=== PATIENT | female | born 1945 | race Caucasian/White ===

== ENCOUNTER 2017-03-22 06:19 | Inpatient (IN) | payer MEDICARE, BC ==
[2017-03-22] MEDS ORDERED: Ondansetron 4 MG/2 ML SDV IVPUSH ONE (06:50)
--- NOTE | 2017-03-22 06:57 | EDM.PDOC ---
<Yuriy Barone - Last Filed: 03/22/17 12:23> ED HPI GENERAL MEDICAL PROBLEM - General Chief Complaint: Gastrointestinal Problem Stated Complaint: STOMACH ISSUES DEHYDRATED Time Seen by Provider: 03/22/17 06:42 - Related Data Allergies Allergy/AdvReac Type Severity Reaction Status Date / Time No Known Allergies Allergy Verified 03/22/17 14:26 Home Meds: Home Meds Zolpidem [Ambien] 5 mg PO BEDTIME PRN 09/03/13 [History] predniSONE [Prednisone] 7.5 mg PO BEDTIME 03/18/14 [History] Gabapentin [Neurontin] 1,200 mg PO 22 09/14/15 [History] Gabapentin [Neurontin] 900 mg PO 1619 09/14/15 [History] Folic Acid 1 mg PO DAILY 03/22/17 [History] Methotrexate 12.5 mg PO WE 03/22/17 [History] Omeprazole 20 mg PO DAILY PRN 03/22/17 [History] oxyCODONE HCl/Acetaminophen [Endocet 10-325 mg Tablet] 1 tab PO Q6H PRN [History] Course - Vital Signs Last Recorded V/S: Last Vital Signs Temp 98.8 F 03/22/17 13:30 Pulse 89 03/22/17 17:54 Resp 18 03/22/17 13:30 BP 111/43 L 03/22/17 13:30 Pulse Ox 94 L 03/22/17 17:54 - Orders/Labs/Meds Orders: Active Orders 24 hr Category Date Time Status Patient Status [ADT] Routine ADT 03/22/17 13:45 Active Insert Stein Catheter [Insert Urinary Catheter] [OM.PC] Care 03/22/17 10:25 Ordered Stat Abdomen Pelvis wo Cont [CT] Stat Exams 03/22/17 08:09 Taken CULTURE BLOOD [BC] Stat Lab 03/22/17 11:50 Received CULTURE BLOOD [BC] Stat Lab 03/22/17 12:15 Received CULTURE STOOL + SHIGATOX [RM] Stat Lab 03/22/17 10:50 Received CULTURE URINE [RM] Stat Lab 03/22/17 10:30 Received HEPATITIS PANEL, ACUTE [REF] Stat Lab 03/22/17 06:58 Received NS + KCl 20mEq/L [Normal Saline with 20 mEq KCl] 1,000 Med 03/22/17 08:15 Active ml IV ASDIRECTED Blood Culture x2 Reflex Set [OM.PC] Stat Oth 03/22/17 11:23 Ordered Medication Orders Acetaminophen (Tylenol) 650 mg PO Q4H PRN PRN Reason: Pain Last Admin: 03/22/17 17:46 Dose: 650 mg Enoxaparin Sodium (Lovenox) 30 mg SUBCUT DAILY [facility] Folic Acid (Folic Acid) 1 mg PO DAILY [facility] Gabapentin (Neurontin) 1,200 mg PO BEDTIME@2200 [facility] Gabapentin (Neurontin) 900 mg PO BID@1600,1900 [facility] Hydromorphone HCl (Dilaudid) 0.5 mg IVPUSH Q4H PRN PRN Reason: Pain Potassium Chloride/Sodium Chloride (Normal Saline With 20 Meq Kcl) 1,000 mls @ 150 mls/hr IV ASDIRECTED [facility] Last Admin: 03/22/17 17:44 Dose: 150 mls/hr Infusion: 03/22/17 16:09 Dose: 150 mls/hr Admin: 03/22/17 09:28 Dose: 150 mls/hr Levofloxacin/Dextrose 750 mg/ (Premix) 150 mls @ 100 mls/hr IV Q48H [facility] Metronidazole 500 mg/ Premix 100 mls @ 100 mls/hr IV Q8H [facility] Methotrexate (Methotrexate) 12.5 mg PO Th@0900 [facility] Methylprednisolone Sodium Succinate (Solu-Medrol) 80 mg IVPUSH Q8H [facility] Last Admin: 03/22/17 15:57 Dose: 80 mg Ondansetron HCl (Zofran) 4 mg IVPUSH Q8H PRN PRN Reason: Nausea/Vomiting Oseltamivir Phosphate (Tamiflu) 30 mg PO BID [facility] Stop: 03/27/17 21:01 Pantoprazole Sodium (Protonix Iv) 40 mg IVPUSH Q12H [facility] Zolpidem Tartrate (Ambien) 5 mg PO BEDTIME PRN PRN Reason: Insomnia Labs: Laboratory Tests 03/22/17 03/22/17 03/22/17 Range/Units 06:58 06:58 10:30 WBC 15.66 H (3.98-10.04) K/mm3 RBC 4.84 (3.98-5.22) M/mm3 Hgb 14.5 (11.2-15.7) gm/L Hct 45.3 H (34.1-44.9) % MCV 93.6 (79.4-94.8) fl MCH 30.0 (25.6-32.2) pg MCHC 32.0 L (32.2-35.5) g/dl RDW Std Deviation 50.5 H (36.4-46.3) fL Plt Count 193 (182-369) K/mm3 MPV 10.8 (9.4-12.3) fl Neut % (Auto) 70.4 (34.0-71.1) % Lymph % (Auto) 19.0 L (19.3-51.7) % [place] % (Auto) 9.7 (4.7-12.5) % Eos % (Auto) 0.3 L (0.7-5.8) Baso % (Auto) 0.2 (0.1-1.2) % Neut # (Auto) 11.01 H (1.56-6.13) K/mm3 Lymph # (Auto) 2.98 (1.18-3.74) K/mm3 [place] # (Auto) 1.52 H (0.24-0.36) K/mm3 Eos # (Auto) 0.05 (0.04-0.36) K/mm3 Baso # (Auto) 0.03 (0.01-0.08) K/mm3 Manual Slide Review Normal smear Sodium 141 (136-145) mEq/L Potassium 3.0 L (3.5-5.1) mEq/L Chloride 104 (98-107) mEq/L Carbon Dioxide 23 (21-32) mEq/L Anion Gap 17.0 H (5-15) BUN 24 H (7-18) mg/dL Creatinine 1.6 H (0.55-1.02) mg/dL Est Cr Clr Drug Dosing 27.85 mL/min Estimated GFR (MDRD) 32 (>60) mL/min BUN/Creatinine Ratio 15.0 (14-18) Glucose 146 H (83-115) mg/dL Lactic Acid (0.4-2.0) mmol/L Calcium 8.4 L (8.5-10.1) mg/dL Magnesium 1.9 (1.8-2.4) mg/dl Total Bilirubin 0.8 (0.2-1.0) mg/dL AST 74 H (15-37) U/L ALT 31 (14-59) U/L Alkaline Phosphatase 74 (46-116) U/L Total Protein 6.9 (6.4-8.2) g/dl Albumin 3.1 L (3.4-5.0) g/dl Globulin 3.8 gm/dL Albumin/Globulin Ratio 0.8 L (1-2) Lipase 48 L (73-393) U/L Urine Color Yellow (Yellow) Urine Appearance Slt cloudy H (Clear) Urine pH 6.0 (5.0-8.0) Ur Specific [place] 1.020 (1.005-1.030) Urine Protein 2+ H (Negative) Urine Glucose (UA) Negative (Negative) Urine Ketones 1+ H (Negative) Urine Occult Blood 3+ H (Negative) Urine Nitrite Negative (Negative) Urine Bilirubin 1+ H (Negative) Urine Urobilinogen 0.2 (0.2-1.0) Ur Leukocyte Esterase 1+ H (Negative) Urine RBC 10-20 H (0-5) /hpf Urine WBC 5-10 H (0-5) /hpf Ur Epithelial Cells 0-5 (0-5) /hpf Urine Bacteria Moderate H (FEW) /hpf Urine Mucus Few (FEW) /hpf C.difficile 027-NAP1-B1 C. difficile Tox (PCR) 03/22/17 03/22/17 Range/Units 10:50 11:50 WBC (3.98-10.04) K/mm3 RBC (3.98-5.22) M/mm3 Hgb (11.2-15.7) gm/L Hct (34.1-44.9) % MCV (79.4-94.8) fl MCH (25.6-32.2) pg MCHC (32.2-35.5) g/dl RDW Std Deviation (36.4-46.3) fL Plt Count (182-369) K/mm3 MPV (9.4-12.3) fl Neut % (Auto) (34.0-71.1) % Lymph % (Auto) (19.3-51.7) % [place] % (Auto) (4.7-12.5) % Eos % (Auto) (0.7-5.8) Baso % (Auto) (0.1-1.2) % Neut # (Auto) (1.56-6.13) K/mm3 Lymph # (Auto) (1.18-3.74) K/mm3 [place] # (Auto) (0.24-0.36) K/mm3 Eos # (Auto) (0.04-0.36) K/mm3 Baso # (Auto) (0.01-0.08) K/mm3 Manual Slide Review Sodium (136-145) mEq/L Potassium (3.5-5.1) mEq/L Chloride (98-107) mEq/L Carbon Dioxide (21-32) mEq/L Anion Gap (5-15) BUN (7-18) mg/dL Creatinine (0.55-1.02) mg/dL Est Cr Clr Drug Dosing mL/min Estimated GFR (MDRD) (>60) mL/min BUN/Creatinine Ratio (14-18) Glucose (83-115) mg/dL Lactic Acid 1.1 (0.4-2.0) mmol/L Calcium (8.5-10.1) mg/dL Magnesium (1.8-2.4) mg/dl Total Bilirubin (0.2-1.0) mg/dL AST (15-37) U/L ALT (14-59) U/L Alkaline Phosphatase (46-116) U/L Total Protein (6.4-8.2) g/dl Albumin (3.4-5.0) g/dl Globulin gm/dL Albumin/Globulin Ratio (1-2) Lipase (73-393) U/L Urine Color (Yellow) Urine Appearance (Clear) Urine pH (5.0-8.0) Ur Specific [place] (1.005-1.030) Urine Protein (Negative) Urine Glucose (UA) (Negative) Urine Ketones (Negative) Urine Occult Blood (Negative) Urine Nitrite (Negative) Urine Bilirubin (Negative) Urine Urobilinogen (0.2-1.0) Ur Leukocyte Esterase (Negative) Urine RBC (0-5) /hpf Urine WBC (0-5) /hpf Ur Epithelial Cells (0-5) /hpf Urine Bacteria (FEW) /hpf Urine Mucus (FEW) /hpf C.difficile [id number]-NAP1-B1 Presumptive negative C. difficile Tox (PCR) Negative Meds: Medications Generic Name Dose Route Start Last Admin Trade Name Freq PRN Reason Stop Dose Admin Acetaminophen 650 mg 03/22/17 17:05 03/22/17 17:46 Tylenol PO 650 mg Q4H PRN Administration Pain Enoxaparin Sodium 30 mg 03/23/17 09:00 Lovenox SUBCUT DAILY [facility] Folic Acid 1 mg 03/23/17 09:00 Folic Acid PO DAILY [facility] Gabapentin 1,200 mg 03/22/17 22:00 Neurontin PO BEDTIME@2200 [facility] Gabapentin 900 mg 03/22/17 19:00 Neurontin PO BID@1600,1900 [facility] Hydromorphone HCl 0.5 mg 03/22/17 16:30 Dilaudid IVPUSH Q4H PRN Pain Potassium Chloride/Sodium Chloride 1,000 mls @ 150 mls/hr 03/22/17 08:15 06/07 17:44 Normal Saline With 20 Meq Kcl IV 150 mls/hr ASDIRECTED [facility] Administration Levofloxacin/Dextrose 750 mg/ 150 mls @ 100 mls/hr 03/24/17 13:00 Premix IV Q48H [facility] Metronidazole 500 mg/ Premix 100 mls @ 100 mls/hr 03/22/17 19:30 IV Q8H [facility] Methotrexate 12.5 mg 03/27/17 09:00 Methotrexate PO Th@0900 [facility] Methylprednisolone Sodium Succinate 80 mg 03/22/17 15:30 03/22/17 15:57 Solu-Medrol IVPUSH 80 mg Q8H [facility] Administration Ondansetron HCl 4 mg 03/22/17 16:31 Zofran IVPUSH Q8H PRN Nausea/Vomiting Oseltamivir Phosphate 30 mg 03/23/17 09:00 Tamiflu PO 03/27/17 21:01 BID [facility] Pantoprazole Sodium 40 mg 03/22/17 21:00 Protonix Iv IVPUSH Q12H [facility] Zolpidem Tartrate 5 mg 03/22/17 14:58 Ambien PO BEDTIME PRN Insomnia Discontinued Medications Generic Name Dose Route Start Last Admin Trade Name Asafq PRN Reason Stop Dose Admin Acetaminophen 975 mg 03/22/17 08:22 03/22/17 08:26 Tylenol PO 03/22/17 08:23 975 mg NOW ONE Administration Diatrizoate Meglum/Diatrizoate Sod 90 ml 03/22/17 09:50 03/22/17 10:00 Gastrografin 37% PO 03/22/17 09:51 90 ml ONETIME ONE Administration Hydromorphone HCl 1 mg 03/22/17 07:35 03/22/17 07:42 Dilaudid IVPUSH 03/22/17 07:36 1 mg ONETIME ONE Administration Sodium Chloride 1,000 mls @ 500 mls/hr 03/22/17 07:00 03/22/17 07:09 Normal Saline IV 500 mls/hr ASDIRECTED [facility] Administration Levofloxacin/Dextrose 750 mg/ 150 mls @ 100 mls/hr 03/22/17 11:24 03/22/17 13 :20 Premix IV 03/22/17 12:53 100 mls/hr ONETIME ONE Administration Metronidazole 500 mg/ Premix 100 mls @ 100 mls/hr 03/22/17 11:24 03/22/17 12: 00 IV 03/22/17 12:23 100 mls/hr ONETIME ONE Administration Sodium Chloride 1,000 mls @ 1,000 mls/hr 03/22/17 12:04 03/22/17 12:25 Normal Saline IV 03/22/17 13:03 1,000 mls/hr ONETIME ONE Administration Methotrexate 12.5 mg 03/26/17 14:58 Methotrexate PO We@0900 [facility] Ondansetron HCl 4 mg 03/22/17 06:50 03/22/17 07:09 Zofran IVPUSH 03/22/17 06:51 4 mg ONETIME ONE Administration Oseltamivir Phosphate 75 mg 03/22/17 11:24 03/22/17 11:38 Tamiflu PO 03/22/17 11:25 75 mg ONETIME ONE Administration - Re-Assessments/Exams Free Text/Narrative Re-Assessment/Exam: 03/22/17 11:[address] Dukes. The patient had abdominal pain and joint pain. I ordered dilaudid 1mg IV. Her WBC came back elevated at 15.66. She had that abdominal pain so I ordered a CT of her abdomen and pelvis. Her creatinine was elevated at 1.6 so I did not use IV contrast. Her K was low at 3.0. I switched her fluid to NS with 20meq of KCl. Her anion gap was elevated at 17. Her glucose was elevated at 146. Her UA shows a UTI. I will get urine cultures. I also ordered an influenza because her temp went up. She came back positive for both influenza A and B. I will send off a sample to the [facility]. Her CT shows changes of colitis of the sigmoid level. Diverticulitis is not strongly suspected but not entirely excludable on the basis of this appearance. She has a history of diverticulitis. I feel this is a possibility. 03/22/17 12:05 I feel she is septic. I ordered lactic acid and another 1L bolus that should bring her up to the 30mLs/kg recommended for sepsis. Her c-dif is negative. I feel she needs to be admitted to the hospital. I called Dr Cota and she agreed to the admission. She has inluenza A and B, sepsis, UTI, dehydration, renal insufficiency, and hypokalemia. I have ordered levaquin 750mg IV, flagyl 500mg IV, and tamiflu. Her BP did go down. I did order another fluid bolus and my nurse started another IV. Departure - Departure Time of Disposition: 12:30 Disposition: Admitted As Inpatient 66 Condition: Serious Clinical Impression: UTI, Urinary tract infectious disease, Diverticulitis, Hypokalemia, Rheumatoid arthritis, Diarrhea, Dehydration, Renal insufficiency Vomiting Qualifiers: Vomiting type: unspecified Vomiting Intractability: non-intractable Nausea presence: with nausea Qualified Code(s): R11.2 - Nausea with vomiting, unspecified Sepsis Qualifiers: Sepsis type: sepsis due to unspecified organism Qualified Code(s): A41.9 - Sepsis, unspecified organism - Discharge Information - My Orders Last 24 Hours: My Active Orders 03/22/17 06:58 HEPATITIS PANEL, ACUTE [REF] Stat - Assessment/Plan Last 24 Hours: My Active Orders 03/22/17 06:58 HEPATITIS PANEL, ACUTE [REF] Stat <Yuriy Dukes - Last Filed: 03/22/17 19:00> ED HPI GENERAL MEDICAL PROBLEM - General Source of Information: Reports: Patient, Family History Limitations: Reports: No Limitations - History of Present Illness INITIAL COMMENTS - FREE TEXT/NARRATIVE: This is a 71-year-old female. She just returned from a 2 week vacation in [facility] in [facility] on Friday. She had onset Friday morning with nausea vomiting and diarrhea. She does have some mild abdominal cramps with the nausea and vomiting and diarrhea. She states she can't keep much down and she's not been drinking much fluids. Don't know when she last urinated but she did have a last bowel movement prior to coming to the ER. She denies any blood in the stool. They did note that she has what appears to be a hemorrhoid with his last diarrhea stool that the noticed when he helped her clean herself. She's had no fever no chills no cough no congestion. She does have a history of severe rheumatoid arthritis and with these symptoms her pain in her joints has gotten much worse. She is alert and talkative and there is no active vomiting in the ER. The tells me that he did not have any raw food when they're in [place] such as sushi that they did have seafood that was cooked. Past Medical History HEENT History: Reports: Cataract, Impaired Vision Respiratory History: Reports: Other (See Below) Other Respiratory History: Pneumonia Gastrointestinal History: Reports: Cholelithiasis Genitourinary History: Reports: Acute Renal Failure, Renal Calculus [employer] History: Reports: , Spontaneous Musculoskeletal History: Reports: RA Other Musculoskeletal History: Dislocated thumb Neurological History: Reports: Neuropathy, Peripheral - Past Surgical History HEENT Surgical History: Reports: Cataract Surgery GI Surgical History: Reports: Cholecystectomy, Polypectomy Female Surgical History: Reports: Ureteral Stent Social & Family History - Family History Family Medical History: Noncontributory - Tobacco Use Smoking Status *Q: Never Smoker Second Hand Smoke Exposure: No - Alcohol Use Days Per Week of Alcohol Use: 0 - Recreational Drug Use Recreational Drug Use: No - Living Situation & Occupation Living situation: Reports: , Other Occupation: Employed ED ROS GENERAL - Review of Systems Review Of Systems: See Below Constitutional: Denies: Fever, Chills HEENT: Reports: No Symptoms Respiratory: Denies: Shortness of Breath, Wheezing, Cough Cardiovascular: Denies: Chest Pain Endocrine: Reports: No Symptoms GI/Abdominal: Reports: Abdominal Pain, Diarrhea, Decreased Appetite, Nausea, Vomiting. Denies: Black Stool, Bloody Stool : Reports: Other (Unknown when she had her last urination) Musculoskeletal: Reports: Other (Patient has chronic joint pain especially at the wrist due to rheumatoid arthritis now with a flareup from her illness) Skin: Reports: No Symptoms Neurological: Reports: Weakness Psychiatric: Reports: No Symptoms Hematologic/Lymphatic: Reports: No Symptoms ED EXAM, GI/ABD - Physical Exam Exam: See Below Exam Limited By: No Limitations General Appearance: Alert, WD/WN, No Apparent Distress Eyes: Bilateral: Normal Appearance Ears: Normal External Exam, Normal Canal, Normal TMs Nose: Normal Inspection Throat/Mouth: Normal Inspection, Normal Lips, Normal Oropharynx, Normal Voice, No Airway Compromise, Other (Mucous membranes appear to be dry) Head: Normocephalic Neck: Other (Limited range of motion of her neck secondary to her arthritis) Respiratory/Chest: No Respiratory Distress, Lungs Clear, Normal Breath Sounds Cardiovascular: Regular Rate, Rhythm, No Edema, No Murmur GI/Abdominal Exam: Soft, Other (She has generalized soreness of the entire abdomen but she has no masses there is no rebound or guarding noted, her soreness does not localize to any quadrant of her abdomen) Rectal (Female) Exam: Other (Examination of the rectum with the nurse does show a hemorrhoid that appears to be thrombosed but there is no obvious bleeding and no rectal exam was done) Back Exam: Other (Limited range of motion of her back secondary to her arthritis ) Extremities: Other (She tends to be very careful with her upper extremity movement due to the rheumatoid arthritis in her wrist and her hands, the skin turgor is very poor, her lower extremities also have very poor skin turgor noted ) Neurological: Alert, Oriented, Other (She is at times slow to respond though she is alert) Psychiatric: Flat Affect Skin Exam: Warm, Dry Course - Orders/Labs/Meds Labs: Laboratory Tests 03/22/17 03/22/17 03/22/17 Range/Units 06:58 06:58 10:30 WBC 15.66 H (3.98-10.04) K/mm3 RBC 4.84 (3.98-5.22) M/mm3 Hgb 14.5 (11.2-15.7) gm/L Hct 45.3 H (34.1-44.9) % MCV 93.6 (79.4-94.8) fl MCH 30.0 (25.6-32.2) pg MCHC 32.0 L (32.2-35.5) g/dl RDW Std Deviation 50.5 H (36.4-46.3) fL Plt Count 193 (182-369) K/mm3 MPV 10.8 (9.4-12.3) fl Neut % (Auto) 70.4 (34.0-71.1) % Lymph % (Auto) 19.0 L (19.3-51.7) % [place] % (Auto) 9.7 (4.7-12.5) % Eos % (Auto) 0.3 L (0.7-5.8) Baso % (Auto) 0.2 (0.1-1.2) % Neut # (Auto) 11.01 H (1.56-6.13) K/mm3 Lymph # (Auto) 2.98 (1.18-3.74) K/mm3 [place] # (Auto) 1.52 H (0.24-0.36) K/mm3 Eos # (Auto) 0.05 (0.04-0.36) K/mm3 Baso # (Auto) 0.03 (0.01-0.08) K/mm3 Manual Slide Review Normal smear Sodium 141 (136-145) mEq/L Potassium 3.0 L (3.5-5.1) mEq/L Chloride 104 (98-107) mEq/L Carbon Dioxide 23 (21-32) mEq/L Anion Gap 17.0 H (5-15) BUN 24 H (7-18) mg/dL Creatinine 1.6 H (0.55-1.02) mg/dL Est Cr Clr Drug Dosing 27.85 mL/min Estimated GFR (MDRD) 32 (>60) mL/min BUN/Creatinine Ratio 15.0 (14-18) Glucose 146 H (83-115) mg/dL Lactic Acid (0.4-2.0) mmol/L Calcium 8.4 L (8.5-10.1) mg/dL Magnesium 1.9 (1.8-2.4) mg/dl Total Bilirubin 0.8 (0.2-1.0) mg/dL AST 74 H (15-37) U/L ALT 31 (14-59) U/L Alkaline Phosphatase 74 (46-116) U/L Total Protein 6.9 (6.4-8.2) g/dl Albumin 3.1 L (3.4-5.0) g/dl Globulin 3.8 gm/dL Albumin/Globulin Ratio 0.8 L (1-2) Lipase 48 L (73-393) U/L Urine Color Yellow (Yellow) Urine Appearance Slt cloudy H (Clear) Urine pH 6.0 (5.0-8.0) Ur Specific [place] 1.020 (1.005-1.030) Urine Protein 2+ H (Negative) Urine Glucose (UA) Negative (Negative) Urine Ketones 1+ H (Negative) Urine Occult Blood 3+ H (Negative) Urine Nitrite Negative (Negative) Urine Bilirubin 1+ H (Negative) Urine Urobilinogen 0.2 (0.2-1.0) Ur Leukocyte Esterase 1+ H (Negative) Urine RBC 10-20 H (0-5) /hpf Urine WBC 5-10 H (0-5) /hpf Ur Epithelial Cells 0-5 (0-5) /hpf Urine Bacteria Moderate H (FEW) /hpf Urine Mucus Few (FEW) /hpf C.difficile 027-NAP1-B1 C. difficile Tox (PCR) 03/22/17 03/22/17 Range/Units 10:50 11:50 WBC (3.98-10.04) K/mm3 RBC (3.98-5.22) M/mm3 Hgb (11.2-15.7) gm/L Hct (34.1-44.9) % MCV (79.4-94.8) fl MCH (25.6-32.2) pg MCHC (32.2-35.5) g/dl RDW Std Deviation (36.4-46.3) fL Plt Count (182-369) K/mm3 MPV (9.4-12.3) fl Neut % (Auto) (34.0-71.1) % Lymph % (Auto) (19.3-51.7) % [place] % (Auto) (4.7-12.5) % Eos % (Auto) (0.7-5.8) Baso % (Auto) (0.1-1.2) % Neut # (Auto) (1.56-6.13) K/mm3 Lymph # (Auto) (1.18-3.74) K/mm3 [place] # (Auto) (0.24-0.36) K/mm3 Eos # (Auto) (0.04-0.36) K/mm3 Baso # (Auto) (0.01-0.08) K/mm3 Manual Slide Review Sodium (136-145) mEq/L Potassium (3.5-5.1) mEq/L Chloride (98-107) mEq/L Carbon Dioxide (21-32) mEq/L Anion Gap (5-15) BUN (7-18) mg/dL Creatinine (0.55-1.02) mg/dL Est Cr Clr Drug Dosing mL/min Estimated GFR (MDRD) (>60) mL/min BUN/Creatinine Ratio (14-18) Glucose (83-115) mg/dL Lactic Acid 1.1 (0.4-2.0) mmol/L Calcium (8.5-10.1) mg/dL Magnesium (1.8-2.4) mg/dl Total Bilirubin (0.2-1.0) mg/dL AST (15-37) U/L ALT (14-59) U/L Alkaline Phosphatase (46-116) U/L Total Protein (6.4-8.2) g/dl Albumin (3.4-5.0) g/dl Globulin gm/dL Albumin/Globulin Ratio (1-2) Lipase (73-393) U/L Urine Color (Yellow) Urine Appearance (Clear) Urine pH (5.0-8.0) Ur Specific [place] (1.005-1.030) Urine Protein (Negative) Urine Glucose (UA) (Negative) Urine Ketones (Negative) Urine Occult Blood (Negative) Urine Nitrite (Negative) Urine Bilirubin (Negative) Urine Urobilinogen (0.2-1.0) Ur Leukocyte Esterase (Negative) Urine RBC (0-5) /hpf Urine WBC (0-5) /hpf Ur Epithelial Cells (0-5) /hpf Urine Bacteria (FEW) /hpf Urine Mucus (FEW) /hpf C.difficile 027-NAP1-B1 Presumptive negative C. difficile Tox (PCR) Negative - Re-Assessments/Exams Free Text/Narrative Re-Assessment/Exam: 03/22/17 07:00 I have turned the patient care over to Dr. Barone.
[2017-03-22] MEDS ORDERED: Sodium Chloride 0.9% 1,000 ML IV SCH (07:00)
[2017-03-22] MEDS ORDERED: HYDROmorphone 1 MG/ML Syringe IVPUSH ONE (07:35)
[2017-03-22] MEDS ORDERED: Acetaminophen 325 MG Tab PO ONE (08:22)
[2017-03-22] MEDS: NS + KCl 20mEq/L 1,000 ML IV SCH ×2 (09:28→17:44)
[2017-03-22] MEDS ORDERED: Diatrizoate Meglumine/Diatrizoate Sodium 37% 120 ML Bottle PO ONE (09:50)
[2017-03-22] MEDS ORDERED: metroNIDAZOLE/Normal Saline 500 MG in Premix Bag 1 BAG IV ONE (11:24)
[2017-03-22] MEDS ORDERED: Levofloxacin/Dextrose 5%-Water 750 MG in Premix Bag 1 BAG IV ONE (11:24)
[2017-03-22] MEDS ORDERED: Oseltamivir 75 MG Cap PO ONE (11:24)
[2017-03-22] MEDS ORDERED: Sodium Chloride 0.9% 1,000 ML IV ONE (12:04)
--- NOTE | 2017-03-22 14:58 | PCM.HP ---
H&P History of Present Illness - General Date of Service: 03/22/17 Admit Problem/Dx: Admission Diagnosis/Problem Admission Diagnosis/Problem Diarrhea Source of Information: Patient, Family, Provider History Limitations: Reports: No Limitations - History of Present Illness Initial Comments - Free Text/Narative: 71 year old female with recent travel to [facility], there she ate cooked seafood. She has felt unwell for 1-2 weeks. The patient has experienced N/V without association of food ingestion. She has had abdominal pain, and has had less frequent stools. A CT of abdomen/pelvis is somewhat suggestive of colitis, additionally her UA is consistent with a UTI. An infectious work up documented influenza A/B positive on a Flu screen taken in the ED. Onset of Symptoms: Reports: Unknown/Unsure Duration of Symptoms: Reports: Week(s): Location: Reports: Abdomen, Generalized Severity: Moderate Improves with: Reports: Medication Worsens with: Reports: Eating Associated Symptoms: Reports: Loss of Appetite, Malaise, Nausea/Vomiting, Weakness - Related Data Allergies/Adverse Reactions: Allergies Allergy/AdvReac Type Severity Reaction Status Date / Time No Known Allergies Allergy Verified 03/22/17 14:26 Home Medications: Home Meds Zolpidem [Ambien] 5 mg PO BEDTIME PRN 09/03/13 [History] predniSONE [Prednisone] 7.5 mg PO BEDTIME 03/18/14 [History] Gabapentin [Neurontin] 1,200 mg PO 22 09/14/15 [History] Gabapentin [Neurontin] 900 mg PO 1619 09/14/15 [History] Folic Acid 1 mg PO DAILY 03/22/17 [History] Methotrexate 12.5 mg PO WE 03/22/17 [History] Omeprazole 20 mg PO DAILY PRN 03/22/17 [History] oxyCODONE HCl/Acetaminophen [Endocet 10-325 mg Tablet] 1 tab PO Q6H PRN [History] Past Medical History HEENT History: Reports: Impaired Vision, Other (See Below) Other HEENT History: wears glasses Respiratory History: Reports: Other (See Below) Other Respiratory History: pneumonia Gastrointestinal History: Reports: Cholelithiasis, Diverticulosis, GERD Genitourinary History: Reports: Renal Calculus 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: , 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 Musculoskeletal History: Reports: RA Other Musculoskeletal History: Dislocated thumb Neurological History: Reports: Neuropathy, Peripheral Hematologic History: Reports: B12 Deficiency - Infectious Disease History Infectious Disease History: Reports: Influenza - Past Surgical History HEENT Surgical History: Reports: Cataract Surgery Respiratory Surgical History: Reports: None GI Surgical History: Reports: Cholecystectomy, Colonoscopy, EGD, Polypectomy Female Surgical History: Reports: Ureteral Stent Neurological Surgical History: Reports: None Musculoskeletal Surgical History: Reports: None Dermatological Surgical History: Reports: None Social & Family History - Family History Family Medical History: Noncontributory - Tobacco Use Smoking Status *Q: Never Smoker Second Hand Smoke Exposure: No - Caffeine Use Caffeine Use: Reports: Soda, Tea - Alcohol Use Days Per Week of Alcohol Use: 0 - Recreational Drug Use Recreational Drug Use: No - Living Situation & Occupation Living situation: Reports: , Other Occupation: Employed H&P Review of Systems - Review of Systems: Review Of Systems: See Below General: Reports: Malaise, Weakness, Fatigue HEENT: Reports: No Symptoms Pulmonary: Reports: No Symptoms Cardiovascular: Reports: No Symptoms Gastrointestinal: Reports: Abdominal Pain, Nausea Genitourinary: Reports: No Symptoms Skin: Reports: No Symptoms Psychiatric: Reports: No Symptoms Neurological: Reports: No Symptoms Hematologic/Lymphatic: Reports: No Symptoms Immunologic: Reports: No Symptoms Exam - Exam Exam: See Below - Vital Signs Vital Signs: Last Vital Signs Temp 36.9 C 03/22/17 13:15 Pulse 94 03/22/17 13:15 Resp 20 03/22/17 13:15 BP 111/43 L 03/22/17 13:15 Pulse Ox 99 03/22/17 13:15 Weight: 60.963 kg - Exam Quality Assessment: DVT Prophylaxis General: Alert, Oriented, Mild Distress HEENT: Conjunctiva Clear, Nares Patent, Normal Nasal Septum, Pupils Equal, Pupils Reactive, PERRLA Neck: Trachea Midline Lungs: Normal Respiratory Effort Cardiovascular: Regular Rate, Tachycardia GI/Abdominal Exam: Normal Bowel Sounds, Soft, No Organomegaly, Distended, Guarding (no), Rigid (no), Tender (Female) Exam: Deferred Rectal (Female) Exam: Deferred Back Exam: Normal Inspection Extremities: Normal Inspection Skin: Warm Neurological: Cranial Nerves Intact, Normal Speech Neuro Extensive - Mental Status: Alert, Oriented x3 Neuro Extensive - Motor, Sensory, Reflexes: CN II-XII Intact Psychiatric: Alert, Depressed - Patient Data Result Diagrams: 03/22/17 06:58 03/22/17 06:58 *Q Meaningful Use (ADM) - VTE *Q VTE Criteria *Q: - Stroke *Q Stroke Criteria *Q: - AMI *Q AMI Criteria *Q: - Problem List (1) Dehydration SNOMED Code(s): 27594967 ICD Code: E86.0 - DEHYDRATION Status: Acute Current Visit: Yes (2) Diarrhea SNOMED Code(s): 79753990 ICD Code: R19.7 - DIARRHEA, UNSPECIFIED Status: Acute Current Visit: Yes (3) Diverticulitis SNOMED Code(s): 721356427 ICD Code: K57.92 - DVTRCLI OF INTEST, PART UNSP, W/O PERF OR ABSCESS W/O BLEED Status: Acute Current Visit: Yes (4) Hypokalemia SNOMED Code(s): 24250339 ICD Code: E87.6 - HYPOKALEMIA Status: Acute Current Visit: Yes (5) Renal insufficiency SNOMED Code(s): 277536998 ICD Code: N28.9 - DISORDER OF KIDNEY AND URETER, UNSPECIFIED Status: Acute Current Visit: Yes (6) Rheumatoid arthritis SNOMED Code(s): 18383317 ICD Code: M06.9 - RHEUMATOID ARTHRITIS, UNSPECIFIED Status: Acute Current Visit: Yes Onset Date: 03/18/14 (7) UTI, Urinary tract infectious disease SNOMED Code(s): 62788538 ICD Code: N39.0 - URINARY TRACT INFECTION, SITE NOT SPECIFIED Status: Acute Current Visit: Yes Problem List Initiated/Reviewed/Updated: Yes Orders Last 24hrs: Medication Orders Sodium Chloride (Normal Saline) 1,000 mls @ 500 mls/hr IV ASDIRECTED [facility] Last Admin: 03/22/17 07:09 Dose: 500 mls/hr Potassium Chloride/Sodium Chloride (Normal Saline With 20 Meq Kcl) 1,000 mls @ 150 mls/hr IV ASDIRECTED [facility] Last Admin: 03/22/17 09:28 Dose: 150 mls/hr Assessment/Plan Comment:: Impression: Recent travel with exposure to seafood Query Diverticulitis Acute on chronic renal insufficiency AUTI Electrolyte abnormalities Rheumatoid arth on MTX/prednisone Influenza A/B Plan: MS tele Resp isolation IV steroids IVF with KCl Continue Levoquin/Flagyl/Tamiflu NPO except ice chips and meds Analgesics Broaden infectious work up Daily Labs Home meds SW/.PT/OT DVT/GI prophylaxis
[2017-03-22] MEDS: methylPREDNISolone Sodium Succinate 125 MG/2 ML SDV IVPUSH SCH ×2 (15:57→22:34)
[2017-03-22] MEDS ORDERED: HYDROmorphone 0.5 MG/0.5 ML Syringe IVPUSH PRN (16:30)
[2017-03-22] MEDS ORDERED: Ondansetron 4 MG/2 ML SDV IVPUSH PRN (16:31)
[2017-03-22] MEDS: Acetaminophen 325 MG Tab PO PRN ×2 (17:46→22:38)
[2017-03-22] MEDS: Gabapentin 300 MG Cap PO SCH (19:19)
[2017-03-22] MEDS: metroNIDAZOLE/Normal Saline 500 MG in Premix Bag 1 BAG IV SCH (19:20)
[2017-03-22] MEDS: Gabapentin 600 MG Tab PO SCH (22:20)
[2017-03-22] MEDS: Pantoprazole 40 MG Vial IVPUSH SCH (22:27)
[2017-03-23] MEDS: NS + KCl 20mEq/L 1,000 ML IV SCH ×3 (00:23→19:01)
[2017-03-23] MEDS: metroNIDAZOLE/Normal Saline 500 MG in Premix Bag 1 BAG IV SCH ×3 (03:52→18:59)
[2017-03-23] MEDS: methylPREDNISolone Sodium Succinate 125 MG/2 ML SDV IVPUSH SCH ×3 (06:43→22:48)
[2017-03-23] MEDS ORDERED: Enoxaparin 30 MG/0.3 ML Syringe SUBCUT SCH (09:00)
[2017-03-23] MEDS: Pantoprazole 40 MG Vial IVPUSH SCH ×2 (09:54→22:40)
[2017-03-23] MEDS: Oseltamivir 30 MG Cap PO SCH ×2 (09:57→22:44)
[2017-03-23] MEDS: Acetaminophen 325 MG Tab PO PRN (09:58)
[2017-03-23] MEDS: Folic Acid 1 MG Tab PO SCH (09:58)
--- NOTE | 2017-03-23 13:58 | PCM.PN ---
- General Info Date of Service: 03/23/17 Subjective Update: some ba dpain no n/v no f/c Functional Status: Reports: Pain Controlled - Review of Systems General: Reports: No Symptoms HEENT: Reports: No Symptoms Pulmonary: Reports: No Symptoms Cardiovascular: Reports: No Symptoms Gastrointestinal: Reports: No Symptoms Genitourinary: Reports: No Symptoms Musculoskeletal: Reports: No Symptoms Skin: Reports: No Symptoms Neurological: Reports: No Symptoms Psychiatric: Reports: No Symptoms - Patient Data Vitals - Most Recent: Last Vital Signs Temp 97.3 F 03/23/17 12:10 Pulse 74 03/23/17 12:10 Resp 18 03/23/17 12:10 BP 144/87 H 03/23/17 12:10 Pulse Ox 95 03/23/17 12:10 Weight - Most Recent: 135 lb 14.4 oz I&O - Last 24 Hours: Intake & Output 03/22/17 03/23/17 03/23/17 22:59 06:59 14:59 Intake Total 1616 Output Total 1100 Balance 516 Lab Results Last 24 Hours: Laboratory Results - last 24 hr 03/23/17 03/23/17 Range/Units 06:34 06:34 WBC 14.07 H (3.98-10.04) K/mm3 RBC 3.55 L (3.98-5.22) M/mm3 Hgb 10.8 L (11.2-15.7) gm/L Hct 33.9 L (34.1-44.9) % MCV 95.5 H (79.4-94.8) fl MCH 30.4 (25.6-32.2) pg MCHC 31.9 L (32.2-35.5) g/dl RDW Std Deviation 48.1 H (36.4-46.3) fL Plt Count 138 L (182-369) K/mm3 MPV 10.7 (9.4-12.3) fl Neut % (Auto) 94.7 H (34.0-71.1) % Lymph % (Auto) 3.8 L (19.3-51.7) % [place] % (Auto) 1.1 L (4.7-12.5) % Eos % (Auto) 0.1 L (0.7-5.8) Baso % (Auto) 0.0 L (0.1-1.2) % Neut # (Auto) 13.32 H (1.56-6.13) K/mm3 Lymph # (Auto) 0.54 L (1.18-3.74) K/mm3 [place] # (Auto) 0.16 L (0.24-0.36) K/mm3 Eos # (Auto) 0.01 L (0.04-0.36) K/mm3 Baso # (Auto) 0.00 L (0.01-0.08) K/mm3 Manual Slide Review Normal smear Sodium 145 (136-145) mEq/L Potassium 4.1 (3.5-5.1) mEq/L Chloride 114 H (98-107) mEq/L Carbon Dioxide 17 L (21-32) mEq/L Anion Gap 18.1 H (5-15) BUN 18 (7-18) mg/dL Creatinine 0.9 (0.55-1.02) mg/dL Est Cr Clr Drug Dosing 49.51 mL/min Estimated GFR (MDRD) > 60 (>60) mL/min BUN/Creatinine Ratio 20.0 H (14-18) Glucose 146 H (83-115) mg/dL Calcium 7.8 L (8.5-10.1) mg/dL Magnesium 1.7 L (1.8-2.4) mg/dl C-Reactive Protein 31.7 H* (<1.0) mg/dL Mycoplasma pneumon IgM Negative (NEGATIVE) Med Orders - Current: Current Medications Acetaminophen (Tylenol) 650 mg PO Q4H PRN PRN Reason: Pain Last Admin: 03/23/17 09:58 Dose: 650 mg Enoxaparin Sodium (Lovenox) 40 mg SUBCUT DAILY [facility] Folic Acid (Folic Acid) 1 mg PO DAILY [facility] Last Admin: 03/23/17 09:58 Dose: 1 mg Gabapentin (Neurontin) 1,200 mg PO BEDTIME@2200 [facility] Last Admin: 03/22/17 22:20 Dose: 1,200 mg Gabapentin (Neurontin) 900 mg PO BID@1600,1900 [facility] Last Admin: 03/22/17 19:19 Dose: 900 mg Hydromorphone HCl (Dilaudid) 0.5 mg IVPUSH Q4H PRN PRN Reason: Pain Levofloxacin/Dextrose 750 mg/ (Premix) 150 mls @ 100 mls/hr IV Q48H [facility] Metronidazole 500 mg/ Premix 100 mls @ 100 mls/hr IV Q8H [facility] Last Admin: 03/23/17 10:49 Dose: 100 mls/hr Potassium Chloride/Sodium Chloride (Normal Saline With 20 Meq Kcl) 1,000 mls @ 75 mls/hr IV ASDIRECTED [facility] Methotrexate (Methotrexate) 12.5 mg PO Th@0900 [facility] Methylprednisolone Sodium Succinate (Solu-Medrol) 80 mg IVPUSH Q8H [facility] Last Admin: 03/23/17 06:43 Dose: 80 mg Ondansetron HCl (Zofran) 4 mg IVPUSH Q8H PRN PRN Reason: Nausea/Vomiting Oseltamivir Phosphate (Tamiflu) 30 mg PO BID [facility] Stop: 03/27/17 21:01 Last Admin: 03/23/17 09:57 Dose: 30 mg Pantoprazole Sodium (Protonix Iv) 40 mg IVPUSH Q12H [facility] Last Admin: 03/23/17 09:54 Dose: 40 mg Zolpidem Tartrate (Ambien) 5 mg PO BEDTIME PRN PRN Reason: Insomnia Discontinued Medications Acetaminophen (Tylenol) 975 mg PO NOW ONE Stop: 03/22/17 08:23 Last Admin: 03/22/17 08:26 Dose: 975 mg Diatrizoate Meglum/Diatrizoate Sod (Gastrografin 37%) 90 ml PO ONETIME ONE Stop: 03/22/17 09:51 Last Admin: 03/22/17 10:00 Dose: 90 ml Enoxaparin Sodium (Lovenox) 30 mg SUBCUT DAILY [facility] Last Admin: 03/23/17 09:57 Dose: 30 mg Hydromorphone HCl (Dilaudid) 1 mg IVPUSH ONETIME ONE Stop: 03/22/17 07:36 Last Admin: 03/22/17 07:42 Dose: 1 mg Sodium Chloride (Normal Saline) 1,000 mls @ 500 mls/hr IV ASDIRECTED [facility] Last Admin: 03/22/17 07:09 Dose: 500 mls/hr Potassium Chloride/Sodium Chloride (Normal Saline With 20 Meq Kcl) 1,000 mls @ 150 mls/hr IV ASDIRECTED [facility] Last Admin: 03/23/17 08:37 Dose: 150 mls/hr Levofloxacin/Dextrose 750 mg/ (Premix) 150 mls @ 100 mls/hr IV ONETIME ONE Stop: 03/22/17 12:53 Last Admin: 03/22/17 13:20 Dose: 100 mls/hr Metronidazole 500 mg/ Premix 100 mls @ 100 mls/hr IV ONETIME ONE Stop: 03/22/17 12:23 Last Admin: 03/22/17 12:00 Dose: 100 mls/hr Sodium Chloride (Normal Saline) 1,000 mls @ 1,000 mls/hr IV ONETIME ONE Stop: 03/22/17 13:03 Last Admin: 03/22/17 12:25 Dose: 1,000 mls/hr Methotrexate (Methotrexate) 12.5 mg PO We@0900 [facility] Ondansetron HCl (Zofran) 4 mg IVPUSH ONETIME ONE Stop: 03/22/17 06:51 Last Admin: 03/22/17 07:09 Dose: 4 mg Oseltamivir Phosphate (Tamiflu) 75 mg PO ONETIME ONE Stop: 03/22/17 11:25 Last Admin: 03/22/17 11:38 Dose: 75 mg - Exam General: Alert, Oriented HEENT: Pupils Equal, Pupils Reactive, EOMI, Mucous Membr. Moist/[place] Neck: Supple Lungs: Clear to Auscultation, Normal Respiratory Effort Cardiovascular: Regular Rate, Regular Rhythm GI/Abdominal Exam: Normal Bowel Sounds, Soft, No Organomegaly, No Distention, No Abnormal Bruit, No Mass, Pelvis Stable, Tender (LLQ) Extremities: Normal Inspection, Normal Range of Motion, Non-Tender, No Pedal Edema, Normal Capillary Refill - Problem List Review Problem List Initiated/Reviewed/Updated: Yes - My Orders Last 24 Hours: My Active Orders 03/23/17 12:00 NS + KCl 20mEq/L [Normal Saline with 20 mEq KCl] 1,000 ml IV ASDIRECTED 03/23/17 Dinner Clear Liquid Diet [DIET] - Plan Plan:: Impression: INFLUNZA ACUTE Diverticulitis Acute on chronic renal insufficiency UTI Electrolyte abnormalities Rheumatoid arth on MTX/prednisone Influenza A/B Plan: CONT ABX CONT TAMIFLU URINE CULTURE PENDING ADVANCE DIET TOLERATED IVF, DECREASE
[2017-03-23] MEDS: Gabapentin 300 MG Cap PO SCH ×2 (16:26→18:58)
[2017-03-23] MEDS: Zolpidem 5 MG Tab PO PRN (22:43)
[2017-03-23] MEDS: Gabapentin 600 MG Tab PO SCH (22:43)
[2017-03-24] MEDS: metroNIDAZOLE/Normal Saline 500 MG in Premix Bag 1 BAG IV SCH ×3 (03:36→21:54)
[2017-03-24] MEDS: methylPREDNISolone Sodium Succinate 125 MG/2 ML SDV IVPUSH SCH (07:08)
--- NOTE | 2017-03-24 07:26 | CT ---
CT abdomen and pelvis Technique: Multiple axial sections were obtained from above the dome of the diaphragm inferiorly through the pubic symphysis. Oral contrast has been given. Intravenous contrast not utilized. Comparison: Previous abdomen and pelvis CT exam of 09/08/13. Findings: Slight atelectasis is seen within both lung bases as well as likely mild fibrosis. Liver shows mild fatty infiltration. No focal abnormality is appreciated within the liver. Spleen appears within normal limits. Pancreas is within normal limits. Gallbladder not visualized presumably from prior cholecystectomy as surgical clips are present. Adrenal glands show no nodule. Small to moderate sized hiatal hernia is seen with reflux of contrast into the distal esophagus. Aorta shows atherosclerotic change which continues into the iliac vessels. Nonobstructing calculus is seen within the inferior right kidney measuring approximately 1.7 cm in length. This right renal calculus is an interval change from prior exam. No hydronephrosis is seen of either kidney. No ureteral stone is seen within either ureter. No mesenteric abnormalities are seen. Bowel wall thickening is seen within the sigmoid colon with mild surrounding inflammatory change. These findings are suspicious for a mild colitis. Findings do not appear focal enough to indicate definite diverticulitis. Appendix not visualized with certainty. Small amount of free fluid is seen within the pelvis most likely reactive from the presumed colitis. Bone window settings were reviewed which appear within normal limits for the patient's age. Impression: 1. Bowel wall thickening and slight inflammatory change around the sigmoid colon suspicious for focal colitis. 2. Small amount of fluid within the pelvis likely reactive from the presumed colitis. 3. Other incidental findings as noted above. Diagnostic code #3 Agree with preliminary report issued by [facility] ([facility] preliminary report dictated on 03/22/17, 11:34 AM Central Time)
[2017-03-24] MEDS: Oseltamivir 30 MG Cap PO SCH ×2 (08:59→21:56)
[2017-03-24] MEDS: Acetaminophen 325 MG Tab PO PRN (08:59)
[2017-03-24] MEDS: Enoxaparin 40 MG/0.4 ML Syringe SUBCUT SCH (09:01)
[2017-03-24] MEDS: Folic Acid 1 MG Tab PO SCH (09:01)
[2017-03-24] MEDS: Pantoprazole 40 MG Vial IVPUSH SCH (09:02)
[2017-03-24] MEDS: NS + KCl 20mEq/L 1,000 ML IV SCH (09:03)
[2017-03-24] MEDS ORDERED: Levofloxacin/Dextrose 5%-Water 750 MG in Premix Bag 1 BAG IV SCH (13:00)
--- NOTE | 2017-03-24 13:49 | PCM.PN ---
- General Info Date of Service: 03/24/17 Subjective Update: she is feeling better no abd pain no n/v tolerating diet her energy is improving - Review of Systems General: Reports: No Symptoms HEENT: Reports: No Symptoms Pulmonary: Reports: No Symptoms Cardiovascular: Reports: No Symptoms Gastrointestinal: Reports: No Symptoms Genitourinary: Reports: No Symptoms Musculoskeletal: Reports: No Symptoms Skin: Reports: No Symptoms Neurological: Reports: No Symptoms Psychiatric: Reports: No Symptoms - Patient Data Vitals - Most Recent: Last Vital Signs Temp 98.4 F 03/24/17 11:59 Pulse 81 03/24/17 11:59 Resp 18 03/24/17 11:59 BP 132/92 H 03/24/17 12:00 Pulse Ox 94 L 03/24/17 11:59 Weight - Most Recent: 139 lb 11.2 oz I&O - Last 24 Hours: Intake & Output 03/23/17 03/24/17 03/24/17 22:59 06:59 14:59 Intake Total 2102 1002 240 Balance 2102 1002 240 Lab Results Last 24 Hours: Laboratory Results - last 24 hr 03/24/17 03/24/17 Range/Units 06:00 06:00 WBC 11.75 H (3.98-10.04) K/mm3 RBC 3.29 L (3.98-5.22) M/mm3 Hgb 9.8 L (11.2-15.7) gm/L Hct 31.0 L (34.1-44.9) % MCV 94.2 (79.4-94.8) fl MCH 29.8 (25.6-32.2) pg MCHC 31.6 L (32.2-35.5) g/dl RDW Std Deviation 48.2 H (36.4-46.3) fL Plt Count 160 L (182-369) K/mm3 MPV 11.3 (9.4-12.3) fl Neut % (Auto) 93.5 H (34.0-71.1) % Lymph % (Auto) 4.0 L (19.3-51.7) % [place] % (Auto) 2.2 L (4.7-12.5) % Eos % (Auto) 0 L (0.7-5.8) Baso % (Auto) 0.0 L (0.1-1.2) % Neut # (Auto) 10.98 H (1.56-6.13) K/mm3 Lymph # (Auto) 0.47 L (1.18-3.74) K/mm3 [place] # (Auto) 0.26 (0.24-0.36) K/mm3 Eos # (Auto) 0.00 L (0.04-0.36) K/mm3 Baso # (Auto) 0.00 L (0.01-0.08) K/mm3 Manual Slide Review Abnormal smear Sodium 146 H (136-145) mEq/L Potassium 4.0 (3.5-5.1) mEq/L Chloride 116 H (98-107) mEq/L Carbon Dioxide 17 L (21-32) mEq/L Anion Gap 17.0 H (5-15) BUN 16 (7-18) mg/dL Creatinine 0.8 (0.55-1.02) mg/dL Est Cr Clr Drug Dosing 55.70 mL/min Estimated GFR (MDRD) > 60 (>60) mL/min BUN/Creatinine Ratio 20.0 H (14-18) Glucose 179 H (83-115) mg/dL Calcium 7.9 L (8.5-10.1) mg/dL Magnesium 1.8 (1.8-2.4) mg/dl C-Reactive Protein 18.4 H* (<1.0) mg/dL Med Orders - Current: Current Medications Acetaminophen (Tylenol) 650 mg PO Q4H PRN PRN Reason: Pain Last Admin: 03/24/17 08:59 Dose: 650 mg Enoxaparin Sodium (Lovenox) 40 mg SUBCUT DAILY REPLACED BY [facility] Last Admin: 03/24/17 09:01 Dose: 40 mg Folic Acid (Folic Acid) 1 mg PO DAILY [facility]PL[facility]ED BY [facility] Last Admin: 03/24/17 09:01 Dose: 1 mg Gabapentin (Neurontin) 1,200 mg PO BEDTIME@2200 REPLACED BY [facility] Last Admin: 03/23/17 22:43 Dose: 1,200 mg Gabapentin (Neurontin) 900 mg PO BID@1600,1900 REPLACED BY [facility] Last Admin: 03/23/17 18:58 Dose: 900 mg Hydromorphone HCl (Dilaudid) 0.5 mg IVPUSH Q4H PRN PRN Reason: Pain Levofloxacin/Dextrose 750 mg/ (Premix) 150 mls @ 100 mls/hr IV Q48H REPLACED BY [facility] Metronidazole 500 mg/ Premix 100 mls @ 100 mls/hr IV Q8H REPLACED BY [facility] Last Admin: 03/24/17 03:36 Dose: 100 mls/hr Potassium Chloride/Sodium Chloride (Normal Saline With 20 Meq Kcl) 1,000 mls @ 75 mls/hr IV ASDIRECTED REPLACED BY [facility] Last Admin: 03/24/17 09:03 Dose: 75 mls/hr Methotrexate (Methotrexate) 12.5 mg PO Th@0900 REPLACED BY [facility] Ondansetron HCl (Zofran) 4 mg IVPUSH Q8H PRN PRN Reason: Nausea/Vomiting Oseltamivir Phosphate (Tamiflu) 30 mg PO BID REPLACED BY [facility] Stop: 03/27/17 21:01 Last Admin: 03/24/17 08:59 Dose: 30 mg Zolpidem Tartrate (Ambien) 5 mg PO BEDTIME PRN PRN Reason: Insomnia Last Admin: 03/23/17 22:43 Dose: 5 mg Discontinued Medications Acetaminophen (Tylenol) 975 mg PO NOW ONE Stop: 03/22/17 08:23 Last Admin: 03/22/17 08:26 Dose: 975 mg Diatrizoate Meglum/Diatrizoate Sod (Gastrografin 37%) 90 ml PO ONETIME ONE Stop: 03/22/17 09:51 Last Admin: 03/22/17 10:00 Dose: 90 ml Enoxaparin Sodium (Lovenox) 30 mg SUBCUT DAILY REPLACED BY [facility] Last Admin: 03/23/17 09:57 Dose: 30 mg Hydromorphone HCl (Dilaudid) 1 mg IVPUSH ONETIME ONE Stop: 03/22/17 07:36 Last Admin: 03/22/17 07:42 Dose: 1 mg Sodium Chloride (Normal Saline) 1,000 mls @ 500 mls/hr IV ASDIRECTED REPLACED BY [facility] Last Admin: 03/22/17 07:09 Dose: 500 mls/hr Potassium Chloride/Sodium Chloride (Normal Saline With 20 Meq Kcl) 1,000 mls @ 150 mls/hr IV ASDIRECTED REPLACED BY [facility] Last Admin: 03/23/17 08:37 Dose: 150 mls/hr Levofloxacin/Dextrose 750 mg/ (Premix) 150 mls @ 100 mls/hr IV ONETIME ONE Stop: 03/22/17 12:53 Last Admin: 03/22/17 13:20 Dose: 100 mls/hr Metronidazole 500 mg/ Premix 100 mls @ 100 mls/hr IV ONETIME ONE Stop: 03/22/17 12:23 Last Admin: 03/22/17 12:00 Dose: 100 mls/hr Sodium Chloride (Normal Saline) 1,000 mls @ 1,000 mls/hr IV ONETIME ONE Stop: 03/22/17 13:03 Last Admin: 03/22/17 12:25 Dose: 1,000 mls/hr Methotrexate (Methotrexate) 12.5 mg PO We@0900 [facility] Methylprednisolone Sodium Succinate (Solu-Medrol) 80 mg IVPUSH Q8H REPLACED BY [facility] Last Admin: 03/24/17 07:08 Dose: 80 mg Ondansetron HCl (Zofran) 4 mg IVPUSH ONETIME ONE Stop: 03/22/17 06:51 Last Admin: 03/22/17 07:09 Dose: 4 mg Oseltamivir Phosphate (Tamiflu) 75 mg PO ONETIME ONE Stop: 03/22/17 11:25 Last Admin: 03/22/17 11:38 Dose: 75 mg Pantoprazole Sodium (Protonix Iv) 40 mg IVPUSH Q12H REPLACED BY [facility] Last Admin: 03/24/17 09:02 Dose: 40 mg - Exam General: Alert, Oriented HEENT: Pupils Equal, Pupils Reactive, EOMI, Mucous Membr. Moist/[place] Neck: Supple Lungs: Clear to Auscultation, Normal Respiratory Effort Cardiovascular: Regular Rate, Regular Rhythm GI/Abdominal Exam: Normal Bowel Sounds, Soft, Non-Tender, No Organomegaly, No Distention, No Abnormal Bruit, No Mass, Pelvis Stable Extremities: Normal Inspection, Normal Range of Motion, Non-Tender, No Pedal Edema, Normal Capillary Refill Skin: Warm, Dry, Intact - Problem List Review Problem List Initiated/Reviewed/Updated: Yes - Plan Plan:: Impression: INFLUNZA A/B ACUTE Diverticulitis Acute on chronic renal insufficiency UTI Electrolyte abnormalities Rheumatoid arth on MTX/prednisone Plan: CONT ABX CONT TAMIFLU URINE CULTURE SHOWED K.P ADVANCE DIET TOLERATED IVF, DECREASE HOME ON AM
--- NOTE | 2017-03-24 14:42 | CR ---
Chest: Two views of the chest were obtained. Comparison: Prior chest x-ray of 04/06/12. Heart is enlarged. Pulmonary vessels are congested. Atelectasis is seen within the lingula. Bony structures are osteopenic. Minimal degenerative change is scattered within the spine. Impression: 1. Findings felt compatible with CHF. Mild atelectasis within the lingula is noted. Diagnostic code #3
[2017-03-24] MEDS: Gabapentin 300 MG Cap PO SCH ×2 (15:57→19:43)
[2017-03-24] MEDS ORDERED: predniSONE 5 MG Tab PO SCH (21:00)
[2017-03-24] MEDS: Gabapentin 600 MG Tab PO SCH (21:56)
[2017-03-24] MEDS: Zolpidem 5 MG Tab PO PRN (21:56)
[2017-03-25] MEDS: metroNIDAZOLE/Normal Saline 500 MG in Premix Bag 1 BAG IV SCH ×2 (02:30→10:56)
[2017-03-25] MEDS ORDERED: Ibuprofen 600 MG Tab PO ONE (06:58)
[2017-03-25] MEDS ORDERED: Furosemide 40 MG/4 ML VIAL IVPUSH ONE (07:46)
[2017-03-25] MEDS: Oseltamivir 30 MG Cap PO SCH (08:00)
[2017-03-25] MEDS: Folic Acid 1 MG Tab PO SCH (08:00)
[2017-03-25] MEDS: Enoxaparin 40 MG/0.4 ML Syringe SUBCUT SCH (08:00)
[2017-03-25] MEDS ORDERED: Magnesium Oxide 400 MG Tab PO ONE (10:35)
--- NOTE | 2017-03-25 11:04 | PCM.DCSUM1 ---
Discharge Summary - Hospital Course Free Text/Narrative:: 71 year old female presents to ED with nausea/vomiting. She has had recent travel to [place], there she ate cooked seafood. She has felt unwell for 1-2 weeks. The patient has experienced N/V without association of food ingestion. She has had abdominal pain, and has had less frequent stools. A CT of abdomen/ pelvis is somewhat suggestive of colitis, additionally her UA is consistent with a UTI. An infectious work up documented influenza A/B positive on a Flu screen taken in the ED. She has hx of RA, on MTX and steroid dependent. Hospitalist service is consulted for admission for UTI, likely diverticulitis, influenza A and B+. Patient is full CODE STATUS. Primary care provider is Dr. Andrews with [facility] here in [place]. Course of Hospital stay: Patient was treated with IV antibiotics Levaquin and Flagyl 3 days. She received Tamiflu twice a day 30 mg for the course of her hospital stay which was 3 days. Stool studies were obtained and negative, negative C. difficile. UTI was with urine culture growing Klebsiella pneumoniae and gram-negative rods that sensitivity was not back as of yet. Blood cultures were negative. Chest x -ray was obtained showing mild changes consistent with congestive heart failure. She was given 10 mg of IV Lasix with good diuresis. White blood cell count on admission was 15.6 down to 11.7 on day of discharge. Hemoglobin hovered around 10 which is chronic for her. CRP improved from 31.7-9.1 on day of discharge. She had mild electrolyte abnormalities of hypokalemia and hypomagnesemia both replaced. Creatinine on admission was 1.6 with hydration and treatment was up to 1.0 at time of discharge. On discharge she will be treated with Levaquin and Flagyl by mouth. 3 more days of Tamiflu twice a day for a full 5 days of treatment. She is to follow-up with her primary care provider Dr. Cervantes within 1 week. At that time she is to have blood work prescription is written for CBC basic metabolic panel and magnesium to be done in one week with results to be sent to Dr. Andrews. - Discharge Data Discharge Date: 03/25/17 (admit date 03/22/17) Discharge Disposition: Home, Self-Care 01 Condition: Good - Discharge Diagnosis/Problem(s) (1) UTI, Urinary tract infectious disease SNOMED Code(s): 24139864 ICD Code: N39.0 - URINARY TRACT INFECTION, SITE NOT SPECIFIED Status: Acute Priority: High Current Visit: Yes (2) Diverticulitis SNOMED Code(s): 624883762 ICD Code: K57.92 - DVTRCLI OF INTEST, PART UNSP, W/O PERF OR ABSCESS W/O BLEED Status: Acute Priority: High Current Visit: Yes (3) Rheumatoid arthritis SNOMED Code(s): 68118946 ICD Code: M06.9 - RHEUMATOID ARTHRITIS, UNSPECIFIED Status: Chronic Priority: High Current Visit: Yes Onset Date: 03/18/14 (4) Diarrhea SNOMED Code(s): 65408601 ICD Code: R19.7 - DIARRHEA, UNSPECIFIED Status: Resolved Priority: High Current Visit: Yes (5) Vomiting SNOMED Code(s): 288943040 ICD Code: R11.10 - VOMITING, UNSPECIFIED Status: Resolved Priority: High Current Visit: Yes Qualifiers: Vomiting type: unspecified Vomiting Intractability: non-intractable Nausea presence: with nausea Qualified Code(s): R11.2 - Nausea with vomiting, unspecified (6) Hypomagnesemia SNOMED Code(s): 002835170 ICD Code: E83.42 - HYPOMAGNESEMIA Status: Resolved Priority: High Current Visit: Yes (7) Hypokalemia SNOMED Code(s): 79762906 ICD Code: E87.6 - HYPOKALEMIA Status: Resolved Priority: High Current Visit: Yes (8) Sepsis SNOMED Code(s): 42994640 ICD Code: A41.9 - SEPSIS, UNSPECIFIED ORGANISM Status: Resolved Priority : High Current Visit: Yes Qualifiers: Sepsis type: sepsis due to unspecified organism Qualified Code(s): A41.9 - Sepsis, unspecified organism (9) Dehydration SNOMED Code(s): 82058299 ICD Code: E86.0 - DEHYDRATION Status: Resolved Priority: High Current Visit: Yes (10) Renal insufficiency SNOMED Code(s): 996349458 ICD Code: N28.9 - DISORDER OF KIDNEY AND URETER, UNSPECIFIED Status: Chronic Priority: Medium Current Visit: Yes - Patient Summary/Data Operative Procedure(s) Performed: None Complications: None Consults: Consultations 03/22/17 16:34 Consult to Allergy And Immunology Chief [CONS] Routine 03/22/17 16:35 Consult to Occupational Therapy [OT Evaluation and Treatment] [CONS] Routine Consult to Physical Therapy [PT Evaluation and Treatment] [CONS] Routine Labs Pending at D/C: None Recommended Follow-up Testing/Procedures: Patient DC instructions: Recommend probiotic daily Push fluids Recommend skip methotrexate this week then resume as usual Follow up with Dr. Andrews within one week of discharge. Labs at that time- CBC, BMP and magnesium level. Planned Operative Procedure(s) after DC: None Hospital Course: As above - Patient Instructions Diet: Usual Diet as Tolerated, Drink 8-10+ Glasses/Day Activity: As Tolerated Showering/Bathing: May Shower Notify Provider of: Fever, Increased Pain, Nausea and/or Vomiting - Discharge Plan Prescriptions/Med Rec: Levofloxacin [Levaquin] 500 mg PO Q24H #5 tablet metroNIDAZOLE [Flagyl] 500 mg PO Q8H #15 tablet Oseltamivir [Tamiflu] 30 mg PO BID #4 cap Home Medications: Home Meds Zolpidem [Ambien] 5 mg PO BEDTIME PRN 09/03/13 [History] predniSONE [Prednisone] 7.5 mg PO BEDTIME 03/18/14 [History] Gabapentin [Neurontin] 1,200 mg PO 22 09/14/15 [History] Gabapentin [Neurontin] 900 mg PO 1619 09/14/15 [History] Folic Acid 1 mg PO DAILY 03/22/17 [History] Methotrexate 12.5 mg PO WE 03/22/17 [History] Omeprazole 20 mg PO DAILY PRN 03/22/17 [History] oxyCODONE HCl/Acetaminophen [Endocet 10-325 mg Tablet] 1 tab PO Q6H PRN [History] Acetaminophen [Tylenol] 650 mg PO Q4H PRN tablet 03/25/17 [Rx] Levofloxacin [Levaquin] 500 mg PO Q24H #5 tablet 03/25/17 [Rx] Oseltamivir [Tamiflu] 30 mg PO BID #4 cap 03/25/17 [Rx] metroNIDAZOLE [Flagyl] 500 mg PO Q8H #15 tablet 03/25/17 [Rx] Patient Handouts: Influenza, Adult, [id number], Hypomagnesemia, Hypokalemia, Diverticulitis, Urinary Tract Infection, Adult, [id number] Forms: ED Department Discharge Referrals: Erik Andrews MD [Primary Care Provider] - - Discharge Summary/Plan Comment DC Time >30 min.: Yes (40 min) - General Info Date of Service: 03/25/17 Admission Dx/Problem (Free Text: Admission Diagnosis/Problem Admission Diagnosis/Problem Diarrhea UTI, ? mild colitis, Flu A&B positive Patient doing well today. Feels "a little wheezy" but otherwise much better overall. Afebrile, eating and drinking without problems. Functional Status: Reports: Pain Controlled, Tolerating Diet, Ambulating, Urinating. Denies: New Symptoms - Review of Systems General: Reports: No Symptoms. Denies: Fever HEENT: Reports: No Symptoms Pulmonary: Reports: Wheezing (subjective as lungs CTAB on exam this morning). Denies: Cough Cardiovascular: Reports: No Symptoms. Denies: Chest Pain, Palpitations, Dyspnea on Exertion Gastrointestinal: Reports: No Symptoms. Denies: Abdominal Pain, Diarrhea, Nausea, Vomiting Genitourinary: Reports: No Symptoms Musculoskeletal: Reports: No Symptoms Skin: Reports: No Symptoms Neurological: Reports: No Symptoms Psychiatric: Reports: No Symptoms - Patient Data Vitals - Most Recent: Last Vital Signs Temp 98.4 F 03/25/17 07:43 Pulse 27 L 03/25/17 07:48 Resp 20 03/25/17 07:43 BP 124/76 03/25/17 07:48 Pulse Ox 93 L 03/25/17 07:48 Weight - Most Recent: 143 lb 12.8 oz I&O - Last 24 hours: Intake & Output 03/24/17 03/25/17 03/25/17 22:59 06:59 14:59 Intake Total 2538 500 Balance 2538 500 Lab Results - Last 24 hrs: Laboratory Results - last 24 hr 03/25/17 03/25/17 Range/Units 06:45 06:45 WBC 11.72 H (3.98-10.04) K/mm3 RBC 3.45 L (3.98-5.22) M/mm3 Hgb 10.3 L (11.2-15.7) gm/L Hct 32.7 L (34.1-44.9) % MCV 94.8 (79.4-94.8) fl MCH 29.9 (25.6-32.2) pg MCHC 31.5 L (32.2-35.5) g/dl RDW Std Deviation 48.8 H (36.4-46.3) fL Plt Count 177 L (182-369) K/mm3 MPV 10.7 (9.4-12.3) fl Neut % (Auto) 90.1 H (34.0-71.1) % Lymph % (Auto) 4.1 L (19.3-51.7) % [place] % (Auto) 5.3 (4.7-12.5) % Eos % (Auto) 0 L (0.7-5.8) Baso % (Auto) 0.1 (0.1-1.2) % Neut # (Auto) 10.56 H (1.56-6.13) K/mm3 Lymph # (Auto) 0.48 L (1.18-3.74) K/mm3 [place] # (Auto) 0.62 H (0.24-0.36) K/mm3 Eos # (Auto) 0.00 L (0.04-0.36) K/mm3 Baso # (Auto) 0.01 (0.01-0.08) K/mm3 Manual Slide Review Abnormal smear Sodium 145 (136-145) mEq/L Potassium 3.7 (3.5-5.1) mEq/L Chloride 115 H (98-107) mEq/L Carbon Dioxide 17 L (21-32) mEq/L Anion Gap 16.7 H (5-15) BUN 18 (7-18) mg/dL Creatinine 1.0 (0.55-1.02) mg/dL Est Cr Clr Drug Dosing 44.56 mL/min Estimated GFR (MDRD) 55 (>60) mL/min BUN/Creatinine Ratio 18.0 (14-18) Glucose 163 H (83-115) mg/dL Calcium 7.9 L (8.5-10.1) mg/dL Magnesium 1.7 L (1.8-2.4) mg/dl C-Reactive Protein 9.1 H* (<1.0) mg/dL Med Orders - Current: Current Medications Acetaminophen (Tylenol) 650 mg PO Q4H PRN PRN Reason: Pain Last Admin: 03/24/17 08:59 Dose: 650 mg Enoxaparin Sodium (Lovenox) 40 mg SUBCUT DAILY [facility] Last Admin: 03/25/17 08:00 Dose: 40 mg Folic Acid (Folic Acid) 1 mg PO DAILY [facility] Last Admin: 03/25/17 08:00 Dose: 1 mg Gabapentin (Neurontin) 1,200 mg PO BEDTIME@2200 [facility] Last Admin: 03/24/17 21:56 Dose: 1,200 mg Gabapentin (Neurontin) 900 mg PO BID@1600,1900 [facility] Last Admin: 03/24/17 19:43 Dose: 900 mg Hydromorphone HCl (Dilaudid) 0.5 mg IVPUSH Q4H PRN PRN Reason: Pain Metronidazole 500 mg/ Premix 100 mls @ 100 mls/hr IV Q8H [facility] Last Admin: 03/25/17 10:56 Dose: 100 mls/hr Levofloxacin/Dextrose 750 mg/ (Premix) 150 mls @ 100 mls/hr IV Q24H [facility] Methotrexate (Methotrexate) 12.5 mg PO Th@0900 [facility] Ondansetron HCl (Zofran) 4 mg IVPUSH Q8H PRN PRN Reason: Nausea/Vomiting Oseltamivir Phosphate (Tamiflu) 30 mg PO BID [facility] Stop: 03/27/17 21:01 Last Admin: 03/25/17 08:00 Dose: 30 mg Prednisone (Prednisone) 7.5 mg PO BEDTIME [facility] Last Admin: 03/24/17 21:56 Dose: 7.5 mg Zolpidem Tartrate (Ambien) 5 mg PO BEDTIME PRN PRN Reason: Insomnia Last Admin: 03/24/17 21:56 Dose: 5 mg Discontinued Medications Acetaminophen (Tylenol) 975 mg PO NOW ONE Stop: 03/22/17 08:23 Last Admin: 03/22/17 08:26 Dose: 975 mg Diatrizoate Meglum/Diatrizoate Sod (Gastrografin 37%) 90 ml PO ONETIME ONE Stop: 03/22/17 09:51 Last Admin: 03/22/17 10:00 Dose: 90 ml Enoxaparin Sodium (Lovenox) 30 mg SUBCUT DAILY [facility] Last Admin: 03/23/17 09:57 Dose: 30 mg Furosemide (Lasix) 10 mg IVPUSH NOW ONE Stop: 03/25/17 07:47 Last Admin: 03/25/17 07:59 Dose: 10 mg Hydromorphone HCl (Dilaudid) 1 mg IVPUSH ONETIME ONE Stop: 03/22/17 07:36 Last Admin: 03/22/17 07:42 Dose: 1 mg Sodium Chloride (Normal Saline) 1,000 mls @ 500 mls/hr IV ASDIRECTED [facility] Last Admin: 03/22/17 07:09 Dose: 500 mls/hr Potassium Chloride/Sodium Chloride (Normal Saline With 20 Meq Kcl) 1,000 mls @ 150 mls/hr IV ASDIRECTED [facility] Last Admin: 03/23/17 08:37 Dose: 150 mls/hr Levofloxacin/Dextrose 750 mg/ (Premix) 150 mls @ 100 mls/hr IV ONETIME ONE Stop: 03/22/17 12:53 Last Admin: 03/22/17 13:20 Dose: 100 mls/hr Metronidazole 500 mg/ Premix 100 mls @ 100 mls/hr IV ONETIME ONE Stop: 03/22/17 12:23 Last Admin: 03/22/17 12:00 Dose: 100 mls/hr Sodium Chloride (Normal Saline) 1,000 mls @ 1,000 mls/hr IV ONETIME ONE Stop: 03/22/17 13:03 Last Admin: 03/22/17 12:25 Dose: 1,000 mls/hr Levofloxacin/Dextrose 750 mg/ (Premix) 150 mls @ 100 mls/hr IV Q48H [facility] Last Admin: 03/24/17 15:58 Dose: 100 mls/hr Potassium Chloride/Sodium Chloride (Normal Saline With 20 Meq Kcl) 1,000 mls @ 75 mls/hr IV ASDIRECTED [facility] Last Admin: 03/24/17 09:03 Dose: 75 mls/hr Ibuprofen (Motrin) 600 mg PO ONETIME ONE Stop: 03/25/17 06:59 Last Admin: 03/25/17 07:58 Dose: 600 mg Magnesium Oxide (Magnesium Oxide) 400 mg PO ONETIME ONE Stop: 03/25/17 10:36 Last Admin: 03/25/17 10:54 Dose: 400 mg Methotrexate (Methotrexate) 12.5 mg PO We@0900 [facility] Methylprednisolone Sodium Succinate (Solu-Medrol) 80 mg IVPUSH Q8H [facility] Last Admin: 03/24/17 07:08 Dose: 80 mg Ondansetron HCl (Zofran) 4 mg IVPUSH ONETIME ONE Stop: 03/22/17 06:51 Last Admin: 03/22/17 07:09 Dose: 4 mg Oseltamivir Phosphate (Tamiflu) 75 mg PO ONETIME ONE Stop: 03/22/17 11:25 Last Admin: 03/22/17 11:38 Dose: 75 mg Pantoprazole Sodium (Protonix Iv) 40 mg IVPUSH Q12H [facility] Last Admin: 03/24/17 09:02 Dose: 40 mg - Exam Quality Assessment: Reports: DVT Prophylaxis General: Reports: Alert, Oriented, Cooperative, No Acute Distress HEENT: Reports: Pupils Equal, EOMI, Mucous Membr. Moist/[place] Neck: Reports: Supple Lungs: Reports: Clear to Auscultation, Normal Respiratory Effort Cardiovascular: Reports: Regular Rate, Regular Rhythm GI/Abdominal Exam: Normal Bowel Sounds, Soft, Non-Tender (Female) Exam: Deferred Rectal (Female) Exam: Deferred Back Exam: Reports: Normal Inspection Extremities: No Pedal Edema, Normal Capillary Refill Neurological: Reports: No New Focal Deficit Psy/Mental Status: Reports: Alert, Normal Affect, Normal Mood *Q Meaningful Use (DIS) - VTE *Q VTE Criteria *Q: - Stroke *Q Stroke Criteria *Q: - AMI *Q AMI Criteria *Q:
[2017-03-25 11:48] VITALS: BP 126/67
[2017-03-25] MEDS ORDERED: Levofloxacin/Dextrose 5%-Water 750 MG in Premix Bag 1 BAG IV SCH (13:00)
[2017-03-25] MEDS ORDERED: Diphtheria,Pertussis(Acell),Tetanus Vaccine 0.5 ML SDV IM ONE (13:50)
[2017-03-26] MEDS ORDERED: Methotrexate 2.5 MG Tab PO SCH (14:58)
[2017-03-27] MEDS ORDERED: Methotrexate 2.5 MG Tab PO SCH (09:00)
== END 2017-03-25 14:50 | disposition home or self-care (01) | DRG 690 ==
LOC: JD.ED 06:19 → JD.MS 11:53 → UNDOADMIN 11:53 → JD.MS 13:47
PROVIDERS: ADMIT Internal Medicine Cardiovascular Disease; ATTEND Internal Medicine Cardiovascular Disease
DX: A41.9 Sepsis, unspecified organism (principal); N39.0 Urinary tract infection, site not specified; N17.9 Acute kidney failure, unspecified; K57.92 Diverticulitis of intestine, part unspecified, without perforation or abscess without bleeding; M06.9 Rheumatoid arthritis, unspecified; J11.1 Influenza due to unidentified influenza virus with other respiratory manifestations; N18.9 Chronic kidney disease, unspecified; E86.0 Dehydration; E87.6 Hypokalemia; H54.7 Unspecified visual loss; G62.9 Polyneuropathy, unspecified; E53.8 Deficiency of other specified B group vitamins; Z79.899 Other long term (current) drug therapy
CPT/HCPCS: 36415; 74176; 80053; 81001; 83605; 83690; 83735; 85025; 87040 ×2; 87046; 87086; 87088 ×2; 87186 ×2; 87427 ×2; 87493 ×2; 87804 ×2; 87899; 89055; 96361; 96365; 96374; 96375; 99285; A9270 ×2; J1170; J1956; J2405; J3480; J7040 ×2; P9612; Q9963; 71020; 71020-26; 80048; 80074; 86140; 86738; 90471; 90715; 97116-GP; 97162-GP; 97165-GO; 97530-GP; C9113; J1650; J1940; J2930

== ENCOUNTER 2018-07-11 19:03 | Emergency (ER) | payer MEDICARE, BC ==
[2018-07-11 19:12] VITALS: BP 119/68
[2018-07-11] MEDS ORDERED: HYDROmorphone 1 MG/ML Syringe IVPUSH ONE (19:36)
[2018-07-11] MEDS ORDERED: Ondansetron 4 MG/2 ML SDV IVPUSH ONE (19:36)
[2018-07-11] MEDS ORDERED: Sodium Chloride 0.9% 1,000 ML IV SCH (19:45)
--- NOTE | 2018-07-11 19:47 | EDM.PDOC ---
ED HPI GENERAL MEDICAL PROBLEM - General Chief Complaint: Fever Stated Complaint: POSS UTI Time Seen by Provider: 07/11/18 19:08 Source of Information: Reports: Patient, Family History Limitations: Reports: No Limitations - History of Present Illness INITIAL COMMENTS - FREE TEXT/NARRATIVE: This is a 72-year-old female. She states last night she started having a fever and some chills and says her fever went up to 101.4 today. When she arrives to the ER her fever is 99.2. She complains of a lot of aching and soreness in her joints due to her rheumatoid arthritis. She is on hydrocodone as well as naltrexone but her last naltrexone was yesterday and she's been trying to take hydrocodone today but it's not helping. I explained that the 2 should not be mixed together since naltrexone makes the hydrocodone not work. She says that her urine looks dark again though she is not really having urinary symptoms or abdominal pain. She's had no nausea and vomiting and no diarrhea. She denies a sore throat or nasal congestion. She was in the hospital about a month and a half ago for a urosepsis and influenza B. The patient thinks she might have influenza A now since she had both of them last year. She was also noted to have a low magnesium last time she was here. She does have a history of renal insufficiency. She has rheumatoid arthritis that is on methotrexate and prednisone. The last time she was here she had delirium due to the urosepsis but she is not having delirium now. Generalized Pain Score (Numeric/FACES): 9 - Related Data Allergies Allergy/AdvReac Type Severity Reaction Status Date / Time No Known Allergies Allergy Verified 07/11/18 19:19 Home Meds: Home Meds predniSONE [Prednisone] 5 mg PO DAILY 03/18/14 [History] Gabapentin [Neurontin] 1,200 mg PO BEDTIME 09/14/15 [History] Gabapentin [Neurontin] 900 mg PO ASDIRECTED 09/14/15 [History] Methotrexate 15 mg PO WE 03/22/17 [History] Folic Acid 1 mg PO DAILY 05/19/18 [History] Naltrexone 6 mg PO DAILY 05/19/18 [History] Rosuvastatin [Crestor] 10 mg PO DAILY 05/19/18 [History] Hydrocodone/Acetaminophen [Hydrocodon-Acetaminophen 5-325] 1 tab PO Q6HR PRN [History] Zolpidem Tartrate [Ambien] 5 mg PO BEDTIME PRN 05/20/18 [History] Potassium Chloride 20 meq PO QAM #30 tablet.er 07/11/18 [Rx] Prevalite Powder. 07/11/18 [History] Saccharomyces Boulardii [Florastor] 250 mg PO QAM #10 capsule 07/11/18 [Rx] levoFLOXacin [Levaquin] 500 mg PO DAILY #10 tab 07/11/18 [Rx] Past Medical History HEENT History: Reports: Cataract, Impaired Vision Other HEENT History: wears glasses Respiratory History: Reports: Other (See Below) Other Respiratory History: Pneumonia Gastrointestinal History: Reports: Cholelithiasis Genitourinary History: Reports: Acute Renal Failure, Renal Calculus [employer] History: Reports: , Spontaneous Musculoskeletal History: Reports: RA Other Musculoskeletal History: Dislocated thumb Neurological History: Reports: Neuropathy, Peripheral Hematologic History: Reports: B12 Deficiency - Infectious Disease History Infectious Disease History: Reports: Influenza - Past Surgical History HEENT Surgical History: Reports: Cataract Surgery GI Surgical History: Reports: Cholecystectomy, Polypectomy Female Surgical History: Reports: Ureteral Stent Dermatological Surgical History: Reports: None Social & Family History - Family History Family Medical History: Noncontributory - Tobacco Use Smoking Status *Q: Never Smoker - Caffeine Use Caffeine Use: Reports: Soda, Tea - Recreational Drug Use Recreational Drug Use: Yes Drug Use in Last 12 Months: Yes Recreational Drug Type: Reports: Other (see below) Other Recreational Drug Type: CBD pills - Living Situation & Occupation Living situation: Reports: , Other Occupation: Employed ED ROS GENERAL - Review of Systems Review Of Systems: See Below Constitutional: Reports: Fever, Chills, Malaise HEENT: Denies: Rhinitis, Sinus Problem, Throat Pain Respiratory: Denies: Shortness of Breath, Cough Cardiovascular: Denies: Chest Pain Endocrine: Reports: No Symptoms GI/Abdominal: Denies: Abdominal Pain, Constipation, Diarrhea, Nausea, Vomiting : Reports: Other (Dark urine). Denies: Dysuria, Flank Pain Musculoskeletal: Reports: Joint Pain, Other (Rheumatoid arthritis) Skin: Reports: No Symptoms Neurological: Reports: No Symptoms Psychiatric: Reports: No Symptoms ED EXAM, RENAL/ - Physical Exam Exam: See Below Exam Limited By: No Limitations General Appearance: Alert, WD/WN, Mild Distress, Other (Plenty of generalized joint pain with the hands being worse in the left hip being the worst) Eye Exam: Bilateral Eye: Normal Inspection Ears: Normal External Exam, Normal Canal, Normal TMs Nose: Normal Inspection. No: Nasal Drainage Throat/Mouth: Normal Inspection, Normal Lips, Normal Oropharynx, Normal Voice, No Airway Compromise Head: Normocephalic Neck: Supple Respiratory/Chest: No Respiratory Distress, Lungs Clear, Normal Breath Sounds Cardiovascular: Regular Rate, Rhythm, No Murmur GI/Abdominal: Soft, Non-Tender, Other (Bowel sounds are positive. She has no upper abdominal tenderness on palpation she has no lower abdominal tenderness on palpation and palpation over the bladder does not appear to cause any discomfort) Back Exam: Decreased Range of Motion Extremities: Normal Inspection, No Pedal Edema Neurological: Alert, Oriented Psychiatric: Normal Affect, Normal Mood Skin Exam: Warm, Dry, Other (She does have thin skin related to her prednisone usage long-term) Course - Vital Signs Last Recorded V/S: Last Vital Signs Temp 99.2 F 07/11/18 19:12 Pulse 103 H 07/11/18 19:12 Resp BP 119/68 07/11/18 19:12 Pulse Ox 96 07/11/18 19:12 - Orders/Labs/Meds Orders: Active Orders 24 hr Category Date Time Status CULTURE URINE [RM] Stat Lab 07/11/18 21:10 Received Sodium Chloride 0.9% [Normal Saline] 1,000 ml Med 07/11/18 19:45 Active IV ASDIRECTED cefTRIAXone [Rocephin] 2 gm Med 07/11/18 22:15 Active Sodium Chloride 0.9% [Normal Saline] 100 ml IV Q24H Medication Orders Sodium Chloride (Normal Saline) 1,000 mls @ 1,000 mls/hr IV ASDIRECTED YOUSIF Last Admin: 07/11/18 19:45 Dose: 1,000 mls/hr Ceftriaxone Sodium 2 gm/ (Sodium Chloride) 100 mls @ 200 mls/hr IV Q24H YOUSIF Last Admin: 07/11/18 22:17 Dose: 200 mls/hr Labs: Laboratory Tests 07/11/18 07/11/18 07/11/18 Range/Units 19:40 19:40 19:40 WBC 10.85 H (3.98-10.04) K/mm3 RBC 3.83 L (3.98-5.22) M/mm3 Hgb 11.6 (11.2-15.7) gm/L Hct 36.3 (34.1-44.9) % MCV 94.8 (79.4-94.8) fl MCH 30.3 (25.6-32.2) pg MCHC 32.0 L (32.2-35.5) g/dl RDW Std Deviation 55.4 H (36.4-46.3) fL Plt Count 176 L (182-369) K/mm3 MPV 10.0 (9.4-12.3) fl Neut % (Auto) 60.4 (34.0-71.1) % Lymph % (Auto) 19.2 L (19.3-51.7) % [place] % (Auto) 18.5 H (4.7-12.5) % Eos % (Auto) 1.0 (0.7-5.8) Baso % (Auto) 0.3 (0.1-1.2) % Neut # (Auto) 6.56 H (1.56-6.13) K/mm3 Lymph # (Auto) 2.08 (1.18-3.74) K/mm3 [place] # (Auto) 2.01 H (0.24-0.36) K/mm3 Eos # (Auto) 0.11 (0.04-0.36) K/mm3 Baso # (Auto) 0.03 (0.01-0.08) K/mm3 Manual Slide Review Abnormal smear Sodium 140 (136-145) mEq/L Potassium 2.6 L (3.5-5.1) mEq/L Chloride 105 (98-107) mEq/L Carbon Dioxide 26 (21-32) mEq/L Anion Gap 11.6 (5-15) BUN 15 (7-18) mg/dL Creatinine 1.0 (0.55-1.02) mg/dL Est Cr Clr Drug Dosing 43.91 mL/min Estimated GFR (MDRD) 55 (>60) mL/min BUN/Creatinine Ratio 15.0 (14-18) Glucose 108 (83-115) mg/dL Lactic Acid 0.9 (0.4-2.0) mmol/L Calcium 8.3 L (8.5-10.1) mg/dL Magnesium 1.8 (1.8-2.4) mg/dl Total Bilirubin 0.7 (0.2-1.0) mg/dL AST 12 L (15-37) U/L ALT 18 (14-59) U/L Alkaline Phosphatase 53 (46-116) U/L Total Protein 6.3 L (6.4-8.2) g/dl Albumin 3.0 L (3.4-5.0) g/dl Globulin 3.3 gm/dL Albumin/Globulin Ratio 0.9 L (1-2) Urine Color (Yellow) Urine Appearance (Clear) Urine pH (5.0-8.0) Ur Specific Sanders (1.005-1.030) Urine Protein (Negative) Urine Glucose (UA) (Negative) Urine Ketones (Negative) Urine Occult Blood (Negative) Urine Nitrite (Negative) Urine Bilirubin (Negative) Urine Urobilinogen (0.2-1.0) Ur Leukocyte Esterase (Negative) Urine RBC (0-5) /hpf Urine WBC (0-5) /hpf Ur Epithelial Cells (0-5) /hpf Urine Bacteria (FEW) /hpf Urine Mucus (FEW) /hpf 07/11/18 Range/Units 21:10 WBC (3.98-10.04) K/mm3 RBC (3.98-5.22) M/mm3 Hgb (11.2-15.7) gm/L Hct (34.1-44.9) % MCV (79.4-94.8) fl MCH (25.6-32.2) pg MCHC (32.2-35.5) g/dl RDW Std Deviation (36.4-46.3) fL Plt Count (182-369) K/mm3 MPV (9.4-12.3) fl Neut % (Auto) (34.0-71.1) % Lymph % (Auto) (19.3-51.7) % [place] % (Auto) (4.7-12.5) % Eos % (Auto) (0.7-5.8) Baso % (Auto) (0.1-1.2) % Neut # (Auto) (1.56-6.13) K/mm3 Lymph # (Auto) (1.18-3.74) K/mm3 [place] # (Auto) (0.24-0.36) K/mm3 Eos # (Auto) (0.04-0.36) K/mm3 Baso # (Auto) (0.01-0.08) K/mm3 Manual Slide Review Sodium (136-145) mEq/L Potassium (3.5-5.1) mEq/L Chloride (98-107) mEq/L Carbon Dioxide (21-32) mEq/L Anion Gap (5-15) BUN (7-18) mg/dL Creatinine (0.55-1.02) mg/dL Est Cr Clr Drug Dosing mL/min Estimated GFR (MDRD) (>60) mL/min BUN/Creatinine Ratio (14-18) Glucose (83-115) mg/dL Lactic Acid (0.4-2.0) mmol/L Calcium (8.5-10.1) mg/dL Magnesium (1.8-2.4) mg/dl Total Bilirubin (0.2-1.0) mg/dL AST (15-37) U/L ALT (14-59) U/L Alkaline Phosphatase (46-116) U/L Total Protein (6.4-8.2) g/dl Albumin (3.4-5.0) g/dl Globulin gm/dL Albumin/Globulin Ratio (1-2) Urine Color Yellow (Yellow) Urine Appearance Slt cloudy H (Clear) Urine pH 7.0 (5.0-8.0) Ur Specific [place] 1.010 (1.005-1.030) Urine Protein Trace H (Negative) Urine Glucose (UA) Negative (Negative) Urine Ketones Negative (Negative) Urine Occult Blood 1+ H (Negative) Urine Nitrite Positive H (Negative) Urine Bilirubin Negative (Negative) Urine Urobilinogen 0.2 (0.2-1.0) Ur Leukocyte Esterase 3+ H (Negative) Urine RBC 0-5 (0-5) /hpf Urine WBC >100 H (0-5) /hpf Ur Epithelial Cells 10-20 H (0-5) /hpf Urine Bacteria Moderate H (FEW) /hpf Urine Mucus Not seen (FEW) /hpf Meds: Medications Generic Name Dose Route Start Last Admin Trade Name Freq PRN Reason Stop Dose Admin Sodium Chloride 1,000 mls @ 1,000 mls/hr 07/11/18 19:45 07/11/18 19:45 Normal Saline IV 1,000 mls/hr ASDIRECTED YOUSIF Administration Ceftriaxone Sodium 2 gm/ 100 mls @ 200 mls/hr 07/11/18 22:15 07/11/18 22:17 Sodium Chloride IV 200 mls/hr Q24H YOUSIF Administration Discontinued Medications Generic Name Dose Route Start Last Admin Trade Name [place] PRN Reason Stop Dose Admin Hydromorphone HCl 0.5 mg 07/11/18 19:36 07/11/18 19:57 Dilaudid IVPUSH 07/11/18 19:37 0.5 mg ONETIME ONE Administration Ceftriaxone Sodium 2 gm/ 100 mls @ 200 mls/hr 07/11/18 22:07 07/11/18 22:17 Sodium Chloride IV 07/11/18 22:36 Not Given ONETIME ONE Ondansetron HCl 4 mg 07/11/18 19:36 07/11/18 19:56 Zofran IVPUSH 07/11/18 19:37 4 mg ONETIME ONE Administration Potassium Bicarbonate 40 meq 07/11/18 21:15 07/11/18 21:53 Effer-K PO 07/11/18 21:16 40 meq ONETIME ONE Administration - Re-Assessments/Exams Free Text/Narrative Re-Assessment/Exam: 07/11/18 22:09 Spoke to the patient regarding her lab results. She does have a urinary tract infection again. I explained to her that when she has influenza B her body makes antibodies and oftentimes the test will be positive for at least 3 months after she has influenza B so I do not believe she has influenza again even though it can occur on occasions. I believe she has a urinary tract infection is causing low-grade fever and it appears to look like the same urinary values that she had when she was admitted one and a half months ago. I am concerned that she might be growing out Klebsiella pneumoniae again so I'm going to culture the urine again to make sure we are covering the organism that is causing the bladder infection. The patient is comfortable going home. We'll give her some Rocephin IV in the ER place her back on the Levaquin and the probiotics. Departure - Departure Time of Disposition: 22:10 Disposition: Home, Self-Care 01 Condition: Fair Clinical Impression: Hypokalemia Urinary tract infection Qualifiers: Urinary tract infection type: acute cystitis Hematuria presence: without hematuria Qualified Code(s): N30.00 - Acute cystitis without hematuria - Discharge Information *PRESCRIPTION DRUG MONITORING PROGRAM REVIEWED*: Not Applicable *COPY OF PRESCRIPTION DRUG MONITORING REPORT IN PATIENT OZZIE: Not Applicable Prescriptions: levoFLOXacin [Levaquin] 500 mg PO DAILY #10 tab Potassium Chloride 20 meq PO QAM #30 tablet.er Saccharomyces Boulardii [Florastor] 250 mg PO QAM #10 capsule Instructions: Urinary Tract Infection, Adult, [id number] Referrals: Erik Andrews MD [Primary Care Provider] - Forms: ED Department Discharge Additional Instructions: Start the antibiotics beginning Friday morning and take the probiotics about 1 hour after you take the antibiotics, take the potassium every morning, you need to follow up with your family doctor this week for recheck of your potassium as well as your urinary tract infection, I cultured the urine which her doctor can make certain we are covering the bacteria that is growing in your urine so make sure you check with him about the urine culture, use Tylenol as needed for your fever, if your symptoms worsen return to the ER - My Orders Last 24 Hours: My Active Orders 07/11/18 19:45 Sodium Chloride 0.9% [Normal Saline] 1,000 ml IV ASDIRECTED 07/11/18 21:10 CULTURE URINE [RM] Stat 07/11/18 22:15 cefTRIAXone [Rocephin] 2 gm Sodium Chloride 0.9% [Normal Saline] 100 ml IV Q24H - Assessment/Plan Last 24 Hours: My Active Orders 07/11/18 19:45 Sodium Chloride 0.9% [Normal Saline] 1,000 ml IV ASDIRECTED 07/11/18 21:10 CULTURE URINE [RM] Stat 07/11/18 22:15 cefTRIAXone [Rocephin] 2 gm Sodium Chloride 0.9% [Normal Saline] 100 ml IV Q24H
[2018-07-11] MEDS ORDERED: Potassium Bicarbonate/Cit Ac 20 MEQ Effervescent Tab PO ONE (21:15)
[2018-07-11] MEDS ORDERED: cefTRIAXone 2 GM in Sodium Chloride 0.9% 100 ML IV ONE (22:07)
[2018-07-11] MEDS ORDERED: cefTRIAXone 2 GM in Sodium Chloride 0.9% 100 ML IV SCH (22:15)
== END 2018-07-11 23:05 | disposition home or self-care (01) ==
LOC: JD.ED 19:03
DX: N30.00 Acute cystitis without hematuria (principal); E87.6 Hypokalemia; R11.2 Nausea with vomiting, unspecified; R19.7 Diarrhea, unspecified; Z79.899 Other long term (current) drug therapy
CPT/HCPCS: 36415; 80053; 81001; 83605; 83735; 85025; 87086; 87088; 87186; 87804; 96361; 96365; 96375; 99283; A9270; J0696; J1170; J2405; J7030; J7040; 99284

== ENCOUNTER 2018-07-12 07:02 | Emergency (ER) | payer MEDICARE, BC ==
[2018-07-12 07:21] VITALS: BP 116/70
[2018-07-12] MEDS ORDERED: Sodium Chloride 0.9% 1,000 ML IV STA (07:25)
[2018-07-12] MEDS ORDERED: Ondansetron 4 MG/2 ML SDV IVPUSH ONE (07:25)
[2018-07-12] MEDS ORDERED: Sodium Chloride 0.9% 10 ML Syringe FLUSH PRN (07:25)
[2018-07-12] MEDS ORDERED: HYDROmorphone 1 MG/ML Syringe IVPUSH ONE (09:38)
[2018-07-12] MEDS ORDERED: Aspirin 81 MG Tab.Chew PO ONE (09:38)
[2018-07-12] MEDS ORDERED: Levofloxacin/Dextrose 5%-Water 500 MG in Premix Bag 1 BAG IV ONE (09:40)
[2018-07-12] MEDS ORDERED: Sodium Chloride 0.9% 750 ML IV ONE (10:09)
--- NOTE | 2018-07-12 10:19 | EDM.PDOC ---
ED HPI GENERAL MEDICAL PROBLEM - General Chief Complaint: Gastrointestinal Problem Stated Complaint: ABDOMINAL PAIN Time Seen by Provider: 07/12/18 07:15 Source of Information: Reports: Patient, Family History Limitations: Reports: No Limitations - History of Present Illness INITIAL COMMENTS - FREE TEXT/NARRATIVE: The patient returns to the ER this morning for generalized body aches, fever, nausea, vomiting and diarrhea. She was isaiah here last night for just the body aches and fever. She had a temp of 101 at home. She had labs and her WBC was elevated at 10. Her K was low at 2.6 and her UA showed a UTI. She was also influenza B positive but she was also positive for influenza B back in April. It was felt that she may have antibodys that are giving a false positive. She was given 2 grams of rocephin and potassium and sent home with levaquin. She went home and had nausea, vomiting and diarrhea. She came back with generalized body aches again, nausea, vomiting, diarrhea and fever. She also said she was short of breath but no chest pain. She has no cough or congestion. She has no problems with her heart. Onset: Gradual Duration: Day(s): Location: Reports: Generalized Quality: Reports: Ache Severity: Moderate Improves with: Reports: None Worsens with: Reports: None Associated Symptoms: Reports: Fever/Chills, Nausea/Vomiting, Shortness of Breath. Denies: Chest Pain, Cough, Headaches - Related Data Allergies Allergy/AdvReac Type Severity Reaction Status Date / Time No Known Allergies Allergy Verified 07/11/18 19:19 Home Meds: Home Meds predniSONE [Prednisone] 5 mg PO DAILY 03/18/14 [History] Gabapentin [Neurontin] 1,200 mg PO BEDTIME 09/14/15 [History] Gabapentin [Neurontin] 900 mg PO ASDIRECTED 09/14/15 [History] Methotrexate 15 mg PO WE 03/22/17 [History] Folic Acid 1 mg PO DAILY 05/19/18 [History] Naltrexone 6 mg PO DAILY 05/19/18 [History] Rosuvastatin [Crestor] 10 mg PO DAILY 05/19/18 [History] Hydrocodone/Acetaminophen [Hydrocodon-Acetaminophen 5-325] 1 tab PO Q6HR PRN [History] Zolpidem Tartrate [Ambien] 5 mg PO BEDTIME PRN 05/20/18 [History] Potassium Chloride 20 meq PO QAM #30 tablet.er 07/11/18 [Rx] Prevalite Powder. 07/11/18 [History] Saccharomyces Boulardii [Florastor] 250 mg PO QAM #10 capsule 07/11/18 [Rx] levoFLOXacin [Levaquin] 500 mg PO DAILY #10 tab 07/11/18 [Rx] Past Medical History HEENT History: Reports: Cataract, Impaired Vision Other HEENT History: wears glasses Respiratory History: Reports: Other (See Below) Other Respiratory History: Pneumonia Gastrointestinal History: Reports: Cholelithiasis Genitourinary History: Reports: Acute Renal Failure, Renal Calculus [employer] History: Reports: , Spontaneous Musculoskeletal History: Reports: RA Other Musculoskeletal History: Dislocated thumb Neurological History: Reports: Neuropathy, Peripheral Hematologic History: Reports: B12 Deficiency - Infectious Disease History Infectious Disease History: Reports: Influenza - Past Surgical History HEENT Surgical History: Reports: Cataract Surgery GI Surgical History: Reports: Cholecystectomy, Polypectomy Female Surgical History: Reports: Ureteral Stent Dermatological Surgical History: Reports: None Social & Family History - Family History Family Medical History: Noncontributory - Tobacco Use Smoking Status *Q: Never Smoker - Caffeine Use Caffeine Use: Reports: Soda, Tea - Recreational Drug Use Recreational Drug Use: Yes Recreational Drug Type: Reports: Other (see below) Other Recreational Drug Type: CBD - Living Situation & Occupation Living situation: Reports: , Other Occupation: Employed ED ROS GENERAL - Review of Systems Review Of Systems: See Below Constitutional: Reports: Fever, Chills, Weakness, Fatigue HEENT: Reports: No Symptoms Respiratory: Reports: Shortness of Breath. Denies: Cough Cardiovascular: Reports: No Symptoms Endocrine: Reports: No Symptoms GI/Abdominal: Reports: Nausea, Vomiting. Denies: Abdominal Pain : Reports: No Symptoms Musculoskeletal: Reports: Muscle Pain Skin: Reports: No Symptoms ED EXAM, GI/ABD - Physical Exam Exam: See Below Exam Limited By: No Limitations General Appearance: Alert, No Apparent Distress Ears: Normal External Exam Nose: Normal Inspection Head: Atraumatic, Normocephalic Neck: Normal Inspection, Supple, Non-Tender Respiratory/Chest: No Respiratory Distress, Lungs Clear, Normal Breath Sounds Cardiovascular: Regular Rate, Rhythm, No Edema, No Murmur GI/Abdominal Exam: Soft, Non-Tender, No Organomegaly, No Mass Back Exam: Normal Inspection Extremities: Normal Inspection EKG INTERPRETATION EKG Date: 07/12/18 Time: 09:03 Rhythm: NSR Rate (Beats/Min): 94 [place]: Normal P-Wave: Present QRS: Normal ST-T: Normal QT: Normal Course - Vital Signs Last Recorded V/S: Last Vital Signs Temp 98.1 F 07/12/18 07:17 Pulse 98 07/12/18 07:17 Resp 18 07/12/18 07:17 BP 116/70 07/12/18 07:17 Pulse Ox 98 07/12/18 07:17 - Orders/Labs/Meds Orders: Active Orders 24 hr Category Date Time Status EKG Documentation Completion [RC] STAT Care 07/12/18 07:25 Active Peripheral IV Care [RC] . DIRECTED Care 07/12/18 07:25 Active Levofloxacin/Dextrose 5%-Water [Levaquin in D5W 500 MG/ Med 07/12/18 09:40 Active 100 ML] 500 mg Premix Bag 1 bag IV ONETIME Sodium Chloride 0.9% [Normal Saline] 750 ml Med 07/12/18 10:09 Active IV ONETIME Sodium Chloride 0.9% [Saline Flush] Med 07/12/18 07:25 Active 10 ml FLUSH ASDIRECTED PRN ED Antiemetic Medication Reflex [OM.PC] Stat Oth 07/12/18 07:25 Ordered Peripheral IV Insertion Adult [OM.PC] Stat Oth 07/12/18 07:25 Ordered Medication Orders Levofloxacin/Dextrose 500 mg/ (Premix) 100 mls @ 100 mls/hr IV ONETIME ONE Stop: 07/12/18 10:39 Last Admin: 07/12/18 09:48 Dose: 100 mls/hr Sodium Chloride (Normal Saline) 750 mls @ 1,000 mls/hr IV ONETIME ONE Stop: 07/12/18 10:53 Sodium Chloride (Saline Flush) 10 ml FLUSH ASDIRECTED PRN PRN Reason: Keep Vein Open Last Admin: 07/12/18 08:10 Dose: 10 ml Labs: Laboratory Tests 07/12/18 07/12/18 07/12/18 Range/Units 08:50 08:50 08:50 WBC 7.70 (3.98-10.04) K/mm3 RBC 4.06 (3.98-5.22) M/mm3 Hgb 12.3 (11.2-15.7) gm/L Hct 38.1 (34.1-44.9) % MCV 93.8 (79.4-94.8) fl MCH 30.3 (25.6-32.2) pg MCHC 32.3 (32.2-35.5) g/dl RDW Std Deviation 54.5 H (36.4-46.3) fL Plt Count 155 L (182-369) K/mm3 MPV 10.4 (9.4-12.3) fl Neut % (Auto) 71.9 H (34.0-71.1) % Lymph % (Auto) 12.9 L (19.3-51.7) % [place] % (Auto) 13.1 H (4.7-12.5) % Eos % (Auto) 1.3 (0.7-5.8) Baso % (Auto) 0.3 (0.1-1.2) % Neut # (Auto) 5.54 (1.56-6.13) K/mm3 Lymph # (Auto) 0.99 L (1.18-3.74) K/mm3 [place] # (Auto) 1.01 H (0.24-0.36) K/mm3 Eos # (Auto) 0.10 (0.04-0.36) K/mm3 Baso # (Auto) 0.02 (0.01-0.08) K/mm3 Sodium 142 (136-145) mEq/L Potassium 3.4 L (3.5-5.1) mEq/L Chloride 106 (98-107) mEq/L Carbon Dioxide 22 (21-32) mEq/L Anion Gap 17.4 H (5-15) BUN 14 (7-18) mg/dL Creatinine 1.1 H (0.55-1.02) mg/dL Est Cr Clr Drug Dosing 39.92 mL/min Estimated GFR (MDRD) 49 (>60) mL/min BUN/Creatinine Ratio 12.7 L (14-18) Glucose 127 H (83-115) mg/dL Lactic Acid 2.9 H (0.4-2.0) mmol/L Calcium 8.5 (8.5-10.1) mg/dL Magnesium 1.8 (1.8-2.4) mg/dl Total Bilirubin 0.9 (0.2-1.0) mg/dL AST 15 (15-37) U/L ALT 17 (14-59) U/L Alkaline Phosphatase 51 (46-116) U/L Troponin I 1.312 H* (0.00-0.056) ng/mL Total Protein 6.4 (6.4-8.2) g/dl Albumin 3.0 L (3.4-5.0) g/dl Globulin 3.4 gm/dL Albumin/Globulin Ratio 0.9 L (1-2) Lipase 50 L (73-393) U/L Meds: Medications Generic Name Dose Route Start Last Admin Trade Name Chio PRN Reason Stop Dose Admin Levofloxacin/Dextrose 500 mg/ 100 mls @ 100 mls/hr 07/12/18 09:40 07/12/18 09 :48 Premix IV 07/12/18 10:39 100 mls/hr ONETIME ONE Administration Sodium Chloride 750 mls @ 1,000 mls/hr 07/12/18 10:09 Normal Saline IV 07/12/18 10:53 ONETIME ONE Sodium Chloride 10 ml 07/12/18 07:25 07/12/18 08:10 Saline Flush FLUSH 10 ml ASDIRECTED PRN Administration Keep Vein Open Discontinued Medications Generic Name Dose Route Start Last Admin Trade Name Chio PRN Reason Stop Dose Admin Aspirin 324 mg 07/12/18 09:38 07/12/18 09:48 Aspirin PO 07/12/18 09:39 324 mg ONETIME ONE Administration Hydromorphone HCl 0.5 mg 07/12/18 09:38 07/12/18 09:48 Dilaudid IVPUSH 07/12/18 09:39 0.5 mg ONETIME ONE Administration Sodium Chloride 1,000 mls @ 1,000 mls/hr 07/12/18 07:25 07/12/18 08:10 Normal Saline IV 07/12/18 08:24 500 mls/hr .BOLUS STA Administration Ondansetron HCl 4 mg 07/12/18 07:25 07/12/18 08:10 Zofran IVPUSH 07/12/18 07:26 4 mg ONETIME ONE Administration - Re-Assessments/Exams Free Text/Narrative Re-Assessment/Exam: 07/12/18 10:39 I ordered an IV NS 1L bolus, zofran, EKG, labs and a CXR. Her EKG shows a NSR with no acute changes. Her CXR shows no infiltrates. Her WBC is back to normal at 7.7. 07/12/18 10:40 Her K was at 3.4 and that has improved from 2.6. Her creatinine went up to 1.1 from 1. Her GFR is 49. Her glucose is elevated at 127. Her lactic acid is 2.9. Her torponin is elevated at 1.31. She still denies chest pain. I gave her some aspirin and dilaudid for the pain. I also ordered levaquin 500mg IV. She has a urine culture from last night but no blood cultures. She had 2 doses of antibiotics already so I do not feel they will be helpful. I ordered more fluid at 750ml bolus. I feel she needs to be admitted but with her elevated troponin our hospitalist thought she should go to [facility]. I talked to the hospitalist front window cashier Dr Liao and she accepted. I also talked to Dr Arteaga the panel assembler and he thought this was possibly a type II [place] and they will trend the troponins. She will be going by ambulance. Departure - Departure Time of Disposition: 10:45 Disposition: DC/Tfer to [facility] 02 Clinical Impression: Hyponatremia, Elevated troponin UTI (urinary tract infection) Qualifiers: Urinary tract infection type: acute cystitis Hematuria presence: without hematuria Qualified Code(s): N30.00 - Acute cystitis without hematuria Sepsis Qualifiers: Sepsis type: sepsis due to unspecified organism Qualified Code(s): A41.9 - Sepsis, unspecified organism Nausea and vomiting Qualifiers: Vomiting type: unspecified Vomiting Intractability: unspecified Qualified Code( s): R11.2 - Nausea with vomiting, unspecified Diarrhea Qualifiers: Diarrhea type: unspecified type Qualified Code(s): R19.7 - Diarrhea, unspecified - Discharge Information Referrals: Erik Andrews MD [Primary Care Provider] - Forms: ED Department Discharge - My Orders Last 24 Hours: My Active Orders 07/12/18 07:25 EKG Documentation Completion [RC] STAT Peripheral IV Care [RC] . DIRECTED Sodium Chloride 0.9% [Saline Flush] 10 ml FLUSH ASDIRECTED PRN ED Antiemetic Medication Reflex [OM.PC] Stat Peripheral IV Insertion Adult [OM.PC] Stat 07/12/18 09:40 Levofloxacin/Dextrose 5%-Water [Levaquin in D5W 500 MG/100 ML] 500 mg Premix Bag 1 bag IV ONETIME 07/12/18 10:09 Sodium Chloride 0.9% [Normal Saline] 750 ml IV ONETIME - Assessment/Plan Last 24 Hours: My Active Orders 07/12/18 07:25 EKG Documentation Completion [RC] STAT Peripheral IV Care [RC] . DIRECTED Sodium Chloride 0.9% [Saline Flush] 10 ml FLUSH ASDIRECTED PRN ED Antiemetic Medication Reflex [OM.PC] Stat Peripheral IV Insertion Adult [OM.PC] Stat 07/12/18 09:40 Levofloxacin/Dextrose 5%-Water [Levaquin in D5W 500 MG/100 ML] 500 mg Premix Bag 1 bag IV ONETIME 07/12/18 10:09 Sodium Chloride 0.9% [Normal Saline] 750 ml IV ONETIME
--- NOTE | 2018-07-12 10:29 | CR ---
Chest: Portable view of the chest was obtained. Comparison: Prior chest x-ray of 05/19/18. Heart size is normal. Tortuous thoracic aorta is seen. Lungs are clear. Bony structures are grossly intact. Impression: 1. Nothing acute is seen on portable chest x-ray. Diagnostic code #1
== END 2018-07-12 11:00 ==
LOC: JD.ED 07:02
DX: A41.9 Sepsis, unspecified organism (principal); N30.00 Acute cystitis without hematuria; E87.1 Hypo-osmolality and hyponatremia; R79.89 Other specified abnormal findings of blood chemistry; Z79.899 Other long term (current) drug therapy
CPT/HCPCS: 36415; 71045; 80053; 83605; 83690; 83735; 84484; 85025; 93005; 96361; 96365; 96375; 99285; A9270; J1170; J1956; J2405; J7040; 93010

== ENCOUNTER 2018-09-14 12:59 | Emergency (ER) | payer MEDICARE, BC ==
[2018-09-14] MEDS ORDERED: Sodium Chloride 0.9% 10 ML Syringe FLUSH PRN (13:12)
[2018-09-14 13:13] VITALS: BP 158/84
[2018-09-14] MEDS ORDERED: Lactated Ringers 1,000 ML IV SCH (13:15)
[2018-09-14] MEDS ORDERED: Sodium Chloride 0.9% 1,000 ML IV SCH (13:45)
--- NOTE | 2018-09-14 14:06 | EDM.PDOC ---
ED HPI GENERAL MEDICAL PROBLEM - General Chief Complaint: Fever Stated Complaint: POSS DEHYDRATION/FEVER Time Seen by Provider: 09/14/18 13:11 Source of Information: Reports: Patient History Limitations: Reports: No Limitations - History of Present Illness INITIAL COMMENTS - FREE TEXT/NARRATIVE: 72-year-old female presents to [facility] with chief complaints of generalized weakness, chills, fever and fatigue. She reports she started having chills yesterday. Today she started having fever 101.0, nausea and vomiting x 2. When she arrived to ER her temperature was 100.2. She has a history of RA and complains of generalized body aches. She did not take her pain medication today because she was nauseated. She denies dysuria, back pain, sore throat, nasal congestion. She reports she is SOB for the past week. She was recently hospitalized a month ago at [facility] for CHF, UTI and influenza B. 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 She is accompanied by her . Onset Date: 09/13/18 Onset Time: 16:00 Duration: Getting Worse, Intermittent Quality: Reports: Ache Severity: Mild Improves with: Reports: None Worsens with: Reports: None Associated Symptoms: Reports: Fever/Chills, Nausea/Vomiting, Shortness of Breath , Weakness. Denies: Cough, Headaches - Related Data Allergies Allergy/AdvReac Type Severity Reaction Status Date / Time No Known Allergies Allergy Verified 09/14/18 13:09 Home Meds: Home Meds predniSONE [Prednisone] 5 mg PO DAILY 03/18/14 [History] Gabapentin [Neurontin] 1,200 mg PO BEDTIME 09/14/15 [History] Gabapentin [Neurontin] 900 mg PO ASDIRECTED 09/14/15 [History] Methotrexate 15 mg PO WE 03/22/17 [History] Folic Acid 1 mg PO DAILY 05/19/18 [History] Naltrexone 6 mg PO DAILY 05/19/18 [History] Rosuvastatin [Crestor] 10 mg PO DAILY 05/19/18 [History] Hydrocodone/Acetaminophen [Hydrocodon-Acetaminophen 5-325] 1 tab PO Q6HR PRN [History] Zolpidem Tartrate [Ambien] 5 mg PO BEDTIME PRN 05/20/18 [History] Potassium Chloride 20 meq PO QAM #30 tablet.er 07/11/18 [Rx] Prevalite Powder. 07/11/18 [History] Saccharomyces Boulardii [Florastor] 250 mg PO QAM #10 capsule 07/11/18 [Rx] levoFLOXacin [Levaquin] 500 mg PO DAILY #10 tab 07/11/18 [Rx] Cefdinir 300 mg PO BID 14 Days #28 capsule 09/14/18 [Rx] Ondansetron [Zofran ODT] 4 mg PO Q6H PRN #20 tab.dis 09/14/18 [Rx] Past Medical History HEENT History: Reports: Cataract, Impaired Vision Other HEENT History: wears glasses Respiratory History: Reports: Other (See Below) Other Respiratory History: Pneumonia Gastrointestinal History: Reports: Cholelithiasis Genitourinary History: Reports: Acute Renal Failure, Renal Calculus PLASTERER SPOT History: Reports: , Spontaneous Musculoskeletal History: Reports: RA Other Musculoskeletal History: Dislocated thumb Neurological History: Reports: Neuropathy, Peripheral Hematologic History: Reports: B12 Deficiency - Infectious Disease History Infectious Disease History: Reports: Influenza - Past Surgical History HEENT Surgical History: Reports: Cataract Surgery GI Surgical History: Reports: Cholecystectomy, Polypectomy Female Surgical History: Reports: Ureteral Stent Dermatological Surgical History: Reports: None Social & Family History - Family History Family Medical History: Noncontributory - Caffeine Use Caffeine Use: Reports: Soda, Tea - Living Situation & Occupation Living situation: Reports: , Other Occupation: Employed ED ROS ENT - Review of Systems Review Of Systems: See Below Constitutional: Reports: Fever, Chills HEENT: Reports: Glasses Respiratory: Reports: Shortness of Breath Cardiovascular: Denies: Chest Pain Endocrine: Reports: Fatigue GI/Abdominal: Reports: Nausea, Vomiting. Denies: Abdominal Pain, Constipation, Diarrhea : Denies: Dysuria, Flank Pain Musculoskeletal: Reports: Other (history or RA). Denies: Back Pain Skin: Reports: No Symptoms Neurological: Reports: No Symptoms, Change in Speech Hematologic/Lymphatic: Reports: No Symptoms Immunologic: Reports: No Symptoms ED EXAM, ENT - Physical Exam Exam: See Below Exam Limited By: No Limitations General Appearance: Alert, WD/WN, No Apparent Distress Ears: Normal External Exam, Normal Canal, Hearing Grossly Normal, Normal TMs Nose: Normal Inspection, Normal Mucousa, No Blood Mouth/Throat: Normal Inspection, Normal Gums, Normal Lips, Normal Oropharynx, Normal Teeth Head: Atraumatic, Normocephalic Neck: Normal Inspection, Supple, Non-Tender, Full Range of Motion Respiratory/Chest: No Respiratory Distress, Lungs Clear, Normal Breath Sounds, No Accessory Muscle Use, Chest Non-Tender Cardiovascular: Normal Peripheral Pulses, Regular Rate, Rhythm, No Edema, No Gallop, No JVD, No Murmur, No Rub GI/Abdominal: Normal Bowel Sounds, Soft, Non-Tender, No Organomegaly, No Distention, No Abnormal Bruit, No Mass, Pelvis Stable. No: Guarding, Rebound, Tender Back: Normal Inspection, Full Range of Motion Extremities: Normal Inspection, Normal Range of Motion, Non-Tender, No Pedal Edema, Normal Capillary Refill Neurological: Alert, Oriented Psychiatric: Normal Affect, Normal Mood Skin: Warm, Dry, Intact, Normal Color, No Rash, Other (Patient's skin is thin due to her long-term use of prednisone) Lymphatic: No Adenopathy Course - Vital Signs Last Recorded V/S: Last Vital Signs Temp 99.8 F 09/14/18 13:09 Pulse 107 H 09/14/18 13:09 Resp 20 09/14/18 13:09 BP 158/84 H 09/14/18 13:09 Pulse Ox 97 09/14/18 13:09 - Orders/Labs/Meds Orders: Active Orders 24 hr Category Date Time Status Insert Stein Catheter [Insert Urinary Catheter] [OM.PC] Care 09/14/18 14:08 Ordered Stat Urinary Catheter Assessment [RC] ASDIRECTED Care 09/14/18 14:08 Active Chest 2V [CR] Stat Exams 09/14/18 13:29 Taken CULTURE BLOOD [BC] Stat Lab 09/14/18 14:35 Received CULTURE BLOOD [BC] Stat Lab 09/14/18 14:49 Received Sodium Chloride 0.9% [Normal Saline] 1,000 ml Med 09/14/18 13:45 Active IV ASDIRECTED Sodium Chloride 0.9% [Saline Flush] Med 09/14/18 13:12 Active 10 ml FLUSH ASDIRECTED PRN Blood Culture x2 Reflex Set [OM.PC] Stat Oth 09/14/18 13:34 Ordered Saline Lock Insert [OM.PC] Routine Oth 09/14/18 13:12 Ordered Medication Orders Sodium Chloride (Normal Saline) 1,000 mls @ 125 mls/hr IV ASDIRECTED YOUSIF Last Admin: 09/14/18 13:52 Dose: 125 mls/hr Sodium Chloride (Saline Flush) 10 ml FLUSH ASDIRECTED PRN PRN Reason: Keep Vein Open Last Admin: 09/14/18 13:52 Dose: 10 ml Labs: Laboratory Tests 09/14/18 09/14/18 09/14/18 Range/Units 13:35 13:35 13:35 WBC 12.30 H (3.98-10.04) K/mm3 RBC 4.18 (3.98-5.22) M/mm3 Hgb 12.7 (11.2-15.7) gm/L Hct 39.8 (34.1-44.9) % MCV 95.2 H (79.4-94.8) fl MCH 30.4 (25.6-32.2) pg MCHC 31.9 L (32.2-35.5) g/dl RDW Std Deviation 51.6 H (36.4-46.3) fL Plt Count 175 L (182-369) K/mm3 MPV 10.0 (9.4-12.3) fl Neut % (Auto) 63.6 (34.0-71.1) % Lymph % (Auto) 17.7 L (19.3-51.7) % [place] % (Auto) 16.8 H (4.7-12.5) % Eos % (Auto) 1.1 (0.7-5.8) Baso % (Auto) 0.2 (0.1-1.2) % Neut # (Auto) 7.82 H (1.56-6.13) K/mm3 Lymph # (Auto) 2.18 (1.18-3.74) K/mm3 [place] # (Auto) 2.07 H (0.24-0.36) K/mm3 Eos # (Auto) 0.13 (0.04-0.36) K/mm3 Baso # (Auto) 0.03 (0.01-0.08) K/mm3 Manual Slide Review Abnormal smear Sodium 140 (136-145) mEq/L Potassium 3.0 L (3.5-5.1) mEq/L Chloride 106 (98-107) mEq/L Carbon Dioxide 20 L (21-32) mEq/L Anion Gap 17.0 H (5-15) BUN 14 (7-18) mg/dL Creatinine 0.8 (0.55-1.02) mg/dL Est Cr Clr Drug Dosing 54.89 mL/min Estimated GFR (MDRD) > 60 (>60) mL/min BUN/Creatinine Ratio 17.5 (14-18) Glucose 107 (83-115) mg/dL Lactic Acid (0.4-2.0) mmol/L Calcium 7.3 L (8.5-10.1) mg/dL Magnesium 1.8 (1.8-2.4) mg/dl Total Bilirubin 0.7 (0.2-1.0) mg/dL AST 25 (15-37) U/L ALT 20 (14-59) U/L Alkaline Phosphatase 64 (46-116) U/L NT-Pro-B Natriuret Pep (0-125) pg/mL Total Protein 6.3 L (6.4-8.2) g/dl Albumin 3.1 L (3.4-5.0) g/dl Globulin 3.2 gm/dL Albumin/Globulin Ratio 1.0 (1-2) Urine Color (Yellow) Urine Appearance (Clear) Urine pH (5.0-8.0) Ur Specific [place] (1.005-1.030) Urine Protein (Negative) Urine Glucose (UA) (Negative) Urine Ketones (Negative) Urine Occult Blood (Negative) Urine Nitrite (Negative) Urine Bilirubin (Negative) Urine Urobilinogen (0.2-1.0) Ur Leukocyte Esterase (Negative) Urine RBC (0-5) /hpf Urine WBC (0-5) /hpf Urine WBC Clumps (NOT SEEN) /hpf Ur Squamous Epith Cells (0-5) /hpf Urine Bacteria (FEW) /hpf Urine Mucus (FEW) /hpf 09/14/18 09/14/18 09/14/18 Range/Units 13:35 14:00 14:35 WBC (3.98-10.04) K/mm3 RBC (3.98-5.22) M/mm3 Hgb (11.2-15.7) gm/L Hct (34.1-44.9) % MCV (79.4-94.8) fl MCH (25.6-32.2) pg MCHC (32.2-35.5) g/dl RDW Std Deviation (36.4-46.3) fL Plt Count (182-369) K/mm3 MPV (9.4-12.3) fl Neut % (Auto) (34.0-71.1) % Lymph % (Auto) (19.3-51.7) % [place] % (Auto) (4.7-12.5) % Eos % (Auto) (0.7-5.8) Baso % (Auto) (0.1-1.2) % Neut # (Auto) (1.56-6.13) K/mm3 Lymph # (Auto) (1.18-3.74) K/mm3 [place] # (Auto) (0.24-0.36) K/mm3 Eos # (Auto) (0.04-0.36) K/mm3 Baso # (Auto) (0.01-0.08) K/mm3 Manual Slide Review Sodium (136-145) mEq/L Potassium (3.5-5.1) mEq/L Chloride (98-107) mEq/L Carbon Dioxide (21-32) mEq/L Anion Gap (5-15) BUN (7-18) mg/dL Creatinine (0.55-1.02) mg/dL Est Cr Clr Drug Dosing mL/min Estimated GFR (MDRD) (>60) mL/min BUN/Creatinine Ratio (14-18) Glucose (83-115) mg/dL Lactic Acid 1.3 (0.4-2.0) mmol/L Calcium (8.5-10.1) mg/dL Magnesium (1.8-2.4) mg/dl Total Bilirubin (0.2-1.0) mg/dL AST (15-37) U/L ALT (14-59) U/L Alkaline Phosphatase (46-116) U/L NT-Pro-B Natriuret Pep 1661 H (0-125) pg/mL Total Protein (6.4-8.2) g/dl Albumin (3.4-5.0) g/dl Globulin gm/dL Albumin/Globulin Ratio (1-2) Urine Color [place] H (Yellow) Urine Appearance Slt cloudy H (Clear) Urine pH 7.0 (5.0-8.0) Ur Specific [place] 1.015 (1.005-1.030) Urine Protein 2+ H (Negative) Urine Glucose (UA) Trace H (Negative) Urine Ketones Trace H (Negative) Urine Occult Blood 2+ H (Negative) Urine Nitrite Positive H (Negative) Urine Bilirubin Negative (Negative) Urine Urobilinogen 1.0 (0.2-1.0) Ur Leukocyte Esterase 3+ H (Negative) Urine RBC 5-10 H (0-5) /hpf Urine WBC 30-40 H (0-5) /hpf Urine WBC Clumps Occasional (NOT SEEN) /hpf Ur Squamous Epith Cells 0-5 (0-5) /hpf Urine Bacteria Many H (FEW) /hpf Urine Mucus Not seen (FEW) /hpf Meds: Medications Generic Name Dose Route Start Last Admin Trade Name Freq PRN Reason Stop Dose Admin Sodium Chloride 1,000 mls @ 125 mls/hr 09/14/18 13:45 09/14/18 13:52 Normal Saline IV 125 mls/hr ASDIRECTED YOUSIF Administration Sodium Chloride 10 ml 09/14/18 13:12 09/14/18 13:52 Saline Flush FLUSH 10 ml ASDIRECTED PRN Administration Keep Vein Open Discontinued Medications Generic Name Dose Route Start Last Admin Trade Name Freq PRN Reason Stop Dose Admin Lactated Ringer's 1,000 mls @ 999 mls/hr 09/14/18 13:15 Ringers, Lactated IV ASDIRECTED YOUSIF Ceftriaxone Sodium 1 gm/ 100 mls @ 200 mls/hr 09/14/18 14:18 09/14/18 14:54 Sodium Chloride IV 09/14/18 14:47 200 mls/hr ONETIME ONE Administration Morphine Sulfate 4 mg 09/14/18 14:36 09/14/18 15:34 Morphine IV 09/14/18 14:37 4 mg NOW STA Administration Ondansetron HCl 4 mg 09/14/18 14:37 09/14/18 15:34 Zofran IVPUSH 09/14/18 14:38 4 mg ONETIME ONE Administration Potassium Chloride 40 meq 09/14/18 14:58 09/14/18 15:35 Klor-Con M20 PO 09/14/18 14:59 40 meq ONETIME ONE Administration - Re-Assessments/Exams Free Text/Narrative Re-Assessment/Exam: 09/14/18 14:07 chest x-ray revealed no acute findings. 09/14/18 14:23 Urinalysis + 2 protien Ketones H occult blood+2 Leukocyte eterase + 3 WBC 12.3 rBC 4.18 H & H 12.7/39.8. PLT count 175. I will do a abdomen/pelvis stone protocol CT because of blood in her urine. I will medicated with Rocephin IVPB. 09/14/18 14:38 discussed plan of care with patient, she is agreement to have Ct performed. 09/14/18 14:57 Urinalysis + 2 protien Ketones H occult blood+2 Leukocyte esterase + 3 WBC 12.3 rBC 4.18 H & H 12.7/39.8. PLT count 175. I will medicate with potassium 40 meq 09/14/18 15:40 lactic acid 1.3 09/14/18 16:30 Ct revealed large nonobstructing stone within the right kidney measuring 1.7 cm. Additional calcification within the right upper kidney measuring 7 mm. Second calcification could represent nonobstructing stone or vascular calcification. No ureter dilatation or ureter stone is seen. Slight inflammatory changes around the right kidney. Please rule out any signs of pyelonephritis. Patient has had recurring urinary tract infections positive for Klebsiella pneumonia. I will discharge home with cefdinir 300 mg twice daily for 14 days. Instructed patient to follow up with urologist for evaluation of her kidney stone. A referral was given for Dr. Gena Wild in [place]. In addition since she has had recurring infections I recommend she see a infectious disease specialist for further evaluation and treatment. I informed the patient she does not meet criteria for admission and she could be treated on a outpatient basis. Patient and verbalized understanding and are comfortable plan for discharge. Instructed patient to return to the emergency room for any recurrent symptoms. Departure - Departure Time of Disposition: 16:36 Disposition: Home, Self-Care 01 Condition: Good Clinical Impression: Polyneuritis, Kidney stone UTI (urinary tract infection) Qualifiers: Urinary tract infection type: acute cystitis Hematuria presence: without hematuria Qualified Code(s): N30.00 - Acute cystitis without hematuria - Discharge Information Prescriptions: Cefdinir 300 mg PO BID 14 Days #28 capsule Ondansetron [Zofran ODT] 4 mg PO Q6H PRN #20 tab.dis PRN Reason: Nausea Instructions: Kidney Stones, [id number], Urinary Tract Infection, Adult, Easy -to-Read Referrals: Erik Andrews MD [Primary Care Provider] - Mc Andrea MD [Ordering Only Provider] - Dieter Donovan MD [Ordering Only Provider] - Forms: ED Department Discharge Additional Instructions: You have been diagnosis with urinary tract infection and kidney stone. Your labs were unremarkable and did not indicate you were dehydrated. Your potassium is low. You need to continue to take your potassium supplements. I recommend you follow up with a urologist for evaluation of your kidney stone In addition I recommend you should see a infectious disease doctor to evaluate our re-occurring urinary tract infections. You have been given Cefdinir for outpatient antibiotic therapy. Take it as prescribed. Return to the ER for any new or acute worsening symptoms. - My Orders Last 24 Hours: My Active Orders 09/14/18 13:12 Sodium Chloride 0.9% [Saline Flush] 10 ml FLUSH ASDIRECTED PRN Saline Lock Insert [OM.PC] Routine 09/14/18 13:29 Chest 2V [CR] Stat 09/14/18 13:34 Blood Culture x2 Reflex Set [OM.PC] Stat 09/14/18 13:45 Sodium Chloride 0.9% [Normal Saline] 1,000 ml IV ASDIRECTED 09/14/18 14:08 Insert Stein Catheter [Insert Urinary Catheter] [OM.PC] Stat Urinary Catheter Assessment [RC] ASDIRECTED 09/14/18 14:35 CULTURE BLOOD [BC] Stat 09/14/18 14:49 CULTURE BLOOD [BC] Stat - Assessment/Plan Last 24 Hours: My Active Orders 09/14/18 13:12 Sodium Chloride 0.9% [Saline Flush] 10 ml FLUSH ASDIRECTED PRN Saline Lock Insert [OM.PC] Routine 09/14/18 13:29 Chest 2V [CR] Stat 09/14/18 13:34 Blood Culture x2 Reflex Set [OM.PC] Stat 09/14/18 13:45 Sodium Chloride 0.9% [Normal Saline] 1,000 ml IV ASDIRECTED 09/14/18 14:08 Insert Stein Catheter [Insert Urinary Catheter] [OM.PC] Stat Urinary Catheter Assessment [RC] ASDIRECTED 09/14/18 14:35 CULTURE BLOOD [BC] Stat 09/14/18 14:49 CULTURE BLOOD [BC] Stat
[2018-09-14] MEDS ORDERED: cefTRIAXone 1 GM in Sodium Chloride 0.9% 100 ML IV ONE (14:18)
[2018-09-14] MEDS ORDERED: Ondansetron 4 MG/2 ML SDV IVPUSH ONE (14:37)
[2018-09-14] MEDS ORDERED: Potassium Chloride 20 MEQ Tab.ER PO ONE (14:58)
--- NOTE | 2018-09-14 16:01 | CT ---
CT abdomen and pelvis Technique: Multiple axial sections were obtained from above the dome of the diaphragm inferiorly through the pubic symphysis. Intravenous and oral contrast not utilized. Study has been performed as a ureteral stone protocol. Comparison: Previous contrast enhanced CT study of 05/19/18. Findings: Large nonobstructing stone is noted within the right kidney measuring 1.7 cm. Additional calcification is noted within the more superior right kidney measuring 7 mm. Uncertain if this second calcification is due to additional nonobstructing stone or is vascular in etiology. Left kidney shows no abnormal calcifications. No ureteral dilatation or ureteral calculi are seen. No bladder calculi are seen. Inflammatory changes seen around the right kidney. Small portion of the visualized lung bases show nothing acute. Noncontrast appearance of the liver and spleen shows no discrete abnormality. Small hiatal hernia is noted. Adrenal glands show no nodule. Surgical clips are seen from prior cholecystectomy. Pancreas shows no abnormality. Aorta shows diffuse atherosclerotic calcification without aneurysm. Atherosclerotic calcification continues into the iliac vessels. No retroperitoneal adenopathy or mesenteric abnormalities are seen. Appendix not definitely visualized. No pelvic mass or adenopathy is seen. Bone window settings were reviewed which appear within normal limits for the patient's age. Impression: 1. Large nonobstructing stone within the right kidney measuring 1.7 cm. Additional calcification within the upper right kidney measuring 7 mm. Second calcification could represent nonobstructing stone or vascular calcification. 2. No ureteral dilatation or ureteral stone is seen. 3. Slight inflammatory change around the right kidney. Please rule out any signs of pyelonephritis. 4. Other incidental findings as noted above. Diagnostic code #3
[2018-09-14] MEDS ORDERED: Cefdinir 300 MG Cap PO ONE (17:11)
[2018-09-14] MEDS ORDERED: Ondansetron 4 MG Tab.DIS PO ONE (17:11)
--- NOTE | 2018-09-15 11:18 | CR ---
Chest: Two views of the chest were obtained. Comparison: Previous chest x-ray of 07/12/18. Heart size within normal limits for technique. Upper mediastinum is normal. Slight tortuosity of the thoracic aorta is seen. Minimal scarring is seen within the left midlung. Lungs otherwise are clear. Diaphragms are slightly flattened on the lateral view suggesting emphysematous change. Bony structures are osteopenic. Mild degenerative change is seen within the spine with minimal scoliosis. Impression: 1. Findings as noted above. Nothing acute is appreciated. Diagnostic code #2
== END 2018-09-14 17:25 | disposition home or self-care (01) ==
LOC: JD.ED 12:59
DX: G62.9 Polyneuropathy, unspecified (principal); N20.0 Calculus of kidney; N30.00 Acute cystitis without hematuria; Z79.899 Other long term (current) drug therapy
CPT/HCPCS: 36415; 51702; 71046; 74176; 80053; 81001; 83605; 83735; 83880; 85025; 87040; 96361; 96365; 96375; 99284; A9270; J0696; J2270; J2405; J7030; J7040

== ENCOUNTER 2019-01-01 12:13 | Inpatient (IN) | payer MEDICARE, BC ==
--- NOTE | 2019-01-01 12:38 | EDM.PDOC ---
ED HPI GENERAL MEDICAL PROBLEM - General Chief Complaint: Abdominal Pain Stated Complaint: SENT BY DR ANDREWS Time Seen by Provider: 01/01/19 12:38 - History of Present Illness INITIAL COMMENTS - FREE TEXT/NARRATIVE: 73-year-old female presents emergency room after being sent here by her regular physician with abdominal pain. Patient is been having left lower quadrant pain for the last several days. She' s had some nausea and vomiting and generally has felt quite poor she was noticed to have white count 22,000 in the clinic today, and her physician, Dr. Andrews would like her to have a CT. Patient complains of generally just feeling quite poorly vomiting she has not had a BM in several days she has noticed that she's has some external hemorrhoids. She's not aware of any fevers or chills. She recently had surgery for a very large kidney stones that had not passed. Abdomen Pain Score (Numeric/FACES): 3 - Related Data Allergies Allergy/AdvReac Type Severity Reaction Status Date / Time No Known Allergies Allergy Verified 01/01/19 12:41 Home Meds: Home Meds predniSONE [Prednisone] 5 mg PO DAILY 03/18/14 [History] Gabapentin [Neurontin] 1,200 mg PO BEDTIME 09/14/15 [History] Gabapentin [Neurontin] 900 mg PO ASDIRECTED 09/14/15 [History] Methotrexate 17.5 mg PO WE 03/22/17 [History] Folic Acid 1 mg PO DAILY 05/19/18 [History] Naltrexone 6 mg PO DAILY 05/19/18 [History] Rosuvastatin [Crestor] 10 mg PO DAILY 05/19/18 [History] Hydrocodone/Acetaminophen [Hydrocodon-Acetaminophen 5-325] 1 tab PO Q6HR PRN [History] Zolpidem Tartrate [Ambien] 5 mg PO BEDTIME PRN 05/20/18 [History] Saccharomyces Boulardii [Florastor] 250 mg PO QAM #10 capsule 07/11/18 [Rx] Ondansetron [Zofran ODT] 4 mg PO Q6H PRN #20 tab.dis 09/14/18 [Rx] Cyanocobalamin (Vitamin B-12) [Cyanocobalamin Injection] 1 dose IM ASDIRECTED [History] Omeprazole 20 mg PO DAILY PRN 01/01/19 [History] Past Medical History HEENT History: Reports: Cataract, Impaired Vision Other HEENT History: wears glasses Respiratory History: Reports: Other (See Below) Other Respiratory History: Pneumonia Gastrointestinal History: Reports: Cholelithiasis Genitourinary History: Reports: Acute Renal Failure, Renal Calculus DISC 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: , 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 Musculoskeletal History: Reports: RA Other Musculoskeletal History: Dislocated thumb Neurological History: Reports: Neuropathy, Peripheral Hematologic History: Reports: B12 Deficiency - Infectious Disease History Infectious Disease History: Reports: Influenza - Past Surgical History HEENT Surgical History: Reports: Cataract Surgery GI Surgical History: Reports: Cholecystectomy, Polypectomy Female Surgical History: Reports: Ureteral Stent Dermatological Surgical History: Reports: None Social & Family History - Family History Family Medical History: Noncontributory - Tobacco Use Smoking Status *Q: Never Smoker - Caffeine Use Caffeine Use: Reports: Soda - Living Situation & Occupation Living situation: Reports: , Other Occupation: Employed ED ROS GENERAL - Review of Systems Review Of Systems: See Below Constitutional: Reports: No Symptoms HEENT: Reports: No Symptoms Respiratory: Reports: No Symptoms Cardiovascular: Reports: No Symptoms Endocrine: Reports: No Symptoms GI/Abdominal: Reports: Abdominal Pain, Constipation (May be), Nausea, Vomiting. Denies: Diarrhea : Reports: No Symptoms Musculoskeletal: Reports: No Symptoms Skin: Reports: No Symptoms Neurological: Reports: No Symptoms Psychiatric: Reports: No Symptoms Hematologic/Lymphatic: Reports: No Symptoms Immunologic: Reports: No Symptoms ED EXAM, GI/ABD - Physical Exam Exam: See Below Exam Limited By: No Limitations General Appearance: Alert, No Apparent Distress Head: Atraumatic, Normocephalic Neck: Normal Inspection, Supple, Non-Tender, Full Range of Motion Respiratory/Chest: No Respiratory Distress, Lungs Clear, Normal Breath Sounds Cardiovascular: Regular Rate, Rhythm, No Edema, Systolic Murmur (Murmur changes intensity heard best left mid to lower sternal border.). No: No Murmur GI/Abdominal Exam: Normal Bowel Sounds, Soft, Other (Most of her tenderness is located around the left lower quadrant. She has some minimal nonspecific pain elsewhere No rigidity rebound or guarding noted.) Rectal (Female) Exam: Heme - Stool, Hemorrhoids (Small internal and external hemorrhoids) Course - Vital Signs Last Recorded V/S: Last Vital Signs Temp 37.2 C 09/13/19 12:39 Pulse 97 01/01/19 12:39 Resp 14 01/01/19 12:39 BP 154/75 H 01/01/19 12:39 Pulse Ox 98 01/01/19 12:39 - Orders/Labs/Meds Orders: Active Orders 24 hr Category Date Time Status Abdomen Pelvis w Cont [CT] Stat Exams 01/01/19 14:15 Taken Lactated Ringers [Ringers, Lactated] 1,000 ml Med 01/01/19 13:00 Active IV ASDIRECTED Levofloxacin/Dextrose 5%-Water [Levaquin in D5W 750 MG/ Med 01/01/19 17:44 Ordered 150 ML] 750 mg Premix Bag 1 bag IV ONETIME metroNIDAZOLE/Normal Saline [Flagyl 500 MG in NS 100 ML Med 01/01/19 17:44 Ordered ] 500 mg Premix Bag 1 bag IV ONETIME Medication Orders Lactated Ringer's (Ringers, Lactated) 1,000 mls @ 125 mls/hr IV ASDIRECTED YOUSIF Last Admin: 01/01/19 15:01 Dose: 125 mls/hr Levofloxacin/Dextrose 750 mg/ (Premix) 150 mls @ 100 mls/hr IV ONETIME ONE Stop: 01/01/19 19:13 Metronidazole 500 mg/ Premix 100 mls @ 100 mls/hr IV ONETIME ONE Stop: 01/01/19 18:43 Labs: Laboratory Tests 01/01/19 01/01/19 Range/Units 13:00 14:11 Lipase 27 L (73-393) U/L Urine Color Dark yellow (Yellow) Urine Appearance Clear (Clear) Urine pH 5.5 (5.0-8.0) Ur Specific [place] > or = 1.030 (1.005-1.030) Urine Protein 2+ H (Negative) Urine Glucose (UA) Negative (Negative) Urine Ketones 3+ H (Negative) Urine Occult Blood 2+ H (Negative) Urine Nitrite Negative (Negative) Urine Bilirubin 2+ H (Negative) Urine Urobilinogen 0.2 (0.2-1.0) Ur Leukocyte Esterase Negative (Negative) Urine RBC 10-20 H (0-5) /hpf Urine WBC 0-5 (0-5) /hpf Ur Squamous Epith Cells 5-10 H (0-5) /hpf Urine Bacteria Few (FEW) /hpf Urine Mucus Moderate H (FEW) /hpf Meds: Medications Generic Name Dose Route Start Last Admin Trade Name Freq PRN Reason Stop Dose Admin Lactated Ringer's 1,000 mls @ 125 mls/hr 01/01/19 13:00 01/01/19 15:01 Ringers, Lactated IV 125 mls/hr ASDIRECTED YOUSIF Administration Levofloxacin/Dextrose 750 mg/ 150 mls @ 100 mls/hr 01/01/19 17:44 Premix IV 01/01/19 19:13 ONETIME ONE Metronidazole 500 mg/ Premix 100 mls @ 100 mls/hr 01/01/19 17:44 IV 01/01/19 18:43 ONETIME ONE Discontinued Medications Generic Name Dose Route Start Last Admin Trade Name Freq PRN Reason Stop Dose Admin Diatrizoate Meglum/Diatrizoate Sod 90 ml 01/01/19 14:34 01/01/19 15:32 Gastrografin 37% PO 01/01/19 14:35 90 ml ONETIME ONE Administration Lactated Ringer's 500 mls @ 999 mls/hr 01/01/19 12:56 01/01/19 13:08 Ringers, Lactated IV 01/01/19 13:26 999 mls/hr .BOLUS ONE Administration Iopamidol 100 ml 01/01/19 14:35 01/01/19 15:33 Isovue-300 (61%) IVPUSH 01/01/19 14:36 100 ml ONETIME ONE Administration Ondansetron HCl 4 mg 01/01/19 13:19 01/01/19 13:25 Zofran IVPUSH 01/01/19 13:20 4 mg ONETIME ONE Administration Ondansetron HCl 4 mg 01/01/19 15:13 01/01/19 15:14 Zofran IVPUSH 01/01/19 15:14 4 mg ONETIME ONE Administration Ondansetron HCl Confirm 01/01/19 15:12 Zofran Administered 01/01/19 15:13 Dose 4 mg .ROUTE .STK-MED ONE Prochlorperazine Edisylate 10 mg 01/01/19 15:59 01/01/19 16:03 Compazine IVPUSH 01/01/19 16:00 10 mg ONETIME ONE Administration Sodium Chloride 10 ml 01/01/19 14:34 01/01/19 15:33 Saline Flush FLUSH 01/01/19 14:35 10 ml ONETIME ONE Administration - Re-Assessments/Exams Free Text/Narrative Re-Assessment/Exam: 01/01/19 14:27 Labs from [facility] show white count of 20,600 hemoglobin and hematocrit of 11.7 and 36.6% respectively RBC indices are for the most part within normal limits MCV is 91.3 MCH 29.2 MCHC 32 RDW-CV 16.5 RDW-SD 52.8 platelet count 130,000 Chemistry show glucose 125 BUNs 17 creatinine 0.79 sodium 137 potassium 3.7 chloride 103 CO2 19 anion gap 19 calcium 8.3 total protein 6.7 albumin 3.6 alkaline phosphatase 43 AST 13-year-old T7 total bilirubin 0.8 At this point the patient is getting rehydrated anticipating a CT in the near future. 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 I discussed the patient's case with Dr. Swanson who will admit the patient for rehydration control nausea vomiting and we will obtain a surgical consult. With her 20,000 white count is could be related to the prednisone the nausea and vomiting and/or infection she will be started on Flagyl 500 mg IV and Levaquin 750 mg IV and continued on the floor. Departure - Departure Time of Disposition: 17:48 Disposition: Admitted As Inpatient 66 Clinical Impression: Colitis Nausea & vomiting Qualifiers: Vomiting type: unspecified Vomiting Intractability: unspecified Qualified Code( s): R11.2 - Nausea with vomiting, unspecified - Discharge Information Referrals: Erik Andrews MD [Primary Care Provider] - Forms: ED Department Discharge - My Orders Last 24 Hours: My Active Orders 01/01/19 13:00 Lactated Ringers [Ringers, Lactated] 1,000 ml IV ASDIRECTED 01/01/19 14:15 Abdomen Pelvis w Cont [CT] Stat 01/01/19 17:44 Levofloxacin/Dextrose 5%-Water [Levaquin in D5W 750 MG/150 ML] 750 mg Premix Bag 1 bag IV ONETIME metroNIDAZOLE/Normal Saline [Flagyl 500 MG in NS 100 ML] 500 mg Premix Bag 1 bag IV ONETIME - Assessment/Plan Last 24 Hours: My Active Orders 01/01/19 13:00 Lactated Ringers [Ringers, Lactated] 1,000 ml IV ASDIRECTED 01/01/19 14:15 Abdomen Pelvis w Cont [CT] Stat 01/01/19 17:44 Levofloxacin/Dextrose 5%-Water [Levaquin in D5W 750 MG/150 ML] 750 mg Premix Bag 1 bag IV ONETIME metroNIDAZOLE/Normal Saline [Flagyl 500 MG in NS 100 ML] 500 mg Premix Bag 1 bag IV ONETIME
[2019-01-01] MEDS ORDERED: Lactated Ringers 500 ML IV ONE (12:56)
[2019-01-01] MEDS ORDERED: Lactated Ringers 1,000 ML IV SCH (13:00)
[2019-01-01] MEDS ORDERED: Ondansetron 4 MG/2 ML SDV IVPUSH ONE ×2 (13:19→15:13)
[2019-01-01] MEDS ORDERED: Iopamidol 612 MG/ML 100 ML Bottle IVPUSH ONE ×2 (14:34→14:35)
[2019-01-01] MEDS ORDERED: Diatrizoate Meglumine/Diatrizoate Sodium 37% 120 ML Bottle PO ONE (14:34)
[2019-01-01] MEDS ORDERED: Sodium Chloride 0.9% 10 ML Syringe FLUSH ONE (14:34)
[2019-01-01] MEDS ORDERED: Ondansetron 4 MG/2 ML SDV ONE (15:12)
[2019-01-01] MEDS ORDERED: Prochlorperazine 10 MG/2 ML SDV IVPUSH ONE (15:59)
[2019-01-01] MEDS ORDERED: Levofloxacin/Dextrose 5%-Water 750 MG in Premix Bag 1 BAG IV ONE (17:44)
[2019-01-01] MEDS ORDERED: metroNIDAZOLE/Normal Saline 500 MG in Premix Bag 1 BAG IV ONE (17:44)
[2019-01-01] MEDS ORDERED: Furosemide 20 MG Tab PO PRN (20:42)
[2019-01-01] MEDS ORDERED: Saccharomyces Boulardii (Probiotic) 250 MG Cap PO PRN (20:42)
[2019-01-01] MEDS ORDERED: HYDROmorphone 0.5 MG/0.5 ML Syringe IVPUSH PRN (20:47)
[2019-01-01] MEDS ORDERED: Ondansetron 4 MG/2 ML SDV IV PRN (20:47)
[2019-01-01] MEDS ORDERED: Acetaminophen 325 MG Tab PO PRN (20:47)
--- NOTE | 2019-01-01 21:03 | PCM.HP.2 ---
H&P History of Present Illness - General Date of Service: 01/01/19 Admit Problem/Dx: Admission Diagnosis/Problem Admission Diagnosis/Problem Colitis - History of Present Illness Initial Comments - Free Text/Narative: 73-year-old female with 2 days of vomiting and abdominal pain present to her primary care physician. Patient states that she had a decrease from last, was vomiting every hour and was unable to keep food down. Patient denies any hematochezia, melena, hematemesis, but does have constipation. Patient states she's had a history of diverticulitis in the past but this is different. This is generalized abdominal pain that radiates into her back. At the clinic her white count was 20.6, hemoglobin 11.7, platelets 130, sodium 137, potassium 3.5 , he went 17, creatinine 0.8. She did have a bowel movement on the medical floor and she states she is feeling better. 2 months ago patient did have a 19 mm kidney stone removed. Patient also has chronic back pain and she has appointment on Friday secondary to a cyst on her spine. 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 Patient was started on IV Levaquin and Flagyl and given IV fluids and antiemetics. Abdomen Pain Score (Numeric/FACES): 3 - Related Data Allergies/Adverse Reactions: Allergies Allergy/AdvReac Type Severity Reaction Status Date / Time No Known Allergies Allergy Verified 01/01/19 19:28 Home Medications: Home Meds predniSONE [Prednisone] 5 mg PO BEDTIME 03/18/14 [History] Gabapentin [Neurontin] 1,200 mg PO BEDTIME 09/14/15 [History] Gabapentin [Neurontin] 900 mg PO BIDAC 09/14/15 [History] Methotrexate 17.5 mg PO WEEKLY 03/22/17 [History] Folic Acid 1 mg PO DAILY 05/19/18 [History] Rosuvastatin [Crestor] 10 mg PO DAILY 05/19/18 [History] Zolpidem Tartrate [Ambien] 5 mg PO BEDTIME PRN 05/20/18 [History] Acetaminophen/HYDROcodone [Smock 325-5 MG] 1 tab PO Q6H PRN 01/01/19 [History] Cyanocobalamin (Vitamin B-12) [Cyanocobalamin Injection] 1 dose IM ASDIRECTED [History] Denosumab [Prolia] 60 mg SQ Q6M 01/01/19 [History] Furosemide [Lasix] 20 mg PO DAILY PRN 01/01/19 [History] Omeprazole 20 mg PO DAILY PRN 01/01/19 [History] Saccharomyces Boulardii [Florastor] 250 mg PO QAM PRN 01/01/19 [History] Past Medical History HEENT History: Reports: Cataract, Impaired Vision Other HEENT History: wears glasses Respiratory History: Reports: Other (See Below) Other Respiratory History: Pneumonia Gastrointestinal History: Reports: Cholelithiasis Genitourinary History: Reports: Acute Renal Failure, Renal Calculus 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: , 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 Musculoskeletal History: Reports: RA Other Musculoskeletal History: Dislocated thumb Neurological History: Reports: Neuropathy, Peripheral Hematologic History: Reports: B12 Deficiency - Infectious Disease History Infectious Disease History: Reports: Chicken Pox, Influenza, Measles, Mumps - Past Surgical History HEENT Surgical History: Reports: Cataract Surgery GI Surgical History: Reports: Cholecystectomy, Polypectomy Female Surgical History: Reports: Ureteral Stent Dermatological Surgical History: Reports: None Social & Family History - Family History Family Medical History: Noncontributory - Tobacco Use Smoking Status *Q: Never Smoker Second Hand Smoke Exposure: No - Caffeine Use Caffeine Use: Reports: Soda, Tea Other Caffeine Use: one cup of each a day - Recreational Drug Use Recreational Drug Use: No - Living Situation & Occupation Living situation: Reports: , Other Occupation: Employed H&P Review of Systems - Review of Systems: Review Of Systems: ROS reveals no pertinent complaints other than HPI. Exam - Exam Exam: See Below - Vital Signs Vital Signs: Last Vital Signs Temp 99.3 F 01/01/19 18:24 Pulse 99 01/01/19 18:24 Resp 16 01/01/19 18:24 BP 101/53 L 01/01/19 18:24 Pulse Ox 93 L 01/01/19 18:24 Weight: 123 lb 8 oz - Exam Quality Assessment: No: Supplemental Oxygen General: Alert, Oriented, 4 HEENT: Conjunctiva Clear, Mucosa Moist & [place] Neck: Supple, Trachea Midline, 2 Lungs: Clear to Auscultation, Normal Respiratory Effort Cardiovascular: Regular Rate, Regular Rhythm GI/Abdominal Exam: Normal Bowel Sounds, Soft, No Organomegaly, No Distention, Tender (Left lower quadrant). No: Guarding, Rigid, Rebound Extremities: Normal Inspection, Normal Range of Motion, Non-Tender, No Pedal Edema Skin: Warm, Dry, Intact Neurological: Cranial Nerves Intact, Reflexes Equal Bilateral Neuro Extensive - Mental Status: Alert, Oriented x3, Normal Mood/Affect, Normal Cognition, Memory Intact Neuro Extensive - Motor, Sensory, Reflexes: CN II-XII Intact Psychiatric: Alert, Normal Affect, Normal Mood - Patient Data Lab Results Last 24 hrs: Laboratory Results - last 24 hr 01/01/19 01/01/19 Range/Units 13:00 14:11 Lipase 27 L (73-393) U/L Urine Color Dark yellow (Yellow) Urine Appearance Clear (Clear) Urine pH 5.5 (5.0-8.0) Ur Specific [place] > or = 1.030 (1.005-1.030) Urine Protein 2+ H (Negative) Urine Glucose (UA) Negative (Negative) Urine Ketones 3+ H (Negative) Urine Occult Blood 2+ H (Negative) Urine Nitrite Negative (Negative) Urine Bilirubin 2+ H (Negative) Urine Urobilinogen 0.2 (0.2-1.0) Ur Leukocyte Esterase Negative (Negative) Urine RBC 10-20 H (0-5) /hpf Urine WBC 0-5 (0-5) /hpf Ur Squamous Epith Cells 5-10 H (0-5) /hpf Urine Bacteria Few (FEW) /hpf Urine Mucus Moderate H (FEW) /hpf Problem List Initiated/Reviewed/Updated: Yes Orders Last 24hrs: Active Orders 24 hr Category Date Time Status Patient Status [ADT] Routine ADT 01/01/19 17:57 Active Antiembolic Devices [RC] PER UNIT ROUTINE Care 01/01/19 20:49 Ordered Oxygen Therapy [RC] PRN Care 01/01/19 20:47 Ordered Up ad Lola [RC] ASDIRECTED Care 01/01/19 20:47 Ordered VTE/DVT Education [RC] PER UNIT ROUTINE Care 01/01/19 20:47 Ordered Vital Signs [RC] ASDIRECTED Care 01/01/19 20:47 Ordered Clear Liquid Diet [DIET] Diet 01/01/19 Dinner Ordered Abdomen Pelvis w Cont [CT] Stat Exams 01/01/19 14:15 Taken C-REACTIVE PROTEIN [CHEM] AM Lab 01/02/19 05:11 Ordered C-REACTIVE PROTEIN [CHEM] AM Lab 01/03/19 05:11 Ordered C-REACTIVE PROTEIN [CHEM] AM Lab 01/04/19 05:11 Ordered C-REACTIVE PROTEIN [CHEM] AM Lab 01/05/19 05:11 Ordered C-REACTIVE PROTEIN [CHEM] AM Lab 01/06/19 05:11 Ordered CBC WITH AUTO DIFF [HEME] AM Lab 01/02/19 05:11 Ordered CBC WITH AUTO DIFF [HEME] AM Lab 01/03/19 05:11 Ordered CBC WITH AUTO DIFF [HEME] AM Lab 01/04/19 05:11 Ordered CBC WITH AUTO DIFF [HEME] AM Lab 01/05/19 05:11 Ordered CBC WITH AUTO DIFF [HEME] AM Lab 01/06/19 05:11 Ordered COMPREHENSIVE METABOLIC PN,CMP [CHEM] AM Lab 01/02/19 05:11 Ordered COMPREHENSIVE METABOLIC PN,CMP [CHEM] AM Lab 01/03/19 05:11 Ordered COMPREHENSIVE METABOLIC PN,CMP [CHEM] AM Lab 01/04/19 05:11 Ordered COMPREHENSIVE METABOLIC PN,CMP [CHEM] AM Lab 01/05/19 05:11 Ordered COMPREHENSIVE METABOLIC PN,CMP [CHEM] AM Lab 01/06/19 05:11 Ordered MAGNESIUM [CHEM] AM Lab 01/02/19 05:11 Ordered MAGNESIUM [CHEM] AM Lab 01/03/19 05:11 Ordered MAGNESIUM [CHEM] AM Lab 01/04/19 05:11 Ordered MAGNESIUM [CHEM] AM Lab 01/05/19 05:11 Ordered MAGNESIUM [CHEM] AM Lab 01/06/19 05:11 Ordered Acetaminophen [Tylenol] Med 01/01/19 20:47 Ordered 650 mg PO Q4H PRN Folic Acid Med 01/02/19 09:00 Ordered 1 mg PO DAILY Furosemide [Lasix] Med 01/01/19 20:42 Ordered 20 mg PO DAILY PRN Gabapentin [Neurontin] Med 01/01/19 21:00 Ordered 1,200 mg PO BEDTIME Gabapentin [Neurontin] Med 01/02/19 06:00 Ordered 900 mg PO BIDAC HYDROmorphone [Dilaudid] Med 01/01/19 20:47 Ordered 0.5 mg IVPUSH Q2H PRN Lactated Ringers @ 75 MLS/HR(1000ml Bag) Med 01/01/19 20:45 Ordered Lactated Ringers [Ringers, Lactated] 1,000 ml IV ASDIRECTED Levofloxacin/Dextrose 5%-Water [Levaquin in D5W 750 MG/ Med 01/02/19 18:00 Ordered 150 ML] 750 mg Premix Bag 1 bag IV Q24H Ondansetron [Zofran] Med 01/01/19 20:47 Ordered 4 mg IV Q4H PRN Rosuvastatin [Crestor] Med 01/02/19 09:00 Ordered 10 mg PO DAILY Saccharomyces Boulardii [Florastor] Med 01/01/19 20:42 Ordered 250 mg PO QAM PRN Zolpidem [Ambien] Med 01/01/19 20:42 Ordered 5 mg PO BEDTIME PRN metroNIDAZOLE/Normal Saline [Flagyl 500 MG in NS 100 ML Med 01/02/19 02:00 Ordered ] 500 mg Premix Bag 1 bag IV Q8H oxyCODONE Med 01/01/19 20:47 Ordered 5 mg PO Q4H PRN predniSONE Med 01/01/19 21:00 Ordered 5 mg PO BEDTIME Sequential Compression Device [OM.PC] Per Unit Routine Oth 01/01/19 20:47 Ordered Resuscitation Status Routine Resus Stat 01/01/19 18:47 Ordered Medication Orders Folic Acid (Folic Acid) 1 mg PO DAILY YOUSIF Furosemide (Lasix) 20 mg PO DAILY PRN PRN Reason: Shortness of Breath Gabapentin (Neurontin) 1,200 mg PO BEDTIME YOUSIF Gabapentin (Neurontin) 900 mg PO BIDAC YOUSIF Lactated Ringer's (Ringers, Lactated) 1,000 mls @ 75 mls/hr IV ASDIRECTED YOUSIF Levofloxacin/Dextrose 750 mg/ (Premix) 150 mls @ 100 mls/hr IV Q24H YOUSIF Metronidazole 500 mg/ Premix 100 mls @ 100 mls/hr IV Q8H YOUSIF Prednisone (Prednisone) 5 mg PO BEDTIME YOUSIF Rosuvastatin Calcium (Crestor) 10 mg PO DAILY YOUSIF Saccharomyces Boulardii (Florastor) 250 mg PO QAM PRN PRN Reason: Diarrhea Zolpidem Tartrate (Ambien) 5 mg PO BEDTIME PRN PRN Reason: Sleep Assessment/Plan Comment:: Assessment * 73-year-old female with abdominal pain, nausea, and vomiting * CT of abdomen showing colitis versus mass * Chronic medical problems include: Diverticulosis, rheumatoid arthritis on methotrexate and prednisone, low back pain with apparent cyst on spine, nephrolithiasis, peripheral neuropathy Plan * Admit to MedSurg * Relative bowel rest with clear liquids * Antinausea and pain medication as needed * Levaquin 750 mg IV daily * Flagyl 500 mg every 8 hours * LR 75 mg every hour * Consider surgical consultation after pain and nausea improve * CODE STATUS full code * VTE prophylaxis initially with SCDs. Consider adding Lovenox. - Mortality Measure Prognosis:: Poor
[2019-01-01] MEDS: Gabapentin 300 MG Cap PO SCH (21:42)
[2019-01-01] MEDS: Zolpidem 5 MG Tab PO PRN (21:43)
[2019-01-01] MEDS: predniSONE 5 MG Tab PO SCH (21:43)
[2019-01-01] MEDS: oxyCODONE 5 MG Tab PO PRN (21:44)
[2019-01-02] MEDS: metroNIDAZOLE/Normal Saline 500 MG in Premix Bag 1 BAG IV SCH ×3 (03:33→17:41)
[2019-01-02] MEDS: Lactated Ringers 1,000 ML IV SCH ×2 (03:33→17:44)
[2019-01-02] MEDS ORDERED: Gabapentin 300 MG Cap PO SCH (06:00)
[2019-01-02] MEDS: Folic Acid 1 MG Tab PO SCH (08:16)
[2019-01-02] MEDS: Rosuvastatin 10 MG Tab PO SCH (08:16)
[2019-01-02] MEDS: Potassium Chloride 10 MEQ in Premix Bag 1 BAG IV SCH ×2 (08:34→10:28)
[2019-01-02] MEDS: Magnesium Sulfate/Water 2 GM in Premix Bag 1 BAG IV ONE ×2 (08:34→12:52)
[2019-01-02] MEDS: Gabapentin 300 MG Cap PO SCH ×2 (12:46→21:29)
--- NOTE | 2019-01-02 18:10 | PCM.PN ---
- General Info Date of Service: 01/02/19 Admission Dx/Problem (Free Text): Admission Diagnosis/Problem Admission Diagnosis/Problem Colitis Subjective Update: patient states that her abdomen is better today. She is having less pain and no nausea or vomiting. Functional Status: Reports: Pain Controlled - Review of Systems General: Reports: No Symptoms HEENT: Reports: No Symptoms Pulmonary: Reports: No Symptoms Cardiovascular: Reports: No Symptoms Gastrointestinal: Reports: No Symptoms - Patient Data Vitals - Most Recent: Last Vital Signs Temp 99.0 F 01/02/19 16:21 Pulse 82 01/02/19 16:21 Resp 16 01/02/19 16:21 BP 118/97 H 01/02/19 16:21 Pulse Ox 98 01/02/19 16:21 Weight - Most Recent: 122 lb 14.4 oz I&O - Last 24 Hours: Intake & Output 01/02/19 01/02/19 01/02/19 06:59 14:59 22:59 Intake Total 8803 306 4133 Output Total 600 1200 Balance 400 379 639 Lab Results Last 24 Hours: Laboratory Results - last 24 hr 01/02/19 01/02/19 Range/Units 05:12 05:12 WBC 14.28 H (3.98-10.04) K/mm3 RBC 3.21 L (3.98-5.22) M/mm3 Hgb 9.3 L D (11.2-15.7) gm/L Hct 29.5 L (34.1-44.9) % MCV 91.9 D (79.4-94.8) fl MCH 29.0 (25.6-32.2) pg MCHC 31.5 L (32.2-35.5) g/dl RDW Std Deviation 52.9 H (36.4-46.3) fL Plt Count 166 L (182-369) K/mm3 MPV 10.4 (9.4-12.3) fl Neut % (Auto) 86.2 H (34.0-71.1) % Lymph % (Auto) 4.5 L (19.3-51.7) % [place] % (Auto) 8.8 (4.7-12.5) % Eos % (Auto) 0.1 L (0.7-5.8) Baso % (Auto) 0.1 (0.1-1.2) % Neut # (Auto) 12.31 H (1.56-6.13) K/mm3 Lymph # (Auto) 0.64 L (1.18-3.74) K/mm3 [place] # (Auto) 1.25 H (0.24-0.36) K/mm3 Eos # (Auto) 0.02 L (0.04-0.36) K/mm3 Baso # (Auto) 0.02 (0.01-0.08) K/mm3 Manual Slide Review Abnormal smear Sodium 137 (136-145) mEq/L Potassium 3.4 L (3.5-5.1) mEq/L Chloride 102 (98-107) mEq/L Carbon Dioxide 21 (21-32) mEq/L Anion Gap 17.4 H (5-15) BUN 12 (7-18) mg/dL Creatinine 0.8 (0.55-1.02) mg/dL Est Cr Clr Drug Dosing 54.08 mL/min Estimated GFR (MDRD) > 60 (>60) mL/min BUN/Creatinine Ratio 15.0 (14-18) Glucose 111 (83-115) mg/dL Calcium 7.1 L (8.5-10.1) mg/dL Magnesium 1.7 L (1.8-2.4) mg/dl Total Bilirubin 0.5 (0.2-1.0) mg/dL AST 10 L (15-37) U/L ALT 8 L (14-59) U/L Alkaline Phosphatase 39 L (46-116) U/L C-Reactive Protein 19.0 H* (<1.0) mg/dL Total Protein 5.6 L (6.4-8.2) g/dl Albumin 2.3 L (3.4-5.0) g/dl Globulin 3.3 gm/dL Albumin/Globulin Ratio 0.7 L (1-2) Med Orders - Current: Current Medications Acetaminophen (Tylenol) 650 mg PO Q4H PRN PRN Reason: Pain (Mild 1-3)/fever Folic Acid (Folic Acid) 1 mg PO DAILY [facility] Last Admin: 01/02/19 08:16 Dose: 1 mg Furosemide (Lasix) 20 mg PO DAILY PRN PRN Reason: Shortness of Breath Gabapentin (Neurontin) 1,200 mg PO BEDTIME [facility] Last Admin: 01/01/19 21:42 Dose: 1,200 mg Gabapentin (Neurontin) 900 mg PO 06,12 [facility] Last Admin: 01/02/19 12:46 Dose: 900 mg Hydromorphone HCl (Dilaudid) 0.5 mg IVPUSH Q2H PRN PRN Reason: Pain (severe 7-10) Lactated Ringer's (Ringers, Lactated) 1,000 mls @ 75 mls/hr IV ASDIRECTED [facility] Last Admin: 01/02/19 17:44 Dose: 75 mls/hr Levofloxacin/Dextrose 750 mg/ (Premix) 150 mls @ 100 mls/hr IV Q48H [facility] Metronidazole 500 mg/ Premix 100 mls @ 100 mls/hr IV Q8H [facility] Last Admin: 01/02/19 17:41 Dose: 100 mls/hr Ondansetron HCl (Zofran) 4 mg IV Q4H PRN PRN Reason: Nausea/Vomiting Oxycodone HCl (Oxycodone) 5 mg PO Q4H PRN PRN Reason: Pain (moderate 4-6) Last Admin: 01/01/19 21:44 Dose: 5 mg Prednisone (Prednisone) 5 mg PO BEDTIME [facility] Last Admin: 01/01/19 21:43 Dose: 5 mg Rosuvastatin Calcium (Crestor) 10 mg PO DAILY [facility] Last Admin: 01/02/19 08:16 Dose: 10 mg Saccharomyces Boulardii (Florastor) 250 mg PO QAM PRN PRN Reason: Diarrhea Zolpidem Tartrate (Ambien) 5 mg PO BEDTIME PRN PRN Reason: Sleep Last Admin: 01/01/19 21:43 Dose: 5 mg Discontinued Medications Diatrizoate Meglum/Diatrizoate Sod (Gastrografin 37%) 90 ml PO ONETIME ONE Stop: 01/01/19 14:35 Last Admin: 01/01/19 15:32 Dose: 90 ml Gabapentin (Neurontin) 900 mg PO BIDAC [facility] Last Admin: 01/02/19 06:58 Dose: 900 mg Lactated Ringer's (Ringers, Lactated) 500 mls @ 999 mls/hr IV .BOLUS ONE Stop: 01/01/19 13:26 Last Admin: 01/01/19 13:08 Dose: 999 mls/hr Lactated Ringer's (Ringers, Lactated) 1,000 mls @ 125 mls/hr IV ASDIRECTED [facility] Last Admin: 01/01/19 15:01 Dose: 125 mls/hr Levofloxacin/Dextrose 750 mg/ (Premix) 150 mls @ 100 mls/hr IV ONETIME ONE Stop: 01/01/19 19:13 Last Admin: 01/01/19 17:54 Dose: 100 mls/hr Metronidazole 500 mg/ Premix 100 mls @ 100 mls/hr IV ONETIME ONE Stop: 01/01/19 18:43 Last Admin: 01/01/19 17:55 Dose: 100 mls/hr Magnesium Sulfate 2 gm/ Premix 50 mls @ 25 mls/hr IV ONETIME ONE Stop: 01/02/19 10:25 Last Admin: 01/02/19 12:52 Dose: 25 mls/hr Potassium Chloride 10 meq/ (Premix) 100 mls @ 100 mls/hr IV Q1H [facility] Stop: 01/02/19 10:29 Last Admin: 01/02/19 10:28 Dose: 100 mls/hr Iopamidol (Isovue-300 (61%)) 100 ml IVPUSH ONETIME ONE Stop: 01/01/19 14:36 Last Admin: 01/01/19 15:33 Dose: 100 ml Ondansetron HCl (Zofran) 4 mg IVPUSH ONETIME ONE Stop: 01/01/19 13:20 Last Admin: 01/01/19 13:25 Dose: 4 mg Ondansetron HCl (Zofran) 4 mg IVPUSH ONETIME ONE Stop: 01/01/19 15:14 Last Admin: 01/01/19 15:14 Dose: 4 mg Ondansetron HCl (Zofran) Confirm Administered Dose 4 mg .ROUTE .STK-MED ONE Stop: 01/01/19 15:13 Last Admin: 01/01/19 18:09 Dose: Not Given Prochlorperazine Edisylate (Compazine) 10 mg IVPUSH ONETIME ONE Stop: 01/01/19 16:00 Last Admin: 01/01/19 16:03 Dose: 10 mg Sodium Chloride (Saline Flush) 10 ml FLUSH ONETIME ONE Stop: 01/01/19 14:35 Last Admin: 01/01/19 15:33 Dose: 10 ml - Exam Quality Assessment: Supplemental Oxygen General: Alert, Oriented HEENT: Pupils Equal, Pupils Reactive, EOMI, Mucous Membr. Moist/[place] Neck: Supple Lungs: Clear to Auscultation, Normal Respiratory Effort Cardiovascular: Regular Rate, Regular Rhythm GI/Abdominal Exam: Normal Bowel Sounds, Soft, No Distention, Tender (mild left lower quadrant tenderness without guarding or rebound.) Extremities: Normal Inspection, Normal Range of Motion, Non-Tender, No Pedal Edema, Normal Capillary Refill Skin: Warm, Dry, Intact Neurological: No New Focal Deficit Psy/Mental Status: Alert, Normal Affect, Normal Mood - Problem List Review Problem List Initiated/Reviewed/Updated: Yes - My Orders Last 24 Hours: My Active Orders 01/01/19 18:47 Resuscitation Status Routine 01/01/19 20:42 Furosemide [Lasix] 20 mg PO DAILY PRN Saccharomyces Boulardii [Florastor] 250 mg PO QAM PRN Zolpidem [Ambien] 5 mg PO BEDTIME PRN 01/01/19 20:45 Lactated Ringers [Ringers, Lactated] 1,000 ml IV ASDIRECTED 01/01/19 20:47 Oxygen Therapy [RC] PRN Up ad [place]ola [RC] VTE/DVT Education [RC] PER UNIT ROUTINE Vital Signs [RC] 03,,, Acetaminophen [Tylenol] 650 mg PO Q4H PRN HYDROmorphone [Dilaudid] 0.5 mg IVPUSH Q2H PRN Ondansetron [Zofran] 4 mg IV Q4H PRN oxyCODONE 5 mg PO Q4H PRN Sequential Compression Device [OM.PC] Per Unit Routine 01/01/19 20:49 Antiembolic Devices [RC] 01/01/19 21:00 Gabapentin [Neurontin] 1,200 mg PO BEDTIME predniSONE 5 mg PO BEDTIME 01/02/19 02:00 metroNIDAZOLE/Normal Saline [Flagyl 500 MG in NS 100 ML] 500 mg Premix Bag 1 bag IV Q8H 01/02/19 09:00 Folic Acid 1 mg PO DAILY Rosuvastatin [Crestor] 10 mg PO DAILY 01/02/19 12:00 Gabapentin [Neurontin] 900 mg PO 06,01/03/19 05:11 C-REACTIVE PROTEIN [CHEM] AM CBC WITH AUTO DIFF [HEME] AM COMPREHENSIVE METABOLIC PN,CMP [CHEM] AM MAGNESIUM [CHEM] AM 01/03/19 18:00 Levofloxacin/Dextrose 5%-Water [Levaquin in D5W 750 MG/150 ML] 750 mg Premix Bag 1 bag IV Q48H 01/04/19 05:11 C-REACTIVE PROTEIN [CHEM] AM CBC WITH AUTO DIFF [HEME] AM COMPREHENSIVE METABOLIC PN,CMP [CHEM] AM MAGNESIUM [CHEM] AM 01/05/19 05:11 C-REACTIVE PROTEIN [CHEM] AM CBC WITH AUTO DIFF [HEME] AM COMPREHENSIVE METABOLIC PN,CMP [CHEM] AM MAGNESIUM [CHEM] AM 01/06/19 05:11 C-REACTIVE PROTEIN [CHEM] AM CBC WITH AUTO DIFF [HEME] AM COMPREHENSIVE METABOLIC PN,CMP [CHEM] AM MAGNESIUM [CHEM] AM - Plan Plan:: Assessment * 73-year-old female with abdominal pain, nausea, and vomiting * CT of abdomen showing colitis versus mass * Chronic medical problems include: Diverticulosis, rheumatoid arthritis on methotrexate and prednisone, low back pain with apparent cyst on spine, nephrolithiasis, peripheral neuropathy Plan * [facility] * Relative bowel rest with clear liquids * Antinausea and pain medication as needed * Levaquin 750 mg IV daily * Flagyl 500 mg every 8 hours * D5LR 75 mg every hour * Consider surgical consultation after pain and nausea improve * CODE STATUS full code * VTE prophylaxis initially with SCDs and Lovenox.
[2019-01-02] MEDS: predniSONE 5 MG Tab PO SCH (21:30)
[2019-01-02] MEDS: Zolpidem 5 MG Tab PO PRN (21:30)
[2019-01-03] MEDS: metroNIDAZOLE/Normal Saline 500 MG in Premix Bag 1 BAG IV SCH ×3 (02:29→17:04)
[2019-01-03] MEDS: Dextrose 5%-Lactated Ringers 1,000 ML IV SCH ×2 (02:30→17:01)
[2019-01-03] MEDS: Gabapentin 300 MG Cap PO SCH ×3 (05:20→20:48)
--- NOTE | 2019-01-03 09:33 | PCM.PN ---
- General Info Date of Service: 01/03/19 Admission Dx/Problem (Free Text): Admission Diagnosis/Problem Admission Diagnosis/Problem Colitis Subjective Update: Patient states that she is doing better. She has not had a bowel movement, but abdominal pain has improved. No fever or chills. Functional Status: Reports: Pain Controlled - Review of Systems General: Reports: No Symptoms HEENT: Reports: No Symptoms Pulmonary: Reports: No Symptoms Cardiovascular: Reports: No Symptoms Gastrointestinal: Reports: Abdominal Pain - Patient Data Vitals - Most Recent: Last Vital Signs Temp 98.2 F 01/03/19 03:26 Pulse 87 01/03/19 03:26 Resp 14 01/03/19 03:26 BP 98/55 L 01/03/19 03:26 Pulse Ox 98 01/03/19 03:26 Weight - Most Recent: 124 lb 3.2 oz I&O - Last 24 Hours: Intake & Output 01/02/19 01/03/19 01/03/19 22:59 06:59 14:59 Intake Total 1839 1328 Output Total 1200 1200 Balance 639 128 Lab Results Last 24 Hours: Laboratory Results - last 24 hr 01/03/19 01/03/19 Range/Units 05:28 05:28 WBC 10.06 H (3.98-10.04) K/mm3 RBC 3.48 L (3.98-5.22) M/mm3 Hgb 9.9 L (11.2-15.7) gm/L Hct 31.7 L (34.1-44.9) % MCV 91.1 (79.4-94.8) fl MCH 28.4 (25.6-32.2) pg MCHC 31.2 L (32.2-35.5) g/dl RDW Std Deviation 51.5 H (36.4-46.3) fL Plt Count 191 (182-369) K/mm3 MPV 10.1 (9.4-12.3) fl Neut % (Auto) 83.3 H (34.0-71.1) % Lymph % (Auto) 7.3 L (19.3-51.7) % [place] % (Auto) 8.7 (4.7-12.5) % Eos % (Auto) 0.3 L (0.7-5.8) Baso % (Auto) 0.2 (0.1-1.2) % Neut # (Auto) 8.38 H (1.56-6.13) K/mm3 Lymph # (Auto) 0.73 L (1.18-3.74) K/mm3 [place] # (Auto) 0.88 H (0.24-0.36) K/mm3 Eos # (Auto) 0.03 L (0.04-0.36) K/mm3 Baso # (Auto) 0.02 (0.01-0.08) K/mm3 Manual Slide Review Abnormal smear Sodium 136 (136-145) mEq/L Potassium 3.8 (3.5-5.1) mEq/L Chloride 105 (98-107) mEq/L Carbon Dioxide 17 L (21-32) mEq/L Anion Gap 17.8 H (5-15) BUN 7 (7-18) mg/dL Creatinine 0.7 (0.55-1.02) mg/dL Est Cr Clr Drug Dosing 61.81 mL/min Estimated GFR (MDRD) > 60 (>60) mL/min BUN/Creatinine Ratio 10.0 L (14-18) Glucose 109 (83-115) mg/dL Calcium 7.4 L (8.5-10.1) mg/dL Magnesium 2.0 (1.8-2.4) mg/dl Total Bilirubin 0.4 (0.2-1.0) mg/dL AST 10 L (15-37) U/L ALT 10 L (14-59) U/L Alkaline Phosphatase 36 L (46-116) U/L C-Reactive Protein 17.8 H* (<1.0) mg/dL Total Protein 5.8 L (6.4-8.2) g/dl Albumin 2.5 L (3.4-5.0) g/dl Globulin 3.3 gm/dL Albumin/Globulin Ratio 0.8 L (1-2) Med Orders - Current: Current Medications Acetaminophen (Tylenol) 650 mg PO Q4H PRN PRN Reason: Pain (Mild 1-3)/fever Enoxaparin Sodium (Lovenox) 40 mg SUBCUT DAILY [facility] Folic Acid (Folic Acid) 1 mg PO DAILY [facility] Last Admin: 01/02/19 08:16 Dose: 1 mg Furosemide (Lasix) 20 mg PO DAILY PRN PRN Reason: Shortness of Breath Gabapentin (Neurontin) 1,200 mg PO BEDTIME [facility] Last Admin: 01/02/19 21:29 Dose: 1,200 mg Gabapentin (Neurontin) 900 mg PO 06,12 [facility] Last Admin: 01/03/19 05:20 Dose: 900 mg Hydromorphone HCl (Dilaudid) 0.5 mg IVPUSH Q2H PRN PRN Reason: Pain (severe 7-10) Levofloxacin/Dextrose 750 mg/ (Premix) 150 mls @ 100 mls/hr IV Q48H [facility] Metronidazole 500 mg/ Premix 100 mls @ 100 mls/hr IV Q8H [facility] Last Admin: 01/03/19 02:29 Dose: 100 mls/hr Dextrose/Lactated Ringer's (Dextrose 5%-Lactated Ringers) 1,000 mls @ 75 mls/ hr IV ASDIRECTED [facility] Last Admin: 01/03/19 02:30 Dose: 75 mls/hr Ondansetron HCl (Zofran) 4 mg IV Q4H PRN PRN Reason: Nausea/Vomiting Oxycodone HCl (Oxycodone) 5 mg PO Q4H PRN PRN Reason: Pain (moderate 4-6) Last Admin: 01/01/19 21:44 Dose: 5 mg Prednisone (Prednisone) 5 mg PO BEDTIME [facility] Last Admin: 01/02/19 21:30 Dose: 5 mg Rosuvastatin Calcium (Crestor) 10 mg PO DAILY [facility] Last Admin: 01/02/19 08:16 Dose: 10 mg Saccharomyces Boulardii (Florastor) 250 mg PO QAM PRN PRN Reason: Diarrhea Zolpidem Tartrate (Ambien) 5 mg PO BEDTIME PRN PRN Reason: Sleep Last Admin: 01/02/19 21:30 Dose: 5 mg Discontinued Medications Diatrizoate Meglum/Diatrizoate Sod (Gastrografin 37%) 90 ml PO ONETIME ONE Stop: 01/01/19 14:35 Last Admin: 01/01/19 15:32 Dose: 90 ml Gabapentin (Neurontin) 900 mg PO BIDAC [facility] Last Admin: 01/02/19 06:58 Dose: 900 mg Lactated Ringer's (Ringers, Lactated) 500 mls @ 999 mls/hr IV .BOLUS ONE Stop: 01/01/19 13:26 Last Admin: 01/01/19 13:08 Dose: 999 mls/hr Lactated Ringer's (Ringers, Lactated) 1,000 mls @ 125 mls/hr IV ASDIRECTED [facility] Last Admin: 01/01/19 15:01 Dose: 125 mls/hr Levofloxacin/Dextrose 750 mg/ (Premix) 150 mls @ 100 mls/hr IV ONETIME ONE Stop: 01/01/19 19:13 Last Admin: 01/01/19 17:54 Dose: 100 mls/hr Metronidazole 500 mg/ Premix 100 mls @ 100 mls/hr IV ONETIME ONE Stop: 01/01/19 18:43 Last Admin: 01/01/19 17:55 Dose: 100 mls/hr Lactated Ringer's (Ringers, Lactated) 1,000 mls @ 75 mls/hr IV ASDIRECTED [facility] Last Admin: 01/02/19 17:44 Dose: 75 mls/hr Magnesium Sulfate 2 gm/ Premix 50 mls @ 25 mls/hr IV ONETIME ONE Stop: 01/02/19 10:25 Last Admin: 01/02/19 12:52 Dose: 25 mls/hr Potassium Chloride 10 meq/ (Premix) 100 mls @ 100 mls/hr IV Q1H [facility] Stop: 01/02/19 10:29 Last Admin: 01/02/19 10:28 Dose: 100 mls/hr Iopamidol (Isovue-300 (61%)) 100 ml IVPUSH ONETIME ONE Stop: 01/01/19 14:36 Last Admin: 01/01/19 15:33 Dose: 100 ml Ondansetron HCl (Zofran) 4 mg IVPUSH ONETIME ONE Stop: 01/01/19 13:20 Last Admin: 01/01/19 13:25 Dose: 4 mg Ondansetron HCl (Zofran) 4 mg IVPUSH ONETIME ONE Stop: 01/01/19 15:14 Last Admin: 01/01/19 15:14 Dose: 4 mg Ondansetron HCl (Zofran) Confirm Administered Dose 4 mg .ROUTE .STK-MED ONE Stop: 01/01/19 15:13 Last Admin: 01/01/19 18:09 Dose: Not Given Prochlorperazine Edisylate (Compazine) 10 mg IVPUSH ONETIME ONE Stop: 01/01/19 16:00 Last Admin: 01/01/19 16:03 Dose: 10 mg Sodium Chloride (Saline Flush) 10 ml FLUSH ONETIME ONE Stop: 01/01/19 14:35 Last Admin: 01/01/19 15:33 Dose: 10 ml - Exam Quality Assessment: No: Supplemental Oxygen General: Alert, Oriented HEENT: Pupils Equal, Mucous Membr. Moist/[place] Neck: Supple Lungs: Clear to Auscultation, Normal Respiratory Effort Cardiovascular: Regular Rate, Regular Rhythm GI/Abdominal Exam: Soft, No Distention, Tender (Mild left lower quadrant tenderness. Much improved.). No: Normal Bowel Sounds (Decreased), Guarding, Rigid, Rebound Extremities: Normal Inspection, Normal Range of Motion, Non-Tender, No Pedal Edema Skin: Warm, Dry, Intact Neurological: No New Focal Deficit Psy/Mental Status: Alert, Normal Affect, Normal Mood - Problem List Review Problem List Initiated/Reviewed/Updated: Yes - My Orders Last 24 Hours: My Active Orders 01/02/19 09:00 Folic Acid 1 mg PO DAILY Rosuvastatin [Crestor] 10 mg PO DAILY 01/02/19 12:00 Gabapentin [Neurontin] 900 mg PO 06,12 01/02/19 18:15 Dextrose 5%-Lactated Ringers 1,000 ml IV ASDIRECTED 01/03/19 09:00 Enoxaparin [Lovenox] 40 mg SUBCUT DAILY 01/03/19 18:00 Levofloxacin/Dextrose 5%-Water [Levaquin in D5W 750 MG/150 ML] 750 mg Premix Bag 1 bag IV Q48H 01/04/19 05:11 C-REACTIVE PROTEIN [CHEM] AM CBC WITH AUTO DIFF [HEME] AM COMPREHENSIVE METABOLIC PN,CMP [CHEM] AM MAGNESIUM [CHEM] AM 01/05/19 05:11 C-REACTIVE PROTEIN [CHEM] AM CBC WITH AUTO DIFF [HEME] AM COMPREHENSIVE METABOLIC PN,CMP [CHEM] AM MAGNESIUM [CHEM] AM 01/06/19 05:11 C-REACTIVE PROTEIN [CHEM] AM CBC WITH AUTO DIFF [HEME] AM COMPREHENSIVE METABOLIC PN,CMP [CHEM] AM MAGNESIUM [CHEM] AM - Plan Plan:: Assessment * 73-year-old female with abdominal pain, nausea, and vomiting * CT of abdomen showing colitis versus mass - she will need outpatient colonoscopy. * Chronic medical problems include: Diverticulosis, rheumatoid arthritis on methotrexate and prednisone, low back pain with apparent cyst on spine, nephrolithiasis, peripheral neuropathy Plan * Admit to MedSurg * Relative bowel rest with clear liquids - advance diet * Antinausea and pain medication as needed * Continue IV antibiotics and fluids for at least another 24 hours secondary to immunosuppression with methotrexate and prednisone and continued anion gap of 17.8. Lactic acid 1.5 * Levaquin 750 mg IV daily * Flagyl 500 mg every 8 hours * D5LR 75 ml/hour * Colonoscopy as an outpatient. * CODE STATUS full code * VTE prophylaxis initially with SCDs and Lovenox.
[2019-01-03] MEDS: Folic Acid 1 MG Tab PO SCH (09:38)
[2019-01-03] MEDS: Rosuvastatin 10 MG Tab PO SCH (09:38)
[2019-01-03] MEDS: Enoxaparin 40 MG/0.4 ML Syringe SUBCUT SCH (09:38)
[2019-01-03] MEDS: Polyethylene Glycol 3350 Powder 17 GM Packet PO SCH (11:34)
[2019-01-03] MEDS ORDERED: Levofloxacin/Dextrose 5%-Water 750 MG in Premix Bag 1 BAG IV SCH (18:00)
[2019-01-03] MEDS: predniSONE 5 MG Tab PO SCH (20:49)
[2019-01-03] MEDS: oxyCODONE 5 MG Tab PO PRN (20:52)
[2019-01-03] MEDS: Zolpidem 5 MG Tab PO PRN (20:52)
[2019-01-04] MEDS: metroNIDAZOLE/Normal Saline 500 MG in Premix Bag 1 BAG IV SCH ×3 (02:24→18:36)
[2019-01-04] MEDS: Gabapentin 300 MG Cap PO SCH ×3 (06:26→20:46)
[2019-01-04] MEDS: Dextrose 5%-Lactated Ringers 1,000 ML IV SCH ×2 (06:28→23:57)
--- NOTE | 2019-01-04 06:38 | CT ---
CT abdomen and pelvis Technique: Multiple axial sections were obtained from above the dome of the diaphragm inferiorly through the pubic symphysis. Intravenous contrast was utilized. No oral contrast was given. Delayed images were also obtained through the bladder. Comparison: Previous CT abdomen and pelvis study of 09/14/18 as well as contrast enhanced study of 05/19/18. Findings: Visualized lung bases show nothing acute. Small hiatal hernia is noted. Small cyst is noted within the right lobe and within the dome of the left lobe of the liver. Both these findings measure around 5 mm and are too small to characterize by Hounsfield unit measurements but most likely are due to small cysts. These findings are felt to be present on prior studies back to 2013. No additional abnormality is appreciated within the liver. Surgical clips are seen from previous cholecystectomy. Spleen appears within normal limits. Adrenal glands contain no nodule. Pancreas is within normal limits. Kidneys show symmetric contrast enhancement. Small low density finding is noted within the mid to lower left kidney measuring 4 mm in size. This is too small to characterize by Hounsfield unit measurements but most likely represents a small cyst. This is believed to be present on previous exam. Aorta shows atherosclerotic calcification and irregularity. No aneurysm is seen. No retroperitoneal adenopathy or mesenteric abnormalities are seen. Diffuse bowel wall thickening being seen within the rectosigmoid region and within the distal descending colon. This finding is an interval change from previous exam. Mild hazy inflammatory change surrounds the bowel wall. No additional pelvic abnormality is appreciated. No free fluid is seen. Appendix is not visualized with certainty. Bone window settings were reviewed which appear within normal limits for the patient's age. Impression: 1. Diffuse bowel wall thickening within the rectosigmoid region and distal descending colon. Given the long segment of involvement, findings are most likely due to focal colitis. Malignancy would seem less likely although lymphoma can cause this appearance. This finding is an interval change from previous exam. 2. Other findings as noted above which are felt to be nonacute and incidental. Diagnostic code #3 I agree with preliminary report from [facility], finalized on 01/01/19, 5:23 PM Central Time
[2019-01-04] MEDS: Folic Acid 1 MG Tab PO SCH (08:13)
[2019-01-04] MEDS: Rosuvastatin 10 MG Tab PO SCH (08:13)
[2019-01-04] MEDS: Enoxaparin 40 MG/0.4 ML Syringe SUBCUT SCH (08:13)
[2019-01-04] MEDS: Polyethylene Glycol 3350 Powder 17 GM Packet PO SCH (08:14)
--- NOTE | 2019-01-04 08:32 | PCM.PN ---
- General Info Date of Service: 01/04/19 Admission Dx/Problem (Free Text): Admission Diagnosis/Problem Admission Diagnosis/Problem Colitis Subjective Update: Patient states that she is doing better. She has not had a bowel movement, but abdominal pain has improved. No fever or chills. Functional Status: Reports: Pain Controlled, Tolerating Diet, Ambulating, Urinating - Patient Data Vitals - Most Recent: Last Vital Signs Temp 36.9 C 01/04/19 08:26 Pulse 71 01/04/19 08:26 Resp 16 01/04/19 08:26 BP 136/91 H 01/04/19 08:26 Pulse Ox 97 01/04/19 08:26 Weight - Most Recent: 55.837 kg I&O - Last 24 Hours: Intake & Output 01/03/19 01/04/19 01/04/19 22:59 06:59 14:59 Intake Total 1493 1278 Output Total 1000 1600 Balance 493 -322 Lab Results Last 24 Hours: Laboratory Results - last 24 hr 01/03/19 01/04/19 01/04/19 Range/Units 13:39 05:20 05:20 WBC 6.29 (3.98-10.04) K/mm3 RBC 3.47 L (3.98-5.22) M/mm3 Hgb 10.0 L (11.2-15.7) gm/L Hct 30.9 L (34.1-44.9) % MCV 89.0 (79.4-94.8) fl MCH 28.8 (25.6-32.2) pg MCHC 32.4 (32.2-35.5) g/dl RDW Std Deviation 50.1 H (36.4-46.3) fL Plt Count 199 (182-369) K/mm3 MPV 10.4 (9.4-12.3) fl Neut % (Auto) 84.2 H (34.0-71.1) % Lymph % (Auto) 6.5 L (19.3-51.7) % [place] % (Auto) 8.3 (4.7-12.5) % Eos % (Auto) 0.3 L (0.7-5.8) Baso % (Auto) 0.2 (0.1-1.2) % Neut # (Auto) 5.30 (1.56-6.13) K/mm3 Lymph # (Auto) 0.41 L (1.18-3.74) K/mm3 [place] # (Auto) 0.52 H (0.24-0.36) K/mm3 Eos # (Auto) 0.02 L (0.04-0.36) K/mm3 Baso # (Auto) 0.01 (0.01-0.08) K/mm3 Manual Slide Review Abnormal smear Sodium 139 (136-145) mEq/L Potassium 3.3 L (3.5-5.1) mEq/L Chloride 105 (98-107) mEq/L Carbon Dioxide 22 (21-32) mEq/L Anion Gap 15.3 H (5-15) BUN 3 L (7-18) mg/dL Creatinine 0.6 (0.55-1.02) mg/dL Est Cr Clr Drug Dosing 72.11 mL/min Estimated GFR (MDRD) > 60 (>60) mL/min BUN/Creatinine Ratio 5.0 L (14-18) Glucose 173 H (83-115) mg/dL Lactic Acid 1.5 (0.4-2.0) mmol/L Calcium 7.3 L (8.5-10.1) mg/dL Magnesium 1.6 L (1.8-2.4) mg/dl Total Bilirubin 0.2 (0.2-1.0) mg/dL AST 12 L (15-37) U/L ALT 9 L (14-59) U/L Alkaline Phosphatase 37 L (46-116) U/L C-Reactive Protein 11.0 H* (<1.0) mg/dL Total Protein 6.0 L (6.4-8.2) g/dl Albumin 2.5 L (3.4-5.0) g/dl Globulin 3.5 gm/dL Albumin/Globulin Ratio 0.7 L (1-2) Med Orders - Current: Current Medications Acetaminophen (Tylenol) 650 mg PO Q4H PRN PRN Reason: Pain (Mild 1-3)/fever Enoxaparin Sodium (Lovenox) 40 mg SUBCUT DAILY [facility] Last Admin: 01/04/19 08:13 Dose: 40 mg Folic Acid (Folic Acid) 1 mg PO DAILY [facility] Last Admin: 01/04/19 08:13 Dose: 1 mg Furosemide (Lasix) 20 mg PO DAILY PRN PRN Reason: Shortness of Breath Gabapentin (Neurontin) 1,200 mg PO BEDTIME [facility] Last Admin: 01/03/19 20:48 Dose: 1,200 mg Gabapentin (Neurontin) 900 mg PO 06,12 [facility] Last Admin: 01/04/19 06:26 Dose: 900 mg Hydromorphone HCl (Dilaudid) 0.5 mg IVPUSH Q2H PRN PRN Reason: Pain (severe 7-10) Levofloxacin/Dextrose 750 mg/ (Premix) 150 mls @ 100 mls/hr IV Q48H [facility] Last Admin: 01/03/19 18:06 Dose: 100 mls/hr Metronidazole 500 mg/ Premix 100 mls @ 100 mls/hr IV Q8H [facility] Last Admin: 01/04/19 02:24 Dose: 100 mls/hr Dextrose/Lactated Ringer's (Dextrose 5%-Lactated Ringers) 1,000 mls @ 75 mls/ hr IV ASDIRECTED [facility] Last Admin: 01/04/19 06:28 Dose: 75 mls/hr Ondansetron HCl (Zofran) 4 mg IV Q4H PRN PRN Reason: Nausea/Vomiting Oxycodone HCl (Oxycodone) 5 mg PO Q4H PRN PRN Reason: Pain (moderate 4-6) Last Admin: 01/03/19 20:52 Dose: 5 mg Polyethylene Glycol (Miralax) 17 gm PO DAILY [facility] Last Admin: 01/04/19 08:14 Dose: Not Given Prednisone (Prednisone) 5 mg PO BEDTIME [facility] Last Admin: 01/03/19 20:49 Dose: 5 mg Rosuvastatin Calcium (Crestor) 10 mg PO DAILY [facility] Last Admin: 01/04/19 08:13 Dose: 10 mg Saccharomyces Boulardii (Florastor) 250 mg PO QAM PRN PRN Reason: Diarrhea Zolpidem Tartrate (Ambien) 5 mg PO BEDTIME PRN PRN Reason: Sleep Last Admin: 01/03/19 20:52 Dose: 5 mg Discontinued Medications Diatrizoate Meglum/Diatrizoate Sod (Gastrografin 37%) 90 ml PO ONETIME ONE Stop: 01/01/19 14:35 Last Admin: 01/01/19 15:32 Dose: 90 ml Gabapentin (Neurontin) 900 mg PO BIDAC [facility] Last Admin: 01/02/19 06:58 Dose: 900 mg Lactated Ringer's (Ringers, Lactated) 500 mls @ 999 mls/hr IV .BOLUS ONE Stop: 01/01/19 13:26 Last Admin: 01/01/19 13:08 Dose: 999 mls/hr Lactated Ringer's (Ringers, Lactated) 1,000 mls @ 125 mls/hr IV ASDIRECTED [facility] Last Admin: 01/01/19 15:01 Dose: 125 mls/hr Levofloxacin/Dextrose 750 mg/ (Premix) 150 mls @ 100 mls/hr IV ONETIME ONE Stop: 01/01/19 19:13 Last Admin: 01/01/19 17:54 Dose: 100 mls/hr Metronidazole 500 mg/ Premix 100 mls @ 100 mls/hr IV ONETIME ONE Stop: 01/01/19 18:43 Last Admin: 01/01/19 17:55 Dose: 100 mls/hr Lactated Ringer's (Ringers, Lactated) 1,000 mls @ 75 mls/hr IV ASDIRECTED [facility] Last Admin: 01/02/19 17:44 Dose: 75 mls/hr Magnesium Sulfate 2 gm/ Premix 50 mls @ 25 mls/hr IV ONETIME ONE Stop: 01/02/19 10:25 Last Admin: 01/02/19 12:52 Dose: 25 mls/hr Potassium Chloride 10 meq/ (Premix) 100 mls @ 100 mls/hr IV Q1H [facility] Stop: 01/02/19 10:29 Last Admin: 01/02/19 10:28 Dose: 100 mls/hr Iopamidol (Isovue-300 (61%)) 100 ml IVPUSH ONETIME ONE Stop: 01/01/19 14:36 Last Admin: 01/01/19 15:33 Dose: 100 ml Ondansetron HCl (Zofran) 4 mg IVPUSH ONETIME ONE Stop: 01/01/19 13:20 Last Admin: 01/01/19 13:25 Dose: 4 mg Ondansetron HCl (Zofran) 4 mg IVPUSH ONETIME ONE Stop: 01/01/19 15:14 Last Admin: 01/01/19 15:14 Dose: 4 mg Ondansetron HCl (Zofran) Confirm Administered Dose 4 mg .ROUTE .STK-MED ONE Stop: 01/01/19 15:13 Last Admin: 01/01/19 18:09 Dose: Not Given Prochlorperazine Edisylate (Compazine) 10 mg IVPUSH ONETIME ONE Stop: 01/01/19 16:00 Last Admin: 01/01/19 16:03 Dose: 10 mg Sodium Chloride (Saline Flush) 10 ml FLUSH ONETIME ONE Stop: 01/01/19 14:35 Last Admin: 01/01/19 15:33 Dose: 10 ml - Plan Plan:: Assessment * 73-year-old female with abdominal pain, nausea, and vomiting * CT of abdomen showing colitis versus mass - she will need outpatient colonoscopy. * Chronic medical problems include: Diverticulosis, rheumatoid arthritis on methotrexate and prednisone, low back pain with apparent cyst on spine, nephrolithiasis, peripheral neuropathy Plan * Admit to MedSurg * Relative bowel rest with clear liquids - advance diet * Antinausea and pain medication as needed * Continue IV antibiotics and fluids for at least another 24 hours secondary to immunosuppression with methotrexate and prednisone and continued anion gap of 17.8. Lactic acid 1.5 * Levaquin 750 mg IV daily * Flagyl 500 mg every 8 hours * D5LR 75 ml/hour * Colonoscopy as an outpatient. * CODE STATUS full code * VTE prophylaxis initially with SCDs and Lovenox.
[2019-01-04] MEDS ORDERED: Magnesium Sulfate/Water 2 GM in Premix Bag 1 BAG IV ONE (10:15)
[2019-01-04] MEDS ORDERED: Potassium Chloride 20 MEQ Tab.ER PO ONE ×2 (10:15→21:43)
[2019-01-04] MEDS ORDERED: Potassium Chloride 10% 20 MEQ/15 ML Soln 15 ML UD Cup PO ONE (11:30)
--- NOTE | 2019-01-04 11:52 | PCM.PN ---
<Allen Santos - Last Filed: 01/04/19 11:43> - General Info Date of Service: 01/04/19 Admission Dx/Problem (Free Text): Admission Diagnosis/Problem Admission Diagnosis/Problem Colitis Subjective Update: Patient is doing better today. She has had three loose bowel movements this morning and has had improvement of her abdominal pain. She denies any nausea or vomiting, and is eagerly anticipating advancing her diet, as she has increased appetite. She also reports both belching and fatus. She is requesting IV potassium today as opposed to oral, as she previously received IV potassium supplementation and has difficulty taking oral potassium. Functional Status: Reports: Tolerating Diet - Review of Systems General: Reports: No Symptoms HEENT: Reports: No Symptoms Pulmonary: Reports: No Symptoms Cardiovascular: Reports: No Symptoms Gastrointestinal: Reports: Diarrhea, Flatus, Other (Belching). Denies: Constipation, Decreased Appetite, Nausea Genitourinary: Reports: No Symptoms Musculoskeletal: Reports: No Symptoms Skin: Reports: No Symptoms Neurological: Reports: No Symptoms Psychiatric: Reports: No Symptoms - Patient Data Vitals - Most Recent: Last Vital Signs Temp 98.4 F 01/04/19 08:26 Pulse 71 01/04/19 08:26 Resp 16 01/04/19 08:26 BP 136/91 H 01/04/19 08:26 Pulse Ox 97 01/04/19 08:26 Weight - Most Recent: 55.837 kg I&O - Last 24 Hours: Intake & Output 01/03/19 01/04/19 01/04/19 22:59 06:59 14:59 Intake Total 1493 1278 Output Total 1000 1600 Balance 493 -322 Lab Results Last 24 Hours: Laboratory Results - last 24 hr 01/03/19 01/04/19 01/04/19 Range/Units 13:39 05:20 05:20 WBC 6.29 (3.98-10.04) K/mm3 RBC 3.47 L (3.98-5.22) M/mm3 Hgb 10.0 L (11.2-15.7) gm/L Hct 30.9 L (34.1-44.9) % MCV 89.0 (79.4-94.8) fl MCH 28.8 (25.6-32.2) pg MCHC 32.4 (32.2-35.5) g/dl RDW Std Deviation 50.1 H (36.4-46.3) fL Plt Count 199 (182-369) K/mm3 MPV 10.4 (9.4-12.3) fl Neut % (Auto) 84.2 H (34.0-71.1) % Lymph % (Auto) 6.5 L (19.3-51.7) % [place] % (Auto) 8.3 (4.7-12.5) % Eos % (Auto) 0.3 L (0.7-5.8) Baso % (Auto) 0.2 (0.1-1.2) % Neut # (Auto) 5.30 (1.56-6.13) K/mm3 Lymph # (Auto) 0.41 L (1.18-3.74) K/mm3 [place] # (Auto) 0.52 H (0.24-0.36) K/mm3 Eos # (Auto) 0.02 L (0.04-0.36) K/mm3 Baso # (Auto) 0.01 (0.01-0.08) K/mm3 Manual Slide Review Abnormal smear Sodium 139 (136-145) mEq/L Potassium 3.3 L (3.5-5.1) mEq/L Chloride 105 (98-107) mEq/L Carbon Dioxide 22 (21-32) mEq/L Anion Gap 15.3 H (5-15) BUN 3 L (7-18) mg/dL Creatinine 0.6 (0.55-1.02) mg/dL Est Cr Clr Drug Dosing 72.11 mL/min Estimated GFR (MDRD) > 60 (>60) mL/min BUN/Creatinine Ratio 5.0 L (14-18) Glucose 173 H (83-115) mg/dL Lactic Acid 1.5 (0.4-2.0) mmol/L Calcium 7.3 L (8.5-10.1) mg/dL Magnesium 1.6 L (1.8-2.4) mg/dl Total Bilirubin 0.2 (0.2-1.0) mg/dL AST 12 L (15-37) U/L ALT 9 L (14-59) U/L Alkaline Phosphatase 37 L (46-116) U/L C-Reactive Protein 11.0 H* (<1.0) mg/dL Total Protein 6.0 L (6.4-8.2) g/dl Albumin 2.5 L (3.4-5.0) g/dl Globulin 3.5 gm/dL Albumin/Globulin Ratio 0.7 L (1-2) Med Orders - Current: Current Medications Acetaminophen (Tylenol) 650 mg PO Q4H PRN PRN Reason: Pain (Mild 1-3)/fever Enoxaparin Sodium (Lovenox) 40 mg SUBCUT DAILY [facility] Last Admin: 01/04/19 08:13 Dose: 40 mg Folic Acid (Folic Acid) 1 mg PO DAILY [facility] Last Admin: 01/04/19 08:13 Dose: 1 mg Furosemide (Lasix) 20 mg PO DAILY PRN PRN Reason: Shortness of Breath Gabapentin (Neurontin) 1,200 mg PO BEDTIME [facility] Last Admin: 01/03/19 20:48 Dose: 1,200 mg Gabapentin (Neurontin) 900 mg PO 06,12 [facility] Last Admin: 01/04/19 06:26 Dose: 900 mg Hydromorphone HCl (Dilaudid) 0.5 mg IVPUSH Q2H PRN PRN Reason: Pain (severe 7-10) Metronidazole 500 mg/ Premix 100 mls @ 100 mls/hr IV Q8H [facility] Last Admin: 01/04/19 10:14 Dose: 100 mls/hr Dextrose/Lactated Ringer's (Dextrose 5%-Lactated Ringers) 1,000 mls @ 75 mls/ hr IV ASDIRECTED [facility] Last Admin: 01/04/19 06:28 Dose: 75 mls/hr Levofloxacin/Dextrose 750 mg/ (Premix) 150 mls @ 100 mls/hr IV Q24H [facility] Magnesium Sulfate 2 gm/ Premix 50 mls @ 25 mls/hr IV ONETIME ONE Stop: 01/04/19 12:14 Last Admin: 01/04/19 11:28 Dose: 25 mls/hr Potassium Chloride 10 meq/ (Premix) 100 mls @ 100 mls/hr IV Q1H [facility] Stop: 01/04/19 19:59 Ondansetron HCl (Zofran) 4 mg IV Q4H PRN PRN Reason: Nausea/Vomiting Oxycodone HCl (Oxycodone) 5 mg PO Q4H PRN PRN Reason: Pain (moderate 4-6) Last Admin: 01/03/19 20:52 Dose: 5 mg Polyethylene Glycol (Miralax) 17 gm PO DAILY [facility] Last Admin: 01/04/19 08:14 Dose: Not Given Prednisone (Prednisone) 5 mg PO BEDTIME [facility] Last Admin: 01/03/19 20:49 Dose: 5 mg Rosuvastatin Calcium (Crestor) 10 mg PO DAILY [facility] Last Admin: 01/04/19 08:13 Dose: 10 mg Saccharomyces Boulardii (Florastor) 250 mg PO QAM PRN PRN Reason: Diarrhea Zolpidem Tartrate (Ambien) 5 mg PO BEDTIME PRN PRN Reason: Sleep Last Admin: 01/03/19 20:52 Dose: 5 mg Discontinued Medications Diatrizoate Meglum/Diatrizoate Sod (Gastrografin 37%) 90 ml PO ONETIME ONE Stop: 01/01/19 14:35 Last Admin: 01/01/19 15:32 Dose: 90 ml Gabapentin (Neurontin) 900 mg PO BIDAC [facility] Last Admin: 01/02/19 06:58 Dose: 900 mg Lactated Ringer's (Ringers, Lactated) 500 mls @ 999 mls/hr IV .BOLUS ONE Stop: 01/01/19 13:26 Last Admin: 01/01/19 13:08 Dose: 999 mls/hr Lactated Ringer's (Ringers, Lactated) 1,000 mls @ 125 mls/hr IV ASDIRECTED [facility] Last Admin: 01/01/19 15:01 Dose: 125 mls/hr Levofloxacin/Dextrose 750 mg/ (Premix) 150 mls @ 100 mls/hr IV ONETIME ONE Stop: 01/01/19 19:13 Last Admin: 01/01/19 17:54 Dose: 100 mls/hr Metronidazole 500 mg/ Premix 100 mls @ 100 mls/hr IV ONETIME ONE Stop: 01/01/19 18:43 Last Admin: 01/01/19 17:55 Dose: 100 mls/hr Lactated Ringer's (Ringers, Lactated) 1,000 mls @ 75 mls/hr IV ASDIRECTED [facility] Last Admin: 01/02/19 17:44 Dose: 75 mls/hr Levofloxacin/Dextrose 750 mg/ (Premix) 150 mls @ 100 mls/hr IV Q48H [facility] Last Admin: 01/03/19 18:06 Dose: 100 mls/hr Magnesium Sulfate 2 gm/ Premix 50 mls @ 25 mls/hr IV ONETIME ONE Stop: 01/02/19 10:25 Last Admin: 01/02/19 12:52 Dose: 25 mls/hr Potassium Chloride 10 meq/ (Premix) 100 mls @ 100 mls/hr IV Q1H [facility] Stop: 01/02/19 10:29 Last Admin: 01/02/19 10:28 Dose: 100 mls/hr Iopamidol (Isovue-300 (61%)) 100 ml IVPUSH ONETIME ONE Stop: 01/01/19 14:36 Last Admin: 01/01/19 15:33 Dose: 100 ml Ondansetron HCl (Zofran) 4 mg IVPUSH ONETIME ONE Stop: 01/01/19 13:20 Last Admin: 01/01/19 13:25 Dose: 4 mg Ondansetron HCl (Zofran) 4 mg IVPUSH ONETIME ONE Stop: 01/01/19 15:14 Last Admin: 01/01/19 15:14 Dose: 4 mg Ondansetron HCl (Zofran) Confirm Administered Dose 4 mg .ROUTE .STK-MED ONE Stop: 01/01/19 15:13 Last Admin: 01/01/19 18:09 Dose: Not Given Potassium Chloride (Potassium Chloride Solution) 60 meq PO ONETIME ONE Stop: 01/04/19 11:31 Last Admin: 01/04/19 11:40 Dose: Not Given Prochlorperazine Edisylate (Compazine) 10 mg IVPUSH ONETIME ONE Stop: 01/01/19 16:00 Last Admin: 01/01/19 16:03 Dose: 10 mg Sodium Chloride (Saline Flush) 10 ml FLUSH ONETIME ONE Stop: 01/01/19 14:35 Last Admin: 01/01/19 15:33 Dose: 10 ml - Exam General: Alert, Oriented HEENT: Pupils Equal, EOMI Lungs: Clear to Auscultation, Normal Respiratory Effort Cardiovascular: Regular Rate, Regular Rhythm GI/Abdominal Exam: Normal Bowel Sounds, Soft, Non-Tender, No Organomegaly, No Distention, No Mass Extremities: Normal Inspection, Non-Tender, No Pedal Edema, Normal Capillary Refill Peripheral Pulses: 3+: Posterior Tibial (L), Posterior Tibial (R) Skin: Warm, Dry, Intact Neurological: No New Focal Deficit Psy/Mental Status: Alert, Normal Affect, Normal Mood - Problem List & Annotations (1) Colitis SNOMED Code(s): 51771554 Code(s): K52.9 - NONINFECTIVE GASTROENTERITIS AND COLITIS, UNSPECIFIED Status: Acute - Problem List Review Problem List Initiated/Reviewed/Updated: Yes - Assessment Assessment:: Assessment: * 73 year old female with abdominal pain, nausea and vomiting * CT of abdomen showing colitis versus mass - she will need outpatient colonoscopy * Chronic medical problems include: diverticulosis, rheumatoid arthritis on methotrexate and prednisone, low back pain with apparent cyst on spine, nephrolithiasis, peripheral neuropathy - Plan Plan:: Plan * Admit to MedSur * Relative bowel rest with advancement of diet from clear liquids to liquids. Avoid milk products. * Antinausea and pain medication as needed * Continue IV antibiotics and fluids secondary to immunosuppression with methotrexate and prednisone and continued anion gap of 15.3. * Levaquin 750 mg IV daily * Flagyl 500 mg every 8 hours * D5LR 75 ml/hour * Colonoscopy as an outpatient. * CODE STATUS full code * VTE prophylaxis initially with SCDs and Lovenox. <Puma Gar T - Last Filed: 01/05/19 19:55> - Patient Data Vitals - Most Recent: Last Vital Signs Temp 36.9 C 01/05/19 08:51 Pulse 73 01/05/19 08:51 Resp 16 01/05/19 08:51 BP 123/81 01/05/19 08:51 Pulse Ox 97 01/05/19 08:51 I&O - Last 24 Hours: Intake & Output 01/05/19 01/05/19 01/05/19 06:59 14:59 22:59 Intake Total 951 120 120 Output Total 1100 Balance -149 120 120 Lab Results Last 24 Hours: Laboratory Results - last 24 hr 01/05/19 01/05/19 Range/Units 04:40 04:40 WBC 6.54 (3.98-10.04) K/mm3 RBC 3.42 L (3.98-5.22) M/mm3 Hgb 9.6 L (11.2-15.7) gm/dl Hct 30.5 L (34.1-44.9) % MCV 89.2 (79.4-94.8) fl MCH 28.1 (25.6-32.2) pg MCHC 31.5 L (32.2-35.5) g/dl RDW Std Deviation 50.9 H (36.4-46.3) fL Plt Count 218 (182-369) K/mm3 MPV 9.7 (9.4-12.3) fl Neut % (Auto) 77.5 H (34.0-71.1) % Lymph % (Auto) 8.9 L (19.3-51.7) % [place] % (Auto) 11.6 (4.7-12.5) % Eos % (Auto) 1.1 (0.7-5.8) Baso % (Auto) 0.3 (0.1-1.2) % Neut # (Auto) 5.07 (1.56-6.13) K/mm3 Lymph # (Auto) 0.58 L (1.18-3.74) K/mm3 [place] # (Auto) 0.76 H (0.24-0.36) K/mm3 Eos # (Auto) 0.07 (0.04-0.36) K/mm3 Baso # (Auto) 0.02 (0.01-0.08) K/mm3 Manual Slide Review Abnormal smear Sodium 140 (136-145) mEq/L Potassium 3.8 (3.5-5.1) mEq/L Chloride 108 H (98-107) mEq/L Carbon Dioxide 21 (21-32) mEq/L Anion Gap 14.8 (5-15) BUN 3 L (7-18) mg/dL Creatinine 0.7 (0.55-1.02) mg/dL Est Cr Clr Drug Dosing 61.81 mL/min Estimated GFR (MDRD) > 60 (>60) mL/min BUN/Creatinine Ratio 4.3 L (14-18) Glucose 152 H (83-115) mg/dL Calcium 7.2 L (8.5-10.1) mg/dL Magnesium 1.9 (1.8-2.4) mg/dl Total Bilirubin 0.2 (0.2-1.0) mg/dL AST 14 L (15-37) U/L ALT 7 L (14-59) U/L Alkaline Phosphatase 39 L (46-116) U/L C-Reactive Protein 5.3 H* (<1.0) mg/dL Total Protein 5.6 L (6.4-8.2) g/dl Albumin 2.4 L (3.4-5.0) g/dl Globulin 3.2 gm/dL Albumin/Globulin Ratio 0.8 L (1-2) Med Orders - Current: Current Medications Discontinued Medications Acetaminophen (Tylenol) 650 mg PO Q4H PRN PRN Reason: Pain (Mild 1-3)/fever Diatrizoate Meglum/Diatrizoate Sod (Gastrografin 37%) 90 ml PO ONETIME ONE Stop: 01/01/19 14:35 Last Admin: 01/01/19 15:32 Dose: 90 ml Enoxaparin Sodium (Lovenox) 40 mg SUBCUT DAILY [facility] Last Admin: 01/05/19 09:23 Dose: 40 mg Folic Acid (Folic Acid) 1 mg PO DAILY [facility] Last Admin: 01/05/19 09:24 Dose: 1 mg Furosemide (Lasix) 20 mg PO DAILY PRN PRN Reason: Shortness of Breath Gabapentin (Neurontin) 1,200 mg PO BEDTIME [facility] Last Admin: 01/04/19 20:46 Dose: 1,200 mg Gabapentin (Neurontin) 900 mg PO BIDAC [facility] Last Admin: 01/02/19 06:58 Dose: 900 mg Gabapentin (Neurontin) 900 mg PO 06,12 [facility] Last Admin: 01/05/19 13:14 Dose: 900 mg Hydromorphone HCl (Dilaudid) 0.5 mg IVPUSH Q2H PRN PRN Reason: Pain (severe 7-10) Lactated Ringer's (Ringers, Lactated) 500 mls @ 999 mls/hr IV .BOLUS ONE Stop: 01/01/19 13:26 Last Admin: 01/01/19 13:08 Dose: 999 mls/hr Lactated Ringer's (Ringers, Lactated) 1,000 mls @ 125 mls/hr IV ASDIRECTED [facility] Last Admin: 01/01/19 15:01 Dose: 125 mls/hr Levofloxacin/Dextrose 750 mg/ (Premix) 150 mls @ 100 mls/hr IV ONETIME ONE Stop: 01/01/19 19:13 Last Admin: 01/01/19 17:54 Dose: 100 mls/hr Metronidazole 500 mg/ Premix 100 mls @ 100 mls/hr IV ONETIME ONE Stop: 01/01/19 18:43 Last Admin: 01/01/19 17:55 Dose: 100 mls/hr Lactated Ringer's (Ringers, Lactated) 1,000 mls @ 75 mls/hr IV ASDIRECTED [facility] Last Admin: 01/02/19 17:44 Dose: 75 mls/hr Levofloxacin/Dextrose 750 mg/ (Premix) 150 mls @ 100 mls/hr IV Q48H [facility] Last Admin: 01/03/19 18:06 Dose: 100 mls/hr Metronidazole 500 mg/ Premix 100 mls @ 100 mls/hr IV Q8H [facility] Last Admin: 01/05/19 09:50 Dose: 100 mls/hr Magnesium Sulfate 2 gm/ Premix 50 mls @ 25 mls/hr IV ONETIME ONE Stop: 01/02/19 10:25 Last Admin: 01/02/19 12:52 Dose: 25 mls/hr Potassium Chloride 10 meq/ (Premix) 100 mls @ 100 mls/hr IV Q1H [facility] Stop: 01/02/19 10:29 Last Admin: 01/02/19 10:28 Dose: 100 mls/hr Dextrose/Lactated Ringer's (Dextrose 5%-Lactated Ringers) 1,000 mls @ 75 mls/ hr IV ASDIRECTED [facility] Last Admin: 01/04/19 23:57 Dose: 75 mls/hr Levofloxacin/Dextrose 750 mg/ (Premix) 150 mls @ 100 mls/hr IV Q24H [facility] Last Admin: 01/04/19 19:36 Dose: 100 mls/hr Magnesium Sulfate 2 gm/ Premix 50 mls @ 25 mls/hr IV ONETIME ONE Stop: 01/04/19 12:14 Last Admin: 01/04/19 11:28 Dose: 25 mls/hr Potassium Chloride 10 meq/ (Premix) 100 mls @ 100 mls/hr IV Q1H [facility] Stop: 01/04/19 19:59 Last Admin: 01/04/19 21:45 Dose: Not Given Iopamidol (Isovue-300 (61%)) 100 ml IVPUSH ONETIME ONE Stop: 01/01/19 14:36 Last Admin: 01/01/19 15:33 Dose: 100 ml Levofloxacin (Levaquin) 750 mg PO Q24H [facility] Metronidazole (Flagyl) 500 mg PO Q8H [facility], [facility] Last Admin: 01/05/19 14:41 Dose: 500 mg Ondansetron HCl (Zofran) 4 mg IVPUSH ONETIME ONE Stop: 01/01/19 13:20 Last Admin: 01/01/19 13:25 Dose: 4 mg Ondansetron HCl (Zofran) 4 mg IVPUSH ONETIME ONE Stop: 01/01/19 15:14 Last Admin: 01/01/19 15:14 Dose: 4 mg Ondansetron HCl (Zofran) Confirm Administered Dose 4 mg .ROUTE .STK-MED ONE Stop: 01/01/19 15:13 Last Admin: 01/01/19 18:09 Dose: Not Given Ondansetron HCl (Zofran) 4 mg IV Q4H PRN PRN Reason: Nausea/Vomiting Oxycodone HCl (Oxycodone) 5 mg PO Q4H PRN PRN Reason: Pain (moderate 4-6) Last Admin: 01/04/19 20:51 Dose: 5 mg Polyethylene Glycol (Miralax) 17 gm PO DAILY [facility], [facility] Last Admin: 01/05/19 09:24 Dose: Not Given Potassium Chloride (Potassium Chloride Solution) 60 meq PO ONETIME ONE Stop: 01/04/19 11:31 Last Admin: 01/04/19 11:40 Dose: Not Given Potassium Chloride (Klor-Con M20) 40 meq PO ONETIME ONE Stop: 01/04/19 21:44 Last Admin: 01/04/19 22:43 Dose: 40 meq Prednisone (Prednisone) 5 mg PO BEDTIME [facility], [facility] Last Admin: 01/04/19 20:46 Dose: 5 mg Prochlorperazine Edisylate (Compazine) 10 mg IVPUSH ONETIME ONE Stop: 01/01/19 16:00 Last Admin: 01/01/19 16:03 Dose: 10 mg Rosuvastatin Calcium (Crestor) 10 mg PO DAILY [facility], [facility] Last Admin: 01/05/19 09:24 Dose: 10 mg Saccharomyces Boulardii (Florastor) 250 mg PO QAM PRN PRN Reason: Diarrhea Sodium Chloride (Saline Flush) 10 ml FLUSH ONETIME ONE Stop: 01/01/19 14:35 Last Admin: 01/01/19 15:33 Dose: 10 ml Zolpidem Tartrate (Ambien) 5 mg PO BEDTIME PRN PRN Reason: Sleep Last Admin: 01/04/19 20:51 Dose: 5 mg - My Orders Last 24 Hours: My Active Orders 01/05/19 14:22 Ready for Discharge [RC] PER UNIT ROUTINE - Plan Plan:: Patient seen and examined at [facility] in concert with the medical student. The assessment and plans were discussed and agreed upon with me. Patient had no overnight or acute issues. Continue with current treatment and anticipate discharge in AM if she continues to do well.
[2019-01-04] MEDS: Potassium Chloride 10 MEQ in Premix Bag 1 BAG IV SCH ×5 (14:17→21:45)
[2019-01-04] MEDS ORDERED: Levofloxacin/Dextrose 5%-Water 750 MG in Premix Bag 1 BAG IV SCH (18:00)
[2019-01-04] MEDS: predniSONE 5 MG Tab PO SCH (20:46)
[2019-01-04] MEDS: oxyCODONE 5 MG Tab PO PRN (20:51)
[2019-01-04] MEDS: Zolpidem 5 MG Tab PO PRN (20:51)
[2019-01-05] MEDS: metroNIDAZOLE/Normal Saline 500 MG in Premix Bag 1 BAG IV SCH ×2 (01:17→09:50)
[2019-01-05] MEDS: Gabapentin 300 MG Cap PO SCH ×2 (06:09→13:14)
[2019-01-05 08:56] VITALS: BP 123/81; PULSE 73
[2019-01-05] MEDS: Enoxaparin 40 MG/0.4 ML Syringe SUBCUT SCH (09:23)
[2019-01-05] MEDS: Folic Acid 1 MG Tab PO SCH (09:24)
[2019-01-05] MEDS: Polyethylene Glycol 3350 Powder 17 GM Packet PO SCH (09:24)
[2019-01-05] MEDS: Rosuvastatin 10 MG Tab PO SCH (09:24)
--- NOTE | 2019-01-05 11:34 | PCM.DCSUM1 ---
<Allen Santos - Last Filed: 01/05/19 11:55> Discharge Summary - Hospital Course HPI Initial Comments: 73-year-old female who presented with 2 days of vomiting and abdominal pain to her primary care physician on 01/02/19. Patient denied any hematochezia, melena , hematemesis, but does have constipation and generalized abdominal pain that radiates into her back. At the clinic her white count was 20.6, hemoglobin 11.7 , platelets 130, sodium 137, potassium 3.5, and creatinine 0.8. 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 The patient was admitted with a diagnosis of colitis. The remainder of the course was unremarkable. Electrolyte imbalances were corrected during her stay.Patient was started on IV Levaquin and Flagyl and given IV fluids and antiemetics. During hospital course the patient's WBC count decreased to 6.54 on 01/05/19. CRP improved from 19.0 on to 5.3 on 01/05/19. She was discharged home on 01/05/19 with instructions to follow up with general surgery or gastroenterology for endoscopy in 4-6 weeks. She will complete her 10-14 day course of metronidazole and levofloxacin and avoid dairy products for 3 days. Diagnosis: Stroke: No - Discharge Data Discharge Date: 01/05/19 Discharge Disposition: Home, Self-Care 01 Condition: Good - Referral to Home Health Primary Care Physician: Erik Andrews MD - Discharge Diagnosis/Problem(s) (1) Colitis SNOMED Code(s): 85203169 ICD Code: K52.9 - NONINFECTIVE GASTROENTERITIS AND COLITIS, UNSPECIFIED Status: Acute - Patient Instructions Diet: Usual Diet as Tolerated Activity: As Tolerated Driving: May Drive Today Showering/Bathing: May Shower Notify Provider of: Fever, Increased Pain, Nausea and/or Vomiting - Discharge Plan *PRESCRIPTION DRUG MONITORING PROGRAM REVIEWED*: Not Applicable *COPY OF PRESCRIPTION DRUG MONITORING REPORT IN PATIENT OZZIE: Not Applicable Prescriptions/Med Rec: levoFLOXacin [Levaquin] 750 mg PO Q24H #5 tablet metroNIDAZOLE [Flagyl] 500 mg PO Q8H #16 tablet Home Medications: Home Meds predniSONE [Prednisone] 5 mg PO BEDTIME 03/18/14 [History] Gabapentin [Neurontin] 1,200 mg PO BEDTIME 09/14/15 [History] Gabapentin [Neurontin] 900 mg PO BIDAC 09/14/15 [History] Methotrexate 17.5 mg PO WEEKLY 03/22/17 [History] Folic Acid 1 mg PO DAILY 05/19/18 [History] Rosuvastatin [Crestor] 10 mg PO DAILY 05/19/18 [History] Zolpidem Tartrate [Ambien] 5 mg PO BEDTIME PRN 05/20/18 [History] Acetaminophen/HYDROcodone [Oklee 325-5 MG] 1 tab PO Q6H PRN 01/01/19 [History] Cyanocobalamin (Vitamin B-12) [Cyanocobalamin Injection] 1 dose IM ASDIRECTED [History] Denosumab [Prolia] 60 mg SQ Q6M 01/01/19 [History] Furosemide [Lasix] 20 mg PO DAILY PRN 01/01/19 [History] Omeprazole 20 mg PO DAILY PRN 01/01/19 [History] Saccharomyces Boulardii [Florastor] 250 mg PO QAM PRN 01/01/19 [History] levoFLOXacin [Levaquin] 750 mg PO Q24H #5 tablet 01/05/19 [Rx] metroNIDAZOLE [Flagyl] 500 mg PO Q8H #16 tablet 01/05/19 [Rx] Oxygen Therapy Mode: Room Air Patient Handouts: Colitis Referrals: Erik Andrews MD [Primary Care Provider] - 01/11/19 11:15 am - Discharge Summary/Plan Comment DC Time >30 min.: No Discharge Summary/Plan Comment: Assessment: * 73 year old female with abdominal pain, nausea and vomiting * CT of abdomen showing colitis versus mass - she will need outpatient colonoscopy * Chronic medical problems include: diverticulosis, rheumatoid arthritis on methotrexate and prednisone, low back pain with apparent cyst on spine, nephrolithiasis, peripheral neuropathy Plan: * Complete 10-14 day course of Metronidazole and Levofloxacin * Avoid Dairy for 3 days * Follow up with GI or general surgery in 4-6 weeks for endoscopy - General Info Date of Service: 01/05/19 Subjective Update: Patient has had improvement of her diarrhea today. Last bowel movement was yesterday afternoon and was more formed. Able to tolerate regular diet with good appetite. She has had improvement of her belching but continues to have flatus. She denies abdominal pain. Functional Status: Reports: Tolerating Diet, Ambulating, Urinating - Review of Systems General: Reports: No Symptoms HEENT: Reports: No Symptoms Pulmonary: Reports: No Symptoms Cardiovascular: Reports: No Symptoms Gastrointestinal: Reports: Flatus Genitourinary: Reports: No Symptoms Musculoskeletal: Reports: No Symptoms Skin: Reports: No Symptoms Neurological: Reports: No Symptoms Psychiatric: Reports: No Symptoms - Patient Data Vitals - Most Recent: Last Vital Signs Temp 98.4 F 01/05/19 08:51 Pulse 73 01/05/19 08:51 Resp 16 01/05/19 08:51 BP 123/81 01/05/19 08:51 Pulse Ox 97 01/05/19 08:51 Weight - Most Recent: 56.2 kg I&O - Last 24 hours: Intake & Output 01/04/19 01/05/19 01/05/19 22:59 06:59 14:59 Intake Total 2136 951 120 Output Total 1250 1100 Balance 886 -149 120 Lab Results - Last 24 hrs: Laboratory Results - last 24 hr 01/05/19 01/05/19 Range/Units 04:40 04:40 WBC 6.54 (3.98-10.04) K/mm3 RBC 3.42 L (3.98-5.22) M/mm3 Hgb 9.6 L (11.2-15.7) gm/dl Hct 30.5 L (34.1-44.9) % MCV 89.2 (79.4-94.8) fl MCH 28.1 (25.6-32.2) pg MCHC 31.5 L (32.2-35.5) g/dl RDW Std Deviation 50.9 H (36.4-46.3) fL Plt Count 218 (182-369) K/mm3 MPV 9.7 (9.4-12.3) fl Neut % (Auto) 77.5 H (34.0-71.1) % Lymph % (Auto) 8.9 L (19.3-51.7) % Churchill % (Auto) 11.6 (4.7-12.5) % Eos % (Auto) 1.1 (0.7-5.8) Baso % (Auto) 0.3 (0.1-1.2) % Neut # (Auto) 5.07 (1.56-6.13) K/mm3 Lymph # (Auto) 0.58 L (1.18-3.74) K/mm3 [place] # (Auto) 0.76 H (0.24-0.36) K/mm3 Eos # (Auto) 0.07 (0.04-0.36) K/mm3 Baso # (Auto) 0.02 (0.01-0.08) K/mm3 Manual Slide Review Abnormal smear Sodium 140 (136-145) mEq/L Potassium 3.8 (3.5-5.1) mEq/L Chloride 108 H (98-107) mEq/L Carbon Dioxide 21 (21-32) mEq/L Anion Gap 14.8 (5-15) BUN 3 L (7-18) mg/dL Creatinine 0.7 (0.55-1.02) mg/dL Est Cr Clr Drug Dosing 61.81 mL/min Estimated GFR (MDRD) > 60 (>60) mL/min BUN/Creatinine Ratio 4.3 L (14-18) Glucose 152 H (83-115) mg/dL Calcium 7.2 L (8.5-10.1) mg/dL Magnesium 1.9 (1.8-2.4) mg/dl Total Bilirubin 0.2 (0.2-1.0) mg/dL AST 14 L (15-37) U/L ALT 7 L (14-59) U/L Alkaline Phosphatase 39 L (46-116) U/L C-Reactive Protein 5.3 H* (<1.0) mg/dL Total Protein 5.6 L (6.4-8.2) g/dl Albumin 2.4 L (3.4-5.0) g/dl Globulin 3.2 gm/dL Albumin/Globulin Ratio 0.8 L (1-2) Med Orders - Current: Current Medications Acetaminophen (Tylenol) 650 mg PO Q4H PRN PRN Reason: Pain (Mild 1-3)/fever Enoxaparin Sodium (Lovenox) 40 mg SUBCUT DAILY [facility] Last Admin: 01/05/19 09:23 Dose: 40 mg Folic Acid (Folic Acid) 1 mg PO DAILY [facility] Last Admin: 01/05/19 09:24 Dose: 1 mg Furosemide (Lasix) 20 mg PO DAILY PRN PRN Reason: Shortness of Breath Gabapentin (Neurontin) 1,200 mg PO BEDTIME [facility] Last Admin: 01/04/19 20:46 Dose: 1,200 mg Gabapentin (Neurontin) 900 mg PO 06,12 [facility] Last Admin: 01/05/19 06:09 Dose: 900 mg Hydromorphone HCl (Dilaudid) 0.5 mg IVPUSH Q2H PRN PRN Reason: Pain (severe 7-10) Metronidazole 500 mg/ Premix 100 mls @ 100 mls/hr IV Q8H [facility] Last Admin: 01/05/19 09:50 Dose: 100 mls/hr Dextrose/Lactated Ringer's (Dextrose 5%-Lactated Ringers) 1,000 mls @ 75 mls/ hr IV ASDIRECTED [facility] Last Admin: 01/04/19 23:57 Dose: 75 mls/hr Levofloxacin/Dextrose 750 mg/ (Premix) 150 mls @ 100 mls/hr IV Q24H [facility] Last Admin: 01/04/19 19:36 Dose: 100 mls/hr Ondansetron HCl (Zofran) 4 mg IV Q4H PRN PRN Reason: Nausea/Vomiting Oxycodone HCl (Oxycodone) 5 mg PO Q4H PRN PRN Reason: Pain (moderate 4-6) Last Admin: 01/04/19 20:51 Dose: 5 mg Polyethylene Glycol (Miralax) 17 gm PO DAILY [facility] Last Admin: 01/05/19 09:24 Dose: Not Given Prednisone (Prednisone) 5 mg PO BEDTIME [facility] Last Admin: 01/04/19 20:46 Dose: 5 mg Rosuvastatin Calcium (Crestor) 10 mg PO DAILY [facility] Last Admin: 01/05/19 09:24 Dose: 10 mg Saccharomyces Boulardii (Florastor) 250 mg PO QAM PRN PRN Reason: Diarrhea Zolpidem Tartrate (Ambien) 5 mg PO BEDTIME PRN PRN Reason: Sleep Last Admin: 01/04/19 20:51 Dose: 5 mg Discontinued Medications Diatrizoate Meglum/Diatrizoate Sod (Gastrografin 37%) 90 ml PO ONETIME ONE Stop: 01/01/19 14:35 Last Admin: 01/01/19 15:32 Dose: 90 ml Gabapentin (Neurontin) 900 mg PO BIDAC [facility] Last Admin: 01/02/19 06:58 Dose: 900 mg Lactated Ringer's (Ringers, Lactated) 500 mls @ 999 mls/hr IV .BOLUS ONE Stop: 01/01/19 13:26 Last Admin: 01/01/19 13:08 Dose: 999 mls/hr Lactated Ringer's (Ringers, Lactated) 1,000 mls @ 125 mls/hr IV ASDIRECTED [facility] Last Admin: 01/01/19 15:01 Dose: 125 mls/hr Levofloxacin/Dextrose 750 mg/ (Premix) 150 mls @ 100 mls/hr IV ONETIME ONE Stop: 01/01/19 19:13 Last Admin: 01/01/19 17:54 Dose: 100 mls/hr Metronidazole 500 mg/ Premix 100 mls @ 100 mls/hr IV ONETIME ONE Stop: 01/01/19 18:43 Last Admin: 01/01/19 17:55 Dose: 100 mls/hr Lactated Ringer's (Ringers, Lactated) 1,000 mls @ 75 mls/hr IV ASDIRECTED [facility] Last Admin: 01/02/19 17:44 Dose: 75 mls/hr Levofloxacin/Dextrose 750 mg/ (Premix) 150 mls @ 100 mls/hr IV Q48H [facility] Last Admin: 01/03/19 18:06 Dose: 100 mls/hr Magnesium Sulfate 2 gm/ Premix 50 mls @ 25 mls/hr IV ONETIME ONE Stop: 01/02/19 10:25 Last Admin: 01/02/19 12:52 Dose: 25 mls/hr Potassium Chloride 10 meq/ (Premix) 100 mls @ 100 mls/hr IV Q1H [facility] Stop: 01/02/19 10:29 Last Admin: 01/02/19 10:28 Dose: 100 mls/hr Magnesium Sulfate 2 gm/ Premix 50 mls @ 25 mls/hr IV ONETIME ONE Stop: 01/04/19 12:14 Last Admin: 01/04/19 11:28 Dose: 25 mls/hr Potassium Chloride 10 meq/ (Premix) 100 mls @ 100 mls/hr IV Q1H [facility] Stop: 01/04/19 19:59 Last Admin: 01/04/19 21:45 Dose: Not Given Iopamidol (Isovue-300 (61%)) 100 ml IVPUSH ONETIME ONE Stop: 01/01/19 14:36 Last Admin: 01/01/19 15:33 Dose: 100 ml Ondansetron HCl (Zofran) 4 mg IVPUSH ONETIME ONE Stop: 01/01/19 13:20 Last Admin: 01/01/19 13:25 Dose: 4 mg Ondansetron HCl (Zofran) 4 mg IVPUSH ONETIME ONE Stop: 01/01/19 15:14 Last Admin: 01/01/19 15:14 Dose: 4 mg Ondansetron HCl (Zofran) Confirm Administered Dose 4 mg .ROUTE .STK-MED ONE Stop: 01/01/19 15:13 Last Admin: 01/01/19 18:09 Dose: Not Given Potassium Chloride (Potassium Chloride Solution) 60 meq PO ONETIME ONE Stop: 01/04/19 11:31 Last Admin: 01/04/19 11:40 Dose: Not Given Potassium Chloride (Klor-Con M20) 40 meq PO ONETIME ONE Stop: 01/04/19 21:44 Last Admin: 01/04/19 22:43 Dose: 40 meq Prochlorperazine Edisylate (Compazine) 10 mg IVPUSH ONETIME ONE Stop: 01/01/19 16:00 Last Admin: 01/01/19 16:03 Dose: 10 mg Sodium Chloride (Saline Flush) 10 ml FLUSH ONETIME ONE Stop: 01/01/19 14:35 Last Admin: 01/01/19 15:33 Dose: 10 ml - Exam General: Reports: Alert, Oriented HEENT: Reports: Pupils Equal, Pupils Reactive, EOMI, Mucous Membr. Moist/[place] Neck: Reports: Supple Lungs: Reports: Clear to Auscultation, Normal Respiratory Effort Cardiovascular: Reports: Regular Rate, Regular Rhythm GI/Abdominal Exam: Normal Bowel Sounds, Soft, Non-Tender, No Organomegaly, No Distention Back Exam: Reports: Normal Inspection Extremities: Normal Inspection, Non-Tender, No Pedal Edema, Normal Capillary Refill Skin: Reports: Warm, Dry, Intact Neurological: Reports: No New Focal Deficit Psy/Mental Status: Reports: Alert, Normal Affect, Normal Mood <RanPuma reid T - Last Filed: 01/05/19 19:58> Discharge Summary - Referral to Home Health Primary Care Physician: Erik Andrews MD - Patient Summary/Data Hospital Course: Patient was primarily admitted for colitis. She received intravenous antibiotics along with supportive care and she slowly respond to this treatment. Her hospital course was uncomplicated and the rest of her chronic medical illness remained stable during this admission. Patient was discharged with additional oral antibiotics to complete a total of 10 day course of treatment. She was advised to follow up with PCP in 1 week after discharge and get endoscopy in 4-6 weeks. - Patient Data Vitals - Most Recent: Last Vital Signs Temp 36.9 C 01/05/19 08:51 Pulse 73 01/05/19 08:51 Resp 16 01/05/19 08:51 BP 123/81 01/05/19 08:51 Pulse Ox 97 01/05/19 08:51 I&O - Last 24 hours: Intake & Output 01/05/19 01/05/19 01/05/19 06:59 14:59 22:59 Intake Total 951 120 120 Output Total 1100 Balance -149 120 120 Lab Results - Last 24 hrs: Laboratory Results - last 24 hr 01/05/19 01/05/19 Range/Units 04:40 04:40 WBC 6.54 (3.98-10.04) K/mm3 RBC 3.42 L (3.98-5.22) M/mm3 Hgb 9.6 L (11.2-15.7) gm/dl Hct 30.5 L (34.1-44.9) % MCV 89.2 (79.4-94.8) fl MCH 28.1 (25.6-32.2) pg MCHC 31.5 L (32.2-35.5) g/dl RDW Std Deviation 50.9 H (36.4-46.3) fL Plt Count 218 (182-369) K/mm3 MPV 9.7 (9.4-12.3) fl Neut % (Auto) 77.5 H (34.0-71.1) % Lymph % (Auto) 8.9 L (19.3-51.7) % Churchill % (Auto) 11.6 (4.7-12.5) % Eos % (Auto) 1.1 (0.7-5.8) Baso % (Auto) 0.3 (0.1-1.2) % Neut # (Auto) 5.07 (1.56-6.13) K/mm3 Lymph # (Auto) 0.58 L (1.18-3.74) K/mm3 Churchill # (Auto) 0.76 H (0.24-0.36) K/mm3 Eos # (Auto) 0.07 (0.04-0.36) K/mm3 Baso # (Auto) 0.02 (0.01-0.08) K/mm3 Manual Slide Review Abnormal smear Sodium 140 (136-145) mEq/L Potassium 3.8 (3.5-5.1) mEq/L Chloride 108 H (98-107) mEq/L Carbon Dioxide 21 (21-32) mEq/L Anion Gap 14.8 (5-15) BUN 3 L (7-18) mg/dL Creatinine 0.7 (0.55-1.02) mg/dL Est Cr Clr Drug Dosing 61.81 mL/min Estimated GFR (MDRD) > 60 (>60) mL/min BUN/Creatinine Ratio 4.3 L (14-18) Glucose 152 H (83-115) mg/dL Calcium 7.2 L (8.5-10.1) mg/dL Magnesium 1.9 (1.8-2.4) mg/dl Total Bilirubin 0.2 (0.2-1.0) mg/dL AST 14 L (15-37) U/L ALT 7 L (14-59) U/L Alkaline Phosphatase 39 L (46-116) U/L C-Reactive Protein 5.3 H* (<1.0) mg/dL Total Protein 5.6 L (6.4-8.2) g/dl Albumin 2.4 L (3.4-5.0) g/dl Globulin 3.2 gm/dL Albumin/Globulin Ratio 0.8 L (1-2) Med Orders - Current: Current Medications Discontinued Medications Acetaminophen (Tylenol) 650 mg PO Q4H PRN PRN Reason: Pain (Mild 1-3)/fever Diatrizoate Meglum/Diatrizoate Sod (Gastrografin 37%) 90 ml PO ONETIME ONE Stop: 01/01/19 14:35 Last Admin: 01/01/19 15:32 Dose: 90 ml Enoxaparin Sodium (Lovenox) 40 mg SUBCUT DAILY [facility] Last Admin: 01/05/19 09:23 Dose: 40 mg Folic Acid (Folic Acid) 1 mg PO DAILY [facility] Last Admin: 01/05/19 09:24 Dose: 1 mg Furosemide (Lasix) 20 mg PO DAILY PRN PRN Reason: Shortness of Breath Gabapentin (Neurontin) 1,200 mg PO BEDTIME [facility] Last Admin: 01/04/19 20:46 Dose: 1,200 mg Gabapentin (Neurontin) 900 mg PO BIDAC [facility] Last Admin: 01/02/19 06:58 Dose: 900 mg Gabapentin (Neurontin) 900 mg PO 12 [facility] Last Admin: 01/05/19 13:14 Dose: 900 mg Hydromorphone HCl (Dilaudid) 0.5 mg IVPUSH Q2H PRN PRN Reason: Pain (severe 7-10) Lactated Ringer's (Ringers, Lactated) 500 mls @ 999 mls/hr IV .BOLUS ONE Stop: 01/01/19 13:26 Last Admin: 01/01/19 13:08 Dose: 999 mls/hr Lactated Ringer's (Ringers, Lactated) 1,000 mls @ 125 mls/hr IV ASDIRECTED [facility] Last Admin: 01/01/19 15:01 Dose: 125 mls/hr Levofloxacin/Dextrose 750 mg/ (Premix) 150 mls @ 100 mls/hr IV ONETIME ONE Stop: 01/01/19 19:13 Last Admin: 01/01/19 17:54 Dose: 100 mls/hr Metronidazole 500 mg/ Premix 100 mls @ 100 mls/hr IV ONETIME ONE Stop: 01/01/19 18:43 Last Admin: 01/01/19 17:55 Dose: 100 mls/hr Lactated Ringer's (Ringers, Lactated) 1,000 mls @ 75 mls/hr IV ASDIRECTED [facility] Last Admin: 01/02/19 17:44 Dose: 75 mls/hr Levofloxacin/Dextrose 750 mg/ (Premix) 150 mls @ 100 mls/hr IV Q48H [facility] Last Admin: 01/03/19 18:06 Dose: 100 mls/hr Metronidazole 500 mg/ Premix 100 mls @ 100 mls/hr IV Q8H [facility] Last Admin: 01/05/19 09:50 Dose: 100 mls/hr Magnesium Sulfate 2 gm/ Premix 50 mls @ 25 mls/hr IV ONETIME ONE Stop: 01/02/19 10:25 Last Admin: 01/02/19 12:52 Dose: 25 mls/hr Potassium Chloride 10 meq/ (Premix) 100 mls @ 100 mls/hr IV Q1H [facility] Stop: 01/02/19 10:29 Last Admin: 01/02/19 10:28 Dose: 100 mls/hr Dextrose/Lactated Ringer's (Dextrose 5%-Lactated Ringers) 1,000 mls @ 75 mls/ hr IV ASDIRECTED [facility] Last Admin: 01/04/19 23:57 Dose: 75 mls/hr Levofloxacin/Dextrose 750 mg/ (Premix) 150 mls @ 100 mls/hr IV Q24H [facility] Last Admin: 01/04/19 19:36 Dose: 100 mls/hr Magnesium Sulfate 2 gm/ Premix 50 mls @ 25 mls/hr IV ONETIME ONE Stop: 01/04/19 12:14 Last Admin: 01/04/19 11:28 Dose: 25 mls/hr Potassium Chloride 10 meq/ (Premix) 100 mls @ 100 mls/hr IV Q1H [facility] Stop: 01/04/19 19:59 Last Admin: 01/04/19 21:45 Dose: Not Given Iopamidol (Isovue-300 (61%)) 100 ml IVPUSH ONETIME ONE Stop: 01/01/19 14:36 Last Admin: 01/01/19 15:33 Dose: 100 ml Levofloxacin (Levaquin) 750 mg PO Q24H [facility] Metronidazole (Flagyl) 500 mg PO Q8H [facility] Last Admin: 01/05/19 14:41 Dose: 500 mg Ondansetron HCl (Zofran) 4 mg IVPUSH ONETIME ONE Stop: 01/01/19 13:20 Last Admin: 01/01/19 13:25 Dose: 4 mg Ondansetron HCl (Zofran) 4 mg IVPUSH ONETIME ONE Stop: 01/01/19 15:14 Last Admin: 01/01/19 15:14 Dose: 4 mg Ondansetron HCl (Zofran) Confirm Administered Dose 4 mg .ROUTE .STK-MED ONE Stop: 01/01/19 15:13 Last Admin: 01/01/19 18:09 Dose: Not Given Ondansetron HCl (Zofran) 4 mg IV Q4H PRN PRN Reason: Nausea/Vomiting Oxycodone HCl (Oxycodone) 5 mg PO Q4H PRN PRN Reason: Pain (moderate 4-6) Last Admin: 01/04/19 20:51 Dose: 5 mg Polyethylene Glycol (Miralax) 17 gm PO DAILY [facility] Last Admin: 01/05/19 09:24 Dose: Not Given Potassium Chloride (Potassium Chloride Solution) 60 meq PO ONETIME ONE Stop: 01/04/19 11:31 Last Admin: 01/04/19 11:40 Dose: Not Given Potassium Chloride (Klor-Con M20) 40 meq PO ONETIME ONE Stop: 01/04/19 21:44 Last Admin: 01/04/19 22:43 Dose: 40 meq Prednisone (Prednisone) 5 mg PO BEDTIME [facility] Last Admin: 01/04/19 20:46 Dose: 5 mg Prochlorperazine Edisylate (Compazine) 10 mg IVPUSH ONETIME ONE Stop: 01/01/19 16:00 Last Admin: 01/01/19 16:03 Dose: 10 mg Rosuvastatin Calcium (Crestor) 10 mg PO DAILY [facility] Last Admin: 01/05/19 09:24 Dose: 10 mg Saccharomyces Boulardii (Florastor) 250 mg PO QAM PRN PRN Reason: Diarrhea Sodium Chloride (Saline Flush) 10 ml FLUSH ONETIME ONE Stop: 01/01/19 14:35 Last Admin: 01/01/19 15:33 Dose: 10 ml Zolpidem Tartrate (Ambien) 5 mg PO BEDTIME PRN PRN Reason: Sleep Last Admin: 01/04/19 20:51 Dose: 5 mg
[2019-01-05] MEDS ORDERED: metroNIDAZOLE 500 MG Tab PO SCH (14:30)
[2019-01-05] MEDS ORDERED: Levofloxacin 750 MG Tab PO SCH (18:00)
== END 2019-01-05 15:23 | disposition home or self-care (01) | DRG 392 ==
LOC: JD.ED 12:13 → JD.MS 17:57
PROVIDERS: ADMIT Family Medicine; ATTEND Family Medicine
DX: K52.9 Noninfective gastroenteritis and colitis, unspecified (principal); R10.32 Left lower quadrant pain; R11.2 Nausea with vomiting, unspecified; M06.9 Rheumatoid arthritis, unspecified; G89.29 Other chronic pain; H54.7 Unspecified visual loss; G62.9 Polyneuropathy, unspecified; E53.8 Deficiency of other specified B group vitamins; M54.5 Low back pain; Z79.52 Long term (current) use of systemic steroids; Z79.899 Other long term (current) drug therapy; Z87.442 Personal history of urinary calculi; Z96.0 Presence of urogenital implants; Z87.01 Personal history of pneumonia (recurrent); Z90.49 Acquired absence of other specified parts of digestive tract; Z98.49 Cataract extraction status, unspecified eye
CPT/HCPCS: 36415; 74177; 81001; 83690; 96361; 96365; 96368; 96375; 96376; 99284; J0780; J1956; J2405 ×2; J3490; J7120 ×2; Q9963; Q9967; 80053; 83605; 83735; 85025; 86140; 99285; A9270-GY; J1650; J3475; J3480; J7042

== ENCOUNTER 2019-01-29 20:32 | Inpatient (IN) | payer MEDICARE, BC ==
[2019-01-29] MEDS ORDERED: Ondansetron 4 MG/2 ML SDV IVPUSH ONE (21:05)
[2019-01-29] MEDS: Sodium Chloride 0.9% 1,000 ML IV SCH (21:11)
--- NOTE | 2019-01-29 21:11 | EDM.PDOC ---
ED HPI GENERAL MEDICAL PROBLEM - General Chief Complaint: Abdominal Pain Stated Complaint: [facility] Time Seen by Provider: 01/29/19 20:52 Source of Information: Reports: Family History Limitations: Reports: Altered Mental Status - History of Present Illness INITIAL COMMENTS - FREE TEXT/NARRATIVE: This is a 73-year-old female. Onset yesterday with nausea and vomiting. She has not been having any diarrhea. The apparently came home this evening and found that she was delirious and would not talk to him or say anything and if she did say something he did not make sense to him. Apparently she's been in the hospital in the past for sepsis with a very similar presentation of nausea and vomiting. The patient will not talk to me but she is awake and looking around. She is cooperative. Apparently the tells me she's been having some abdominal pain as well. Months ago she had 2 kidney stones removed one was 19 mm in size. The does not know whether she's been running a fever at home are not but in the ER for fever was 103. I cannot get any information from the patient herself. There's been no cough no congestion noted by the . She apparently was up most of last night with nausea and vomiting and she's been sleeping some today and in between her sleeping about she's been having nausea and vomiting. She has not been able to keep any fluids down or food over the last day and a half. At this time the patient is a full code according to the . The changed his mind and she is now a DNI. Abdomen Pain Score (Numeric/FACES): 8 - Related Data Allergies Allergy/AdvReac Type Severity Reaction Status Date / Time No Known Allergies Allergy Verified 01/29/19 20:41 Home Meds: Home Meds predniSONE [Prednisone] 5 mg PO BEDTIME 03/18/14 [History] Gabapentin [Neurontin] 1,200 mg PO BEDTIME 09/14/15 [History] Gabapentin [Neurontin] 900 mg PO BIDAC 09/14/15 [History] Methotrexate 17.5 mg PO WEEKLY 03/22/17 [History] Folic Acid 1 mg PO DAILY 05/19/18 [History] Rosuvastatin [Crestor] 10 mg PO DAILY 05/19/18 [History] Zolpidem Tartrate [Ambien] 5 mg PO BEDTIME PRN 05/20/18 [History] Acetaminophen/HYDROcodone [Chelan 325-5 MG] 1 tab PO Q6H PRN 01/01/19 [History] Cyanocobalamin (Vitamin B-12) [Cyanocobalamin Injection] 1 dose IM ASDIRECTED [History] Denosumab [Prolia] 60 mg SQ ASDIRECTED 01/01/19 [History] Furosemide [Lasix] 20 mg PO DAILY PRN 01/01/19 [History] Omeprazole 20 mg PO DAILY PRN 01/01/19 [History] Saccharomyces Boulardii [Florastor] 250 mg PO QAM PRN 01/01/19 [History] Past Medical History HEENT History: Reports: Cataract, Impaired Vision Other HEENT History: wears glasses Respiratory History: Reports: Other (See Below) Other Respiratory History: Pneumonia Gastrointestinal History: Reports: Cholelithiasis Genitourinary History: Reports: Acute Renal Failure, Renal Calculus [employer] History: Reports: , Spontaneous Musculoskeletal History: Reports: RA Other Musculoskeletal History: Dislocated thumb Neurological History: Reports: Neuropathy, Peripheral Hematologic History: Reports: B12 Deficiency - Infectious Disease History Infectious Disease History: Reports: Chicken Pox, Influenza, Measles, Mumps - Past Surgical History HEENT Surgical History: Reports: Cataract Surgery GI Surgical History: Reports: Cholecystectomy, Polypectomy Female Surgical History: Reports: Ureteral Stent Dermatological Surgical History: Reports: None Social & Family History - Family History Family Medical History: Noncontributory - Tobacco Use Smoking Status *Q: Never Smoker - Caffeine Use Caffeine Use: Reports: Coffee, Soda Other Caffeine Use: one cup of each a day - Recreational Drug Use Recreational Drug Use: No - Living Situation & Occupation Living situation: Reports: , Other Occupation: Employed [employer] - Review of Systems Review Of Systems: Unable To Obtain (What I do obtain is from the and not from the patient herself) Constitutional: Reports: Malaise, Weakness, Fatigue HEENT: Reports: No Symptoms Respiratory: Denies: Shortness of Breath, Cough Cardiovascular: Reports: No Symptoms Endocrine: Reports: Fatigue GI/Abdominal: Reports: Abdominal Pain, Decreased Appetite, Nausea, Vomiting. Denies: Diarrhea : Reports: Other (Unknown) Musculoskeletal: Reports: Other (She has a lot of arthralgias from her rheumatoid arthritis) Skin: Reports: No Symptoms Neurological: Reports: Confusion, Trouble Speaking, Difficulty Walking, Weakness (The weakness is generalized) Psychiatric: Reports: Other (Patient does not verbally talk at this time) ED EXAM, GI/ABD - Physical Exam Exam: See Below Exam Limited By: Altered Mental Status General Appearance: No Apparent Distress, Other (The patient is alert, however she does not talk or answer questions, she does look around and she is cooperative during the exam). No: Active Emesis Eyes: Bilateral: Normal Appearance Ears: Normal External Exam, Normal Canal, Normal TMs Nose: Normal Inspection Throat/Mouth: Normal Inspection, Normal Lips, Normal Voice, No Airway Compromise , Other (Tacky mucous membranes) Head: Normocephalic Neck: Supple, Other (She does not appear to have any nuchal rigidity) Respiratory/Chest: Other (She has some crackles in the left base of the lung but no wheezing is noted in the rest of the lung bush appear to be clear) Cardiovascular: Regular Rate, Rhythm, No Murmur, Tachycardia GI/Abdominal Exam: Soft, Other (He does not appear to have any guarding of her abdomen it appears to be soft with bowel sounds are decreased there is no distention noted) Back Exam: Other (She has decreased range of motion of her back secondary to her arthritis) Extremities: Other (RA changes noted) Neurological: Other (She is awake but not responsive to verbal stimuli) Psychiatric: Flat Affect Skin Exam: Warm, Dry EKG INTERPRETATION EKG Date: 01/29/19 Time: 23:10 EKG Interpretation Comments: EKG shows a sinus tachycardia rate of 114, she has a abnormal R-wave progression in the anterior leads but there is no acute ST or T-wave changes noted, there is a suggestion she might have had an old inferior infarct however there is no ischemia noted, there is a mildly prolonged QT interval. Course - Vital Signs Last Recorded V/S: Last Vital Signs Temp 99.0 F 01/30/19 03:10 Pulse 102 H 01/30/19 03:48 Resp 16 01/30/19 01:59 BP 67/33 L 01/30/19 03:48 Pulse Ox 98 01/30/19 03:48 - Orders/Labs/Meds Orders: Active Orders 24 hr Category Date Time Status Chest 2V [CR] Stat Exams 01/29/19 21:08 Taken CULTURE BLOOD [BC] Stat Lab 01/29/19 21:41 Received CULTURE BLOOD [BC] Stat Lab 01/29/19 22:00 Received CULTURE URINE [RM] Stat Lab 01/29/19 22:45 Received Sodium Chloride 0.9% [Normal Saline] 1,000 ml Med 01/29/19 21:15 Active IV ASDIRECTED cefTRIAXone [Rocephin] 2 gm Med 01/29/19 23:15 Active Sodium Chloride 0.9% [Normal Saline] 100 ml IV Q24H Blood Culture x2 Reflex Set [OM.PC] Stat Oth 01/29/19 21:03 Ordered Medication Orders Sodium Chloride (Normal Saline) 1,000 mls @ 1,000 mls/hr IV ASDIRECTED YOUSIF Last Admin: 01/30/19 03:15 Dose: 1,000 mls/hr Infusion: 01/29/19 22:11 Dose: 1,000 mls/hr Admin: 01/29/19 21:11 Dose: 1,000 mls/hr Ceftriaxone Sodium 2 gm/ (Sodium Chloride) 100 mls @ 200 mls/hr IV Q24H [facility] Last Admin: 01/29/19 23:22 Dose: 200 mls/hr Magnesium Sulfate 4 gm/ Premix 50 mls @ 12.5 mls/hr IV ONETIME ONE Stop: 01/30/19 06:57 Last Admin: 01/30/19 03:20 Dose: 12.5 mls/hr Potassium Chloride 10 meq/ (Premix) 100 mls @ 100 mls/hr IV Q1H YOUSIF Stop: 01/30/19 08:59 Last Admin: 01/30/19 04:16 Dose: 100 mls/hr Infusion: 01/30/19 04:15 Dose: 100 mls/hr Admin: 01/30/19 03:15 Dose: 100 mls/hr Sodium Chloride (Normal Saline) 1,000 mls @ 400 mls/hr IV ASDIRECTED [facility] Labs: Laboratory Tests 01/29/19 01/29/19 01/29/19 Range/Units 21:41 21:41 22:00 WBC 19.78 H (3.98-10.04) K/mm3 RBC 3.89 L (3.98-5.22) M/mm3 Hgb 11.1 L D (11.2-15.7) gm/dl Hct 34.5 (34.1-44.9) % MCV 88.7 (79.4-94.8) fl MCH 28.5 (25.6-32.2) pg MCHC 32.2 (32.2-35.5) g/dl RDW Std Deviation 52.0 H (36.4-46.3) fL Plt Count 161 L (182-369) K/mm3 MPV 10.3 (9.4-12.3) fl Neut % (Auto) 75.3 H (34.0-71.1) % Lymph % (Auto) 12.0 L (19.3-51.7) % Cuming % (Auto) 11.3 (4.7-12.5) % Eos % (Auto) 0.4 L (0.7-5.8) Baso % (Auto) 0.2 (0.1-1.2) % Neut # (Auto) 14.90 H (1.56-6.13) K/mm3 Lymph # (Auto) 2.38 (1.18-3.74) K/mm3 Cuming # (Auto) 2.24 H (0.24-0.36) K/mm3 Eos # (Auto) 0.07 (0.04-0.36) K/mm3 Baso # (Auto) 0.04 (0.01-0.08) K/mm3 Manual Slide Review Abnormal smear PT (9.7-12.0) SECONDS INR Sodium 137 (136-145) mEq/L Potassium 2.6 L (3.5-5.1) mEq/L Chloride 102 (98-107) mEq/L Carbon Dioxide 23 (21-32) mEq/L Anion Gap 14.6 (5-15) BUN 16 (7-18) mg/dL Creatinine 0.9 (0.55-1.02) mg/dL Est Cr Clr Drug Dosing 48.07 mL/min Estimated GFR (MDRD) > 60 (>60) mL/min BUN/Creatinine Ratio 17.8 (14-18) Glucose 129 H (83-115) mg/dL Lactic Acid (0.4-2.0) mmol/L Calcium 7.8 L (8.5-10.1) mg/dL Magnesium 1.2 L (1.8-2.4) mg/dl Total Bilirubin 1.1 H (0.2-1.0) mg/dL AST 15 (15-37) U/L ALT 11 L (14-59) U/L Alkaline Phosphatase 52 (46-116) U/L Total Protein 5.8 L (6.4-8.2) g/dl Albumin 2.6 L (3.4-5.0) g/dl Globulin 3.2 gm/dL Albumin/Globulin Ratio 0.8 L (1-2) Lipase 16 L (73-393) U/L Urine Color (Yellow) Urine Appearance (Clear) Urine pH (5.0-8.0) Ur Specific Beckley (1.005-1.030) Urine Protein (Negative) Urine Glucose (UA) (Negative) Urine Ketones (Negative) Urine Occult Blood (Negative) Urine Nitrite (Negative) Urine Bilirubin (Negative) Urine Urobilinogen (0.2-1.0) Ur Leukocyte Esterase (Negative) Urine RBC (0-5) /hpf Urine WBC (0-5) /hpf Ur Epithelial Cells (0-5) /hpf Urine Bacteria (FEW) /hpf Urine Mucus (FEW) /hpf 01/29/19 01/29/19 01/29/19 Range/Units 22:00 22:30 22:45 WBC (3.98-10.04) K/mm3 RBC (3.98-5.22) M/mm3 Hgb (11.2-15.7) gm/dl Hct (34.1-44.9) % MCV (79.4-94.8) fl MCH (25.6-32.2) pg MCHC (32.2-35.5) g/dl RDW Std Deviation (36.4-46.3) fL Plt Count (182-369) K/mm3 MPV (9.4-12.3) fl Neut % (Auto) (34.0-71.1) % Lymph % (Auto) (19.3-51.7) % Cuming % (Auto) (4.7-12.5) % Eos % (Auto) (0.7-5.8) Baso % (Auto) (0.1-1.2) % Neut # (Auto) (1.56-6.13) K/mm3 Lymph # (Auto) (1.18-3.74) K/mm3 Cuming # (Auto) (0.24-0.36) K/mm3 Eos # (Auto) (0.04-0.36) K/mm3 Baso # (Auto) (0.01-0.08) K/mm3 Manual Slide Review PT 13.8 H (9.7-12.0) SECONDS INR 1.28 Sodium (136-145) mEq/L Potassium (3.5-5.1) mEq/L Chloride (98-107) mEq/L Carbon Dioxide (21-32) mEq/L Anion Gap (5-15) BUN (7-18) mg/dL Creatinine (0.55-1.02) mg/dL Est Cr Clr Drug Dosing mL/min Estimated GFR (MDRD) (>60) mL/min BUN/Creatinine Ratio (14-18) Glucose (83-115) mg/dL Lactic Acid 3.0 H (0.4-2.0) mmol/L Calcium (8.5-10.1) mg/dL Magnesium (1.8-2.4) mg/dl Total Bilirubin (0.2-1.0) mg/dL AST (15-37) U/L ALT (14-59) U/L Alkaline Phosphatase (46-116) U/L Total Protein (6.4-8.2) g/dl Albumin (3.4-5.0) g/dl Globulin gm/dL Albumin/Globulin Ratio (1-2) Lipase (73-393) U/L Urine Color Yellow (Yellow) Urine Appearance Clear (Clear) Urine pH 7.0 (5.0-8.0) Ur Specific Beckley 1.020 (1.005-1.030) Urine Protein Trace H (Negative) Urine Glucose (UA) Negative (Negative) Urine Ketones 2+ H (Negative) Urine Occult Blood 2+ H (Negative) Urine Nitrite Negative (Negative) Urine Bilirubin Negative (Negative) Urine Urobilinogen 0.2 (0.2-1.0) Ur Leukocyte Esterase Negative (Negative) Urine RBC 5-10 H (0-5) /hpf Urine WBC 0-5 (0-5) /hpf Ur Epithelial Cells Not seen (0-5) /hpf Urine Bacteria Rare (FEW) /hpf Urine Mucus Rare (FEW) /hpf Meds: Medications Generic Name Dose Route Start Last Admin Trade Name Freq PRN Reason Stop Dose Admin Sodium Chloride 1,000 mls @ 1,000 mls/hr 01/29/19 21:15 01/30/19 03:15 Normal Saline IV 1,000 mls/hr ASDIRECTED YOUSIF Administration Ceftriaxone Sodium 2 gm/ 100 mls @ 200 mls/hr 01/29/19 23:15 01/29/19 23:22 Sodium Chloride IV 200 mls/hr Q24H YOUSIF Administration Magnesium Sulfate 4 gm/ Premix 50 mls @ 12.5 mls/hr 01/30/19 02:58 01/30/19 03:20 IV 01/30/19 06:57 12.5 mls/hr ONETIME ONE Administration Potassium Chloride 10 meq/ 100 mls @ 100 mls/hr 01/30/19 03:00 01/30/19 04:16 Premix IV 01/30/19 08:59 100 mls/hr Q1H YOUSIF Administration Sodium Chloride 1,000 mls @ 400 mls/hr 01/30/19 03:00 Normal Saline IV ASDIRECTED YOUSIF Discontinued Medications Generic Name Dose Route Start Last Admin Trade Name Chio PRN Reason Stop Dose Admin Acetaminophen 650 mg 01/29/19 22:24 01/29/19 22:50 Tylenol PO 01/29/19 22:25 650 mg NOW ONE Administration Hydrocodone Bitart/Acetaminophen 1 tab 01/30/19 00:12 01/30/19 00:45 Chelan 325-5 Mg PO 01/30/19 00:13 Not Given ONETIME ONE Azithromycin Confirm 01/29/19 23:28 01/29/19 23:40 Zithromax Administered 01/29/19 23:29 Not Given Dose 500 mg .ROUTE .STK-MED ONE Azithromycin Confirm 01/29/19 23:32 01/29/19 23:41 Zithromax Administered 01/29/19 23:33 Not Given Dose 500 mg .ROUTE .STK-MED ONE Gabapentin 1,200 mg 01/30/19 21:00 Neurontin PO BEDTIME YOUSIF Gabapentin 1,200 mg 01/30/19 00:28 01/30/19 00:45 Neurontin PO 01/30/19 00:29 Not Given BEDTIME STA Hydromorphone HCl 0.25 mg 01/30/19 00:44 01/30/19 00:54 Dilaudid IVPUSH 01/30/19 00:45 0.25 mg ONETIME ONE Administration Sodium Chloride 1,000 mls @ 500 mls/hr 01/29/19 22:30 01/29/19 22:50 Normal Saline IV 500 mls/hr ASDIRECTED YOUSIF Administration Azithromycin 500 mg/ Sodium 250 mls @ 250 mls/hr 01/29/19 23:03 01/29/19 23: 54 Chloride IV 01/30/19 00:02 250 mls/hr ONETIME ONE Administration Potassium Chloride 10 meq/ 100 mls @ 100 mls/hr 01/29/19 23:15 01/30/19 00:18 Premix IV 01/30/19 01:14 100 mls/hr Q1H YOUSIF Administration Magnesium Sulfate/Dextrose 1 100 mls @ 100 mls/hr 01/29/19 23:30 01/30/19 01: 34 gm/ Premix IV 01/30/19 01:29 100 mls/hr Q1H YOUSIF Administration Sodium Chloride Confirm 01/29/19 23:32 01/30/19 00:08 Normal Saline Administered 01/29/19 23:33 Not Given Dose 250 mls @ as directed .ROUTE .STK-MED ONE Sodium Chloride 1,000 mls @ 100 mls/hr 01/30/19 01:00 01/30/19 00:59 Normal Saline IV 100 mls/hr ASDIRECTED YOUSIF Administration Potassium Chloride 10 meq/ 100 mls @ 100 mls/hr 01/30/19 03:00 01/30/19 03:05 Premix IV 01/30/19 06:59 Not Given Q1H YOUSIF Ondansetron HCl 4 mg 01/29/19 21:05 01/29/19 21:14 Zofran IVPUSH 01/29/19 21:06 4 mg ONETIME ONE Administration - Radiology Interpretation Free Text/Narrative:: Chest trace suggest she might have a infiltrate in the left lower lobe that will probably presented self more fully when she is hydrated - Re-Assessments/Exams Free Text/Narrative Re-Assessment/Exam: 01/29/19 23:04 I looked at the urine visually and there does not appear to be milky or bad smelling so I am assuming at this time before he gets the urinalysis back that she has a pneumonia that is causing her decompensation and early sepsis symptoms. I'll provide some Rocephin and Zithromax IV. Blood cultures are been done and urine culture has been done. 01/29/19 23:38 I spoke to the again indicating that she probably needs to have an ICU bed however because of the weather conditions and the ice on the roads in the snow dr[place] on [place] free[place] between [facility] that Dr. Swanson is willing to put her in the hospital for continued management but he is concerned that she would be better serviced with an ICU bed. The understands the road conditions and realizes that we are putting her in the hospital for treatment and he has stayed at this time that he wants her to be a DNI with no intubation and no mechanical ventilation. We talked about this on 2 occasions to make certain that what he is wanting. 01/30/19 01:41 We watched the patient for quite some time because she was having sporadically low blood pressures. However when we take a manual blood pressure systolic was always above 100. I believe this because she is tense and she is uncomfortable and she is hurting and he can't communicate whether. We watched her for about 2 hours to make sure she remains stable. Her heart rate came down from the 1:15 down to below 100 with fluids. And blood pressures remained manual blood pressure systolic above 100 like 103-109. 01/30/19 01:44 Patient was transferred to the floor this time. The nurses noted take manual blood pressures on her if there seems to be a low blood pressure since the monitor is not taking accurate blood pressure. They are to draw a lactic acid and potassium at 2 AM and then once they have finished the 2 g of mag IV they are to draw another magnesium level. 01/30/19 03:47 PLEASE NOTE ADDITIONAL INFORMATION: On her previous hospitalization this was in December 2018 apparently she was on some Levaquin and Flagyl for a possible colitis by CT scan and there was a questionable colon mass though they never delineated what it was and she was supposed to see a GI specialist after she left the hospital but I do not believe that occurred. After she was put on the floor today she began to have her first episode of diarrhea that almost smells like C. difficile and a specimen was obtained for culture and evaluation for C. difficile. 01/30/19 03:49 Additional information she does have a swollen right knee but it is not appear to be erythematous though it is painful. She has severe rheumatoid arthritis and has lots of joint pains. He is now talking and she recognizes our hospitalist whereas in the ER she would not talk at all though she was awake and looking around. 01/30/19 04:34 The patient is being transferred to [facility] in [place]. Dr. Pappas is the accepting physician for further evaluation and treatment. Departure - Departure Time of Disposition: 04:35 Disposition: DC/Tfer to Acute Hospital 02 Condition: Poor Clinical Impression: Elevated lactic acid level, Hypokalemia, Hypocalcemia, Hypomagnesemia Nausea and vomiting Qualifiers: Vomiting type: unspecified Vomiting Intractability: unspecified Qualified Code( s): R11.2 - Nausea with vomiting, unspecified Sepsis Qualifiers: Sepsis type: sepsis due to unspecified organism Qualified Code(s): A41.9 - Sepsis, unspecified organism Diarrhea Qualifiers: Diarrhea type: unspecified type Qualified Code(s): R19.7 - Diarrhea, unspecified - Discharge Information ED Communication - ED Communication Date/Time Date: 01/30/19 Time Called: 03:51 - Discussed Case With (1) Discussed Case With (1): Admitting Provider Person/s Notified (1): Dr. Pappas (She agrees to accept the patient in transport to [facility]) - My Orders Last 24 Hours: My Active Orders 01/29/19 21:03 Blood Culture x2 Reflex Set [OM.PC] Stat 01/29/19 21:08 Chest 2V [CR] Stat 01/29/19 21:15 Sodium Chloride 0.9% [Normal Saline] 1,000 ml IV ASDIRECTED 01/29/19 21:41 CULTURE BLOOD [BC] Stat 01/29/19 22:00 CULTURE BLOOD [BC] Stat 01/29/19 22:45 CULTURE URINE [RM] Stat 01/29/19 23:15 cefTRIAXone [Rocephin] 2 gm Sodium Chloride 0.9% [Normal Saline] 100 ml IV Q24H - Assessment/Plan Last 24 Hours: My Active Orders 01/29/19 21:03 Blood Culture x2 Reflex Set [OM.PC] Stat 01/29/19 21:08 Chest 2V [CR] Stat 01/29/19 21:15 Sodium Chloride 0.9% [Normal Saline] 1,000 ml IV ASDIRECTED 01/29/19 21:41 CULTURE BLOOD [BC] Stat 01/29/19 22:00 CULTURE BLOOD [BC] Stat 01/29/19 22:45 CULTURE URINE [RM] Stat 01/29/19 23:15 cefTRIAXone [Rocephin] 2 gm Sodium Chloride 0.9% [Normal Saline] 100 ml IV Q24H
[2019-01-29] MEDS ORDERED: Acetaminophen 325 MG Tab PO ONE (22:24)
[2019-01-29] MEDS ORDERED: Sodium Chloride 0.9% 1,000 ML IV SCH (22:30)
[2019-01-29] MEDS ORDERED: Azithromycin 500 MG in Sodium Chloride 0.9% 250 ML IV ONE (23:03)
[2019-01-29] MEDS ORDERED: cefTRIAXone 2 GM in Sodium Chloride 0.9% 100 ML IV SCH (23:15)
[2019-01-29] MEDS: Potassium Chloride 10 MEQ in Premix Bag 1 BAG IV SCH (23:22)
[2019-01-29] MEDS ORDERED: Azithromycin 500 MG Vial ONE ×2 (23:28→23:32)
[2019-01-29] MEDS ORDERED: Sodium Chloride 0.9% 250 ML ONE (23:32)
[2019-01-30] MEDS ORDERED: Acetaminophen/HYDROcodone 325-5 MG Tab PO ONE (00:12)
[2019-01-30] MEDS: Potassium Chloride 10 MEQ in Premix Bag 1 BAG IV SCH ×3 (00:18→04:16)
[2019-01-30] MEDS: Gabapentin 600 MG Tab PO STA ×2 (00:35→00:45)
[2019-01-30] MEDS ORDERED: HYDROmorphone 0.5 MG/0.5 ML Syringe IVPUSH ONE (00:44)
[2019-01-30] MEDS: Sodium Chloride 0.9% 1,000 ML IV SCH ×2 (00:58→03:15)
[2019-01-30] MEDS ORDERED: Sodium Chloride 0.9% 1,000 ML IV SCH ×2 (01:00→03:00)
[2019-01-30] MEDS ORDERED: Magnesium Sulfate/Water 4 GM in Premix Bag 1 BAG IV ONE (02:58)
[2019-01-30] MEDS ORDERED: Potassium Chloride 10 MEQ in Premix Bag 1 BAG IV SCH (03:00)
--- NOTE | 2019-01-30 03:26 | PCM.HP.2 ---
H&P History of Present Illness - General Date of Service: 01/30/19 Admit Problem/Dx: Admission Diagnosis/Problem Admission Diagnosis/Problem Pneumonia - History of Present Illness Initial Comments - Free Text/Narative: 73-year-old female is known to the emergency room with nausea and vomiting. She was admitted on January 02, 2019 and discharged on January 05, 2019 for colitis and possible malignancy. CT scan done the emergency room at that time showed some significant wall thickening in the sigmoid and distal descending colon up to 2.2 cm malignancy versus colitis from her last CT done in April of this year. Patient was started on Levaquin and Flagyl and sent home to finish a 10-14 day course of antibiotics. Patient was supposed to follow-up with us for a neurology and have endoscopy in 4-6 weeks. Patient also had 2 kidney stones removed in November and was hospitalized sometime in summer at [facility] in [place] in the ICU. is not sure exactly why and we do not have those records. Now she returns to the emergency room with onset of nausea and vomiting without diarrhea. states that she was found delirious was unable to talk to him. In the emergency room she was found to have white count of 19.8, hemoglobin 11.1, platelets 161, potassium 2.6, lactic acid 3.0, calcium 7.8, UA showed urine ketones 2+, occult blood 2+, urine RBCs 5-10, WBC 0-5. Patient was given 2 L bolus of crystalloid, Rocephin, and Zithromax. I was contacted by emergency room and initially recommended that she be transferred to [place] for higher level of care since we do not have an ICU bed. Roads are also treacherous, so the feeling was to try to treat her on the floor with IV fluids , electrolyte replacement, and antibiotics. She was given 20 mEq of potassium IV in the emergency room and 2 g of magnesium IV. I was called by nursing at 3: 00 AM with worsening labs to include a potassium of 2.4, lactic acid of 3.4, calcium of 6.3. When I saw the patient on the floor she was vomiting, had a large, foul smelling liquid stool, was talking but unable to give me any significant history. does state that she has had some hard stools recently but not diarrhea. Patient was able to communicate to me that she did not have any abdominal pain, but did have some right knee pain which is chronic. Also we do not have a blood gas analyzer since it is down for repairs. It should be repaired sometime later today or tomorrow. Abdomen Pain Score (Numeric/FACES): 8 - Related Data Allergies/Adverse Reactions: Allergies Allergy/AdvReac Type Severity Reaction Status Date / Time No Known Allergies Allergy Verified 01/29/19 20:41 Home Medications: Home Meds predniSONE [Prednisone] 5 mg PO BEDTIME 03/18/14 [History] Gabapentin [Neurontin] 1,200 mg PO BEDTIME 09/14/15 [History] Gabapentin [Neurontin] 900 mg PO BIDAC 09/14/15 [History] Methotrexate 17.5 mg PO WEEKLY 03/22/17 [History] Folic Acid 1 mg PO DAILY 05/19/18 [History] Rosuvastatin [Crestor] 10 mg PO DAILY 05/19/18 [History] Zolpidem Tartrate [Ambien] 5 mg PO BEDTIME PRN 05/20/18 [History] Acetaminophen/HYDROcodone [[place] 325-5 MG] 1 tab PO Q6H PRN 01/01/19 [History] Cyanocobalamin (Vitamin B-12) [Cyanocobalamin Injection] 1 dose IM ASDIRECTED [History] Denosumab [Prolia] 60 mg SQ ASDIRECTED 01/01/19 [History] Furosemide [Lasix] 20 mg PO DAILY PRN 01/01/19 [History] Omeprazole 20 mg PO DAILY PRN 01/01/19 [History] Saccharomyces Boulardii [Florastor] 250 mg PO QAM PRN 01/01/19 [History] Past Medical History HEENT History: Reports: Cataract, Impaired Vision Other HEENT History: wears glasses Respiratory History: Reports: Other (See Below) Other Respiratory History: Pneumonia Gastrointestinal History: Reports: Cholelithiasis Genitourinary History: Reports: Acute Renal Failure, Renal Calculus [employer] D[employer]ER History: Reports: , Spontaneous Musculoskeletal History: Reports: RA Other Musculoskeletal History: Dislocated thumb Neurological History: Reports: Neuropathy, Peripheral Hematologic History: Reports: B12 Deficiency - Infectious Disease History Infectious Disease History: Reports: Chicken Pox, Influenza, Measles, Mumps - Past Surgical History HEENT Surgical History: Reports: Cataract Surgery GI Surgical History: Reports: Cholecystectomy, Polypectomy Female Surgical History: Reports: Ureteral Stent Dermatological Surgical History: Reports: None Social & Family History - Family History Family Medical History: Noncontributory - Tobacco Use Smoking Status *Q: Never Smoker - Caffeine Use Caffeine Use: Reports: Coffee, Soda Other Caffeine Use: one cup of each a day - Recreational Drug Use Recreational Drug Use: No - Living Situation & Occupation Living situation: Reports: , Other Occupation: Employed H&P Review of Systems - Review of Systems: Review Of Systems: Unable To Obtain Exam - Exam Exam: See Below - Vital Signs Vital Signs: Last Vital Signs Temp 98.6 F 01/29/19 20:34 Pulse 119 H 01/29/19 20:34 Resp 12 01/29/19 20:34 BP 152/80 H 01/29/19 20:34 Pulse Ox 95 01/29/19 20:34 Weight: 125 lb 6.4 oz - Exam Quality Assessment: No: Supplemental Oxygen General: Alert. No: Oriented HEENT: Conjunctiva Clear, Mucosa Moist & [place] Neck: Supple, Trachea Midline, 2 Lungs: Clear to Auscultation, Normal Respiratory Effort Cardiovascular: Regular Rate, Regular Rhythm GI/Abdominal Exam: Normal Bowel Sounds, Tender (Minimal diffuse abdominal tenderness), Other (Liquid brown stool). No: Guarding, Rigid, Rebound Extremities: Normal Inspection, Normal Range of Motion, Joint Swelling (Right lateral knee is mildly erythematous, warm, and swollen) Neuro Extensive - Mental Status: Disorientation to Place, Disorientation to Time - Patient Data Lab Results Last 24 hrs: Laboratory Results - last 24 hr 01/29/19 01/29/19 01/29/19 Range/Units 21:41 21:41 22:00 WBC 19.78 H (3.98-10.04) K/mm3 RBC 3.89 L (3.98-5.22) M/mm3 Hgb 11.1 L D (11.2-15.7) gm/dl Hct 34.5 (34.1-44.9) % MCV 88.7 (79.4-94.8) fl MCH 28.5 (25.6-32.2) pg MCHC 32.2 (32.2-35.5) g/dl RDW Std Deviation 52.0 H (36.4-46.3) fL Plt Count 161 L (182-369) K/mm3 MPV 10.3 (9.4-12.3) fl Neut % (Auto) 75.3 H (34.0-71.1) % Lymph % (Auto) 12.0 L (19.3-51.7) % [place] % (Auto) 11.3 (4.7-12.5) % Eos % (Auto) 0.4 L (0.7-5.8) Baso % (Auto) 0.2 (0.1-1.2) % Neut # (Auto) 14.90 H (1.56-6.13) K/mm3 Lymph # (Auto) 2.38 (1.18-3.74) K/mm3 [place] # (Auto) 2.24 H (0.24-0.36) K/mm3 Eos # (Auto) 0.07 (0.04-0.36) K/mm3 Baso # (Auto) 0.04 (0.01-0.08) K/mm3 Manual Slide Review Abnormal smear PT (9.7-12.0) SECONDS INR Sodium 137 (136-145) mEq/L Potassium 2.6 L (3.5-5.1) mEq/L Chloride 102 (98-107) mEq/L Carbon Dioxide 23 (21-32) mEq/L Anion Gap 14.6 (5-15) BUN 16 (7-18) mg/dL Creatinine 0.9 (0.55-1.02) mg/dL Est Cr Clr Drug Dosing 48.07 mL/min Estimated GFR (MDRD) > 60 (>60) mL/min BUN/Creatinine Ratio 17.8 (14-18) Glucose 129 H (83-115) mg/dL Lactic Acid (0.4-2.0) mmol/L Calcium 7.8 L (8.5-10.1) mg/dL Magnesium 1.2 L (1.8-2.4) mg/dl Total Bilirubin 1.1 H (0.2-1.0) mg/dL AST 15 (15-37) U/L ALT 11 L (14-59) U/L Alkaline Phosphatase 52 (46-116) U/L Total Protein 5.8 L (6.4-8.2) g/dl Albumin 2.6 L (3.4-5.0) g/dl Globulin 3.2 gm/dL Albumin/Globulin Ratio 0.8 L (1-2) Lipase 16 L (73-393) U/L Urine Color (Yellow) Urine Appearance (Clear) Urine pH (5.0-8.0) Ur Specific [place] (1.005-1.030) Urine Protein (Negative) Urine Glucose (UA) (Negative) Urine Ketones (Negative) Urine Occult Blood (Negative) Urine Nitrite (Negative) Urine Bilirubin (Negative) Urine Urobilinogen (0.2-1.0) Ur Leukocyte Esterase (Negative) Urine RBC (0-5) /hpf Urine WBC (0-5) /hpf Ur Epithelial Cells (0-5) /hpf Urine Bacteria (FEW) /hpf Urine Mucus (FEW) /hpf 01/29/19 01/29/19 01/29/19 Range/Units 22:00 22:30 22:45 WBC (3.98-10.04) K/mm3 RBC (3.98-5.22) M/mm3 Hgb (11.2-15.7) gm/dl Hct (34.1-44.9) % MCV (79.4-94.8) fl MCH (25.6-32.2) pg MCHC (32.2-35.5) g/dl RDW Std Deviation (36.4-46.3) fL Plt Count (182-369) K/mm3 MPV (9.4-12.3) fl Neut % (Auto) (34.0-71.1) % Lymph % (Auto) (19.3-51.7) % [place] % (Auto) (4.7-12.5) % Eos % (Auto) (0.7-5.8) Baso % (Auto) (0.1-1.2) % Neut # (Auto) (1.56-6.13) K/mm3 Lymph # (Auto) (1.18-3.74) K/mm3 [place] # (Auto) (0.24-0.36) K/mm3 Eos # (Auto) (0.04-0.36) K/mm3 Baso # (Auto) (0.01-0.08) K/mm3 Manual Slide Review PT 13.8 H (9.7-12.0) SECONDS INR 1.28 Sodium (136-145) mEq/L Potassium (3.5-5.1) mEq/L Chloride (98-107) mEq/L Carbon Dioxide (21-32) mEq/L Anion Gap (5-15) BUN (7-18) mg/dL Creatinine (0.55-1.02) mg/dL Est Cr Clr Drug Dosing mL/min Estimated GFR (MDRD) (>60) mL/min BUN/Creatinine Ratio (14-18) Glucose (83-115) mg/dL Lactic Acid 3.0 H (0.4-2.0) mmol/L Calcium (8.5-10.1) mg/dL Magnesium (1.8-2.4) mg/dl Total Bilirubin (0.2-1.0) mg/dL AST (15-37) U/L ALT (14-59) U/L Alkaline Phosphatase (46-116) U/L Total Protein (6.4-8.2) g/dl Albumin (3.4-5.0) g/dl Globulin gm/dL Albumin/Globulin Ratio (1-2) Lipase (73-393) U/L Urine Color Yellow (Yellow) Urine Appearance Clear (Clear) Urine pH 7.0 (5.0-8.0) Ur Specific [place] 1.020 (1.005-1.030) Urine Protein Trace H (Negative) Urine Glucose (UA) Negative (Negative) Urine Ketones 2+ H (Negative) Urine Occult Blood 2+ H (Negative) Urine Nitrite Negative (Negative) Urine Bilirubin Negative (Negative) Urine Urobilinogen 0.2 (0.2-1.0) Ur Leukocyte Esterase Negative (Negative) Urine RBC 5-10 H (0-5) /hpf Urine WBC 0-5 (0-5) /hpf Ur Epithelial Cells Not seen (0-5) /hpf Urine Bacteria Rare (FEW) /hpf Urine Mucus Rare (FEW) /hpf 01/30/19 01/30/19 Range/Units 02:10 02:10 WBC (3.98-10.04) K/mm3 RBC (3.98-5.22) M/mm3 Hgb (11.2-15.7) gm/dl Hct (34.1-44.9) % MCV (79.4-94.8) fl MCH (25.6-32.2) pg MCHC (32.2-35.5) g/dl RDW Std Deviation (36.4-46.3) fL Plt Count (182-369) K/mm3 MPV (9.4-12.3) fl Neut % (Auto) (34.0-71.1) % Lymph % (Auto) (19.3-51.7) % [place] % (Auto) (4.7-12.5) % Eos % (Auto) (0.7-5.8) Baso % (Auto) (0.1-1.2) % Neut # (Auto) (1.56-6.13) K/mm3 Lymph # (Auto) (1.18-3.74) K/mm3 [place] # (Auto) (0.24-0.36) K/mm3 Eos # (Auto) (0.04-0.36) K/mm3 Baso # (Auto) (0.01-0.08) K/mm3 Manual Slide Review PT (9.7-12.0) SECONDS INR Sodium 135 L (136-145) mEq/L Potassium 2.4 L* (3.5-5.1) mEq/L Chloride 103 (98-107) mEq/L Carbon Dioxide 17 L (21-32) mEq/L Anion Gap 17.4 H (5-15) BUN 10 (7-18) mg/dL Creatinine 1.0 (0.55-1.02) mg/dL Est Cr Clr Drug Dosing 43.27 mL/min Estimated GFR (MDRD) 54 (>60) mL/min BUN/Creatinine Ratio 10.0 L (14-18) Glucose 101 (83-115) mg/dL Lactic Acid 3.4 H (0.4-2.0) mmol/L Calcium 6.3 L D (8.5-10.1) mg/dL Magnesium (1.8-2.4) mg/dl Total Bilirubin (0.2-1.0) mg/dL AST (15-37) U/L ALT (14-59) U/L Alkaline Phosphatase (46-116) U/L Total Protein (6.4-8.2) g/dl Albumin (3.4-5.0) g/dl Globulin gm/dL Albumin/Globulin Ratio (1-2) Lipase (73-393) U/L Urine Color (Yellow) Urine Appearance (Clear) Urine pH (5.0-8.0) Ur Specific [place] (1.005-1.030) Urine Protein (Negative) Urine Glucose (UA) (Negative) Urine Ketones (Negative) Urine Occult Blood (Negative) Urine Nitrite (Negative) Urine Bilirubin (Negative) Urine Urobilinogen (0.2-1.0) Ur Leukocyte Esterase (Negative) Urine RBC (0-5) /hpf Urine WBC (0-5) /hpf Ur Epithelial Cells (0-5) /hpf Urine Bacteria (FEW) /hpf Urine Mucus (FEW) /hpf Result Diagrams: 01/29/19 22:00 01/30/19 02:10 Problem List Initiated/Reviewed/Updated: Yes Orders Last 24hrs: Active Orders 24 hr Category Date Time Status Patient Status [ADT] Routine ADT 01/30/19 01:33 Active Bedrest [RC] ASDIRECTED Care 01/30/19 03:01 Active EKG 12 Lead [EKG Documentation Completion] [RC] STAT Care 01/29/19 21:03 Active Vital Signs [RC] Q2H Care 01/30/19 03:00 Active NPO Now [Nothing per Oral Now Diet] [DIET] Diet 01/30/19 Breakfast Active Chest 2V [CR] Stat Exams 01/29/19 21:08 Taken BASIC METABOLIC PANEL,BMP [CHEM] Routine Lab 01/30/19 06:00 Ordered CBC WITH AUTO DIFF [HEME] Routine Lab 01/30/19 06:00 Ordered CULTURE BLOOD [BC] Stat Lab 01/29/19 21:41 Received CULTURE BLOOD [BC] Stat Lab 01/29/19 22:00 Received CULTURE URINE [RM] Stat Lab 01/29/19 22:45 Received LACTIC ACID [CHEM] Routine Lab 01/30/19 06:00 Ordered Magnesium Sulfate/Water [Magnesium Sulfate in Water Med 01/30/19 02:58 Active Premix] 4 gm Premix Bag 1 bag IV ONETIME Potassium Chloride [KCl 10 MEQ in Water 100 ML] 10 meq Med 01/30/19 03:00 Active Premix Bag 1 bag IV Q1H Sodium Chloride 0.9% [Normal Saline] 1,000 ml Med 01/29/19 21:15 Active IV ASDIRECTED Sodium Chloride 0.9% [Normal Saline] 1,000 ml Med 01/30/19 03:00 Active IV ASDIRECTED cefTRIAXone [Rocephin] 2 gm Med 01/29/19 23:15 Active Sodium Chloride 0.9% [Normal Saline] 100 ml IV Q24H Blood Culture x2 Reflex Set [OM.PC] Stat Oth 01/29/19 21:03 Ordered Medication Orders Sodium Chloride (Normal Saline) 1,000 mls @ 1,000 mls/hr IV ASDIRECTED YOUSIF Last Infusion: 01/29/19 22:11 Dose: 1,000 mls/hr Admin: 01/29/19 21:11 Dose: 1,000 mls/hr Ceftriaxone Sodium 2 gm/ (Sodium Chloride) 100 mls @ 200 mls/hr IV Q24H YOUSIF Last Admin: 01/29/19 23:22 Dose: 200 mls/hr Magnesium Sulfate 4 gm/ Premix 50 mls @ 12.5 mls/hr IV ONETIME ONE Stop: 01/30/19 06:57 Potassium Chloride 10 meq/ (Premix) 100 mls @ 100 mls/hr IV Q1H YOUSIF Stop: 01/30/19 08:59 Sodium Chloride (Normal Saline) 1,000 mls @ 400 mls/hr IV ASDIRECTED YOUSIF Assessment/Plan Comment:: Assessment * Lactic acidosis with possible sepsis - we're unable to obtain a blood gas secondary to our blood gas analyzer needing repairs * History of possible colon mass versus colitis * Hypokalemia * Hypomagnesemia * Recent broad-spectrum antibiotic use * Rheumatoid arthritis on methotrexate and prednisone Plan * Replenish potassium and magnesium * Potassium chloride 10 mEq 6 IV piggyback * Magnesium sulfate 4 g IV piggyback * Continue fluid resuscitation with sodium chloride * Stool for C. difficile * Transfer patient to [facility] higher level of care by ground ambulance. - Mortality Measure Prognosis:: Poor
[2019-01-30 03:53] VITALS: BP 67/33; PULSE 102
--- NOTE | 2019-01-30 04:15 | PCM.DCSUM1 ---
Discharge Summary - Hospital Course HPI Initial Comments: 73-year-old female is known to the emergency room with nausea and vomiting. She was admitted on January 02, 2019 and discharged on January 05, 2019 for colitis and possible malignancy. CT scan done the emergency room at that time showed some significant wall thickening in the sigmoid and distal descending colon up to 2.2 cm malignancy versus colitis from her last CT done in April of this year. Patient was started on Levaquin and Flagyl and sent home to finish a 10-14 day course of antibiotics. Patient was supposed to follow-up with us for a neurology and have endoscopy in 4-6 weeks. Patient also had 2 kidney stones removed in November and was hospitalized sometime in summer at [facility] in [place] in the ICU. is not sure exactly why and we do not have those records. Now she returns to the emergency room with onset of nausea and vomiting without diarrhea. states that she was found delirious was unable to talk to him. In the emergency room she was found to have white count of 19.8, hemoglobin 11.1, platelets 161, potassium 2.6, lactic acid 3.0, calcium 7.8, UA showed urine ketones 2+, occult blood 2+, urine RBCs 5-10, WBC 0-5. Patient was given 2 L bolus of crystalloid, Rocephin, and Zithromax. I was contacted by emergency room and initially recommended that she be transferred to [place] for higher level of care since we do not have an ICU bed. Roads are also treacherous, so the feeling was to try to treat her on the floor with IV fluids , electrolyte replacement, and antibiotics. She was given 20 mEq of potassium IV in the emergency room and 2 g of magnesium IV. I was called by nursing at 3: 00 AM with worsening labs to include a potassium of 2.4, lactic acid of 3.4, calcium of 6.3. When I saw the patient on the floor she was vomiting, had a large, foul smelling liquid stool, was talking but unable to give me any significant history. does state that she has had some hard stools recently but not diarrhea. Patient was able to communicate to me that she did not have any abdominal pain, but did have some right knee pain which is chronic. Also we do not have a blood gas analyzer since it is down for repairs. It should be repaired sometime later today or tomorrow. Diagnosis: Stroke: No - Discharge Data Discharge Date: 01/30/19 Discharge Disposition: DC/Tfer to Acute Hospital 02 Condition: Good - Referral to Home Health Primary Care Physician: Erik Andrews MD - Patient Summary/Data Hospital Course: Patient had worsening of her lactic acid and potassium during hospitalization. She developed an anion gap of just over 17. It was felt that with our lack of blood gas analyzer and no ICU beds that she would do better in a higher level of care. Patient did get started on replacement of her magnesium and potassium prior to transfer. - Discharge Plan *PRESCRIPTION DRUG MONITORING PROGRAM REVIEWED*: No *COPY OF PRESCRIPTION DRUG MONITORING REPORT IN PATIENT OZZIE: No Home Medications: Home Meds RX: predniSONE [Prednisone] 5 mg PO BEDTIME 03/18/14 [History] RX: Gabapentin [Neurontin] 1,200 mg PO BEDTIME 09/14/15 [History] RX: Gabapentin [Neurontin] 900 mg PO BIDAC 09/14/15 [History] RX: Methotrexate 17.5 mg PO WEEKLY 03/22/17 [History] RX: Folic Acid 1 mg PO DAILY 05/19/18 [History] RX: Rosuvastatin [Crestor] 10 mg PO DAILY 05/19/18 [History] RX: Zolpidem Tartrate [Ambien] 5 mg PO BEDTIME PRN 05/20/18 [History] RX: Acetaminophen/HYDROcodone [[place] 325-5 MG] 1 tab PO Q6H PRN 01/01/19 [ History] RX: Cyanocobalamin (Vitamin B-12) [Cyanocobalamin Injection] 1 dose IM ASDIRECTED 01/01/19 [History] RX: Denosumab [Prolia] 60 mg SQ ASDIRECTED 01/01/19 [History] RX: Furosemide [Lasix] 20 mg PO DAILY PRN 01/01/19 [History] RX: Omeprazole 20 mg PO DAILY PRN 01/01/19 [History] RX: Saccharomyces Boulardii [Florastor] 250 mg PO QAM PRN 01/01/19 [History] Oxygen Therapy Mode: Room Air Forms: ED Department Discharge Referrals: PCP,None [Ordering Only Provider] - - Discharge Summary/Plan Comment DC Time >30 min.: Yes Discharge Summary/Plan Comment: Assessment * Lactic acidosis with possible sepsis - we're unable to obtain a blood gas secondary to our blood gas analyzer needing repairs * History of possible colon mass versus colitis * Hypokalemia * Hypomagnesemia * Recent broad-spectrum antibiotic use * Rheumatoid arthritis on methotrexate and prednisone Plan * Replenish potassium and magnesium * Potassium chloride 10 mEq 6 IV piggyback * Magnesium sulfate 4 g IV piggyback * Continue fluid resuscitation with sodium chloride * Stool for C. difficile * Transfer patient to [facility] in [place] higher level of care by ground ambulance. - Patient Data Vitals - Most Recent: Last Vital Signs Temp 99.0 F 01/30/19 03:10 Pulse 102 H 01/30/19 03:48 Resp 16 01/30/19 01:59 BP 67/33 L 01/30/19 03:48 Pulse Ox 98 01/30/19 03:48 Weight - Most Recent: 125 lb 6.4 oz I&O - Last 24 hours: Intake & Output 01/29/19 01/29/19 01/30/19 14:59 22:59 06:59 Output Total 450 Balance -450 Lab Results - Last 24 hrs: Laboratory Results - last 24 hr 01/29/19 01/29/19 01/29/19 Range/Units 21:41 21:41 22:00 WBC 19.78 H (3.98-10.04) K/mm3 RBC 3.89 L (3.98-5.22) M/mm3 Hgb 11.1 L D (11.2-15.7) gm/dl Hct 34.5 (34.1-44.9) % MCV 88.7 (79.4-94.8) fl MCH 28.5 (25.6-32.2) pg MCHC 32.2 (32.2-35.5) g/dl RDW Std Deviation 52.0 H (36.4-46.3) fL Plt Count 161 L (182-369) K/mm3 MPV 10.3 (9.4-12.3) fl Neut % (Auto) 75.3 H (34.0-71.1) % Lymph % (Auto) 12.0 L (19.3-51.7) % [place] % (Auto) 11.3 (4.7-12.5) % Eos % (Auto) 0.4 L (0.7-5.8) Baso % (Auto) 0.2 (0.1-1.2) % Neut # (Auto) 14.90 H (1.56-6.13) K/mm3 Lymph # (Auto) 2.38 (1.18-3.74) K/mm3 [place] # (Auto) 2.24 H (0.24-0.36) K/mm3 Eos # (Auto) 0.07 (0.04-0.36) K/mm3 Baso # (Auto) 0.04 (0.01-0.08) K/mm3 Manual Slide Review Abnormal smear PT (9.7-12.0) SECONDS INR Sodium 137 (136-145) mEq/L Potassium 2.6 L (3.5-5.1) mEq/L Chloride 102 (98-107) mEq/L Carbon Dioxide 23 (21-32) mEq/L Anion Gap 14.6 (5-15) BUN 16 (7-18) mg/dL Creatinine 0.9 (0.55-1.02) mg/dL Est Cr Clr Drug Dosing 48.07 mL/min Estimated GFR (MDRD) > 60 (>60) mL/min BUN/Creatinine Ratio 17.8 (14-18) Glucose 129 H (83-115) mg/dL Lactic Acid (0.4-2.0) mmol/L Calcium 7.8 L (8.5-10.1) mg/dL Magnesium 1.2 L (1.8-2.4) mg/dl Total Bilirubin 1.1 H (0.2-1.0) mg/dL AST 15 (15-37) U/L ALT 11 L (14-59) U/L Alkaline Phosphatase 52 (46-116) U/L Total Protein 5.8 L (6.4-8.2) g/dl Albumin 2.6 L (3.4-5.0) g/dl Globulin 3.2 gm/dL Albumin/Globulin Ratio 0.8 L (1-2) Lipase 16 L (73-393) U/L Urine Color (Yellow) Urine Appearance (Clear) Urine pH (5.0-8.0) Ur Specific [place] (1.005-1.030) Urine Protein (Negative) Urine Glucose (UA) (Negative) Urine Ketones (Negative) Urine Occult Blood (Negative) Urine Nitrite (Negative) Urine Bilirubin (Negative) Urine Urobilinogen (0.2-1.0) Ur Leukocyte Esterase (Negative) Urine RBC (0-5) /hpf Urine WBC (0-5) /hpf Ur Epithelial Cells (0-5) /hpf Urine Bacteria (FEW) /hpf Urine Mucus (FEW) /hpf 01/29/19 01/29/19 01/29/19 Range/Units 22:00 22:30 22:45 WBC (3.98-10.04) K/mm3 RBC (3.98-5.22) M/mm3 Hgb (11.2-15.7) gm/dl Hct (34.1-44.9) % MCV (79.4-94.8) fl MCH (25.6-32.2) pg MCHC (32.2-35.5) g/dl RDW Std Deviation (36.4-46.3) fL Plt Count (182-369) K/mm3 MPV (9.4-12.3) fl Neut % (Auto) (34.0-71.1) % Lymph % (Auto) (19.3-51.7) % [place] % (Auto) (4.7-12.5) % Eos % (Auto) (0.7-5.8) Baso % (Auto) (0.1-1.2) % Neut # (Auto) (1.56-6.13) K/mm3 Lymph # (Auto) (1.18-3.74) K/mm3 [place] # (Auto) (0.24-0.36) K/mm3 Eos # (Auto) (0.04-0.36) K/mm3 Baso # (Auto) (0.01-0.08) K/mm3 Manual Slide Review PT 13.8 H (9.7-12.0) SECONDS INR 1.28 Sodium (136-145) mEq/L Potassium (3.5-5.1) mEq/L Chloride (98-107) mEq/L Carbon Dioxide (21-32) mEq/L Anion Gap (5-15) BUN (7-18) mg/dL Creatinine (0.55-1.02) mg/dL Est Cr Clr Drug Dosing mL/min Estimated GFR (MDRD) (>60) mL/min BUN/Creatinine Ratio (14-18) Glucose (83-115) mg/dL Lactic Acid 3.0 H (0.4-2.0) mmol/L Calcium (8.5-10.1) mg/dL Magnesium (1.8-2.4) mg/dl Total Bilirubin (0.2-1.0) mg/dL AST (15-37) U/L ALT (14-59) U/L Alkaline Phosphatase (46-116) U/L Total Protein (6.4-8.2) g/dl Albumin (3.4-5.0) g/dl Globulin gm/dL Albumin/Globulin Ratio (1-2) Lipase (73-393) U/L Urine Color Yellow (Yellow) Urine Appearance Clear (Clear) Urine pH 7.0 (5.0-8.0) Ur Specific [place] 1.020 (1.005-1.030) Urine Protein Trace H (Negative) Urine Glucose (UA) Negative (Negative) Urine Ketones 2+ H (Negative) Urine Occult Blood 2+ H (Negative) Urine Nitrite Negative (Negative) Urine Bilirubin Negative (Negative) Urine Urobilinogen 0.2 (0.2-1.0) Ur Leukocyte Esterase Negative (Negative) Urine RBC 5-10 H (0-5) /hpf Urine WBC 0-5 (0-5) /hpf Ur Epithelial Cells Not seen (0-5) /hpf Urine Bacteria Rare (FEW) /hpf Urine Mucus Rare (FEW) /hpf 01/30/19 01/30/19 Range/Units 02:10 02:10 WBC (3.98-10.04) K/mm3 RBC (3.98-5.22) M/mm3 Hgb (11.2-15.7) gm/dl Hct (34.1-44.9) % MCV (79.4-94.8) fl MCH (25.6-32.2) pg MCHC (32.2-35.5) g/dl RDW Std Deviation (36.4-46.3) fL Plt Count (182-369) K/mm3 MPV (9.4-12.3) fl Neut % (Auto) (34.0-71.1) % Lymph % (Auto) (19.3-51.7) % [place] % (Auto) (4.7-12.5) % Eos % (Auto) (0.7-5.8) Baso % (Auto) (0.1-1.2) % Neut # (Auto) (1.56-6.13) K/mm3 Lymph # (Auto) (1.18-3.74) K/mm3 [place] # (Auto) (0.24-0.36) K/mm3 Eos # (Auto) (0.04-0.36) K/mm3 Baso # (Auto) (0.01-0.08) K/mm3 Manual Slide Review PT (9.7-12.0) SECONDS INR Sodium 135 L (136-145) mEq/L Potassium 2.4 L* (3.5-5.1) mEq/L Chloride 103 (98-107) mEq/L Carbon Dioxide 17 L (21-32) mEq/L Anion Gap 17.4 H (5-15) BUN 10 (7-18) mg/dL Creatinine 1.0 (0.55-1.02) mg/dL Est Cr Clr Drug Dosing 43.27 mL/min Estimated GFR (MDRD) 54 (>60) mL/min BUN/Creatinine Ratio 10.0 L (14-18) Glucose 101 (83-115) mg/dL Lactic Acid 3.4 H (0.4-2.0) mmol/L Calcium 6.3 L D (8.5-10.1) mg/dL Magnesium (1.8-2.4) mg/dl Total Bilirubin (0.2-1.0) mg/dL AST (15-37) U/L ALT (14-59) U/L Alkaline Phosphatase (46-116) U/L Total Protein (6.4-8.2) g/dl Albumin (3.4-5.0) g/dl Globulin gm/dL Albumin/Globulin Ratio (1-2) Lipase (73-393) U/L Urine Color (Yellow) Urine Appearance (Clear) Urine pH (5.0-8.0) Ur Specific [place] (1.005-1.030) Urine Protein (Negative) Urine Glucose (UA) (Negative) Urine Ketones (Negative) Urine Occult Blood (Negative) Urine Nitrite (Negative) Urine Bilirubin (Negative) Urine Urobilinogen (0.2-1.0) Ur Leukocyte Esterase (Negative) Urine RBC (0-5) /hpf Urine WBC (0-5) /hpf Ur Epithelial Cells (0-5) /hpf Urine Bacteria (FEW) /hpf Urine Mucus (FEW) /hpf Med Orders - Current: Current Medications Sodium Chloride (Normal Saline) 1,000 mls @ 1,000 mls/hr IV ASDIRECTED [facility] Last Admin: 01/30/19 03:15 Dose: 1,000 mls/hr Ceftriaxone Sodium 2 gm/ (Sodium Chloride) 100 mls @ 200 mls/hr IV Q24H YOUSIF Last Admin: 01/29/19 23:22 Dose: 200 mls/hr Magnesium Sulfate 4 gm/ Premix 50 mls @ 12.5 mls/hr IV ONETIME ONE Stop: 01/30/19 06:57 Last Admin: 01/30/19 03:20 Dose: 12.5 mls/hr Potassium Chloride 10 meq/ (Premix) 100 mls @ 100 mls/hr IV Q1H YOUSIF Stop: 01/30/19 08:59 Last Admin: 01/30/19 03:15 Dose: 100 mls/hr Sodium Chloride (Normal Saline) 1,000 mls @ 400 mls/hr IV ASDIRECTED [facility] Discontinued Medications Acetaminophen (Tylenol) 650 mg PO NOW ONE Stop: 01/29/19 22:25 Last Admin: 01/29/19 22:50 Dose: 650 mg Hydrocodone Bitart/Acetaminophen ([place] 325-5 Mg) 1 tab PO ONETIME ONE Stop: 01/30/19 00:13 Last Admin: 01/30/19 00:45 Dose: Not Given Azithromycin (Zithromax) Confirm Administered Dose 500 mg .ROUTE .STK-MED ONE Stop: 01/29/19 23:29 Last Admin: 01/29/19 23:40 Dose: Not Given Azithromycin (Zithromax) Confirm Administered Dose 500 mg .ROUTE .STK-MED ONE Stop: 01/29/19 23:33 Last Admin: 01/29/19 23:41 Dose: Not Given Gabapentin (Neurontin) 1,200 mg PO BEDTIME YOUSIF Gabapentin (Neurontin) 1,200 mg PO BEDTIME STA Stop: 01/30/19 00:29 Last Admin: 01/30/19 00:45 Dose: Not Given Hydromorphone HCl (Dilaudid) 0.25 mg IVPUSH ONETIME ONE Stop: 01/30/19 00:45 Last Admin: 01/30/19 00:54 Dose: 0.25 mg Sodium Chloride (Normal Saline) 1,000 mls @ 500 mls/hr IV ASDIRECTED YOUSIF Last Admin: 01/29/19 22:50 Dose: 500 mls/hr Azithromycin 500 mg/ Sodium (Chloride) 250 mls @ 250 mls/hr IV ONETIME ONE Stop: 01/30/19 00:02 Last Admin: 01/29/19 23:54 Dose: 250 mls/hr Potassium Chloride 10 meq/ (Premix) 100 mls @ 100 mls/hr IV Q1H YOUSIF Stop: 01/30/19 01:14 Last Admin: 01/30/19 00:18 Dose: 100 mls/hr Magnesium Sulfate/Dextrose 1 (gm/ Premix) 100 mls @ 100 mls/hr IV Q1H YOUSIF Stop: 01/30/19 01:29 Last Admin: 01/30/19 01:34 Dose: 100 mls/hr Sodium Chloride (Normal Saline) Confirm Administered Dose 250 mls @ as directed .ROUTE .STK-MED ONE Stop: 01/29/19 23:33 Last Admin: 01/30/19 00:08 Dose: Not Given Sodium Chloride (Normal Saline) 1,000 mls @ 100 mls/hr IV ASDIRECTED [facility] Last Admin: 01/30/19 00:59 Dose: 100 mls/hr Potassium Chloride 10 meq/ (Premix) 100 mls @ 100 mls/hr IV Q1H YOUSIF Stop: 01/30/19 06:59 Last Admin: 01/30/19 03:05 Dose: Not Given Ondansetron HCl (Zofran) 4 mg IVPUSH ONETIME ONE Stop: 01/29/19 21:06 Last Admin: 01/29/19 21:14 Dose: 4 mg
--- NOTE | 2019-01-30 10:03 | CR ---
Chest: 2 views of the chest were obtained. Comparison: Prior chest x-ray of 09/14/18. Heart size appears within normal limits. Thoracic aorta is somewhat tortuous. Lungs are clear with no acute parenchymal change. Bony structures are osteopenic. No acute osseous finding is appreciated. Impression: 1. Nothing acute is appreciated on 2 view chest x-ray. Diagnostic code #2
[2019-01-30] MEDS ORDERED: Gabapentin 600 MG Tab PO SCH (21:00)
== END 2019-01-30 04:31 | DRG 872 ==
LOC: JD.ED 20:32 → JD.MS 01-30 01:33
PROVIDERS: ADMIT Family Medicine; ATTEND Family Medicine
DX: A41.9 Sepsis, unspecified organism (principal); R11.2 Nausea with vomiting, unspecified; E87.2 Acidosis; E87.6 Hypokalemia; E83.42 Hypomagnesemia; R74.0 Nonspecific elevation of levels of transaminase and lactic acid dehydrogenase [LDH]; R19.7 Diarrhea, unspecified; R41.0 Disorientation, unspecified; R53.1 Weakness; R10.9 Unspecified abdominal pain; M06.9 Rheumatoid arthritis, unspecified; G62.9 Polyneuropathy, unspecified; E53.8 Deficiency of other specified B group vitamins; E83.51 Hypocalcemia; M25.561 Pain in right knee; G89.29 Other chronic pain; Z87.01 Personal history of pneumonia (recurrent); Z79.52 Long term (current) use of systemic steroids; Z79.899 Other long term (current) drug therapy; Z98.49 Cataract extraction status, unspecified eye; Z87.442 Personal history of urinary calculi; Z90.49 Acquired absence of other specified parts of digestive tract
CPT/HCPCS: 36415; 71046; 80053; 81001; 83605; 83690; 83735; 85025; 85610; 87040 ×2; 87086; 93005; 96361; 96365; 96367; 96368; 96375 ×2; 99285; A9270; J0456; J0696; J1170; J2405; J3475; J3480 ×2; J7030; J7040 ×4; J7050; 80048; 87493; 93010

== ENCOUNTER 2020-05-29 06:10 | Day surgery (SDC) | payer MEDICARE, BC ==
[~2020-05-29 06:10] MED LIST: Acetaminophen 325 MG Tab PO SCH; Lactated Ringers 1,000 ML IV SCH; Lidocaine 1%/Sod Bicarbonate in NS 8.4% 1 ML Syringe IDERM PRN; Pregabalin 25 MG Cap PO SCH; Sodium Chloride 0.9% 10 ML Syringe FLUSH PRN; oxyCODONE ER 10 MG TAB.ER PO SCH
[2020-05-29] MEDS ORDERED: fentaNYL 100 MCG/2 ML SDV ONE (06:56)
[2020-05-29] MEDS ORDERED: Ketamine 500 mg/10 ML MDV ONE (06:56)
[2020-05-29] MEDS ORDERED: Midazolam 1 MG/ML 2 ML SDV ONE (06:56)
[2020-05-29] MEDS ORDERED: Propofol 200 MG/20 ML SDV ONE (06:56)
[2020-05-29] MEDS ORDERED: Ondansetron 4 MG/2 ML SDV ONE (07:01)
[2020-05-29] MEDS ORDERED: Lidocaine 1% 4 ML ONE (07:20)
[2020-05-29] MEDS ORDERED: Dexamethasone 4 MG/ML 5 ML MDV ONE (07:23)
[2020-05-29] MEDS ORDERED: ePHEDrine 50 MG/ML SDV ONE (07:39)
[2020-05-29] MEDS: Bupivacaine 0.25% 10 ML SDV ONE ×2 (08:12→08:32)
[2020-05-29] MEDS: Vancomycin 1 GM SDV ONE ×2 (08:13→08:32)
[2020-05-29] MEDS: Morphine 8 MG, EPINEPHrine 0.3 MG, Cefuroxime 750 MG, Ketorolac 30 MG, Sodium Chloride ... PRN ×10 (08:13→08:32)
[2020-05-29] MEDS ORDERED: Lactated Ringers 1,000 ML ONE (08:22)
[2020-05-29] MEDS ORDERED: ceFAZolin 1 GM Vial ONE (08:22)
--- NOTE | 2020-05-29 08:23 | PCM.PREANE ---
Preanesthetic Assessment - Procedure Proposed Procedure: Right Total Knee Arthroplasty CHANDLER Robot - Anesthesia/Transfusion/Family Hx Anesthesia History: Prior Anesthesia Without Reaction Other Type of Anesthesia Reaction Comment: Unable to arouse easily due to steroid use. Jerky motions from IV steroid. Family History of Anesthesia Reaction: No Transfusion History: Prior Transfusion Without Reaction - Review of Systems General: No Symptoms Pulmonary: No Symptoms Cardiovascular: No Symptoms Gastrointestinal: Other (GERD, no symptoms today. ) Neurological: Numbness (Left thigh. ), Pre-Existing Deficit (Chronic Pain (back, hands, multiple sites) due to Rheumatoid Arthritis. 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 Prednisone increased to 20 mg today per primary care. ) Other: Reports: None - Physical Assessment NPO Status Date: 05/28/20 NPO Status Time: 21:00 Vital Signs: Last Vital Signs Temp 36.1 C 05/29/20 06:25 Pulse 80 05/29/20 06:25 Resp 16 05/29/20 06:25 BP 129/80 05/29/20 06:25 Pulse Ox 94 L 05/29/20 06:25 Height: 1.63 m Weight: 58.3 kg ASA Class: 3 Mental Status: Alert & Oriented x3 Airway Class: Mallampati = 3 Dentition: Reports: Broken Tooth/Teeth Thyro-Mental Finger Breadths: 2 Mouth Opening Finger Breadths: 2 ROM/Head Extension: Full Lungs: Clear to Auscultation, Normal Respiratory Effort Cardiovascular: Regular Rate, Regular Rhythm - Lab Values: Laboratory Last Values MRSA (PCR) Negative 05/17/20 15:08 - Imaging/EKG Impressions: NSR 79 bpm, old inferior infarct, Q waves, unchanged from previous. Denies history of NE. - Allergies Allergies/Adverse Reactions: Allergies Allergy/AdvReac Type Severity Reaction Status Date / Time No Known Allergies Allergy Verified 05/29/20 06:55 - Anesthesia Plan Pre-Op Medication Ordered: Anxiolytic - Acknowledgements Anesthesia Type Planned: Spinal (with post operative adductor canal block for pain control) Pt an Appropriate Candidate for the Planned Anesthesia: Yes Alternatives and Risks of Anesthesia Discussed w Pt/Guardian: Yes Pt/Guardian Understands and Agrees with Anesthesia Plan: Yes PreAnesthesia Questionnaire HEENT History: Reports: Cataract, Impaired Vision Other HEENT History: wears glasses Cardiovascular History: Reports: High Cholesterol, Hypertension, Other (See Below) Other Cardiovascular History: congestive heart failure, elevated troponin, edema Respiratory History: Reports: Other (See Below) Other Respiratory History: Pneumonia, acute renal failure with hypoxia Gastrointestinal History: Reports: Cholelithiasis, Hemorrhoids, Other (See Below) Other Gastrointestinal History: diarrhea, diverticulitis Genitourinary History: Reports: Acute Renal Failure, Renal Calculus, Other (See Below) Other Genitourinary History: kidney/ureter disorder, kidney calculus, pylenonephritits 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: , 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 Musculoskeletal History: Reports: RA Other Musculoskeletal History: Dislocated thumb, right foot tailor's bunion Neurological History: Reports: Neuropathy, Peripheral, Other (See Below) Other Neuro History: polyneuritis Psychiatric History: Reports: None Endocrine/Metabolic History: Reports: Other (See Below) Other Endocrine/Metabolic History: adrenal insufficiency Hematologic History: Reports: B12 Deficiency, Other (See Below) Other Hematologic History: hypomagnesia, low potassium, low calcium, elvated sodium, hyponatremia Immunologic History: Reports: None Oncologic (Cancer) History: Reports: None Dermatologic History: Reports: None - Infectious Disease History Infectious Disease History: Reports: Chicken Pox, Influenza, Measles, Mumps - Past Surgical History Head Surgeries/Procedures: Reports: None HEENT Surgical History: Reports: Cataract Surgery Cardiovascular Surgical History: Reports: None Respiratory Surgical History: Reports: None GI Surgical History: Reports: Cholecystectomy, Colonoscopy, EGD, Polypectomy, Other (See Below) Other GI Surgeries/Procedures: hemorrhoidectomy Female Surgical History: Reports: Breast Biopsy, D&C, Tubal Ligation, Ureteral Stent Endocrine Surgical History: Reports: None Neurological Surgical History: Reports: None Musculoskeletal Surgical History: Reports: Other (See Below) Other Musculoskeletal Surgeries/Procedures:: joint dislocation, right foot surgery, right hand surgery Oncologic Surgical History: Reports: None Dermatological Surgical History: Reports: None - SUBSTANCE USE Tobacco Use Status *Q: Never Tobacco User Recreational Drug Use History: No - HOME MEDS Home Medications: Home Meds predniSONE [Prednisone] 5 mg PO BEDTIME 03/18/14 [History] Gabapentin [Neurontin] 1,200 mg PO BEDTIME 09/14/15 [History] Gabapentin [Neurontin] 900 mg PO BIDAC 09/14/15 [History] Methotrexate 17.5 mg PO TH 03/22/17 [History] Folic Acid 1 mg PO DAILY 05/19/18 [History] Rosuvastatin [Crestor] 10 mg PO DAILY 05/19/18 [History] Zolpidem Tartrate [Ambien] 5 mg PO BEDTIME PRN 05/20/18 [History] Acetaminophen/HYDROcodone [[place] 325-5 MG] 1 tab PO Q6H PRN 01/01/19 [History] Cyanocobalamin (Vitamin B-12) [Cyanocobalamin Injection] 1 dose IM ASDIRECTED 01/01/19 [History] Denosumab [Prolia] 60 mg SQ ASDIRECTED 01/01/19 [History] Omeprazole 20 mg PO DAILY PRN 01/01/19 [History] C-Naltrexone 6 mg PO DAILY 05/26/20 [History] Calcium Carbonate [Tums] 500 mg PO DAILY 05/26/20 [History] Cholecalciferol (Vitamin D3) [Vitamin D3] 5,000 unit PO DAILY 05/26/20 [History] Hydroxychloroquine [Plaquenil] 200 mg PO DAILY 05/26/20 [History] Levothyroxine [Synthroid] 50 mcg PO DAILY 05/26/20 [History] Meloxicam [Mobic] 15 mg PO DAILY 05/26/20 [History] diphenhydrAMINE [Benadryl] 50 mg PO BEDTIME PRN 05/26/20 [History] - CURRENT (IN HOUSE) MEDS Current Meds: Current Medications Acetaminophen (Tylenol) 975 mg PO ONETIME YOUSIF Stop: 05/29/20 13:00 Last Admin: 05/29/20 06:41 Dose: 975 mg Documented by: Morphine Sulfate 8 mg/Epinephrine HCl 0.3 mg/Cefuroxime Sodium 750 mg/Ketorolac Tromethamine 30 mg/Sodium Chloride 7.9 ml 0 mg .XX ASDIRECTED PRN PRN Reason: Pain Stop: 05/29/20 13:00 Lactated Ringer's (Ringers, Lactated) 1,000 mls @ 125 mls/hr IV ASDIRECTED YOUSIF Stop: 05/29/20 23:00 Last Admin: 05/29/20 06:25 Dose: 125 mls/hr Documented by: Lidocaine/Sodium Bicarbonate (Buffered Lidocaine 1% In Ns 8.4%) 0.25 ml IDERM ONETIME PRN PRN Reason: Prior to IV Start Stop: 05/29/20 18:00 Last Admin: 05/29/20 06:20 Dose: 0.25 ml Documented by: Oxycodone HCl (Oxycontin) 10 mg PO ONETIME YOUSIF Stop: 05/29/20 13:00 Last Admin: 05/29/20 06:42 Dose: 10 mg Documented by: Pregabalin (Lyrica) 50 mg PO ONETIME YOUSIF Stop: 05/29/20 13:00 Last Admin: 05/29/20 06:40 Dose: 50 mg Documented by: Sodium Chloride (Saline Flush) 10 ml FLUSH ASDIRECTED PRN PRN Reason: Keep Vein Open Stop: 05/29/20 18:00 Discontinued Medications Bupivacaine HCl (Sensorcaine-Mpf 0.25%) Confirm Administered Dose 30 ml .ROUTE .STK-MED ONE Stop: 05/29/20 06:46 Dexamethasone (Dexamethasone) Confirm Administered Dose 20 mg .ROUTE .STK-MED ONE Stop: 05/29/20 07:24 Ephedrine Sulfate (Ephedrine Sulfate) Confirm Administered Dose 50 mg .ROUTE .STK-MED ONE Stop: 05/29/20 07:40 Fentanyl (Sublimaze) Confirm Administered Dose 100 mcg .ROUTE .STK-MED ONE Stop: 05/29/20 06:57 Lidocaine HCl (Xylocaine-Mpf 1%) Confirm Administered Dose 4 mls @ as directed .ROUTE .STK-MED ONE Stop: 05/29/20 07:21 Ketamine HCl (Ketalar) Confirm Administered Dose 500 mg .ROUTE .STK-MED ONE Stop: 05/29/20 06:57 Midazolam HCl (Versed 1 Mg/Ml) Confirm Administered Dose 2 mg .ROUTE .STK-MED ONE Stop: 05/29/20 06:57 Ondansetron HCl (Zofran) Confirm Administered Dose 4 mg .ROUTE .STK-MED ONE Stop: 05/29/20 07:02 Propofol (Diprivan 20 Ml) Confirm Administered Dose 600 mg .ROUTE .STK-MED ONE Stop: 05/29/20 06:57 Tranexamic Acid (Cyklokapron) Confirm Administered Dose 1,000 mg .ROUTE .STK-MED ONE Stop: 05/29/20 06:46 Vancomycin HCl (Vancomycin) Confirm Administered Dose 1 gm .ROUTE .STK-MED ONE Stop: 05/29/20 06:46
[2020-05-29] MEDS ORDERED: Ondansetron 4 MG/2 ML SDV IVPUSH PRN (08:37)
[2020-05-29] MEDS ORDERED: HYDROmorphone 0.5 MG/0.5 ML Syringe IVPUSH PRN (08:37)
[2020-05-29] MEDS ORDERED: fentaNYL 100 MCG/2 ML SDV IVPUSH PRN (08:37)
[2020-05-29] MEDS ORDERED: Ropivacaine 0.5% 5 MG/ML 30 ML SDV ONE (09:02)
--- NOTE | 2020-05-29 09:08 | PCM.POSTAN ---
POST ANESTHESIA ASSESSMENT - MENTAL STATUS Mental Status: Oriented, Other (Drowsy) - VITAL SIGNS Vital Signs: Last Vital Signs Temp 36.1 C 05/29/20 06:25 Pulse 80 05/29/20 06:25 Resp 16 05/29/20 06:25 BP 129/80 05/29/20 06:25 Pulse Ox 94 L 05/29/20 06:25 97.3 125/66 87 10 93% on 2L per NC - RESPIRATORY Respiratory Status: Respiratory Rate WNL, Airway Patent, O2 Saturation Stable, Supplemental Oxygen - CARDIOVASCULAR CV Status: Pulse Rate WNL, Blood Pressure Stable - GASTROINTESTINAL GI Status: No Symptoms - PAIN Pain Score: 0 - POST OP HYDRATION Hydration Status: Adequate & Stable
--- NOTE | 2020-05-29 09:32 | PCM.SN.2 ---
- Free Text/Narrative Note: Right selective femoral nerve block at the adductor canal for post-procedure pain control under US guidance requested by Dr. Huber. Date:05/29/2020 Time Out: 915 Start: 917 End: 921 Chart reviewed. Consent signed. Questions answered. Appropriate monitors applied. Time out performed. Right mid-shaft femur identified with ultrasound, scanning medially of femur, the femoral artery in the adductor canal visualized, and the femoral nerve located laterally to the artery. The skin was prepped lateral to the ultrasound probe with chlorahexadine times two. The 21ga 4 insulated block needle was inserted under direct ultrasound guidance into the adductor canal. 25mL of 0.5% ropivacaine with 1:200,000 epinephrine was injected circumferentially around the nerve with intermittent negative aspiration noted. Patient tolerated the procedure well. Sterile technique noted along with sterile gloves, mask, and sterile probe cover. See picture on progress note and vital signs on nurses notes. Block completed in PACU. Danilo Burt CRNA
[2020-05-29] MEDS ORDERED: oxyCODONE 5 MG Tab PO PRN (09:48)
--- NOTE | 2020-05-29 10:17 | CR ---
Right knee: AP and crosstable lateral views of the right knee were obtained. Comparison: No prior plain film knee exam is available. Knee prosthesis is noted. Components are aligned. Soft tissue air is noted from the surgical procedure. No underlying bony abnormality is appreciated. Impression: 1. Satisfactory post-op radiographic appearance of recently placed right knee prosthesis. Diagnostic code #2
[2020-05-29 11:17] VITALS: PULSE 95
[2020-05-29 12:44] VITALS: BP 114/73
--- NOTE | 2020-05-29 14:35 | PCM48HPAN ---
Post Anesthesia Note - EVALUATION WITHIN 48HRS OF ANESTHETIC Vital Signs in Normal Range: Yes Patient Participated in Evaluation: Yes Respiratory Function Stable: Yes Airway Patent: Yes Cardiovascular Function Stable: Yes Hydration Status Stable: Yes Pain Control Satisfactory: Yes Nausea and Vomiting Control Satisfactory: Yes Mental Status Recovered: Yes Vital Signs: Last Vital Signs Temp 36.3 C 05/29/20 09:01 Pulse 95 05/29/20 12:15 Resp 16 05/29/20 12:15 BP 114/73 05/29/20 12:15 Pulse Ox 98 05/29/20 12:15
--- NOTE | 2020-06-11 15:03 | PCM.OPNOTE ---
- General Post-Op/Procedure Note Date of Surgery/Procedure: 05/29/20 Operative Procedure(s): right total kinee arthroplasty Pre Op Diagnosis: right knee osteoarthrosis Post-Op Diagnosis: Same Anesthesia Technique: Local, MAC, Spinal Primary Surgeon: Jose Huber Anesthesia Provider: Mrely Burt [employer] Agent: Diana Horan EBL in mLs: 5 Complications: None Condition: Good Free Text/Narrative:: 3 femur 2 tibia 9mm 29x9
--- NOTE | 2020-06-11 15:59 | OR ---
DATE OF OPERATION: 05/29/2020 SURGEON: Jose Huber MD OPERATION PERFORMED: Right total knee arthroplasty. PREOPERATIVE DIAGNOSIS: Right knee osteoarthrosis. POSTOPERATIVE DIAGNOSIS: Right knee osteoarthrosis. ANESTHESIA: Local MAC with spinal. ANESTHESIA PROVIDER: Yara Yuan. DIRECTOR CALL: Diana Horan LPN. ESTIMATED BLOOD LOSS: 5 mL. COMPLICATIONS: None. CONDITION: Stable. IMPLANTS: 1. Julieta size 3 cemented PS femur. 2. Julieta size 2 cemented Argyle tibial baseplate. 3. [place] size 2, 9 mm PS X3 polyethylene. 4. Julieta size 29 x 9 mm cemented asymmetric patella. DESCRIPTION OF PROCEDURE: The patient was identified in the preop holding area. Proper site was marked and identified by the surgeon. The patient was taken back to the operating theater where after adequate anesthesia, the patient's right lower extremity had a nonsterile tourniquet applied and sterilely prepped and draped in the usual sterile fashion. OR time-out was performed. The patient received 2 g of IV Ancef. At this time, right lower extremity had the boot for the leg martin applied and then was exsanguinated. Tourniquet was insufflated to 250 mmHg. Standard anterior incision was made. Medial parapatellar arthrotomy was created. Deep fibers of the MCL were raised, and anterior fat pad was resected. Attention was turned to the patella. Patella measured 22, it was resected to a 13 for 29 x 9 mm patella. Drill holes were then drilled. Next, the femoral and tibial arrays were placed with two 4-0 guide pins intra-incisionally on the femur and then two 4-0 pins 4 fingerbreadths distal to the tibial tubercle. The arrays were then placed in proper position, and the checkpoints on both the tibia and femur were placed. Center of the rotation for [employer] robotics was then done. Identification of the medial and lateral malleoli were done at this time. Next, 40 points were obtained on both the femur and the tibia. The straight saw blade was used first, and the resection of the tibia was done after the patient's template was completed, and varus and valgus stresses were applied in both full extension and 90 degrees of flexion. Once the tibial cut was completed, the anterior femoral cut was completed as well as the posterior femoral cut and the anterior chamfer. Saw blade was then switched, and the posterior chamfer as well as distal femoral cut was completed and found to be adequate. The medial and lateral meniscus were removed with the use of a laminar burlap spreader as well as any posterior osteophytes. Trial implants with a size 2 trial tibia and size 3 trial femur were then placed. 9 mm trial poly was placed. The patient had full extension, no varus-valgus instability, and full range of motion with no instability noted on [employer] robot at full extension or 90 degrees. At this time, cement was mixed on the back table. Tibia was stamped and drilled in proper rotation. All cut surfaces were irrigated with pulse lavage irrigation with Ancef and then completely dried. Once the cement was ready, the size 2 tibial baseplate was cemented into place, a size 3 cemented PS femur was cemented into place, and excess cement was removed. A 9 mm PS X3 polyethylene was then placed. The patient's knee was brought into full extension. Any excess cement was removed, and the 29 x 9 mm patella was cemented into place. At this time, 450 mL of IrriSept irrigation was irrigated through the knee along with 1 L of pulse lavage irrigation with Ancef. Periarticular injection was completed. Topical tranexamic acid and vancomycin powder were applied in the wound. A #2 barbed suture was used for closure of the medial parapatellar arthrotomy. A 2-0 Vicryl was used subcutaneously as well as a Stratafix. Pinning was used for closure of the skin. The patient had a sterile soft dressing applied and sent to PACU in stable condition. All tibial arrays and checkpoints were removed. MMODAL /[id number]
== END 2020-05-29 12:50 | disposition home or self-care (01) ==
LOC: JD.SDS 06:10
PROVIDERS: ATTEND Orthopaedic Surgery
DX: M17.11 Unilateral primary osteoarthritis, right knee (principal); M05.89 Other rheumatoid arthritis with rheumatoid factor of multiple sites; E78.2 Mixed hyperlipidemia; M21.621 Bunionette of right foot; I50.33 Acute on chronic diastolic (congestive) heart failure; T14.8XXA Other injury of unspecified body region, initial encounter; Z79.899 Other long term (current) drug therapy; E03.9 Hypothyroidism, unspecified; G62.9 Polyneuropathy, unspecified; Z98.890 Other specified postprocedural states; Z01.812 Encounter for preprocedural laboratory examination; Z20.822 Contact with and (suspected) exposure to COVID-19; G89.18 Other acute postprocedural pain
CPT/HCPCS: 01402; 64450; 73560-26-RT; 73560-RT; 87641; 97110-GP; 97116-GP; 97161-GP; 97165-GO; A9270-GY; C1713; C1776; J0171; J0690; J0697; J1100; J1885; J2250; J2270; J2405; J2704; J2795; J3010; J3370; J3490; J7120

== ENCOUNTER 2020-06-03 09:15 | Observation (INO) | payer MEDICARE, BC ==
--- NOTE | 2020-06-03 09:42 | EDM.PDOC ---
ED HPI GENERAL MEDICAL PROBLEM - General Chief Complaint: Gastrointestinal Problem Stated Complaint: FEVER/VOMITING/POST KNEE SURGERY Time Seen by Provider: 06/03/20 09:33 Source of Information: Reports: Patient, Family History Limitations: Reports: No Limitations (Post) - History of Present Illness INITIAL COMMENTS - FREE TEXT/NARRATIVE: 74-year-old female presents to the ED in the accompaniment of her . History is that of having a right total knee replacement by Dr. Huber on May 29 here in our hospital. Patient has been very nauseated and not able to eat any solids for the last 3 days. Taking some fluids but even some soup this morning came back up. She is becoming very weak. Urine is very dark in color. No differential definite fever or chills reported. Denies cough or sputum production. History of congestive heart failure. She is immunocompromised due to medications being taken for rheumatoid arthritis. Last use of oxycodone tablet for pain was midnight. She is taking some stool softeners and states that bowels are moving but are firmer than normal. No bleeding per rectum. Vomited this morning of soup taken for breakfast. Vomited small amount of bilious material yesterday as well. brought her in because he feels she has not had inadequate fluid replacement for the last 3 days and is dehydrated. Patient is prone to urinary tract infections. She did not have a catheter at any time during hospitalization. Onset: Gradual Onset Date: 05/31/20 Duration: Day(s):, Constant, Getting Worse Location: Reports: Generalized (Neurolysed weakness with associated nausea inability to keep down any solids and minimal liquids.) Quality: Reports: Ache (Bruno pain right knee which she considers mild to moderate. 5 out of 10) Severity: Moderate Improves with: Reports: None Worsens with: Reports: Eating (Is with trying to eat or drink.) Context: Reports: Other (Recent total knee replacement right side 5 days ago.). Denies: Activity, Exercise, Lifting, Sick Contact, Trauma Associated Symptoms: Reports: Loss of Appetite, Malaise, Nausea/Vomiting, Weakness. Denies: Confusion, Chest Pain, Cough, cough w sputum, Diaphoresis, Fever/Chills, Headaches, Rash, Seizure, Shortness of Breath Treatments EEG TECHNICIAN: Reports: Other (see below) (Hydrocodone 325 5 mg strength.) Right Knee Pain Score (Numeric/FACES): 9 - Related Data Allergies Allergy/AdvReac Type Severity Reaction Status Date / Time No Known Allergies Allergy Verified 06/03/20 09:30 Home Meds: Home Meds predniSONE [Prednisone] 5 mg PO BEDTIME 03/18/14 [History] Gabapentin [Neurontin] 1,200 mg PO BEDTIME 09/14/15 [History] Gabapentin [Neurontin] 900 mg PO BIDAC 09/14/15 [History] Methotrexate 17.5 mg PO TH 03/22/17 [History] Folic Acid 1 mg PO DAILY 05/19/18 [History] Rosuvastatin [Crestor] 10 mg PO DAILY 05/19/18 [History] Zolpidem Tartrate [Ambien] 5 mg PO BEDTIME PRN 05/20/18 [History] Acetaminophen/HYDROcodone [Lotus 325-5 MG] 1 tab PO Q6H PRN 01/01/19 [History] Cyanocobalamin (Vitamin B-12) [Cyanocobalamin Injection] 1 dose IM ASDIRECTED 01/01/19 [History] Denosumab [Prolia] 60 mg SQ ASDIRECTED 01/01/19 [History] Omeprazole 20 mg PO DAILY PRN 01/01/19 [History] C-Naltrexone 6 mg PO DAILY 05/26/20 [History] Calcium Carbonate [Tums] 500 mg PO DAILY 05/26/20 [History] Cholecalciferol (Vitamin D3) [Vitamin D3] 5,000 unit PO DAILY 05/26/20 [History] Hydroxychloroquine [Plaquenil] 200 mg PO DAILY 05/26/20 [History] Levothyroxine [Synthroid] 50 mcg PO DAILY 05/26/20 [History] Meloxicam [Mobic] 15 mg PO DAILY 05/26/20 [History] diphenhydrAMINE [Benadryl] 50 mg PO BEDTIME PRN 05/26/20 [History] Past Medical History HEENT History: Reports: Cataract, Impaired Vision Other HEENT History: wears glasses Cardiovascular History: Reports: High Cholesterol, Hypertension, Other (See Below) Other Cardiovascular History: congestive heart failure, elevated troponin, edema Respiratory History: Reports: Other (See Below) Other Respiratory History: Pneumonia, acute renal failure with hypoxia Gastrointestinal History: Reports: Cholelithiasis, Hemorrhoids, Other (See Below) Other Gastrointestinal History: diarrhea, diverticulitis Genitourinary History: Reports: Acute Renal Failure, Renal Calculus (Required lithotripsy to remove a 2.0 cm stone as well as a 7 mm stone above this by Dr. Pickard ankle urologist in [place].), Other (See Below) Other Genitourinary History: kidney/ureter disorder, kidney calculus, pylenonephritits [employer]ER History: Reports: , Spontaneous Musculoskeletal History: Reports: Osteoarthritis, Osteoporosis, RA (Has had stent in repair done over the right fourth and fifth MCP joints.) Other Musculoskeletal History: Dislocated thumb, right foot tailor's bunion Neurological History: Reports: Neuropathy, Peripheral, Other (See Below) Other Neuro History: polyneuritis Psychiatric History: Reports: None Endocrine/Metabolic History: Reports: Other (See Below) Other Endocrine/Metabolic History: adrenal insufficiency Hematologic History: Reports: B12 Deficiency, Other (See Below) Other Hematologic History: hypomagnesia, low potassium, low calcium, elvated sodium, hyponatremia Immunologic History: Reports: None Oncologic (Cancer) History: Reports: None Dermatologic History: Reports: None - Infectious Disease History Infectious Disease History: Reports: Chicken Pox, Influenza, Measles, Mumps - Past Surgical History Head Surgeries/Procedures: Reports: None HEENT Surgical History: Reports: Cataract Surgery Cardiovascular Surgical History: Reports: None Respiratory Surgical History: Reports: None GI Surgical History: Reports: Cholecystectomy, Colonoscopy, EGD, Polypectomy, Other (See Below) Other GI Surgeries/Procedures: hemorrhoidectomy Female Surgical History: Reports: Breast Biopsy, D&C, Tubal Ligation, Ureteral Stent Endocrine Surgical History: Reports: None Neurological Surgical History: Reports: None Musculoskeletal Surgical History: Reports: Other (See Below) Other Musculoskeletal Surgeries/Procedures:: joint dislocation, right foot surgery, right hand surgery Oncologic Surgical History: Reports: None Dermatological Surgical History: Reports: None - History Comment History Comment: Patient has been admitted to intensive care unit due to severe sepsis in the past I believe secondary to urinary tract infection. Social & Family History - Family History Family Medical History: No Pertinent Family History - Caffeine Use Caffeine Use: Reports: Coffee, Soda - Living Situation & Occupation Living situation: Reports: , Other Occupation: Employed ED ROS GENERAL - Review of Systems Review Of Systems: See Below Constitutional: Reports: Malaise, Weakness, Fatigue, Decreased Appetite, Weight Loss. Denies: Fever, Chills HEENT: Reports: Glasses Respiratory: Reports: No Symptoms. Denies: Shortness of Breath, Wheezing, Pleuritic Chest Pain, Cough, Sputum Cardiovascular: Reports: Dyspnea on Exertion, Lightheadedness (She stands up at times.). Denies: Chest Pain, Blood Pressure Problem, Claudication, Edema, Orthopnea, Palpitations Endocrine: Reports: Fatigue GI/Abdominal: Reports: Constipation (Constipation since), Nausea, Vomiting ( being on pain medication. Nausea and vomiting has been present since the day after surgery. Mostly nausea vomiting x3 or 4 over the last 3 days including this morning.) : Reports: Frequency, Incontinence (Urge and stress components.) Musculoskeletal: Reports: Other (She has deformities particularly of her hands elbows feet and knees secondary to rheumatoid arthritis. Marked swelling of the MCP joints of both hands. Recent surgery to the right knee for total knee replacement reveals the wound to be looking to be healing satisfactorily. She is ecchymotic from hip to ankle which is normal postop. There is no significant swelling of either lower extremity.) Skin: Reports: Bruising (Bruising right lower extremity compatible with recent total knee replacement.) Neurological: Reports: No Symptoms, Dizziness, Difficulty Walking, Weakness. Denies: Confusion, Headache, Numbness, Syncope, Tingling Psychiatric: Reports: No Symptoms Hematologic/Lymphatic: Reports: No Symptoms Immunologic: Reports: No Symptoms ED EXAM, GI/ABD - Physical Exam Exam: See Below Exam Limited By: No Limitations General Appearance: Alert, WD/WN, Moderate Distress, Other (Her provides most of the history. She appears weak. Vital signs show temperature of 36.7 heart rate 115 and sinus at the bedside respiratory to 16 with O2 sats of 95% room air BP 122/82.) Eyes: Bilateral: Normal Appearance (Mild blepharal pallor appreciated. No scleral icterus.) Throat/Mouth: Normal Lips (Tongue is dry and coated.), Normal Teeth, Other. No: Normal Oropharynx Head: Atraumatic, Normocephalic Neck: Normal Inspection, Supple, Limited Range of Motion, Tender Lateral. No: Lymphadenopathy (L) (She states no worse than normal.), Lymphadenopathy (R) Respiratory/Chest: No Respiratory Distress, Lungs Clear, Normal Breath Sounds, No Accessory Muscle Use Cardiovascular: No Edema, No Gallop, No Murmur, No Rub, Tachycardia. No: Normal Peripheral Pulses GI/Abdominal Exam: Normal Bowel Sounds, Soft, Non-Tender, No Organomegaly, No Mass, Pelvis Stable, Other (Evidence of laparoscopic cholecystectomy surgery.) Back Exam: Normal Inspection, Full Range of Motion. No: CVA Tenderness (L), CVA Tenderness (R) Extremities: Other (Linear bandage on right anterior leg covering up recent total knee with surgery 5 days ago. There is ecchymoses from the upper thigh to the ankle appropriate for this type of surgery. No significant swelling of either calf to be worrisome for DVT. No edema of the lower extremities. The surgical wound appears to be healing adequately.) Neurological: Alert, Oriented, CN II-XII Intact, Normal Cognition. No: Normal Gait (Using a walker to facilitate gait.) Psychiatric: Flat Affect Skin Exam: Warm, Dry, Intact, Pallor (Appears mildly pallid.) #1 Interpretation EKG Date: 06/03/20 Time: 10:45 Rhythm: Other Rate (Beats/Min): 115 [place]aks: LAD-Left Oaks Deviation (Left axis deviation of -27 degrees) P-Wave: Present QRS: Other (Initial poor R wave progression. Consider old anteroseptal myocardial infarction there are Q waves in leads II, III and aVF consider old inferior wall myocardial infarction. Q waves noted in leads I and aVL consider old lateral wall myocardial infarction.) QT: Prolonged EKG Interpretation Comments: Abnormal ECG Course - Vital Signs Last Recorded V/S: Last Vital Signs Temp 36.7 C 06/03/20 09:27 Pulse 113 H 06/03/20 09:27 Resp 16 06/03/20 09:27 BP 122/82 06/03/20 09:27 Pulse Ox 95 06/03/20 09:27 - Orders/Labs/Meds Orders: Active Orders 24 hr Category Date Time Status EKG Documentation Completion [RC] STAT Care 06/03/20 09:45 Active CULTURE BLOOD [BC] Stat Lab 06/03/20 10:09 Received CULTURE BLOOD [BC] Stat Lab 06/03/20 10:25 Received LACTIC ACID [CHEM] Stat Lab 06/03/20 12:29 Ordered Dextrose 5%-0.9% NaCl [Dextrose 5%-Normal Saline] 1,000 Med 06/03/20 11:00 Active ml IV ASDIRECTED Blood Culture x2 Reflex Set [OM.PC] Stat Oth 06/03/20 09:45 Ordered Medication Orders Dextrose/Sodium Chloride (Dextrose 5%-Normal Saline) 1,000 mls @ 250 mls/hr IV ASDIRECTED YOUSIF Last Admin: 06/03/20 10:55 Dose: 250 mls/hr Documented by: MAGGIE Labs: Laboratory Tests 06/03/20 06/03/20 06/03/20 Range/Units 09:35 09:35 09:35 WBC 13.00 H (3.98-10.04) K/mm3 RBC 3.93 L (3.98-5.22) M/mm3 Hgb 11.8 (11.2-15.7) gm/dl Hct 36.7 (34.1-44.9) % MCV 93.4 D (79.4-94.8) fl MCH 30.0 (25.6-32.2) pg MCHC 32.2 (32.2-35.5) g/dl RDW Std Deviation 44.1 (36.4-46.3) fL Plt Count 288 D (182-369) K/mm3 MPV 9.6 (9.4-12.3) fl Neut % (Auto) 66.8 (34.0-71.1) % Lymph % (Auto) 17.2 L (19.3-51.7) % Elk % (Auto) 12.9 H (4.7-12.5) % Eos % (Auto) 1.5 (0.7-5.8) Baso % (Auto) 0.5 (0.1-1.2) % Neut # (Auto) 8.69 H (1.56-6.13) K/mm3 Lymph # (Auto) 2.23 (1.18-3.74) K/mm3 Elk # (Auto) 1.68 H (0.24-0.36) K/mm3 Eos # (Auto) 0.20 (0.04-0.36) K/mm3 Baso # (Auto) 0.06 (0.01-0.08) K/mm3 Manual Slide Review Abnormal smear ESR 44 H (0-20) mm/hr Sodium 141 (136-145) mEq/L Potassium 3.3 L (3.5-5.1) mEq/L Chloride 102 (98-107) mEq/L Carbon Dioxide 21 (21-32) mEq/L Anion Gap 21.3 H (5-15) BUN 18 (7-18) mg/dL Creatinine 1.1 H (0.55-1.02) mg/dL Est Cr Clr Drug Dosing TNP Estimated GFR (MDRD) 49 (>60) mL/min BUN/Creatinine Ratio 16.4 (14-18) Glucose 145 H (83-115) mg/dL Lactic Acid (0.4-2.0) mmol/L Calcium 8.8 D (8.5-10.1) mg/dL Magnesium 1.7 L (1.8-2.4) mg/dl Total Bilirubin 1.0 (0.2-1.0) mg/dL AST 20 (15-37) U/L ALT 20 (14-59) U/L Alkaline Phosphatase 47 (46-116) U/L Troponin I < 0.017 (0.00-0.056) ng/mL C-Reactive Protein 11.1 H* (<1.0) mg/dL NT-Pro-B Natriuret Pep (0-125) pg/mL Total Protein 6.5 (6.4-8.2) g/dl Albumin 2.8 L (3.4-5.0) g/dl Globulin 3.7 gm/dL Albumin/Globulin Ratio 0.8 L (1-2) Urine Color (Yellow) Urine Appearance (Clear) Urine pH (5.0-8.0) Ur Specific [place] (1.005-1.030) Urine Protein (Negative) Urine Glucose (UA) (Negative) Urine Ketones (Negative) Urine Occult Blood (Negative) Urine Nitrite (Negative) Urine Bilirubin (Negative) Urine Urobilinogen (0.2-1.0) Ur Leukocyte Esterase (Negative) U Hyaline Cast (Auto) (0-5) /lpf Urine RBC (0-5) /hpf Urine WBC (0-5) /hpf Ur Squamous Epith Cells (0-5) /hpf Amorphous Sediment (NOT SEEN) /hpf Urine Bacteria (FEW) /hpf Urine Mucus (FEW) /hpf Ketones (0.0-0.3) mM SARS-CoV-2 RNA (ABIGAIL) (NEGATIVE) 0206/03/20 06/03/20 Range/Units 09:35 09:35 09:35 WBC (3.98-10.04) K/mm3 RBC (3.98-5.22) M/mm3 Hgb (11.2-15.7) gm/dl Hct (34.1-44.9) % MCV (79.4-94.8) fl MCH (25.6-32.2) pg MCHC (32.2-35.5) g/dl RDW Std Deviation (36.4-46.3) fL Plt Count (182-369) K/mm3 MPV (9.4-12.3) fl Neut % (Auto) (34.0-71.1) % Lymph % (Auto) (19.3-51.7) % Elk % (Auto) (4.7-12.5) % Eos % (Auto) (0.7-5.8) Baso % (Auto) (0.1-1.2) % Neut # (Auto) (1.56-6.13) K/mm3 Lymph # (Auto) (1.18-3.74) K/mm3 Elk # (Auto) (0.24-0.36) K/mm3 Eos # (Auto) (0.04-0.36) K/mm3 Baso # (Auto) (0.01-0.08) K/mm3 Manual Slide Review ESR (0-20) mm/hr Sodium (136-145) mEq/L Potassium (3.5-5.1) mEq/L Chloride (98-107) mEq/L Carbon Dioxide (21-32) mEq/L Anion Gap (5-15) BUN (7-18) mg/dL Creatinine (0.55-1.02) mg/dL Est Cr Clr Drug Dosing Estimated GFR (MDRD) (>60) mL/min BUN/Creatinine Ratio (14-18) Glucose (83-115) mg/dL Lactic Acid 3.1 H* (0.4-2.0) mmol/L Calcium (8.5-10.1) mg/dL Magnesium (1.8-2.4) mg/dl Total Bilirubin (0.2-1.0) mg/dL AST (15-37) U/L ALT (14-59) U/L Alkaline Phosphatase (46-116) U/L Troponin I (0.00-0.056) ng/mL C-Reactive Protein (<1.0) mg/dL NT-Pro-B Natriuret Pep 438 H (0-125) pg/mL Total Protein (6.4-8.2) g/dl Albumin (3.4-5.0) g/dl Globulin gm/dL Albumin/Globulin Ratio (1-2) Urine Color (Yellow) Urine Appearance (Clear) Urine pH (5.0-8.0) Ur Specific [place] (1.005-1.030) Urine Protein (Negative) Urine Glucose (UA) (Negative) Urine Ketones (Negative) Urine Occult Blood (Negative) Urine Nitrite (Negative) Urine Bilirubin (Negative) Urine Urobilinogen (0.2-1.0) Ur Leukocyte Esterase (Negative) U Hyaline Cast (Auto) (0-5) /lpf Urine RBC (0-5) /hpf Urine WBC (0-5) /hpf Ur Squamous Epith Cells (0-5) /hpf Amorphous Sediment (NOT SEEN) /hpf Urine Bacteria (FEW) /hpf Urine Mucus (FEW) /hpf Ketones 0.71 (0.0-0.3) mM SARS-CoV-2 RNA (ABIGAIL) (NEGATIVE) 06/03/20 06/03/20 Range/Units 10:35 11:35 WBC (3.98-10.04) K/mm3 RBC (3.98-5.22) M/mm3 Hgb (11.2-15.7) gm/dl Hct (34.1-44.9) % MCV (79.4-94.8) fl MCH (25.6-32.2) pg MCHC (32.2-35.5) g/dl RDW Std Deviation (36.4-46.3) fL Plt Count (182-369) K/mm3 MPV (9.4-12.3) fl Neut % (Auto) (34.0-71.1) % Lymph % (Auto) (19.3-51.7) % Elk % (Auto) (4.7-12.5) % Eos % (Auto) (0.7-5.8) Baso % (Auto) (0.1-1.2) % Neut # (Auto) (1.56-6.13) K/mm3 Lymph # (Auto) (1.18-3.74) K/mm3 Elk # (Auto) (0.24-0.36) K/mm3 Eos # (Auto) (0.04-0.36) K/mm3 Baso # (Auto) (0.01-0.08) K/mm3 Manual Slide Review ESR (0-20) mm/hr Sodium (136-145) mEq/L Potassium (3.5-5.1) mEq/L Chloride (98-107) mEq/L Carbon Dioxide (21-32) mEq/L Anion Gap (5-15) BUN (7-18) mg/dL Creatinine (0.55-1.02) mg/dL Est Cr Clr Drug Dosing Estimated GFR (MDRD) (>60) mL/min BUN/Creatinine Ratio (14-18) Glucose (83-115) mg/dL Lactic Acid (0.4-2.0) mmol/L Calcium (8.5-10.1) mg/dL Magnesium (1.8-2.4) mg/dl Total Bilirubin (0.2-1.0) mg/dL AST (15-37) U/L ALT (14-59) U/L Alkaline Phosphatase (46-116) U/L Troponin I (0.00-0.056) ng/mL C-Reactive Protein (<1.0) mg/dL NT-Pro-B Natriuret Pep (0-125) pg/mL Total Protein (6.4-8.2) g/dl Albumin (3.4-5.0) g/dl Globulin gm/dL Albumin/Globulin Ratio (1-2) Urine Color Yellow (Yellow) Urine Appearance Clear (Clear) Urine pH 6.0 (5.0-8.0) Ur Specific [place] > or = 1.030 (1.005-1.030) Urine Protein 1+ H (Negative) Urine Glucose (UA) Negative (Negative) Urine Ketones 2+ H (Negative) Urine Occult Blood 2+ H (Negative) Urine Nitrite Negative (Negative) Urine Bilirubin 1+ H (Negative) Urine Urobilinogen 0.2 (0.2-1.0) Ur Leukocyte Esterase Negative (Negative) U Hyaline Cast (Auto) 0-5 (0-5) /lpf Urine RBC 10-20 H (0-5) /hpf Urine WBC 0-5 (0-5) /hpf Ur Squamous Epith Cells 0-5 (0-5) /hpf Amorphous Sediment Few H (NOT SEEN) /hpf Urine Bacteria Moderate H (FEW) /hpf Urine Mucus Rare (FEW) /hpf Ketones (0.0-0.3) mM SARS-CoV-2 RNA (ABIGAIL) Negative (NEGATIVE) Meds: Medications Generic Name Dose Route Start Last Admin Trade Name Chio PRN Reason Stop Dose Admin Dextrose/Sodium Chloride 1,000 mls @ 250 mls/hr 06/03/20 11:00 06/03/20 10:55 Dextrose 5%-Normal Saline IV 250 mls/hr ASDIRECTED YOUSIF Administration Discontinued Medications Generic Name Dose Route Start Last Admin Trade Name Chio PRN Reason Stop Dose Admin Hydromorphone HCl 0.25 mg 06/03/20 10:01 06/03/20 10:19 Dilaudid IVPUSH 06/03/20 10:02 0.25 mg ONETIME ONE Administration Dextrose/Sodium Chloride 1,000 mls @ 150 mls/hr 06/03/20 09:45 06/03/20 09:48 Dextrose 5%-Normal Saline IV 150 mls/hr ASDIRECTED YOUSIF Administration Potassium Chloride 10 meq/ 100 mls @ 100 mls/hr 06/03/20 10:30 06/03/20 10:54 Premix IV 06/03/20 11:29 100 mls/hr Q1H YOUSIF Administration Metoclopramide HCl 7.5 mg 06/03/20 09:43 06/03/20 09:48 Reglan IVPUSH 06/03/20 09:44 7.5 mg ONETIME ONE Administration - Radiology Interpretation Free Text/Narrative:: 74-year-old female presents to the ED for evaluation of persistent nausea with inability to maintain any solids and liquids or strain to come back up yesterday and today. She has been using hydrocodone 5 /325 mg for pain sparingly. Last dose was taken at midnight. Rates her knee pain as 5 out of 10. Clinically she is volume depleted. Plan D5 normal saline at 150 mils per hour. She has a history of congestive heart failure. Routine labs including BMP serum magnesium to be obtained. Urinalysis is well since the urine is dark and she is prone to urinary tract infection. Will give Reglan 7.5 mg IV for nausea relief and Dilaudid 0.25 mg IV for pain relief. - Re-Assessments/Exams Free Text/Narrative Re-Assessment/Exam: 06/03/20 10:21 Initial white count is elevated at 13.0. The differential shows 66.8% neutrophils. Hemoglobin is 11.8 with hematocrit of 36.7. Platelet count is 288,000. Sodium 141 potassium slightly low at 3.3. Chloride 102 with a bicarb of 21. Anion gap is markedly elevated at 21.3. BUN is 18 with a creatinine of 1.1. Glucose is 145 with a calcium of 8.8. magnesium is 1.7. Total bilirubin is 1.0 liver function otherwise normal troponin I is less than 0.017. C-reactive protein is elevated at 11.1. Total protein 6.5 albumin fraction is 2.8. We will give her a K rider while she is here a 10 mEq of potassium chloride. 06/03/20 10:43 CRP is elevated at 11.1 and BNP is mildly elevated at 438. Lactic acid and ketones are pending. ESR is elevated at 44. 06/03/20 10:52 Lactic acid is returned elevated at 3.1. CRP is 11.1. Serum ketones are 0.71. Audible chest x-ray reveals severe rotation to the right. Cardiac silhouette appears to be normal size. The rotation makes the aorta look much more prominent than normal. The aorta is mildly tortuous. The visualized portions of the lungs appear to be clear without pleural effusion or pneumothorax. 06/03/20 11:53 Urinalysis is now back. This is a catheterized specimen. Clear yellow urine with 1+ proteinuria 2+ ketones and 2+ occult blood appreciated 1+ bilirubin. Leukocyte esterase is negative. Micro is pending. 06/03/20 12:08 Micro on the urine reveals 0-5 hyaline casts. 10-20 RBCs per upper field 0-5 WBCs per high-power field with moderate bacteria present. Free Text/Narrative Re-Assessment/Exam: 06/03/20 12:[address] Gar on-call hospitalist at this time. I got his voice message left a message for him. 06/03/20 12:41 I have spoken with Dr. Gar and he has accepted care of this patient. She will be admitted to the med surgery floor. Departure - Departure Time of Disposition: 12:41 Disposition: Refer to Observation Condition: Fair Clinical Impression: Volume depletion, Metabolic acidosis, Lactic acidosis - Discharge Information Referrals: Erik Andrews MD [Primary Care Provider] - Forms: ED Department Discharge Sepsis Event Note (ED) - Evaluation Sepsis Screening Result: No Definite Risk - Focused Exam Vital Signs: Vital Signs Temp Pulse Resp BP Pulse Ox 06/03/20 09:27 36.7 C 113 H 16 122/82 95 - My Orders Last 24 Hours: My Active Orders 06/03/20 09:45 EKG Documentation Completion [RC] STAT Blood Culture x2 Reflex Set [OM.PC] Stat 06/03/20 10:09 CULTURE BLOOD [BC] Stat 06/03/20 10:25 CULTURE BLOOD [BC] Stat 06/03/20 11:00 Dextrose 5%-0.9% NaCl [Dextrose 5%-Normal Saline] 1,000 ml IV ASDIRECTED 06/03/20 12:29 LACTIC ACID [CHEM] Stat - Assessment/Plan Last 24 Hours: My Active Orders 06/03/20 09:45 EKG Documentation Completion [RC] STAT Blood Culture x2 Reflex Set [OM.PC] Stat 06/03/20 10:09 CULTURE BLOOD [BC] Stat 06/03/20 10:25 CULTURE BLOOD [BC] Stat 06/03/20 11:00 Dextrose 5%-0.9% NaCl [Dextrose 5%-Normal Saline] 1,000 ml IV ASDIRECTED 06/03/20 12:29 LACTIC ACID [CHEM] Stat
[2020-06-03] MEDS ORDERED: Metoclopramide 10 MG/2 ML SDV IVPUSH ONE (09:43)
[2020-06-03] MEDS ORDERED: Dextrose 5%-0.9% NaCl 1,000 ML IV SCH ×2 (09:45→11:00)
[2020-06-03] MEDS ORDERED: HYDROmorphone 0.5 MG/0.5 ML Syringe IVPUSH ONE (10:01)
[2020-06-03] MEDS ORDERED: Potassium Chloride 10 MEQ in Premix Bag 1 BAG IV SCH ×2 (10:30→15:00)
--- NOTE | 2020-06-03 11:53 | CR ---
Chest: Portable view of the chest was obtained. Comparison: Prior chest x-ray of 01/29/19. Heart size and mediastinum are within normal limits. Mild tortuosity of the thoracic aorta is again noted. Lungs are clear with no acute parenchymal change. Bony structures are osteopenic. No acute osseous abnormality is appreciated. Impression: 1. Nothing acute is appreciated on 2 view chest x-ray. Diagnostic code #2
[2020-06-03 12:27] LABS: CORONAVIRUS COVID-19 NAA NEGATIVE (NEGATIVE)
[2020-06-03] MEDS ORDERED: HYDROmorphone 0.5 MG/0.5 ML Syringe IVPUSH PRN (14:21)
[2020-06-03] MEDS ORDERED: Ondansetron 4 MG/2 ML SDV IV PRN (14:21)
[2020-06-03] MEDS ORDERED: Polyethylene Glycol 3350 Powder 17 GM Packet PO PRN (14:21)
[2020-06-03] MEDS ORDERED: Acetaminophen 325 MG Tab PO PRN (14:21)
[2020-06-03] MEDS ORDERED: Albuterol/Ipratropium 3.0-0.5 MG/3 ML Neb Soln NEB PRN (14:21)
[2020-06-03] MEDS ORDERED: Promethazine 6.25 MG in Sodium Chloride 0.9% 50 ML IV PRN (14:21)
--- NOTE | 2020-06-03 14:21 | PCM.HP.2 ---
H&P History of Present Illness - General Date of Service: 06/03/20 Admit Problem/Dx: Admission Diagnosis/Problem Admission Diagnosis/Problem Volume depletion Source of Information: Patient, Old Records, RN Notes Reviewed History Limitations: Reports: Altered Mental Status, Physical Impairment - History of Present Illness Initial Comments - Free Text/Narative: This is a74 yo elderly white female with past medical hx/o Impaired vision, hypertension, hyperlipidemia, CHF of unknown EF, Chronic peripheral edema, Hemorrhoids, OA, RA, Osteoathritis, Peripheral neuropathy, Polyneuritis, History of adrenal insufficiency on chronic steroid, Vitamin B12 Deficiency, Immuno-suppression, and Chronic pain who was brought in by due to generalized weakness associated with nausea and vomiting as well as poor oral intake for the past 3 days. She is post op #5 for right total knee replacement by Ortho. According to her , she has become too weak due to poor oral intake. Her urine was dark and very concentrated. No report or signs of upper respiratory infection. No fever or chills. Her felt she might have recurrent bladder infection and severe dehydration. She denies any other complaints. Her initial work up shows a CBC remarkable for WBC of 13K with Neutrophils # of 8.69. Her chemistry is significant for K of 3.3, AG of 21.3, Cr of 1.1, BS of 145, LA of 3.1, Mg of 1.7, CRP of 11.1, proBNP of 438, and Albumin of 2.8. Her UA is negative for UTI but very concentrated with spec gravity of > or = 1.030 and 2+ ketones. Her chest x-ray report read as no acute abnormal findings. Patient received initial treatment in ED prior to coming in for further rubio gement of generalized weakness and poor oral/nutritional intake. Right Knee Pain Score (Numeric/FACES): 9 - Related Data Allergies/Adverse Reactions: Allergies Allergy/AdvReac Type Severity Reaction Status Date / Time No Known Allergies Allergy Verified 06/03/20 09:30 Home Medications: Home Meds predniSONE [Prednisone] 5 mg PO DAILY 03/18/14 [History] Gabapentin [Neurontin] 1,200 mg PO BEDTIME 09/14/15 [History] Gabapentin [Neurontin] 900 mg PO BIDAC 09/14/15 [History] Methotrexate 17.5 mg PO TH 03/22/17 [History] Folic Acid 1 mg PO DAILY 05/19/18 [History] Rosuvastatin [Crestor] 10 mg PO DAILY 05/19/18 [History] Zolpidem Tartrate [Ambien] 5 mg PO BEDTIME PRN 05/20/18 [History] Acetaminophen/HYDROcodone [Points 325-5 MG] 1 tab PO Q6H PRN 01/01/19 [History] Cyanocobalamin (Vitamin B-12) [Cyanocobalamin Injection] 1 dose IM ASDIRECTED 01/01/19 [History] Denosumab [Prolia] 60 mg SQ ASDIRECTED 01/01/19 [History] Omeprazole 20 mg PO DAILY PRN 01/01/19 [History] C-Naltrexone 6 mg PO DAILY 05/26/20 [History] Calcium Carbonate [Tums] 500 mg PO DAILY 05/26/20 [History] Cholecalciferol (Vitamin D3) [Vitamin D3] 5,000 unit PO DAILY 05/26/20 [History] Hydroxychloroquine [Plaquenil] 200 mg PO DAILY 05/26/20 [History] Levothyroxine [Synthroid] 50 mcg PO DAILY 05/26/20 [History] Meloxicam [Mobic] 15 mg PO DAILY 05/26/20 [History] diphenhydrAMINE [Benadryl] 50 mg PO BEDTIME PRN 05/26/20 [History] Aspirin [Ecotrin EC] 325 mg PO BID 06/03/20 [History] Cyclobenzaprine [Flexeril] 5 mg PO Q12HR PRN 06/03/20 [History] oxyCODONE 5 - 10 mg PO Q4HR PRN 06/03/20 [History] Past Medical History HEENT History: Reports: Cataract, Impaired Vision Other HEENT History: wears glasses Cardiovascular History: Reports: High Cholesterol, Hypertension, Other (See Below) Other Cardiovascular History: congestive heart failure, elevated troponin, edema Respiratory History: Reports: Other (See Below) Other Respiratory History: Pneumonia, acute renal failure with hypoxia Gastrointestinal History: Reports: Cholelithiasis, Hemorrhoids, Other (See Below) Other Gastrointestinal History: diarrhea, diverticulitis Genitourinary History: Reports: Acute Renal Failure, Renal Calculus (Required lithotripsy to remove a 2.0 cm stone as well as a 7 mm stone above this by Dr. Judaism ankle urologist in [place].), Other (See Below) Other Genitourinary History: kidney/ureter disorder, kidney calculus, pylenonephritits [employer] History: Reports: , Spontaneous Musculoskeletal History: Reports: Osteoarthritis, Osteoporosis, RA (Has had stent in repair done over the right fourth and fifth MCP joints.) Other Musculoskeletal History: Dislocated thumb, right foot tailor's bunion Neurological History: Reports: Neuropathy, Peripheral, Other (See Below) Other Neuro History: polyneuritis Psychiatric History: Reports: None Endocrine/Metabolic History: Reports: Other (See Below) Other Endocrine/Metabolic History: adrenal insufficiency Hematologic History: Reports: B12 Deficiency, Other (See Below) Other Hematologic History: hypomagnesia, low potassium, low calcium, elvated sod ium, hyponatremia Immunologic History: Reports: None Oncologic (Cancer) History: Reports: None Dermatologic History: Reports: None - Infectious Disease History Infectious Disease History: Reports: Chicken Pox, Influenza, Measles, Mumps - Past Surgical History Head Surgeries/Procedures: Reports: None HEENT Surgical History: Reports: Cataract Surgery Cardiovascular Surgical History: Reports: None Respiratory Surgical History: Reports: None GI Surgical History: Reports: Cholecystectomy, Colonoscopy, EGD, Polypectomy, Other (See Below) Other GI Surgeries/Procedures: hemorrhoidectomy Female Surgical History: Reports: Breast Biopsy, D&C, Tubal Ligation, Ureteral Stent Endocrine Surgical History: Reports: None Neurological Surgical History: Reports: None Musculoskeletal Surgical History: Reports: Other (See Below) Other Musculoskeletal Surgeries/Procedures:: joint dislocation, right foot surgery, right hand surgery Oncologic Surgical History: Reports: None Dermatological Surgical History: Reports: None - History Comment History Comment: Patient has been admitted to intensive care unit due to severe sepsis in the past I believe secondary to urinary tract infection. Social & Family History - Family History Family Medical History: No Pertinent Family History - Tobacco Use Tobacco Use Status *Q: Never Tobacco User Second Hand Smoke Exposure: No - Caffeine Use Caffeine Use: Reports: None - Recreational Drug Use Recreational Drug Use: No - Living Situation & Occupation Living situation: Reports: , Other Occupation: Employed H&P Review of Systems - Review of Systems: Review Of Systems: See Below General: Reports: Fever, Chills, Malaise, Weakness, Decreased Appetite, Other (slow in response; looks sedated) HEENT: Reports: No Symptoms Pulmonary: Denies: Shortness of Breath Cardiovascular: Denies: Chest Pain Gastrointestinal: Reports: Nausea, Vomiting. Denies: Abdominal Pain Genitourinary: Denies: Dysuria, Frequency, Burning Musculoskeletal: Reports: No Symptoms Skin: Reports: Other (warm to the touch on right knee). Denies: Bruising, Prur itis, Rash Psychiatric: Denies: Depression, Anxiety, Hallucinations Neurological: Reports: Difficulty Walking, Weakness, Gait Disturbance Hematologic/Lymphatic: Reports: No Symptoms Immunologic: Reports: No Symptoms Exam - Exam Exam: See Below - Vital Signs Vital Signs: Last Vital Signs Temp 36.7 C 06/03/20 09:27 Pulse 113 H 06/03/20 09:27 Resp 16 06/03/20 09:27 BP 122/82 06/03/20 09:27 Pulse Ox 95 06/03/20 09:27 - Exam Quality Assessment: No: Supplemental Oxygen General: Alert, Oriented, Cooperative, Sedated HEENT: Conjunctiva Clear, EACs Clear, EOMI, Hearing Intact, Nares Patent, Normal Nasal Septum, Posterior Pharynx Clear, Pupils Equal, Pupils Reactive. No: Mucosa Moist & [place] Neck: Supple, Trachea Midline Lungs: Clear to Auscultation, Normal Respiratory Effort Cardiovascular: Regular Rate, Regular Rhythm GI/Abdominal Exam: Normal Bowel Sounds, Soft, Non-Tender, No Organomegaly, No Distention, No Abnormal Bruit, No Mass (Female) Exam: Deferred Rectal (Female) Exam: Deferred Back Exam: Normal Inspection, Decreased Range of Motion Extremities: Normal Inspection, Non-Tender, No Pedal Edema, Normal Capillary Refill, Other (some peripheral edema) Skin: Warm, Dry, Intact, Ecchymosis (right hips to distal extremity), Other (poor skin turgor) Skin Alteration Location (Drawings Not To Scale): 1 - covered, clean, dry and intact. warm to the touch but no erythema or obvious edema 2 - edema on joints with. ulnar devition 3 - edema on joints with. ulnar devition 4 - edema and ecchymosis Neuro Extensive - Mental Status: Oriented x3, Normal Cognition, Memory Intact Neuro Extensive - Motor, Sensory, Reflexes: Abnormal Gait, Other (non-focal exam) Psychiatric: Alert, Depressed. No: Normal Affect - Patient Data Lab Results Last 24 hrs: Laboratory Results - last 24 hr 06/03/20 06/03/20 06/03/20 Range/Units 09:35 09:35 09:35 WBC 13.00 H (3.98-10.04) K/mm3 RBC 3.93 L (3.98-5.22) M/mm3 Hgb 11.8 (11.2-15.7) gm/dl Hct 36.7 (34.1-44.9) % MCV 93.4 D (79.4-94.8) fl MCH 30.0 (25.6-32.2) pg MCHC 32.2 (32.2-35.5) g/dl RDW Std Deviation 44.1 (36.4-46.3) fL Plt Count 288 D (182-369) K/mm3 MPV 9.6 (9.4-12.3) fl Neut % (Auto) 66.8 (34.0-71.1) % Lymph % (Auto) 17.2 L (19.3-51.7) % Sampson % (Auto) 12.9 H (4.7-12.5) % Eos % (Auto) 1.5 (0.7-5.8) Baso % (Auto) 0.5 (0.1-1.2) % Neut # (Auto) 8.69 H (1.56-6.13) K/mm3 Lymph # (Auto) 2.23 (1.18-3.74) K/mm3 Sampson # (Auto) 1.68 H (0.24-0.36) K/mm3 Eos # (Auto) 0.20 (0.04-0.36) K/mm3 Baso # (Auto) 0.06 (0.01-0.08) K/mm3 Manual Slide Review Abnormal smear ESR 44 H (0-20) mm/hr Sodium 141 (136-145) mEq/L Potassium 3.3 L (3.5-5.1) mEq/L Chloride 102 (98-107) mEq/L Carbon Dioxide 21 (21-32) mEq/L Anion Gap 21.3 H (5-15) BUN 18 (7-18) mg/dL Creatinine 1.1 H (0.55-1.02) mg/dL Est Cr Clr Drug Dosing TNP Estimated GFR (MDRD) 49 (>60) mL/min BUN/Creatinine Ratio 16.4 (14-18) Glucose 145 H (83-115) mg/dL Lactic Acid (0.4-2.0) mmol/L Calcium 8.8 D (8.5-10.1) mg/dL Magnesium 1.7 L (1.8-2.4) mg/dl Total Bilirubin 1.0 (0.2-1.0) mg/dL AST 20 (15-37) U/L ALT 20 (14-59) U/L Alkaline Phosphatase 47 (46-116) U/L Troponin I < 0.017 (0.00-0.056) ng/mL C-Reactive Protein 11.1 H* (<1.0) mg/dL NT-Pro-B Natriuret Pep (0-125) pg/mL Total Protein 6.5 (6.4-8.2) g/dl Albumin 2.8 L (3.4-5.0) g/dl Globulin 3.7 gm/dL Albumin/Globulin Ratio 0.8 L (1-2) Urine Color (Yellow) Urine Appearance (Clear) Urine pH (5.0-8.0) Ur Specific [place] (1.005-1.030) Urine Protein (Negative) Urine Glucose (UA) (Negative) Urine Ketones (Negative) Urine Occult Blood (Negative) Urine Nitrite (Negative) Urine Bilirubin (Negative) Urine Urobilinogen (0.2-1.0) Ur Leukocyte Esterase (Negative) U Hyaline Cast (Auto) (0-5) /lpf Urine RBC (0-5) /hpf Urine WBC (0-5) /hpf Ur Squamous Epith Cells (0-5) /hpf Amorphous Sediment (NOT SEEN) /hpf Urine Bacteria (FEW) /hpf Urine Mucus (FEW) /hpf Ketones (0.0-0.3) mM SARS-CoV-2 RNA (ABIGAIL) (NEGATIVE) 06/03/20 06/03/20 06/03/20 Range/Units 09:35 09:35 09:35 WBC (3.98-10.04) K/mm3 RBC (3.98-5.22) M/mm3 Hgb (11.2-15.7) gm/dl Hct (34.1-44.9) % MCV (79.4-94.8) fl MCH (25.6-32.2) pg MCHC (32.2-35.5) g/dl RDW Std Deviation (36.4-46.3) fL Plt Count (182-369) K/mm3 MPV (9.4-12.3) fl Neut % (Auto) (34.0-71.1) % Lymph % (Auto) (19.3-51.7) % Sampson % (Auto) (4.7-12.5) % Eos % (Auto) (0.7-5.8) Baso % (Auto) (0.1-1.2) % Neut # (Auto) (1.56-6.13) K/mm3 Lymph # (Auto) (1.18-3.74) K/mm3 Sampson # (Auto) (0.24-0.36) K/mm3 Eos # (Auto) (0.04-0.36) K/mm3 Baso # (Auto) (0.01-0.08) K/mm3 Manual Slide Review ESR (0-20) mm/hr Sodium (136-145) mEq/L Potassium (3.5-5.1) mEq/L Chloride (98-107) mEq/L Carbon Dioxide (21-32) mEq/L Anion Gap (5-15) BUN (7-18) mg/dL Creatinine (0.55-1.02) mg/dL Est Cr Clr Drug Dosing Estimated GFR (MDRD) (>60) mL/min BUN/Creatinine Ratio (14-18) Glucose (83-115) mg/dL Lactic Acid 3.1 H* (0.4-2.0) mmol/L Calcium (8.5-10.1) mg/dL Magnesium (1.8-2.4) mg/dl Total Bilirubin (0.2-1.0) mg/dL AST (15-37) U/L ALT (14-59) U/L Alkaline Phosphatase (46-116) U/L Troponin I (0.00-0.056) ng/mL C-Reactive Protein (<1.0) mg/dL NT-Pro-B Natriuret Pep 438 H (0-125) pg/mL Total Protein (6.4-8.2) g/dl Albumin (3.4-5.0) g/dl Globulin gm/dL Albumin/Globulin Ratio (1-2) Urine Color (Yellow) Urine Appearance (Clear) Urine pH (5.0-8.0) Ur Specific [place] (1.005-1.030) Urine Protein (Negative) Urine Glucose (UA) (Negative) Urine Ketones (Negative) Urine Occult Blood (Negative) Urine Nitrite (Negative) Urine Bilirubin (Negative) Urine Urobilinogen (0.2-1.0) Ur Leukocyte Esterase (Negative) U Hyaline Cast (Auto) (0-5) /lpf Urine RBC (0-5) /hpf Urine WBC (0-5) /hpf Ur Squamous Epith Cells (0-5) /hpf Amorphous Sediment (NOT SEEN) /hpf Urine Bacteria (FEW) /hpf Urine Mucus (FEW) /hpf Ketones 0.71 (0.0-0.3) mM SARS-CoV-2 RNA (ABIGAIL) (NEGATIVE) 06/03/20 06/03/20 06/03/20 Range/Units 10:35 11:35 12:37 WBC (3.98-10.04) K/mm3 RBC (3.98-5.22) M/mm3 Hgb (11.2-15.7) gm/dl Hct (34.1-44.9) % MCV (79.4-94.8) fl MCH (25.6-32.2) pg MCHC (32.2-35.5) g/dl RDW Std Deviation (36.4-46.3) fL Plt Count (182-369) K/mm3 MPV (9.4-12.3) fl Neut % (Auto) (34.0-71.1) % Lymph % (Auto) (19.3-51.7) % Sampson % (Auto) (4.7-12.5) % Eos % (Auto) (0.7-5.8) Baso % (Auto) (0.1-1.2) % Neut # (Auto) (1.56-6.13) K/mm3 Lymph # (Auto) (1.18-3.74) K/mm3 Sampson # (Auto) (0.24-0.36) K/mm3 Eos # (Auto) (0.04-0.36) K/mm3 Baso # (Auto) (0.01-0.08) K/mm3 Manual Slide Review ESR (0-20) mm/hr Sodium (136-145) mEq/L Potassium (3.5-5.1) mEq/L Chloride (98-107) mEq/L Carbon Dioxide (21-32) mEq/L Anion Gap (5-15) BUN (7-18) mg/dL Creatinine (0.55-1.02) mg/dL Est Cr Clr Drug Dosing Estimated GFR (MDRD) (>60) mL/min BUN/Creatinine Ratio (14-18) Glucose (83-115) mg/dL Lactic Acid 1.3 (0.4-2.0) mmol/L Calcium (8.5-10.1) mg/dL Magnesium (1.8-2.4) mg/dl Total Bilirubin (0.2-1.0) mg/dL AST (15-37) U/L ALT (14-59) U/L Alkaline Phosphatase (46-116) U/L Troponin I (0.00-0.056) ng/mL C-Reactive Protein (<1.0) mg/dL NT-Pro-B Natriuret Pep (0-125) pg/mL Total Protein (6.4-8.2) g/dl Albumin (3.4-5.0) g/dl Globulin gm/dL Albumin/Globulin Ratio (1-2) Urine Color Yellow (Yellow) Urine Appearance Clear (Clear) Urine pH 6.0 (5.0-8.0) Ur Specific [place] > or = 1.030 (1.005-1.030) Urine Protein 1+ H (Negative) Urine Glucose (UA) Negative (Negative) Urine Ketones 2+ H (Negative) Urine Occult Blood 2+ H (Negative) Urine Nitrite Negative (Negative) Urine Bilirubin 1+ H (Negative) Urine Urobilinogen 0.2 (0.2-1.0) Ur Leukocyte Esterase Negative (Negative) U Hyaline Cast (Auto) 0-5 (0-5) /lpf Urine RBC 10-20 H (0-5) /hpf Urine WBC 0-5 (0-5) /hpf Ur Squamous Epith Cells 0-5 (0-5) /hpf Amorphous Sediment Few H (NOT SEEN) /hpf Urine Bacteria Moderate H (FEW) /hpf Urine Mucus Rare (FEW) /hpf Ketones (0.0-0.3) mM SARS-CoV-2 RNA (ABIGAIL) Negative (NEGATIVE) Result Diagrams: 06/04/20 05:05 06/04/20 05:05 Sepsis Event Note - Evaluation Sepsis Screening Result: Severe Sepsis Risk - Focused Exam Vital Signs: Vital Signs Temp Pulse Resp BP Pulse Ox 06/03/20 09:27 36.7 C 113 H 16 122/82 95 Problem List Initiated/Reviewed/Updated: Yes Orders Last 24hrs: Active Orders 24 hr Category Date Time Status Admission Status [Patient Status] [ADT] Routine ADT 06/03/20 12:42 Active CULTURE BLOOD [BC] Stat Lab 06/03/20 10:09 Received CULTURE BLOOD [BC] Stat Lab 06/03/20 10:25 Received Dextrose 5%-0.9% NaCl [Dextrose 5%-Normal Saline] 1,000 Med 06/03/20 11:00 Active ml IV ASDIRECTED Blood Culture x2 Reflex Set [OM.PC] Stat Oth 06/03/20 09:45 Ordered Medication Orders Dextrose/Sodium Chloride (Dextrose 5%-Normal Saline) 1,000 mls @ 250 mls/hr IV ASDIRECTED YOUSIF Last Admin: 06/03/20 10:55 Dose: 250 mls/hr Documented by: MAGGIE Assessment/Plan Comment:: This is a74 yo elderly white female with past medical hx/o Impaired vision, h ypertension, hyperlipidemia, CHF of unknown EF, Chronic peripheral edema, Hemorrhoids, OA, RA, Osteoathritis, Peripheral neuropathy, Polyneuritis, History of adrenal insufficiency on chronic steroid, Vitamin B12 Deficiency, Immuno- suppression, and Chronic pain who was brought in by due to generalized weakness associated with nausea and vomiting as well as poor oral intake for the past 3 days. Assessment: Acute: Metabolic/Toxic Encephalopathy Polypharmacy Generalized Weakness -Influenza/Covid-19 negative -CXR shows no acute abnormal findings -Polypharmacy: PRN Points 325/5 mg po Q6H, Benadryl 50 mg po QHS for Insomnia, Gabapentin 1200 mg po HS and 900 mg po BID, and Ambien 5 mg po HS for Insomnia. She received low dose intravenous dilaudid in ED. Per night charge nurse, she also takes OTC sleep aid -Hold above meds for now until mentation improves -IV fluids for hydration -Vit D and Thyroid panel -Fall precautions -PT/OT to assess and treat Fever or Unknown Origin Leukocytosis with WBC of 13K Elevated ESR of 44 Elevated CRP of 11.1 -She is warm to the touch -Had a temp as high as 100.4 F -Influenza/Covid-19 negative -CXR shows no acute abnormal findings -Elevated inflammatory markers maybe due to RA Right TKA, POD#5, Stable Elevated proBNP of 438 -Has peripheral edema post surgery and edema on both hands due to RA -No clinical signs of volume overload -Will monitor Hypokalemia with K of 3.3 Elevated AG of 21.3 Hypomagnesemia with Mg of 1.7 -Likely due to GI loss and poor nutritional/oral intake -Will replete and monitor Nausea and Vomiting Dehydration Acute Kidney Injury -No unusual diet or drink -Has not had anything to eat in the past 3 days -Poor fluid intake and GI loss resulting in renal insufficiency -Hold Meloxicam and IVF for hydration -PRN anti-emetic agents Ketonuria Hematuria Asymptomatic Bacteriuria, likely contaminated sample -We will monitor Chronic: Impaired vision, hypertension, hyperlipidemia, CHF of unknown EF, Chronic peripheral edema, Hemorrhoids, OA, RA, Osteoathritis, Peripheral neuropathy, Polyneuritis, History of adrenal insufficiency on chronic steroid, Vitamin B12 Deficiency, Immuno-suppression, and Chronic pain Plan: Admit to acute floor. Routine AM labs. IV fluids for hydration. Monitor for sepsis. Hold some home meds. Gabapentin and Narc to hold for now. Regular diet. Fall precautions. Vit D and thyroid panel. PT/OT for deconditioning. Code status is full. - Mortality Measure Prognosis:: Good
[2020-06-03] MEDS ORDERED: diphenhydrAMINE 50 MG Cap PO PRN (14:23)
[2020-06-03] MEDS ORDERED: Sodium Chloride 0.9% 1,000 ML IV SCH (14:30)
[2020-06-03] MEDS ORDERED: Non-Formulary Medication 1 Each (Denosumab [Prolia] 60 MG) SQ SCH (14:30)
[2020-06-03] MEDS ORDERED: Magnesium Sulfate/Water 2 GM/50 ML BAG IV ONE (14:35)
[2020-06-03] MEDS: Acetaminophen/HYDROcodone 325-5 MG Tab PO PRN (15:55)
[2020-06-03] MEDS ORDERED: Magnesium Hydroxide 400 MG/5 ML Susp 30 ML Cup PO ONE (21:03)
[2020-06-03] MEDS ORDERED: Aspirin 325 MG Tab.EC PO ONE (21:30)
[2020-06-03] MEDS ORDERED: Gabapentin 300 MG Cap PO ONE (22:30)
[2020-06-03] MEDS: Gabapentin 300 MG Cap PO SCH (23:55)
[2020-06-04] MEDS: Gabapentin 300 MG Cap PO SCH ×2 (05:56→15:54)
[2020-06-04] MEDS: Acetaminophen/HYDROcodone 325-5 MG Tab PO PRN ×3 (06:03→21:33)
[2020-06-04 07:35] LABS: VITAMIN D,25-HYDROXY 12.1 ng/ml (30.0-100.0)
[2020-06-04] MEDS: Potassium Chloride 10 MEQ in Premix Bag 1 BAG IV SCH ×6 (08:37→17:18)
[2020-06-04] MEDS: Calcium Carbonate 500 MG Tab.Chew PO SCH (08:43)
[2020-06-04] MEDS: Aspirin 325 MG Tab.EC PO SCH ×2 (08:44→21:33)
[2020-06-04] MEDS ORDERED: Non-Formulary Medication 1 Each (Meloxicam 15 MG) PO SCH (09:00)
[2020-06-04] MEDS ORDERED: Sodium Chloride 0.9% 1,000 ML IV SCH (09:00)
[2020-06-04] MEDS ORDERED: Pantoprazole 40 MG Tab.CR PO PRN (09:24)
[2020-06-04] MEDS: Folic Acid 1 MG **PTOM PO SCH (10:11)
[2020-06-04] MEDS: HYDROXYCHLOROQUINE 200 MG PO SCH (10:15)
[2020-06-04] MEDS: Levothyroxine 50 MCG **PTOM PO SCH (10:15)
[2020-06-04] MEDS: Rosuvastatin 10 MG **PTOM PO SCH (10:16)
[2020-06-04] MEDS: Cholecalciferol (Vitamin D3) 5,000 UNIT Cap PO SCH (10:39)
[2020-06-04] MEDS ORDERED: [UNRECOGNIZED DRUG - OTHER] PO SCH (11:00)
[2020-06-04] MEDS: predniSONE 5 MG Tab **PTOM PO SCH (12:09)
[2020-06-04] MEDS ORDERED: Potassium Chloride 20 MEQ Tab.ER PO ONE (13:04)
--- NOTE | 2020-06-04 13:04 | PCM.PN ---
- General Info Date of Service: 06/04/20 Admission Dx/Problem (Free Text): Admission Diagnosis/Problem Admission Diagnosis/Problem Volume depletion Subjective Update: No overnight or acute issues. She looks way better; more alert and awake at bedside. She is smiling and more talkative. Her K is down to 3.2 and Vit D is low as well. Functional Status: Reports: Pain Controlled, Tolerating Diet, Ambulating, Urinating. Denies: New Symptoms - Review of Systems General: Reports: Weakness. Denies: Fever, Chills Pulmonary: Denies: Shortness of Breath Cardiovascular: Denies: Chest Pain Gastrointestinal: Denies: Abdominal Pain, Nausea, Vomiting Musculoskeletal: Reports: Joint Pain Skin: Denies: Pruritis, Rash Neurological: Reports: Difficulty Walking, Weakness, Gait Disturbance. Denies: Confusion Psychiatric: Denies: Depression, Anxiety - Patient Data Vitals - Most Recent: Last Vital Signs Temp 36.6 C 06/04/20 12:05 Pulse 89 06/04/20 12:05 Resp 24 H 06/04/20 12:05 BP 112/22 L 06/04/20 12:05 Pulse Ox 97 06/04/20 12:05 Weight - Most Recent: 59.285 kg I&O - Last 24 Hours: Intake & Output 06/03/20 06/04/20 06/04/20 22:59 06:59 14:59 Intake Total 540 845 Output Total 20 Balance 540 825 Lab Results Last 24 Hours: Laboratory Results - last 24 hr 06/03/20 06/03/20 06/04/20 Range/Units 10:35 12:37 05:05 WBC 8.43 (3.98-10.04) K/mm3 RBC 3.23 L (3.98-5.22) M/mm3 Hgb 9.3 L D (11.2-15.7) gm/dl Hct 30.8 L (34.1-44.9) % MCV 95.4 H (79.4-94.8) fl MCH 28.8 (25.6-32.2) pg MCHC 30.2 L (32.2-35.5) g/dl RDW Std Deviation 44.9 (36.4-46.3) fL Plt Count 224 (182-369) K/mm3 MPV 9.7 (9.4-12.3) fl Neut % (Auto) 64.8 (34.0-71.1) % Lymph % (Auto) 17.6 L (19.3-51.7) % [place] % (Auto) 13.8 H (4.7-12.5) % Eos % (Auto) 2.5 (0.7-5.8) Baso % (Auto) 0.5 (0.1-1.2) % Neut # (Auto) 5.47 (1.56-6.13) K/mm3 Lymph # (Auto) 1.48 (1.18-3.74) K/mm3 [place] # (Auto) 1.16 H (0.24-0.36) K/mm3 Eos # (Auto) 0.21 (0.04-0.36) K/mm3 Baso # (Auto) 0.04 (0.01-0.08) K/mm3 Sodium (136-145) mEq/L Potassium (3.5-5.1) mEq/L Chloride (98-107) mEq/L Carbon Dioxide (21-32) mEq/L Anion Gap (5-15) BUN (7-18) mg/dL Creatinine (0.55-1.02) mg/dL Est Cr Clr Drug Dosing mL/min Estimated GFR (MDRD) (>60) mL/min BUN/Creatinine Ratio (14-18) Glucose (83-115) mg/dL Lactic Acid 1.3 (0.4-2.0) mmol/L Calcium (8.5-10.1) mg/dL Magnesium (1.8-2.4) mg/dl C-Reactive Protein (<1.0) mg/dL Vitamin D 25-Hydroxy (30.0-100.0) ng/ml Free T4 (0.76-1.46) ng/dL TSH 3rd Generation (0.358-3.74) uIU/mL Influenza Type A RNA Negative (NEGATIVE) Influenza Type B RNA Negative (NEGATIVE) SARS-CoV-2 RNA (ABIGAIL) Negative (NEGATIVE) 06/04/20 Range/Units 05:05 WBC (3.98-10.04) K/mm3 RBC (3.98-5.22) M/mm3 Hgb (11.2-15.7) gm/dl Hct (34.1-44.9) % MCV (79.4-94.8) fl MCH (25.6-32.2) pg MCHC (32.2-35.5) g/dl RDW Std Deviation (36.4-46.3) fL Plt Count (182-369) K/mm3 MPV (9.4-12.3) fl Neut % (Auto) (34.0-71.1) % Lymph % (Auto) (19.3-51.7) % [place] % (Auto) (4.7-12.5) % Eos % (Auto) (0.7-5.8) Baso % (Auto) (0.1-1.2) % Neut # (Auto) (1.56-6.13) K/mm3 Lymph # (Auto) (1.18-3.74) K/mm3 [place] # (Auto) (0.24-0.36) K/mm3 Eos # (Auto) (0.04-0.36) K/mm3 Baso # (Auto) (0.01-0.08) K/mm3 Sodium 144 (136-145) mEq/L Potassium 3.2 L (3.5-5.1) mEq/L Chloride 109 H (98-107) mEq/L Carbon Dioxide 25 (21-32) mEq/L Anion Gap 13.2 (5-15) BUN 17 (7-18) mg/dL Creatinine 0.8 (0.55-1.02) mg/dL Est Cr Clr Drug Dosing 53.28 mL/min Estimated GFR (MDRD) > 60 (>60) mL/min BUN/Creatinine Ratio 21.3 H (14-18) Glucose 93 (83-115) mg/dL Lactic Acid (0.4-2.0) mmol/L Calcium 7.7 L (8.5-10.1) mg/dL Magnesium 2.3 (1.8-2.4) mg/dl C-Reactive Protein 14.7 H* (<1.0) mg/dL Vitamin D 25-Hydroxy 12.1 L (30.0-100.0) ng/ml Free T4 1.32 (0.76-1.46) ng/dL TSH 3rd Generation 2.863 (0.358-3.74) uIU/mL Influenza Type A RNA (NEGATIVE) Influenza Type B RNA (NEGATIVE) SARS-CoV-2 RNA (ABIGAIL) (NEGATIVE) Elie Results Last 24 Hours: Microbiology 06/03/20 10:09 Aerobic Blood Culture - Preliminary Blood - Venous NO GROWTH AFTER 1 DAY Anaerobic Blood Culture - Final 06/03/20 10:25 Aerobic Blood Culture - Preliminary Blood - Venous - Lab Draw NO GROWTH AFTER 1 DAY Anaerobic Blood Culture - Final Med Orders - Current: Current Medications Acetaminophen (Tylenol) 650 mg PO Q4H PRN PRN Reason: Pain (Mild 1-3)/fever Hydrocodone Bitart/Acetaminophen ([place] 325-5 Mg) 1 tab PO Q4H PRN PRN Reason: Pain (moderate 4-6) Last Admin: 06/04/20 06:03 Dose: 1 tab Documented by: Albuterol/Ipratropium (Duoneb 3.0-0.5 Mg/3 Ml) 3 ml NEB Q4H PRN PRN Reason: Shortness Of Breath/wheezing Aspirin (Ecotrin) 325 mg PO BID [facility] Last Admin: 06/04/20 08:44 Dose: 325 mg Documented by: Calcium Carbonate/Glycine (Tums) 500 mg PO DAILY [facility] Last Admin: 06/04/20 08:43 Dose: 500 mg Documented by: Cholecalciferol (Vitamin D3) 5,000 unit PO DAILY [facility] Last Admin: 06/04/20 10:39 Dose: 5,000 unit Documented by: Diphenhydramine HCl (Benadryl) 50 mg PO BEDTIME PRN PRN Reason: Insomnia Gabapentin (Neurontin) 300 mg PO BIDAC YOUSIF Gabapentin (Neurontin) 600 mg PO BIDAC [facility] Hydromorphone HCl (Dilaudid) 0.25 mg IVPUSH Q2H PRN PRN Reason: Pain (severe 7-10) Promethazine HCl 6.25 mg/ (Sodium Chloride) 50.25 mls @ 100 mls/hr IV Q6H PRN PRN Reason: Nausea/Vomiting Potassium Chloride 10 meq/ (Premix) 100 mls @ 100 mls/hr IV Q1H [facility] Stop: 06/04/20 14:29 Last Admin: 06/04/20 11:26 Dose: 100 mls/hr Documented by: Methotrexate 2.5 Mg (Tab Ptom) 0 [facility] Levothyroxine 50 Mcg (Ptom) 0 mcg PO ACBREAKFAST [facility] Last Admin: 06/04/20 10:15 Dose: 50 mcg Documented by: Hydroxychloroquine (200 Mg Ptom) 0 mg PO DAILY [facility] Last Admin: 06/04/20 10:15 Dose: 200 mg Documented by: Folic Acid 1 Mg (Ptom) 0 mg PO DAILY [facility] Last Admin: 06/04/20 10:11 Dose: 1 mg Documented by: (Acetaminophen/Hydrocodone [Olcott 325-5 Mg] 1 Tab) 1 tab PO Q6H PRN PRN Reason: Pain Last Admin: 06/03/20 23:28 Dose: 1 tab Documented by: Rosuvastatin 10 Mg * (*Ptom) 0 mg PO DAILY [facility] Last Admin: 06/04/20 10:16 Dose: 10 mg Documented by: Zolpidem Tartrate 5 (Mg Ptom) 0 mg PO BEDTIME PRN PRN Reason: Sleep Meloxicam 15 Mg (Ptom) 0 mg PO DAILY [facility] Ondansetron HCl (Zofran) 4 mg IV Q6H PRN PRN Reason: Nausea/Vomiting Pantoprazole Sodium (Protonix) 40 mg PO DAILY PRN PRN Reason: Heartburn Polyethylene Glycol (Miralax) 17 gm PO DAILY PRN PRN Reason: Constipation Last Admin: 06/03/20 20:21 Dose: 17 gm Documented by: Prednisone (Prednisone) 0 mg PO DAILY [facility] Last Admin: 06/04/20 12:09 Dose: 5 mg Documented by: Senna/Docusate Sodium (Senna Plus) 1 tab PO BID PRN PRN Reason: Constipation Discontinued Medications Aspirin (Ecotrin) 325 mg PO NOW ONE Stop: 06/03/20 21:31 Last Admin: 06/03/20 22:32 Dose: 325 mg Documented by: Diphenhydramine HCl (Benadryl) 50 mg PO BEDTIME PRN PRN Reason: Insomnia [facility] Last Admin: 06/04/20 05:56 Dose: 900 mg Documented by: Gabapentin (Neurontin) 900 mg PO NOW ONE Stop: 06/03/20 22:31 Last Admin: 06/03/20 22:31 Dose: 900 mg Documented by: Hydromorphone HCl (Dilaudid) 0.25 mg IVPUSH ONETIME ONE Stop: 06/03/20 10:02 Last Admin: 06/03/20 10:19 Dose: 0.25 mg Documented by: Dextrose/Sodium Chloride (Dextrose 5%-Normal Saline) 1,000 mls @ 150 mls/hr IV ASDIRECTED [facility] Last Admin: 06/03/20 09:48 Dose: 150 mls/hr Documented by: Potassium Chloride 10 meq/ (Premix) 100 mls @ 100 mls/hr IV Q1H [facility] Stop: 06/03/20 11:29 Last Admin: 06/03/20 10:54 Dose: 100 mls/hr Documented by: Dextrose/Sodium Chloride (Dextrose 5%-Normal Saline) 1,000 mls @ 250 mls/hr IV ASDIRECTED [facility] Last Admin: 06/03/20 10:55 Dose: 250 mls/hr Documented by: Sodium Chloride (Normal Saline) 1,000 mls @ 50 mls/hr IV ASDIRECTED [facility] Stop: 06/04/20 10:29 Last Admin: 06/03/20 16:02 Dose: 50 mls/hr Documented by: Magnesium Sulfate (Magnesium Sulfate In Water 2 Gm/50 Ml) 2 gm in 50 mls @ 25 mls/hr IV ONETIME ONE Stop: 06/03/20 16:34 Last Admin: 06/03/20 15:59 Dose: 25 mls/hr Documented by: Potassium Chloride 10 meq/ (Premix) 100 mls @ 100 mls/hr IV ASDIRECTED [facility] Stop: 06/08/20 15:59 Magnesium Hydroxide (Milk Of Magnesia) 30 ml PO ONETIME ONE Stop: 06/03/20 21:04 Last Admin: 06/03/20 23:28 Dose: Not Given Documented by: Metoclopramide HCl (Reglan) 7.5 mg IVPUSH ONETIME ONE Stop: 06/03/20 09:44 Last Admin: 06/03/20 09:48 Dose: 7.5 mg Documented by: Non-Formulary Medication (Meloxicam) 15 mg PO DAILY [facility] Non-Formulary Medication (Denosumab [Prolia]) 60 mg SQ ASDIRECTED [facility] Non-Formulary Medication (Cyanocobalamin (Vitamin B-12) [Cyanocobalamin Injection]) 1 dose IM ASDIRECTED [facility] C-Naltrexone 6 Mg (Ptom) 0 mg PO DAILY YOUSIF - Exam General: Alert, Oriented, Cooperative, No Acute Distress HEENT: Pupils Equal, Pupils Reactive, EOMI, Mucous Membr. Moist/[place] Neck: Supple Lungs: Clear to Auscultation, Normal Respiratory Effort Cardiovascular: Regular Rate, Regular Rhythm GI/Abdominal Exam: Normal Bowel Sounds, Soft, Non-Tender, No Organomegaly, No Distention, No Abnormal Bruit, No Mass (Female) Exam: Other (urinary catheter) Back Exam: Normal Inspection, Decreased Range of Motion Extremities: Normal Inspection, Non-Tender, No Pedal Edema, Normal Capillary Refill, Limited Range of Motion (right lower extremity), Other (edema on surgical site of her right leg) Peripheral Pulses: 2+: Dorsalis Pedis (L), Dorsalis Pedis (R) Skin: Ecchymosis (right lower extremity) Wound/Incisions: Healing Well, Dressing Dry and Intact, No Drainage Neurological: No New Focal Deficit. No: Normal Gait Psy/Mental Status: Alert, Normal Affect, Normal Mood Sepsis Event Note - Evaluation Sepsis Screening Result: No Definite Risk - Focused Exam Vital Signs: Vital Signs Temp Pulse Resp BP Pulse Ox 06/04/20 12:05 36.6 C 89 24 H 112/22 L 97 06/04/20 07:56 36.7 C 85 16 110/53 L 91 L 06/04/20 05:21 36.9 C 84 20 123/54 L 98 - Problem List Review Problem List Initiated/Reviewed/Updated: Yes - My Orders Last 24 Hours: My Active Orders 06/03/20 14:21 Height and Weight [RC] 06 Intake and Output [RC] 04,16 Oxygen Therapy [RC] PRN Up With Assistance [RC] ASDIRECTED VTE/DVT Education [RC] PER UNIT ROUTINE Vital Signs [RC] Q4HR Consult to Case Management/Emulsion Coater [CONS] Routine OT Evaluation and Treatment [CONS] Routine PT Evaluation and Treatment [CONS] Routine Acetaminophen [TylenoL] 650 mg PO Q4H PRN Acetaminophen/HYDROcodone [[place] 325-5 MG] 1 tab PO Q4H PRN Albuterol/Ipratropium [DuoNeb 3.0-0.5 MG/3 ML] 3 ml NEB Q4H PRN Docusate Sodium/Sennosides [Senna Plus] 1 tab PO BID PRN HYDROmorphone [Dilaudid] 0.25 mg IVPUSH Q2H PRN Ondansetron [Zofran] 4 mg IV Q6H PRN Promethazine [Phenergan] 6.25 mg Sodium Chloride 0.9% [Normal Saline] 50 ml IV Q6H polyethylene glycoL 3350 [MiraLAX] 17 gm PO DAILY PRN Resuscitation Status Routine 06/03/20 14:22 RT Aerosol Therapy [RC] ASDIRECTED 06/03/20 14:23 Acetaminophen/HYDROcodone [Olcott 325-5 MG] 1 tab PO Q6H PRN 06/03/20 14:32 Isolation [COMM] Routine 06/03/20 Dinner Regular Diet [DIET] 06/04/20 08:30 Potassium Chloride [KCl in Water 10 MEQ/100 ML] 10 meq Premix Bag 1 bag IV Q1H 06/04/20 09:00 Aspirin [Ecotrin] 325 mg PO BID Calcium Carbonate [Tums] 500 mg PO DAILY 06/04/20 09:24 Pantoprazole [ProTONIX] 40 mg PO DAILY PRN 06/04/20 11:00 Cholecalciferol (Vitamin D3) [Vitamin D3] 5,000 unit PO DAILY Folic Acid [Folic Acid] 0 mg PO DAILY Hydroxychloroquine [Plaquenil] 0 mg PO DAILY Levothyroxine [Synthroid] 0 mcg PO ACBREAKFAST Rosuvastatin [Crestor] 0 mg PO DAILY predniSONE 0 mg PO DAILY 06/04/20 16:00 Gabapentin [Neurontin] 300 mg PO BIDAC Gabapentin [Neurontin] 600 mg PO BIDAC 06/04/20 21:00 Zolpidem Tartrate [Ambien] 0 mg PO BEDTIME PRN 06/05/20 05:11 BASIC METABOLIC PANEL,BMP [CHEM] AM CRP [C-REACTIVE PROTEIN] [CHEM] AM MAGNESIUM [CHEM] AM 06/05/20 14:23 diphenhydrAMINE [Benadryl] 50 mg PO BEDTIME PRN 06/06/20 05:11 BASIC METABOLIC PANEL,BMP [CHEM] AM CRP [C-REACTIVE PROTEIN] [CHEM] AM MAGNESIUM [CHEM] AM 06/06/20 09:00 Meloxicam 0 mg PO DAILY 06/08/20 09:00 Methotrexate [Methotrexate] 0 mg PO TH - Plan Plan:: This is a74 yo elderly white female with past medical hx/o Impaired vision, hypertension, hyperlipidemia, CHF of unknown EF, Chronic peripheral edema, Hemorrhoids, OA, RA, Osteoathritis, Peripheral neuropathy, Polyneuritis, History of adrenal insufficiency on chronic steroid, Vitamin B12 Deficiency, Immuno- suppression, and Chronic pain who was brought in due to generalized weakness associated with nausea and vomiting as well as poor oral intake for the past 3 days. Assessment: Acute: Metabolic/Toxic Encephalopathy, resolved Polypharmacy Generalized Weakness -Influenza/Covid-19 negative -CXR shows no acute abnormal findings -Polypharmacy: PRN Olcott 325/5 mg po Q6H, Benadryl 50 mg po QHS for Insomnia, Gabapentin 1200 mg po HS and 900 mg po BID, and Ambien 5 mg po HS for Insomnia. She received low dose intravenous dilaudid in ED. Per night charge nurse, she also takes OTC sleep aid -Hold above meds for now until mentation improves -Discontinue IV fluids for hydration once current bag is done -Vit D is low at 12.1 likely due to not taking her vit D supplement in the past 3 days -Thyroid panel is wnl -Fall precautions -PT/OT to assess and treat Fever or Unknown Origin, resolved Leukocytosis with WBC of 13K, resolved at 8.3 now Elevated ESR of 44 Elevated CRP of 11.1-->14.7 now -She is warm to the touch -Had a temp as high as 100.4 F; now afebrile -Influenza/Covid-19 negative -CXR shows no acute abnormal findings -Elevated inflammatory markers maybe due to RA Right TKA, POD#5, Stable Elevated proBNP of 438 -Has peripheral edema post surgery and edema on both hands due to RA -No clinical signs of volume overload -Will monitor Hypokalemia with K of 3.3-->now 3.2 Elevated AG of 21.3 Hypomagnesemia with Mg of 1.7 Mild Hyperchloremia with Cl of 109 -Likely due to GI loss and poor nutritional/oral intake -Will continue to replete and monitor Ketonuria Hematuria Asymptomatic Bacteriuria, likely contaminated sample -We will monitor Resolved: Nausea and Vomiting, resolved Dehydration, resolved Acute Kidney Injury, resolved -No unusual diet or drink -Has not had anything to eat in the past 3 days -Poor fluid intake and GI loss resulting in renal insufficiency -Hold Meloxicam and IVF for hydration -PRN anti-emetic agents Chronic: Impaired vision, hypertension, hyperlipidemia, CHF of unknown EF, Chronic peripheral edema, Hemorrhoids, OA, RA, Osteoathritis, Peripheral neuropathy, Polyneuritis, History of adrenal insufficiency on chronic steroid, Vitamin B12 Deficiency, Immuno-suppression, and Chronic pain Plan: She looks much better clinically. Continue current treatment. Routine AM labs. Encourage to hydrate adequately. Continue to hold some home meds. Gabapentin and Narc with holding parameter. Regular diet. Fall precautions. DVT prophylaxis: ASA po BID/SCDs. PT/OT for deconditioning. Code status is full. 1332: Updated about 's clinical progress. He was very pleased with how she looked like this morning.
--- NOTE | 2020-06-04 13:35 | PCM.SN.2 ---
- Free Text/Narrative Note: Called for difficult IV start due to failed attempts at a larger bore IV by nursing staff. Brooklynn is complaining of 8/10 pain with IV potassium infusion. Pharmacy called regarding lidocaine to be added to infusion to increase comfort. IV start kit utilized with lidocaine to skin a 20 gauge IV inserted,1.88 inch, into her right upper arm with a single attempt. Flushed well with 20 ml of 0.9NS. IV secured with skin prep, transparent dressing, and tape. Connected to the infusion and running well. Report to nursing staff and Dr. Gar will follow up with pharmacy for further recommendations. Brooklynn tolerated the IV insertion well and states it is more comfortable than before. Danilo Burt, CASH MANAGER
[2020-06-04] MEDS: Gabapentin 600 MG Tab PO SCH (15:54)
[2020-06-04] MEDS ORDERED: ZOLPIDEM TARTRATE 5 MG PO PRN (21:00)
[2020-06-05] MEDS: Gabapentin 600 MG Tab PO SCH ×2 (05:42→17:12)
[2020-06-05] MEDS: Gabapentin 300 MG Cap PO SCH ×2 (05:42→17:12)
[2020-06-05] MEDS: Levothyroxine 50 MCG **PTOM PO SCH (05:54)
--- NOTE | 2020-06-05 07:07 | PCM.PN ---
- General Info Date of Service: 06/05/20 Admission Dx/Problem (Free Text): Admission Diagnosis/Problem Admission Diagnosis/Problem Volume depletion Subjective Update: No overnight or acute issues. She looks way better; more alert and awake at bedside. She is smiling and more talkative. Her K is down to 3.2 and Vit D is low as well. Functional Status: Reports: Tolerating Diet, Urinating. Denies: Ambulating - Patient Data Vitals - Most Recent: Last Vital Signs Temp 36.7 C 06/05/20 04:15 Pulse 83 06/05/20 04:15 Resp 20 06/05/20 04:15 BP 114/45 L 06/05/20 04:15 Pulse Ox 96 06/05/20 04:15 Weight - Most Recent: 60.736 kg I&O - Last 24 Hours: Intake & Output 06/04/20 06/05/20 06/05/20 22:59 06:59 14:59 Intake Total 1695 150 Output Total 375 1050 Balance 1320 -900 Lab Results Last 24 Hours: Laboratory Results - last 24 hr 06/04/20 06/05/20 Range/Units 05:05 05:37 Sodium 144 (136-145) mEq/L Potassium 3.7 (3.5-5.1) mEq/L Chloride 110 H (98-107) mEq/L Carbon Dioxide 21 (21-32) mEq/L Anion Gap 16.7 H (5-15) BUN 15 (7-18) mg/dL Creatinine 0.7 (0.55-1.02) mg/dL Est Cr Clr Drug Dosing 60.89 mL/min Estimated GFR (MDRD) > 60 (>60) mL/min BUN/Creatinine Ratio 21.4 H (14-18) Glucose 83 (83-115) mg/dL Calcium 8.0 L (8.5-10.1) mg/dL Magnesium 1.9 (1.8-2.4) mg/dl C-Reactive Protein 14.8 H* (<1.0) mg/dL Vitamin D 25-Hydroxy 12.1 L (30.0-100.0) ng/ml Elie Results Last 24 Hours: Microbiology 06/03/20 10:09 Aerobic Blood Culture - Preliminary Blood - Venous NO GROWTH AFTER 1 DAY Anaerobic Blood Culture - Final 06/03/20 10:25 Aerobic Blood Culture - Preliminary Blood - Venous - Lab Draw NO GROWTH AFTER 1 DAY Anaerobic Blood Culture - Final Med Orders - Current: Current Medications Acetaminophen (Tylenol) 650 mg PO Q4H PRN PRN Reason: Pain (Mild 1-3)/fever Hydrocodone Bitart/Acetaminophen ([place] 325-5 Mg) 1 tab PO Q4H PRN PRN Reason: Pain (moderate 4-6) Last Admin: 06/04/20 21:33 Dose: 1 tab Documented by: Albuterol/Ipratropium (Duoneb 3.0-0.5 Mg/3 Ml) 3 ml NEB Q4H PRN PRN Reason: Shortness Of Breath/wheezing Aspirin (Ecotrin) 325 mg PO BID [facility] Last Admin: 06/04/20 21:33 Dose: 325 mg Documented by: Calcium Carbonate/Glycine (Tums) 500 mg PO DAILY [facility] Last Admin: 06/04/20 08:43 Dose: 500 mg Documented by: Cholecalciferol (Vitamin D3) 5,000 unit PO DAILY [facility] Last Admin: 06/04/20 10:39 Dose: 5,000 unit Documented by: Diphenhydramine HCl (Benadryl) 50 mg PO BEDTIME PRN PRN Reason: Insomnia Gabapentin (Neurontin) 300 mg PO BIDAC [facility] Last Admin: 06/05/20 05:42 Dose: 300 mg Documented by: Gabapentin (Neurontin) 600 mg PO BIDAC [facility] Last Admin: 06/05/20 05:42 Dose: 600 mg Documented by: Hydromorphone HCl (Dilaudid) 0.25 mg IVPUSH Q2H PRN PRN Reason: Pain (severe 7-10) Last Admin: 06/04/20 16:04 Dose: 0.25 mg Documented by: Promethazine HCl 6.25 mg/ (Sodium Chloride) 50.25 mls @ 100 mls/hr IV Q6H PRN PRN Reason: Nausea/Vomiting Methotrexate 2.5 Mg (Tab Ptom) 0 mg [facility] Levothyroxine 50 Mcg (Ptom) 0 mcg PO ACBREAKFAST [facility] Last Admin: 06/05/20 05:54 Dose: 50 mcg Documented by: Hydroxychloroquine (200 Mg Ptom) 0 mg PO DAILY [facility] Last Admin: 06/04/20 10:15 Dose: 200 mg Documented by: Folic Acid 1 Mg (Ptom) 0 mg PO DAILY [facility] Last Admin: 06/04/20 10:11 Dose: 1 mg Documented by: Rosuvastatin 10 Mg * (*Ptom) 0 mg PO DAILY [facility] Last Admin: 06/04/20 10:16 Dose: 10 mg Documented by: Zolpidem Tartrate 5 (Mg Ptom) 0 mg PO BEDTIME PRN PRN Reason: Sleep Meloxicam 15 Mg (Ptom) 0 mg PO DAILY [facility] Ondansetron HCl (Zofran) 4 mg IV Q6H PRN PRN Reason: Nausea/Vomiting Pantoprazole Sodium (Protonix) 40 mg PO DAILY PRN PRN Reason: Heartburn Polyethylene Glycol (Miralax) 17 gm PO DAILY PRN PRN Reason: Constipation Last Admin: 06/03/20 20:21 Dose: 17 gm Documented by: Prednisone (Prednisone) 0 mg PO DAILY [facility] Last Admin: 06/04/20 12:09 Dose: 5 mg Documented by: Senna/Docusate Sodium (Senna Plus) 1 tab PO BID PRN PRN Reason: Constipation Discontinued Medications Aspirin (Ecotrin) 325 mg PO NOW ONE Stop: 06/03/20 21:31 Last Admin: 06/03/20 22:32 Dose: 325 mg Documented by: Diphenhydramine HCl (Benadryl) 50 mg PO BEDTIME PRN PRN Reason: Insomnia [facility] Last Admin: 06/04/20 05:56 Dose: 900 mg Documented by: Gabapentin (Neurontin) 900 mg PO NOW ONE Stop: 06/03/20 22:31 Last Admin: 06/03/20 22:31 Dose: 900 mg Documented by: Hydromorphone HCl (Dilaudid) 0.25 mg IVPUSH ONETIME ONE Stop: 06/03/20 10:02 Last Admin: 06/03/20 10:19 Dose: 0.25 mg Documented by: Dextrose/Sodium Chloride (Dextrose 5%-Normal Saline) 1,000 mls @ 150 mls/hr IV ASDIRECTED [facility] Last Admin: 06/03/20 09:48 Dose: 150 mls/hr Documented by: Potassium Chloride 10 meq/ (Premix) 100 mls @ 100 mls/hr IV Q1H [facility] Stop: 06/03/20 11:29 Last Admin: 06/03/20 10:54 Dose: 100 mls/hr Documented by: Dextrose/Sodium Chloride (Dextrose 5%-Normal Saline) 1,000 mls @ 250 mls/hr IV ASDIRECTED [facility] Last Admin: 06/03/20 10:55 Dose: 250 mls/hr Documented by: Sodium Chloride (Normal Saline) 1,000 mls @ 50 mls/hr IV ASDIRECTED [facility] Stop: 06/04/20 10:29 Last Admin: 06/03/20 16:02 Dose: 50 mls/hr Documented by: Magnesium Sulfate (Magnesium Sulfate In Water 2 Gm/50 Ml) 2 gm in 50 mls @ 25 mls/hr IV ONETIME ONE Stop: 06/03/20 16:34 Last Admin: 06/03/20 15:59 Dose: 25 mls/hr Documented by: Potassium Chloride 10 meq/ (Premix) 100 mls @ 100 mls/hr IV ASDIRECTED [facility] Stop: 06/08/20 15:59 Potassium Chloride 10 meq/ (Premix) 100 mls @ 100 mls/hr IV Q1H [facility] Stop: 06/04/20 14:29 Last Admin: 06/04/20 17:18 Dose: 100 mls/hr Documented by: Sodium Chloride (Normal Saline) 1,000 mls @ 75 mls/hr IV ASDIRECTED [facility] Stop: 06/04/20 22:19 Magnesium Hydroxide (Milk Of Magnesia) 30 ml PO ONETIME ONE Stop: 06/03/20 21:04 Last Admin: 06/03/20 23:28 Dose: Not Given Documented by: Metoclopramide HCl (Reglan) 7.5 mg IVPUSH ONETIME ONE Stop: 06/03/20 09:44 Last Admin: 06/03/20 09:48 Dose: 7.5 mg Documented by: Non-Formulary Medication (Meloxicam) 15 mg PO DAILY [facility] Non-Formulary Medication (Denosumab [Prolia]) 60 mg SQ ASDIRECTED [facility] Non-Formulary Medication (Cyanocobalamin (Vitamin B-12) [Cyanocobalamin Injection]) 1 dose IM ASDIRECTED [facility] C-Naltrexone 6 Mg (Ptom) 0 mg PO DAILY [facility] (Acetaminophen/Hydrocodone [[place] 325-5 Mg] 1 Tab) 1 tab PO Q6H PRN PRN Reason: Pain Last Admin: 06/03/20 23:28 Dose: 1 tab Documented by: Potassium Chloride (Klor-Con M20) 60 meq PO ONETIME ONE Stop: 06/04/20 13:05 Last Admin: 06/04/20 18:28 Dose: Not Given Documented by: Sepsis Event Note - Evaluation Sepsis Screening Result: No Definite Risk - Focused Exam Vital Signs: Vital Signs Temp Pulse Resp BP Pulse Ox 06/05/20 04:15 36.7 C 83 20 114/45 L 96 06/05/20 02:24 37.1 C 77 17 114/97 H 95 06/04/20 19:44 36.9 C 85 16 125/56 L 99 - My Orders Last 24 Hours: My Active Orders 06/04/20 09:00 Aspirin [Ecotrin] 325 mg PO BID Calcium Carbonate [Tums] 500 mg PO DAILY 06/04/20 09:24 Pantoprazole [ProTONIX] 40 mg PO DAILY PRN 06/04/20 11:00 Cholecalciferol (Vitamin D3) [Vitamin D3] 5,000 unit PO DAILY Folic Acid [Folic Acid] 0 mg PO DAILY Hydroxychloroquine [Plaquenil] 0 mg PO DAILY Levothyroxine [Synthroid] 0 mcg PO ACBREAKFAST Rosuvastatin [Crestor] 0 mg PO DAILY predniSONE 0 mg PO DAILY 06/04/20 13:30 SCD [Sequential Compression Device] [OM.PC] Routine 06/04/20 13:31 Antiembolic Devices [RC] PER UNIT ROUTINE 06/04/20 16:00 Gabapentin [Neurontin] 300 mg PO BIDAC Gabapentin [Neurontin] 600 mg PO BIDAC 06/04/20 21:00 Zolpidem Tartrate [Ambien] 0 mg PO BEDTIME PRN 06/05/20 14:23 diphenhydrAMINE [Benadryl] 50 mg PO BEDTIME PRN 06/06/20 05:11 BASIC METABOLIC PANEL,BMP [CHEM] AM CRP [C-REACTIVE PROTEIN] [CHEM] AM MAGNESIUM [CHEM] AM 06/06/20 09:00 Meloxicam 0 mg PO DAILY 06/08/20 09:00 Methotrexate [Methotrexate] 0 mg PO TH - Plan Plan:: This is a74 yo elderly white female with past medical hx/o Impaired vision, hypertension, hyperlipidemia, CHF of unknown EF, Chronic peripheral edema, Hemorrhoids, OA, RA, Osteoathritis, Peripheral neuropathy, Polyneuritis, History of adrenal insufficiency on chronic steroid, Vitamin B12 Deficiency, Immuno- suppression, and Chronic pain who was brought in due to generalized weakness associated with nausea and vomiting as well as poor oral intake for the past 3 days. Assessment: Acute: Metabolic/Toxic Encephalopathy, resolved Polypharmacy Generalized Weakness -Influenza/Covid-19 negative -CXR shows no acute abnormal findings -Polypharmacy: PRN [place] 325/5 mg po Q6H, Benadryl 50 mg po QHS for Insomnia, Gabapentin 1200 mg po HS and 900 mg po BID, and Ambien 5 mg po HS for Insomnia. She received low dose intravenous dilaudid in ED. Per night charge nurse, she also takes OTC sleep aid -Hold above meds for now until mentation improves -Discontinue IV fluids for hydration once current bag is done -Vit D is low at 12.1 likely due to not taking her vit D supplement in the past 3 days -Thyroid panel is wnl -Fall precautions -PT/OT to assess and treat Fever or Unknown Origin, resolved Leukocytosis with WBC of 13K, resolved at 8.3 now Elevated ESR of 44 Elevated CRP of 11.1-->14.7 now -She is warm to the touch -Had a temp as high as 100.4 F; now afebrile -Influenza/Covid-19 negative -CXR shows no acute abnormal findings -Elevated inflammatory markers maybe due to RA Right TKA, POD#5, Stable Elevated proBNP of 438 -Has peripheral edema post surgery and edema on both hands due to RA -No clinical signs of volume overload -Will monitor Hypokalemia with K of 3.3-->now 3.2 Elevated AG of 21.3 Hypomagnesemia with Mg of 1.7 Mild Hyperchloremia with Cl of 109 -Likely due to GI loss and poor nutritional/oral intake -Will continue to replete and monitor Ketonuria Hematuria Asymptomatic Bacteriuria, likely contaminated sample -We will monitor Resolved: Nausea and Vomiting, resolved Dehydration, resolved Acute Kidney Injury, resolved -No unusual diet or drink -Has not had anything to eat in the past 3 days -Poor fluid intake and GI loss resulting in renal insufficiency -Hold Meloxicam and IVF for hydration -PRN anti-emetic agents Chronic: Impaired vision, hypertension, hyperlipidemia, CHF of unknown EF, Chronic peripheral edema, Hemorrhoids, OA, RA, Osteoathritis, Peripheral neuropathy, Polyneuritis, History of adrenal insufficiency on chronic steroid, Vitamin B12 Deficiency, Immuno-suppression, and Chronic pain Plan: She looks much better clinically. Continue current treatment. Routine AM labs. Encourage to hydrate adequately. Continue to hold some home meds. Gabapentin and Narc with holding parameter. Regular diet. Fall precautions. DVT prophylaxis: ASA po BID/SCDs. PT/OT for deconditioning. Code status is full. 1332: Updated about 's clinical progress. He was very pleased with how she looked like this morning.
[2020-06-05] MEDS: Acetaminophen/HYDROcodone 325-5 MG Tab PO PRN (09:29)
[2020-06-05] MEDS: Folic Acid 1 MG **PTOM PO SCH (09:31)
[2020-06-05] MEDS: HYDROXYCHLOROQUINE 200 MG PO SCH (09:32)
[2020-06-05] MEDS: predniSONE 5 MG Tab **PTOM PO SCH (09:32)
[2020-06-05] MEDS: Rosuvastatin 10 MG **PTOM PO SCH (09:33)
[2020-06-05] MEDS: Calcium Carbonate 500 MG Tab.Chew PO SCH (09:39)
[2020-06-05] MEDS: Aspirin 325 MG Tab.EC PO SCH (09:39)
[2020-06-05] MEDS: Cholecalciferol (Vitamin D3) 5,000 UNIT Cap PO SCH (09:40)
--- NOTE | 2020-06-05 12:43 | PCM.SN.2 ---
- Free Text/Narrative Note: Patient continues to do well. She ambulated down the price w/o any trouble. No acute issues or complaints. She remains alert and awake. Eating and drinking fine. Overall, her pain is controlled. We will plan for discharge.
--- NOTE | 2020-06-05 12:44 | PCM.DCSUM1 ---
Discharge Summary - Hospital Course Brief History: This is a 74 yo elderly white female with past medical hx/o Impaired vision, hypertension, hyperlipidemia, CHF of unknown EF, Chronic peripheral edema, Hemorrhoids, OA, RA, Osteoathritis, Peripheral neuropathy, Polyneuritis, History of adrenal insufficiency on chronic steroid, Vitamin B12 Deficiency, Immuno-suppression, and Chronic pain who was brought in by due to generalized weakness associated with nausea and vomiting as well as poor oral intake for the past 3 days. Diagnosis: Stroke: No Modified Shawna Scale: No Symptoms at All Modified Door Scale Score: 0 - Discharge Data Discharge Date: 06/05/20 Discharge Disposition: Home, Self-Care 01 Condition: Good - Referral to Home Health Primary Care Physician: Erik Andrews MD - Patient Summary/Data Operative Procedure(s) Performed: None Complications: None Consults: Consultations 06/03/20 14:21 Consult to Case Management/Individual Pension Consultant [CONS] Routine OT Evaluation and Treatment [CONS] Routine PT Evaluation and Treatment [CONS] Routine Recommended Follow-up Testing/Procedures: None Planned Operative Procedure(s) after DC: None Hospital Course: Patient was essentially admitted for oversedation due to polypharmacy. She was taking so much medications for pain control and insomnia causing memory impairment and significant sedation. She had a fever on admission felt to be due to her post surgical wound. Her basic infectious work up was however negative. She improved immediately after we held those medications. Her hospital course was uncomplicated. Once medically cleared, she was immediately sent back home with discharge instructions. On the day of discharge, she was educated about her home medications for pain control and insomnia. She was advised to avoid operating any motor vehicles or machines while on these medications. Her son was updated and provided discharge instructions before they left the facility. - Patient Instructions Diet: Usual Diet as Tolerated Activity: As Tolerated Driving: Do Not Drive Showering/Bathing: May Shower Wound/Incision Care: Keep Operative Site/Wound Site Clean and Dry, Change Dressing Daily Notify Provider of: Fever, Increased Pain, Swelling and Redness, Drainage, Nausea and/or Vomiting - Discharge Plan *PRESCRIPTION DRUG MONITORING PROGRAM REVIEWED*: Not Applicable *COPY OF PRESCRIPTION DRUG MONITORING REPORT IN PATIENT OZZIE: Not Applicable Home Medications: Home Meds predniSONE [Prednisone] 5 mg PO DAILY 03/18/14 [History] Gabapentin [Neurontin] 1,200 mg PO BEDTIME 09/14/15 [History] Gabapentin [Neurontin] 900 mg PO BIDAC 09/14/15 [History] Methotrexate 17.5 mg PO TH 03/22/17 [History] Folic Acid 1 mg PO DAILY 05/19/18 [History] Rosuvastatin [Crestor] 10 mg PO DAILY 05/19/18 [History] Zolpidem Tartrate [Ambien] 5 mg PO BEDTIME PRN 05/20/18 [History] Acetaminophen/HYDROcodone [[place] 325-5 MG] 1 tab PO Q6H PRN 01/01/19 [History] Cyanocobalamin (Vitamin B-12) [Cyanocobalamin Injection] 1 dose IM ASDIRECTED 01/01/19 [History] Denosumab [Prolia] 60 mg SQ ASDIRECTED 01/01/19 [History] Omeprazole 20 mg PO DAILY PRN 01/01/19 [History] C-Naltrexone 6 mg PO DAILY 05/26/20 [History] Calcium Carbonate [Tums] 500 mg PO DAILY 05/26/20 [History] Cholecalciferol (Vitamin D3) [Vitamin D3] 5,000 unit PO DAILY 05/26/20 [History] Hydroxychloroquine [Plaquenil] 200 mg PO DAILY 05/26/20 [History] Levothyroxine [Synthroid] 50 mcg PO DAILY 05/26/20 [History] Meloxicam [Mobic] 15 mg PO DAILY 05/26/20 [History] diphenhydrAMINE [Benadryl] 50 mg PO BEDTIME PRN 05/26/20 [History] Aspirin [Ecotrin EC] 325 mg PO BID 06/03/20 [History] Cyclobenzaprine [Flexeril] 5 mg PO Q12HR PRN 06/03/20 [History] oxyCODONE 5 - 10 mg PO Q4HR PRN 06/03/20 [History] Oxygen Therapy Mode: Room Air Patient Handouts: Nausea and Vomiting, Adult, [id number], Dehydration, Adult, [id number] Referrals: Jose Huber MD [Physician] - (Folloow-up with Dr. Huber as previously arranged.) Erik Andrews MD [Primary Care Provider] - 06/12/20 2:30 pm (come 15 minutes prior to the appointment to register.) - Discharge Summary/Plan Comment DC Time >30 min.: No Discharge Summary/Plan Comment: Discharge to home - General Info Date of Service: 06/05/20 Subjective Update: No overnight or acute issues Functional Status: Reports: Pain Controlled, Tolerating Diet, Ambulating, Urinating. Denies: New Symptoms - Review of Systems General: Denies: Fever, Weakness, Fatigue, Malaise, Chills Pulmonary: Denies: Shortness of Breath Cardiovascular: Denies: Chest Pain, Lightheadedness Gastrointestinal: Denies: Abdominal Pain, Nausea, Vomiting Genitourinary: Denies: Retention Musculoskeletal: Denies: Joint Pain Skin: Denies: Cyanosis, Rash Neurological: Reports: Gait Disturbance. Denies: No Symptoms, Confusion, Difficulty Walking, Weakness Psychiatric: Denies: Depression, Anxiety - Patient Data Vitals - Most Recent: Last Vital Signs Temp 36.7 C 06/05/20 09:00 Pulse 78 06/05/20 09:00 Resp 16 06/05/20 09:00 BP 112/76 06/05/20 09:00 Pulse Ox 95 06/05/20 09:00 Weight - Most Recent: 60.736 kg I&O - Last 24 hours: Intake & Output 06/04/20 06/05/20 06/05/20 22:59 06:59 14:59 Intake Total 1695 150 240 Output Total 375 1050 Balance 1320 -900 240 Lab Results - Last 24 hrs: Laboratory Results - last 24 hr 06/05/20 Range/Units 05:37 Sodium 144 (136-145) mEq/L Potassium 3.7 (3.5-5.1) mEq/L Chloride 110 H (98-107) mEq/L Carbon Dioxide 21 (21-32) mEq/L Anion Gap 16.7 H (5-15) BUN 15 (7-18) mg/dL Creatinine 0.7 (0.55-1.02) mg/dL Est Cr Clr Drug Dosing 60.89 mL/min Estimated GFR (MDRD) > 60 (>60) mL/min BUN/Creatinine Ratio 21.4 H (14-18) Glucose 83 (83-115) mg/dL Calcium 8.0 L (8.5-10.1) mg/dL Magnesium 1.9 (1.8-2.4) mg/dl C-Reactive Protein 14.8 H* (<1.0) mg/dL MACK Results - Last 24 hrs: Microbiology 06/03/20 10:25 Aerobic Blood Culture - Preliminary Blood - Venous - Lab Draw NO GROWTH AFTER 2 DAYS Anaerobic Blood Culture - Final 06/03/20 10:09 Aerobic Blood Culture - Preliminary Blood - Venous NO GROWTH AFTER 2 DAYS Anaerobic Blood Culture - Final Med Orders - Current: Current Medications Acetaminophen (Tylenol) 650 mg PO Q4H PRN PRN Reason: Pain (Mild 1-3)/fever Hydrocodone Bitart/Acetaminophen ([place] 325-5 Mg) 1 tab PO Q4H PRN PRN Reason: Pain (moderate 4-6) Last Admin: 06/05/20 09:29 Dose: 1 tab Documented by: Albuterol/Ipratropium (Duoneb 3.0-0.5 Mg/3 Ml) 3 ml NEB Q4H PRN PRN Reason: Shortness Of Breath/wheezing Aspirin (Ecotrin) 325 mg PO BID [facility] Last Admin: 06/05/20 09:39 Dose: Not Given Documented by: Calcium Carbonate/Glycine (Tums) 500 mg PO DAILY [facility] Last Admin: 06/05/20 09:39 Dose: Not Given Documented by: Cholecalciferol (Vitamin D3) 5,000 unit PO DAILY [facility] Last Admin: 06/05/20 09:40 Dose: Not Given Documented by: Diphenhydramine HCl (Benadryl) 50 mg PO BEDTIME PRN PRN Reason: Insomnia Gabapentin (Neurontin) 300 mg PO BIDAC [facility] Last Admin: 06/05/20 05:42 Dose: 300 mg Documented by: Gabapentin (Neurontin) 600 mg PO BIDAC [facility] Last Admin: 06/05/20 05:42 Dose: 600 mg Documented by: Hydromorphone HCl (Dilaudid) 0.25 mg IVPUSH Q2H PRN PRN Reason: Pain (severe 7-10) Last Admin: 06/04/20 16:04 Dose: 0.25 mg Documented by: Promethazine HCl 6.25 mg/ (Sodium Chloride) 50.25 mls @ 100 mls/hr IV Q6H PRN PRN Reason: Nausea/Vomiting Methotrexate 2.5 Mg (Tab Ptom) 0 mg PO [facility] Levothyroxine 50 Mcg (Ptom) 0 mcg PO ACBREAKFAST [facility] Last Admin: 06/05/20 05:54 Dose: 50 mcg Documented by: Hydroxychloroquine (200 Mg Ptom) 0 mg PO DAILY [facility] Last Admin: 06/05/20 09:32 Dose: 200 mg Documented by: Folic Acid 1 Mg (Ptom) 0 mg PO DAILY [facility] Last Admin: 06/05/20 09:31 Dose: 1 mg Documented by: Rosuvastatin 10 Mg * (*Ptom) 0 mg PO DAILY [facility] Last Admin: 06/05/20 09:33 Dose: 10 mg Documented by: Zolpidem Tartrate 5 (Mg Ptom) 0 mg PO BEDTIME PRN PRN Reason: Sleep Meloxicam 15 Mg (Ptom) 0 mg PO DAILY [facility] Ondansetron HCl (Zofran) 4 mg IV Q6H PRN PRN Reason: Nausea/Vomiting Pantoprazole Sodium (Protonix) 40 mg PO DAILY PRN PRN Reason: Heartburn Polyethylene Glycol (Miralax) 17 gm PO DAILY PRN PRN Reason: Constipation Last Admin: 06/03/20 20:21 Dose: 17 gm Documented by: Prednisone (Prednisone) 0 mg PO DAILY [facility] Last Admin: 06/05/20 09:32 Dose: 5 mg Documented by: Senna/Docusate Sodium (Senna Plus) 1 tab PO BID PRN PRN Reason: Constipation Discontinued Medications Aspirin (Ecotrin) 325 mg PO NOW ONE Stop: 06/03/20 21:31 Last Admin: 06/03/20 22:32 Dose: 325 mg Documented by: Diphenhydramine HCl (Benadryl) 50 mg PO BEDTIME PRN PRN Reason: Insomnia [facility] Last Admin: 06/04/20 05:56 Dose: 900 mg Documented by: Gabapentin (Neurontin) 900 mg PO NOW ONE Stop: 06/03/20 22:31 Last Admin: 06/03/20 22:31 Dose: 900 mg Documented by: Hydromorphone HCl (Dilaudid) 0.25 mg IVPUSH ONETIME ONE Stop: 06/03/20 10:02 Last Admin: 06/03/20 10:19 Dose: 0.25 mg Documented by: Dextrose/Sodium Chloride (Dextrose 5%-Normal Saline) 1,000 mls @ 150 mls/hr IV ASDIRECTED [facility] Last Admin: 06/03/20 09:48 Dose: 150 mls/hr Documented by: Potassium Chloride 10 meq/ (Premix) 100 mls @ 100 mls/hr IV Q1H [facility] Stop: 06/03/20 11:29 Last Admin: 06/03/20 10:54 Dose: 100 mls/hr Documented by: Dextrose/Sodium Chloride (Dextrose 5%-Normal Saline) 1,000 mls @ 250 mls/hr IV ASDIRECTED [facility] Last Admin: 06/03/20 10:55 Dose: 250 mls/hr Documented by: Sodium Chloride (Normal Saline) 1,000 mls @ 50 mls/hr IV ASDIRECTED [facility] Stop: 06/04/20 10:29 Last Admin: 06/03/20 16:02 Dose: 50 mls/hr Documented by: Magnesium Sulfate (Magnesium Sulfate In Water 2 Gm/50 Ml) 2 gm in 50 mls @ 25 mls/hr IV ONETIME ONE Stop: 06/03/20 16:34 Last Admin: 06/03/20 15:59 Dose: 25 mls/hr Documented by: Potassium Chloride 10 meq/ (Premix) 100 mls @ 100 mls/hr IV ASDIRECTED [facility] Stop: 06/08/20 15:59 Potassium Chloride 10 meq/ (Premix) 100 mls @ 100 mls/hr IV Q1H [facility] Stop: 06/04/20 14:29 Last Admin: 06/04/20 17:18 Dose: 100 mls/hr Documented by: Sodium Chloride (Normal Saline) 1,000 mls @ 75 mls/hr IV ASDIRECTED [facility] Stop: 06/04/20 22:19 Magnesium Hydroxide (Milk Of Magnesia) 30 ml PO ONETIME ONE Stop: 06/03/20 21:04 Last Admin: 06/03/20 23:28 Dose: Not Given Documented by: Metoclopramide HCl (Reglan) 7.5 mg IVPUSH ONETIME ONE Stop: 06/03/20 09:44 Last Admin: 06/03/20 09:48 Dose: 7.5 mg Documented by: Non-Formulary Medication (Meloxicam) 15 mg PO DAILY [facility] Non-Formulary Medication (Denosumab [Prolia]) 60 mg SQ ASDIRECTED [facility] Non-Formulary Medication (Cyanocobalamin (Vitamin B-12) [Cyanocobalamin Injection]) 1 dose IM ASDIRECTED [facility] C-Naltrexone 6 Mg (Ptom) 0 mg PO DAILY [facility] (Acetaminophen/Hydrocodone [[place] 325-5 Mg] 1 Tab) 1 tab PO Q6H PRN PRN Reason: Pain Last Admin: 06/03/20 23:28 Dose: 1 tab Documented by: Potassium Chloride (Klor-Con M20) 60 meq PO ONETIME ONE Stop: 06/04/20 13:05 Last Admin: 06/04/20 18:28 Dose: Not Given Documented by: - Exam Quality Assessment: Denies: Supplemental Oxygen General: Reports: Alert, Oriented, Cooperative, No Acute Distress HEENT: Reports: Pupils Equal, Pupils Reactive, EOMI, Mucous Membr. Moist/[place]: Reports: Supple Lungs: Reports: Normal Respiratory Effort, Decreased Breath Sounds Cardiovascular: Reports: Regular Rate, Regular Rhythm GI/Abdominal Exam: Normal Bowel Sounds, Soft, Non-Tender, No Organomegaly, No Distention, No Abnormal Bruit, No Mass (Female) Exam: No: Deferred Rectal (Female) Exam: No: Deferred Back Exam: Reports: Normal Inspection, Decreased Range of Motion Extremities: Normal Inspection, Normal Range of Motion, Non-Tender, No Pedal Edema, Normal Capillary Refill, Limited Range of Motion (right lower leg) Skin: Reports: Warm, Dry, Intact Wound/Incisions: Reports: Healing Well, Dressing Dry and Intact, No Drainage Neurological: Reports: No New Focal Deficit. Denies: Normal Gait Psy/Mental Status: Reports: Alert, Normal Affect, Normal Mood
[2020-06-05] MEDS ORDERED: FLU Vacc QV2020-21(65YR UP)/PF 240 MCG/0.7 ML Syringe IM ONE (13:30)
[2020-06-05 14:01] VITALS: BP 122/75; PULSE 74
[2020-06-05] MEDS ORDERED: diphenhydrAMINE 50 MG Cap PO PRN (14:23)
[2020-06-06] MEDS ORDERED: MELOXICAM 15 MG PO SCH (09:00)
[2020-06-08] MEDS ORDERED: METHOTREXATE 2.5 MG PO SCH (09:00)
== END 2020-06-05 13:49 | disposition home or self-care (01) ==
LOC: JD.ED 09:15 → JD.MS 12:42
PROVIDERS: ADMIT Internal Medicine; ATTEND Internal Medicine
DX: G92 Toxic encephalopathy (principal); E86.9 Volume depletion, unspecified; I11.0 Hypertensive heart disease with heart failure; E78.5 Hyperlipidemia, unspecified; I50.9 Heart failure, unspecified; G62.9 Polyneuropathy, unspecified; G89.29 Other chronic pain; E78.00 Pure hypercholesterolemia, unspecified; N17.9 Acute kidney failure, unspecified; E53.8 Deficiency of other specified B group vitamins; Z20.822 Contact with and (suspected) exposure to COVID-19; D72.829 Elevated white blood cell count, unspecified; R82.4 Acetonuria; E87.6 Hypokalemia; M06.9 Rheumatoid arthritis, unspecified; Z79.899 Other long term (current) drug therapy; Z98.890 Other specified postprocedural states; Z96.651 Presence of right artificial knee joint
CPT/HCPCS: 0240U; 36415; 71045; 80048; 80053; 81001; 82009; 82306; 83605; 83735; 83880; 84439; 84443; 84484; 85025; 85652; 86140; 87040; 90662; 93005; 96361; 96365; 96366; 96375; 96376; 97110; 97116; 97161; 97165; 97535; 99285; A9270; G0008; G0378; J1170; J2765; J3475; J3480; J7030; J7042; J7512; 93010; 96374; 99217; 99219; 99225

== ENCOUNTER 2022-04-17 14:36 | Emergency (ER) | payer MEDICARE, BC ==
[2022-04-17 15:03] VITALS: BP 122/82; PULSE 99
[2022-04-17] MEDS ORDERED: Sodium Chloride 0.9% 10 ML Syringe FLUSH PRN (15:13)
[2022-04-17 16:21] LABS: CORONAVIRUS COVID-19 NAA POSITIVE (NEGATIVE)
[2022-04-17] MEDS ORDERED: cefTRIAXone 2 GM in Sodium Chloride 0.9% 100 ML IV ONE (17:31)
[2022-04-17 17:48] LABS: ESTIMATED GFR 76 mL/min (>60)
== END 2022-04-17 19:26 | disposition home or self-care (01) ==
LOC: JD.ED 14:36
DX: U07.1 COVID-19 (principal); N39.0 Urinary tract infection, site not specified; E78.00 Pure hypercholesterolemia, unspecified; I11.0 Hypertensive heart disease with heart failure; I50.9 Heart failure, unspecified; E03.9 Hypothyroidism, unspecified; Z86.16 Personal history of COVID-19; Z79.899 Other long term (current) drug therapy
CPT/HCPCS: 0241U; 36415; 51701; 70450; 70450-26; 80053; 81001; 83605; 83735; 85025; 86140; 87040; 87086; 96365; 99284-25; J0696; J3490

== ENCOUNTER 2022-04-17 23:35 | Emergency (ER) | payer MEDICARE, BC ==
[2022-04-17 23:56] VITALS: BP 127/106; PULSE 82
[2022-04-18] MEDS ORDERED: Furosemide 40 MG/4 ML VIAL IVPUSH ONE (04:18)
[2022-04-18] MEDS ORDERED: Sodium Chloride 0.9% 1,000 ML IV ONE (04:55)
[2022-04-18] MEDS ORDERED: Ondansetron 4 MG/2 ML SDV IVPUSH ONE (04:55)
[2022-04-18] MEDS ORDERED: Loperamide 2 MG Cap PO STA (04:55)
== END 2022-04-18 07:24 | disposition home or self-care (01) ==
LOC: JD.ED 23:35
DX: U07.1 COVID-19 (principal); J10.1 Influenza due to other identified influenza virus with other respiratory manifestations; K52.9 Noninfective gastroenteritis and colitis, unspecified; E78.00 Pure hypercholesterolemia, unspecified; I10 Essential (primary) hypertension; E03.9 Hypothyroidism, unspecified; Z79.899 Other long term (current) drug therapy; Z86.16 Personal history of COVID-19
CPT/HCPCS: 96361; 96374; 99283; A9270; J2405; J7030

== ENCOUNTER 2024-01-01 14:44 | Inpatient (IN) | payer MEDICARE, BC ==
[2024-01-01] MEDS: Sodium Chloride 0.9% 10 ML Syringe FLUSH PRN (15:15)
[2024-01-01] MEDS: Lactated Ringers 1,000 ML IV SCH ×2 (15:52→17:45)
[2024-01-01 15:56] LABS: ALBUMIN 3.3 g/dl (3.4-5.0); BILIRUBIN TOTAL 0.8 mg/dL (0.2-1.0); BUN/CREATININE RATIO 17.3 (14-18); C-REACTIVE PROTEIN 8.92 mg/dL (<0.30); CALCIUM 8.9 mg/dL (8.5-10.1); CREATININE 1.1 mg/dL (0.55-1.02); EST CRCL DRUG DOSING (CG) 30.28 mL/min; MAGNESIUM 1.3 mg/dL (1.8-2.4); PROTEIN TOTAL,TP 6.6 g/dl (6.4-8.2)
[2024-01-01 15:59] LABS: LACTIC ACID 2.1 mmol/L (0.4-2.0)
[2024-01-01 16:12] LABS: APPEARANCE,URINE CLOUDY (Clear); BILIRUBIN,URINE NEGATIVE (Negative); COLOR,URINE YELLOW (Yellow); GLUCOSE,URINE NEGATIVE (Negative); KETONES,URINE NEGATIVE (Negative); LEUKOCYTE ESTERASE,URINE 2+ (Negative); NITRITE,URINE POSITIVE (Negative); OCCULT BLOOD,URINE 2+ (Negative); PH,URINE 5.5 (5.0-8.0); PROTEIN,URINE NEGATIVE (Negative); UROBILINOGEN,URINE 0.2 (0.2-1.0)
[2024-01-01] MEDS: cefTRIAXone 2 GM in Sodium Chloride 0.9% 100 ML IV ONE (16:18)
[2024-01-01] MEDS: Magnesium Sulfate/Water 2 GM in Premix Bag 1 BAG IV ONE (16:21)
[2024-01-01] MEDS: Potassium Chloride 10 MEQ in Premix Bag 1 BAG IV SCH (16:25)
[2024-01-01 16:32] LABS: RBC,URINE 0-5 /hpf (0-5); WBC CLUMPS,URINE FEW /hpf (NOT SEEN); WBC,URINE >100 /hpf (0-5)
[2024-01-01 16:33] LABS: BACTERIA,URINE MANY /hpf (FEW); MUCUS,URINE RARE /hpf (FEW); SQUAMOUS EPITHELIAL CELLS,UR 0-5 /hpf (0-5)
[2024-01-01] MEDS: Sodium Chloride 0.9% 500 ML IV SCH (16:58)
[2024-01-01 17:09] LABS: BASOPHILS ABSOLUTE AUTO 0.1 K/mm3 (0.0-0.2); BASOPHILS PERCENT AUTO 0.3 % (0.0-1.0); EOSINOPHILS ABSOLUTE AUTO 0.1 K/mm3 (0.0-0.4); EOSINOPHILS PERCENT AUTO 0.4 % (0.0-6.0); HEMATOCRIT 39.8 % (37.0-47.0); IMMATURE GRAN ABSOLUTE AUTO 0.11 K/mm3 (0.00-0.05); IMMATURE GRAN PERCENT AUTO 0.7 % (0.0-0.4); LYMPHOCYTES ABSOLUTE AUTO 2.8 K/mm3 (1.0-4.8); LYMPHOCYTES PERCENT AUTO 17.2 % (24.0-44.0); MEAN CORPUSCULAR HEMOGLOBIN 31.2 pg (28.0-32.0); MEAN CORPUSCULAR HGB CONC 32.7 g/dl (32.0-36.0); MEAN CORPUSCULAR VOLUME 95.4 fl (83.0-99.0); MEAN PLATELET VOLUME 10.1 fl (9.4-12.3); MONOCYTES ABSOLUTE AUTO 1.5 K/mm3 (0.0-0.8); MONOCYTES PERCENT AUTO 9.5 % (0.0-8.0); NEUTROPHILS ABSOLUTE AUTO 11.7 K/mm3 (1.8-7.7); NEUTROPHILS PERCENT AUTO 71.9 % (41.0-71.0); PLATELET COUNT,PLT 127 K/mm3 (150-400); RED BLOOD CELL COUNT 4.17 M/mm3 (4.10-5.30); WHITE BLOOD CELL COUNT,WBC 16.24 K/mm3 (3.9-11.3)
[2024-01-01] MEDS ORDERED: Sennosides/Docusate Sodium 50-8.6 MG Tab PO PRN (19:23)
[2024-01-01] MEDS ORDERED: Morphine 2 MG/ML SYRINGE IVPUSH PRN (19:23)
[2024-01-01] MEDS ORDERED: Naloxone 0.4 MG/ML SDV IVPUSH PRN (19:23)
[2024-01-01] MEDS: Acetaminophen/HYDROcodone 325-5 MG Tab PO PRN (20:37)
[2024-01-01] MEDS: Ondansetron 4 MG/2 ML SDV IV PRN (20:37)
[2024-01-01] MEDS: Lactated Ringers 500 ML IV ONE (22:37)
[2024-01-02 05:59] LABS: BASOPHILS PERCENT AUTO 0.3 % (0.0-1.0); EOSINOPHILS ABSOLUTE AUTO 0.1 K/mm3 (0.0-0.4); EOSINOPHILS PERCENT AUTO 1.6 % (0.0-6.0); HEMATOCRIT 35.8 % (37.0-47.0); HEMOGLOBIN 11.6 gm/dl (12.0-16.0); IMMATURE GRAN ABSOLUTE AUTO 0.06 K/mm3 (0.00-0.05); IMMATURE GRAN PERCENT AUTO 0.7 % (0.0-0.4); LYMPHOCYTES ABSOLUTE AUTO 1.2 K/mm3 (1.0-4.8); MEAN CORPUSCULAR HEMOGLOBIN 31.3 pg (28.0-32.0); MEAN CORPUSCULAR HGB CONC 32.4 g/dl (32.0-36.0); MEAN CORPUSCULAR VOLUME 96.5 fl (83.0-99.0); MEAN PLATELET VOLUME 10.9 fl (9.4-12.3); MONOCYTES PERCENT AUTO 10.6 % (0.0-8.0); NEUTROPHILS ABSOLUTE AUTO 6.6 K/mm3 (1.8-7.7); NEUTROPHILS PERCENT AUTO 73.8 % (41.0-71.0); PLATELET COUNT,PLT 104 K/mm3 (150-400); RED BLOOD CELL COUNT 3.71 M/mm3 (4.10-5.30); WHITE BLOOD CELL COUNT,WBC 8.97 K/mm3 (3.9-11.3)
[2024-01-02 06:09] LABS: ALBUMIN 2.7 g/dl (3.4-5.0); ANION GAP 17.1 (5-15); BILIRUBIN TOTAL 0.6 mg/dL (0.2-1.0); BUN/CREATININE RATIO 18.3 (14-18); C-REACTIVE PROTEIN 22.9 mg/dL (<0.30); CALCIUM 8.7 mg/dL (8.5-10.1); CREATININE 1.2 mg/dL (0.55-1.02); EST CRCL DRUG DOSING (CG) 32.34 mL/min; PHOSPHORUS 4.9 mg/dL (2.6-4.7); POTASSIUM,K 3.1 mEq/L (3.5-5.1); PROTEIN TOTAL,TP 5.4 g/dl (6.4-8.2)
[2024-01-02] MEDS: Levothyroxine 75 MCG Tab PO SCH (06:46)
[2024-01-02] MEDS: predniSONE 5 MG Tab PO SCH (06:46)
[2024-01-02] MEDS ORDERED: Heparin Sodium/D5W 25,000 UNITS/500 ML BAG IV SCH (07:45)
[2024-01-02] MEDS ORDERED: Metoprolol Tartrate 5 MG in Sodium Chloride 0.9% 50 ML IV ONE (07:49)
[2024-01-02] MEDS ORDERED: Potassium Chloride 10 MEQ in Premix Bag 1 BAG IV SCH (08:00)
[2024-01-02] MEDS: Metoprolol Tartrate 5 MG/5 ML SDV IVPUSH ONE (08:06)
[2024-01-02] MEDS: Potassium Chloride 10 MEQ in Premix Bag 1 BAG IV SCH ×2 (08:10→11:27)
[2024-01-02] MEDS: Potassium Chloride 20 MEQ Tab.ER PO ONE (08:17)
[2024-01-02] MEDS: Enoxaparin 40 MG/0.4 ML Syringe SUBCUT SCH (08:17)
[2024-01-02] MEDS: Rosuvastatin 10 MG Tab PO SCH (08:17)
[2024-01-02] MEDS: Folic Acid 1 MG Tab PO SCH (08:18)
[2024-01-02] MEDS: Lactated Ringers 500 ML IV ONE ×2 (08:18→10:21)
[2024-01-02] MEDS: Metoprolol Tartrate 25 MG Tab PO SCH (08:23)
[2024-01-02] MEDS: Acetaminophen 325 MG Tab PO PRN (08:26)
[2024-01-02] MEDS ORDERED: Metoprolol Tartrate 5 MG/5 ML SDV IVPUSH PRN (08:30)
[2024-01-02 08:59] LABS: TSH 0.225 uIU/mL (0.358-3.74)
[2024-01-02] MEDS ORDERED: Potassium Chloride 20 MEQ Tab.ER PO SCH (09:00)
[2024-01-02] MEDS ORDERED: cefTRIAXone 1 GM in Sodium Chloride 0.9% 100 ML IV SCH (10:00)
[2024-01-02] MEDS: Sodium Chloride 0.9% 500 ML IV ONE (10:20)
[2024-01-02] MEDS: D5 1/2 NS w/ 20 mEq/L KCl 1,000 ML IV SCH (10:23)
[2024-01-02] MEDS: cefTRIAXone 2 GM in Sodium Chloride 0.9% 100 ML IV SCH (10:32)
[2024-01-02] MEDS: Potassium Bicarbonate/Cit Ac 20 MEQ Effervescent Tab PO ONE ×2 (10:34→21:27)
[2024-01-02] MEDS: Apixaban 5 MG Tab PO SCH (10:34)
[2024-01-02 10:44] LABS: LACTIC ACID 1.3 mmol/L (0.4-2.0)
[2024-01-02 11:27] LABS: T4 FREE 1.52 ng/dL (0.76-1.46)
[2024-01-02] MEDS ORDERED: Loperamide 2 MG Cap PO PRN (11:42)
[2024-01-02] MEDS: Loperamide 2 MG Cap PO ONE (12:12)
[2024-01-02] MEDS: Apixaban 5 MG Tab PO ONE (17:49)
[2024-01-02] MEDS: Heparin Sodium 5,000 Units/ML Vial IVPUSH ONE (17:49)
[2024-01-03 05:59] LABS: BASOPHILS PERCENT AUTO 0.3 % (0.0-1.0); EOSINOPHILS ABSOLUTE AUTO 0.2 K/mm3 (0.0-0.4); EOSINOPHILS PERCENT AUTO 3.5 % (0.0-6.0); HEMATOCRIT 28.3 % (37.0-47.0); IMMATURE GRAN ABSOLUTE AUTO 0.03 K/mm3 (0.00-0.05); IMMATURE GRAN PERCENT AUTO 0.5 % (0.0-0.4); LYMPHOCYTES ABSOLUTE AUTO 0.6 K/mm3 (1.0-4.8); LYMPHOCYTES PERCENT AUTO 9.3 % (24.0-44.0); MEAN CORPUSCULAR HEMOGLOBIN 30.9 pg (28.0-32.0); MEAN CORPUSCULAR HGB CONC 31.8 g/dl (32.0-36.0); MEAN CORPUSCULAR VOLUME 97.3 fl (83.0-99.0); MEAN PLATELET VOLUME 10.5 fl (9.4-12.3); MONOCYTES ABSOLUTE AUTO 0.6 K/mm3 (0.0-0.8); MONOCYTES PERCENT AUTO 8.4 % (0.0-8.0); NEUTROPHILS ABSOLUTE AUTO 5.2 K/mm3 (1.8-7.7); PLATELET COUNT,PLT 100 K/mm3 (150-400); RED BLOOD CELL COUNT 2.91 M/mm3 (4.10-5.30); WHITE BLOOD CELL COUNT,WBC 6.65 K/mm3 (3.9-11.3)
[2024-01-03 06:28] LABS: ANION GAP 12.8 (5-15); C-REACTIVE PROTEIN 22.35 mg/dL (<0.30); CALCIUM 7.9 mg/dL (8.5-10.1); CREATININE 0.9 mg/dL (0.55-1.02); EST CRCL DRUG DOSING (CG) 43.14 mL/min; MAGNESIUM 1.6 mg/dL (1.8-2.4); POTASSIUM,K 3.8 mEq/L (3.5-5.1)
[2024-01-03] MEDS: Levothyroxine 50 MCG Tab PO SCH (06:51)
[2024-01-03] MEDS: Magnesium Sulfate/Water 4 GM in Premix Bag 1 BAG IV ONE (10:49)
[2024-01-03] MEDS: Sodium Chloride 0.9% 500 ML IV SCH (15:00)
[2024-01-03] MEDS: Ondansetron 4 MG/2 ML SDV IVPUSH ONE (17:13)
[2024-01-03] MEDS: Melatonin 3 MG Tab PO PRN (20:30)
[2024-01-04 05:40] LABS: HEMATOCRIT 26.7 % (37.0-47.0); HEMOGLOBIN 8.5 gm/dl (12.0-16.0); MEAN CORPUSCULAR HEMOGLOBIN 30.8 pg (28.0-32.0); MEAN CORPUSCULAR HGB CONC 31.8 g/dl (32.0-36.0); MEAN CORPUSCULAR VOLUME 96.7 fl (83.0-99.0); PLATELET COUNT,PLT 98 K/mm3 (150-400); RED BLOOD CELL COUNT 2.76 M/mm3 (4.10-5.30); WHITE BLOOD CELL COUNT,WBC 4.69 K/mm3 (3.9-11.3)
[2024-01-04 05:58] LABS: ANION GAP 12.4 (5-15); BUN/CREATININE RATIO 13.3 (14-18); CALCIUM 7.7 mg/dL (8.5-10.1); CREATININE 0.9 mg/dL (0.55-1.02); EST CRCL DRUG DOSING (CG) 44.49 mL/min; MAGNESIUM 1.9 mg/dL (1.8-2.4); PHOSPHORUS 4.2 mg/dL (2.6-4.7); POTASSIUM,K 3.4 mEq/L (3.5-5.1)
[2024-01-04] MEDS: Potassium Chloride 20 MEQ Tab.ER PO ONE (11:01)
[2024-01-04] MEDS: Pantoprazole 40 MG Tab.CR PO PRN (11:02)
[2024-01-04] MEDS: Magnesium Sulfate/Water 2 GM in Premix Bag 1 BAG IV ONE (11:54)
[2024-01-04] MEDS: Pantoprazole 40 MG Vial IVPUSH SCH (13:31)
[2024-01-05 07:44] LABS: HEMATOCRIT 32.7 % (37.0-47.0); MEAN CORPUSCULAR HEMOGLOBIN 31.3 pg (28.0-32.0); MEAN CORPUSCULAR HGB CONC 32.4 g/dl (32.0-36.0); MEAN CORPUSCULAR VOLUME 96.5 fl (83.0-99.0); MEAN PLATELET VOLUME 10.1 fl (9.4-12.3); PLATELET COUNT,PLT 134 K/mm3 (150-400); RED BLOOD CELL COUNT 3.39 M/mm3 (4.10-5.30); WHITE BLOOD CELL COUNT,WBC 7.16 K/mm3 (3.9-11.3)
[2024-01-05 07:52] LABS: HEMOGLOBIN 10.6 gm/dl (12.0-16.0)
[2024-01-05 08:23] LABS: ANION GAP 14.6 (5-15); BUN/CREATININE RATIO 12.5 (14-18); CALCIUM 8.5 mg/dL (8.5-10.1); CREATININE 0.8 mg/dL (0.55-1.02); EST CRCL DRUG DOSING (CG) 50.05 mL/min; MAGNESIUM 1.9 mg/dL (1.8-2.4); POTASSIUM,K 3.6 mEq/L (3.5-5.1)
[2024-01-05] MEDS: Potassium Bicarbonate/Cit Ac 20 MEQ Effervescent Tab PO ONE (10:24)
[2024-01-05] MEDS: Potassium Chloride 20 MEQ Tab.ER PO ONE (10:50)
[2024-01-05] MEDS: Pantoprazole 40 MG Tab.CR PO SCH (21:39)
[2024-01-06 13:10] VITALS: BP 133/75; PULSE 70
== END 2024-01-06 13:35 | disposition home health service (06) | DRG 872 ==
LOC: JD.ED 14:44 → JD.MS 19:23
PROVIDERS: ADMIT Student in an Organized Health Care Education/Training Program; ATTEND Student in an Organized Health Care Education/Training Program
DX: A41.9 Sepsis, unspecified organism (principal); A41.51 Sepsis due to Escherichia coli [E. coli]; D84.9 Immunodeficiency, unspecified; N30.01 Acute cystitis with hematuria; E87.20 Acidosis, unspecified; D62 Acute posthemorrhagic anemia; R65.20 Severe sepsis without septic shock; C44.91 Basal cell carcinoma of skin, unspecified; H54.7 Unspecified visual loss; E03.9 Hypothyroidism, unspecified; I10 Essential (primary) hypertension; E78.00 Pure hypercholesterolemia, unspecified; G62.9 Polyneuropathy, unspecified; I48.0 Paroxysmal atrial fibrillation; M81.0 Age-related osteoporosis without current pathological fracture; E88.09 Other disorders of plasma-protein metabolism, not elsewhere classified; M05.79 Rheumatoid arthritis with rheumatoid factor of multiple sites without organ or systems involvement; E83.42 Hypomagnesemia; E87.6 Hypokalemia; R19.7 Diarrhea, unspecified; R79.82 Elevated C-reactive protein (CRP); Z79.52 Long term (current) use of systemic steroids; Z86.16 Personal history of COVID-19; Z90.49 Acquired absence of other specified parts of digestive tract; Z98.49 Cataract extraction status, unspecified eye; Z79.890 Hormone replacement therapy; Z79.899 Other long term (current) drug therapy; Z87.442 Personal history of urinary calculi; Z86.010 Personal history of colon polyps
CPT/HCPCS: 36415; 71045; 74176; 80053; 81001; 83605 ×2; 83690; 83735; 83880; 84484 ×2; 85025; 86140; 86850; 86900; 86901; 87040 ×2; 87086; 87088; 87186; 93005; 96365; 96366; 96367; 96368; 99285; J0696; J3475; J3480 ×2; J3490 ×2; J7030; J7120 ×2; U0002; 71250; 71250-26; 80048; 84100; 84439; 84443; 85027; 85730; 87045; 87046; 87493; 87899; 93010; 93306; 94760; 94761; 97110-GP; 97161-GP; 97530-GP; A9270-GY; J1650; J2405; J2470; J7512

== ENCOUNTER 2024-09-22 08:20 | Inpatient (IN) | payer MEDICARE, BC ==
[2024-09-22] MEDS ORDERED: Sodium Chloride 0.9% 10 ML Syringe FLUSH PRN (08:46)
[2024-09-22] MEDS: Sodium Chloride 0.9% 1,000 ML IV SCH (08:51)
[2024-09-22 09:58] LABS: BASOPHILS PERCENT AUTO 0.3 % (0.0-1.0); EOSINOPHILS ABSOLUTE AUTO 0.1 K/mm3 (0.0-0.4); EOSINOPHILS PERCENT AUTO 0.5 % (0.0-6.0); HEMATOCRIT 38.9 % (37.0-47.0); IMMATURE GRAN ABSOLUTE AUTO 0.17 K/mm3 (0.00-0.05); IMMATURE GRAN PERCENT AUTO 1.1 % (0.0-0.4); LYMPHOCYTES ABSOLUTE AUTO 1.7 K/mm3 (1.0-4.8); LYMPHOCYTES PERCENT AUTO 11.7 % (24.0-44.0); MEAN CORPUSCULAR HEMOGLOBIN 31.3 pg (28.0-32.0); MEAN CORPUSCULAR HGB CONC 32.1 g/dl (32.0-36.0); MEAN CORPUSCULAR VOLUME 97.5 fl (83.0-99.0); MEAN PLATELET VOLUME 11.1 fl (9.4-12.3); MONOCYTES ABSOLUTE AUTO 1.7 K/mm3 (0.0-0.8); MONOCYTES PERCENT AUTO 11.4 % (0.0-8.0); NEUTROPHILS ABSOLUTE AUTO 11.1 K/mm3 (1.8-7.7); PLATELET COUNT,PLT 177 K/mm3 (150-400); RED BLOOD CELL COUNT 3.99 M/mm3 (4.10-5.30); WHITE BLOOD CELL COUNT,WBC 14.85 K/mm3 (3.9-11.3)
[2024-09-22 09:59] LABS: HEMOGLOBIN 12.5 gm/dl (12.0-16.0)
[2024-09-22 10:16] LABS: SLIDE REVIEW ABNORMAL SMEAR
[2024-09-22] MEDS: HYDROmorphone 0.5 MG/0.5 ML Syringe IVPUSH ONE (10:17)
[2024-09-22 10:21] LABS: A/G RATIO 0.7 (1-2); ALBUMIN 2.7 g/dl (3.4-5.0); ANION GAP 27.5 (5-15); BILIRUBIN TOTAL 0.7 mg/dL (0.2-1.0); BUN/CREATININE RATIO 14.6 (14-18); CALCIUM 9.2 mg/dL (8.5-10.1); CREATININE 1.3 mg/dL (0.55-1.02); EST CRCL DRUG DOSING (CG) 27.84 mL/min; POTASSIUM,K 3.5 mEq/L (3.5-5.1); PROTEIN TOTAL,TP 6.5 g/dl (6.4-8.2)
[2024-09-22] MEDS ORDERED: Sodium Chloride 0.9% 1,000 ML IV SCH (11:30)
[2024-09-22 15:15] LABS: APPEARANCE,URINE CLEAR (Clear); BILIRUBIN,URINE 1+ (Negative); COLOR,URINE YELLOW (Yellow); GLUCOSE,URINE NEGATIVE (Negative); KETONES,URINE 4+ (Negative); LEUKOCYTE ESTERASE,URINE TRACE (Negative); NITRITE,URINE NEGATIVE (Negative); OCCULT BLOOD,URINE 2+ (Negative); PROTEIN,URINE 2+ (Negative); UROBILINOGEN,URINE 0.2 (0.2-1.0)
[2024-09-22] MEDS ORDERED: Naloxone 0.4 MG/ML SDV IVPUSH PRN (15:18)
[2024-09-22] MEDS ORDERED: Acetaminophen 325 MG Tab PO PRN (15:33)
[2024-09-22] MEDS ORDERED: Cyclobenzaprine 10 MG Tab PO PRN (15:36)
[2024-09-22] MEDS: HYDROmorphone 0.5 MG/0.5 ML Syringe IVPUSH PRN (15:49)
[2024-09-22 15:55] LABS: BACTERIA,URINE FEW /hpf (FEW); EPITHELIAL CELLS,URINE 0-5 /hpf (0-5); MUCUS,URINE FEW /hpf (FEW); RBC,URINE 0-5 /hpf (0-5)
[2024-09-22] MEDS: Iopamidol 612 MG/ML 100 ML Bottle IVPUSH ONE (17:21)
[2024-09-22 17:27] LABS: LACTIC ACID 0.9 mmol/L (0.4-2.0)
[2024-09-22] MEDS: Sennosides/Docusate Sodium 50-8.6 MG Tab PO SCH (17:41)
[2024-09-22] MEDS: Acetaminophen 325 MG Tab PO SCH (17:42)
[2024-09-22] MEDS: cefTRIAXone 1 GM Vial IVPUSH SCH (17:42)
[2024-09-22] MEDS: Pantoprazole 40 MG Vial IVPUSH ONE (17:46)
[2024-09-22] MEDS: Lactated Ringers 1,000 ML IV SCH (17:46)
[2024-09-22] MEDS: metroNIDAZOLE/Normal Saline 500 MG in Premix Bag 1 BAG IV SCH (17:50)
[2024-09-22] MEDS: oxyCODONE 5 MG Tab PO PRN (17:53)
[2024-09-22] MEDS: Sodium Chloride 0.9% 10 ML Syringe FLUSH ONE (17:54)
[2024-09-22 18:48] LABS: INR 1.13; PROTHROMBIN TIME 11.9 SECONDS (9.7-12.0)
[2024-09-22 18:49] LABS: PTT,PARTIAL THROMBOPLSTIN TIME 27.8 SECONDS (21.7-31.4)
[2024-09-22] MEDS: Metoprolol Tartrate 25 MG Tab PO SCH (21:44)
[2024-09-22] MEDS: Ondansetron 4 MG/2 ML SDV IV PRN (21:56)
[2024-09-23 04:40] LABS: BASOPHILS PERCENT AUTO 0.3 % (0.0-1.0); EOSINOPHILS ABSOLUTE AUTO 0.1 K/mm3 (0.0-0.4); EOSINOPHILS PERCENT AUTO 0.9 % (0.0-6.0); HEMATOCRIT 30.5 % (37.0-47.0); HEMOGLOBIN 9.5 gm/dl (12.0-16.0); IMMATURE GRAN ABSOLUTE AUTO 0.12 K/mm3 (0.00-0.05); IMMATURE GRAN PERCENT AUTO 0.9 % (0.0-0.4); LYMPHOCYTES ABSOLUTE AUTO 0.9 K/mm3 (1.0-4.8); LYMPHOCYTES PERCENT AUTO 7.1 % (24.0-44.0); MEAN CORPUSCULAR HEMOGLOBIN 30.6 pg (28.0-32.0); MEAN CORPUSCULAR HGB CONC 31.1 g/dl (32.0-36.0); MEAN CORPUSCULAR VOLUME 98.4 fl (83.0-99.0); MEAN PLATELET VOLUME 9.5 fl (9.4-12.3); MONOCYTES ABSOLUTE AUTO 1.1 K/mm3 (0.0-0.8); MONOCYTES PERCENT AUTO 8.6 % (0.0-8.0); NEUTROPHILS ABSOLUTE AUTO 10.6 K/mm3 (1.8-7.7); NEUTROPHILS PERCENT AUTO 82.2 % (41.0-71.0); PLATELET COUNT,PLT 182 K/mm3 (150-400); WHITE BLOOD CELL COUNT,WBC 12.89 K/mm3 (3.9-11.3)
[2024-09-23 05:10] LABS: A/G RATIO 0.7 (1-2); ALBUMIN 2.1 g/dl (3.4-5.0); ANION GAP 22.5 (5-15); BILIRUBIN TOTAL 0.4 mg/dL (0.2-1.0); CALCIUM 8.8 mg/dL (8.5-10.1); EST CRCL DRUG DOSING (CG) 37.85 mL/min; MAGNESIUM 1.5 mg/dL (1.8-2.4); POTASSIUM,K 3.5 mEq/L (3.5-5.1); PROTEIN TOTAL,TP 5.2 g/dl (6.4-8.2)
[2024-09-23] MEDS: Levothyroxine 50 MCG Tab PO SCH (05:14)
[2024-09-23] MEDS: Magnesium Sulfate 2 GM/50 mL 2 GM in Premix Bag 1 BAG IV ONE (09:05)
[2024-09-23] MEDS ORDERED: Propofol 200 MG/20 ML SDV ONE (10:42)
[2024-09-23] MEDS ORDERED: Ketamine 200 MG/20 ML MDV ONE (10:43)
[2024-09-23] MEDS ORDERED: fentaNYL 100 MCG/2 ML SDV ONE (10:43)
[2024-09-23] MEDS ORDERED: Ondansetron 4 MG/2 ML SDV IVPUSH PRN (11:12)
[2024-09-23] MEDS ORDERED: fentaNYL 100 MCG/2 ML SDV IVPUSH PRN (11:12)
[2024-09-23] MEDS ORDERED: HYDROmorphone 0.5 MG/0.5 ML Syringe IVPUSH PRN (11:12)
[2024-09-23] MEDS ORDERED: ceFAZolin 2 GM Vial ONE (11:20)
[2024-09-23] MEDS ORDERED: ePHEDrine 50 MG/ML SDV ONE (11:59)
[2024-09-23] MEDS ORDERED: Phenylephrine 1% 10 MG/ML SDV ONE (11:59)
[2024-09-23] MEDS ORDERED: Sodium Chloride 0.9% 100 ML ONE (11:59)
[2024-09-23] MEDS ORDERED: Lactated Ringers 1,000 ML IV ONE ×2 (12:00→13:00)
[2024-09-23] MEDS ORDERED: Ondansetron 4 MG/2 ML SDV ONE (12:10)
[2024-09-23] MEDS ORDERED: Ketorolac 15 MG/ML SDV ONE (12:15)
[2024-09-23] MEDS: VANCOmycin 1 GM SDV ONE (13:05)
[2024-09-23] MEDS: Morphine 8 MG, EPINEPHrine 0.3 MG, Cefuroxime 750 MG, Ketorolac 30 MG, Sodium Chloride ... PRN (13:05)
[2024-09-23] MEDS: Tranexamic Acid 1,000 MG/10 ML Vial ONE (13:05)
[2024-09-23] MEDS: Hydroxychloroquine 200 MG Tab PO SCH (14:46)
[2024-09-23] MEDS: predniSONE 10 MG Tab PO SCH (14:46)
[2024-09-23] MEDS: Tamsulosin 0.4 MG Cap.ER PO SCH (14:46)
[2024-09-23] MEDS: Rosuvastatin 10 MG Tab PO SCH (14:47)
[2024-09-23] MEDS: Pantoprazole 40 MG Tab.CR PO SCH (14:47)
[2024-09-23] MEDS: Metoclopramide 10 MG/2 ML SDV IVPUSH ONE (14:47)
[2024-09-23] MEDS: Polyethylene Glycol 3350 Powder 17 GM Packet PO SCH (14:47)
[2024-09-23] MEDS: Naloxegol Oxalate 25 MG Tab PO SCH (14:57)
[2024-09-23] MEDS: Naloxegol Oxalate 25 MG Tab PO ONE (15:24)
[2024-09-23] MEDS: Potassium Chloride 10 MEQ in Premix Bag 1 BAG IV SCH (18:21)
[2024-09-23] MEDS: Lactated Ringers 1,000 ML IV SCH (20:08)
[2024-09-24 05:36] LABS: BASOPHILS PERCENT AUTO 0.3 % (0.0-1.0); EOSINOPHILS ABSOLUTE AUTO 0.1 K/mm3 (0.0-0.4); EOSINOPHILS PERCENT AUTO 1.8 % (0.0-6.0); HEMATOCRIT 26.9 % (37.0-47.0); HEMOGLOBIN 8.5 gm/dl (12.0-16.0); IMMATURE GRAN ABSOLUTE AUTO 0.06 K/mm3 (0.00-0.05); IMMATURE GRAN PERCENT AUTO 0.8 % (0.0-0.4); LYMPHOCYTES ABSOLUTE AUTO 0.4 K/mm3 (1.0-4.8); LYMPHOCYTES PERCENT AUTO 5.6 % (24.0-44.0); MEAN CORPUSCULAR HEMOGLOBIN 30.7 pg (28.0-32.0); MEAN CORPUSCULAR HGB CONC 31.6 g/dl (32.0-36.0); MEAN CORPUSCULAR VOLUME 97.1 fl (83.0-99.0); MEAN PLATELET VOLUME 9.8 fl (9.4-12.3); MONOCYTES ABSOLUTE AUTO 0.7 K/mm3 (0.0-0.8); MONOCYTES PERCENT AUTO 8.7 % (0.0-8.0); NEUTROPHILS ABSOLUTE AUTO 6.6 K/mm3 (1.8-7.7); NEUTROPHILS PERCENT AUTO 82.8 % (41.0-71.0); PLATELET COUNT,PLT 144 K/mm3 (150-400); RED BLOOD CELL COUNT 2.77 M/mm3 (4.10-5.30); WHITE BLOOD CELL COUNT,WBC 7.91 K/mm3 (3.9-11.3)
[2024-09-24 05:44] LABS: A/G RATIO 0.6 (1-2); ALBUMIN 1.7 g/dl (3.4-5.0); ANION GAP 18.4 (5-15); BILIRUBIN TOTAL 0.3 mg/dL (0.2-1.0); BUN/CREATININE RATIO 8.9 (14-18); CALCIUM 8.1 mg/dL (8.5-10.1); CREATININE 0.9 mg/dL (0.55-1.02); EST CRCL DRUG DOSING (CG) 40.39 mL/min; MAGNESIUM 1.5 mg/dL (1.8-2.4); PHOSPHORUS 2.3 mg/dL (2.6-4.7); POTASSIUM,K 3.4 mEq/L (3.5-5.1); PROTEIN TOTAL,TP 4.5 g/dl (6.4-8.2)
[2024-09-24] MEDS: Naloxegol Oxalate 25 MG Tab PO SCH (09:45)
[2024-09-24] MEDS ORDERED: Potassium Phosphates 30 MMOLE in Sodium Chloride 0.9% 500 ML IV SCH (12:00)
[2024-09-24] MEDS: Potassium Chloride 20 MEQ Tab.ER PO ONE (12:36)
[2024-09-24] MEDS: Magnesium Sulf/Wat 4 GM/50 mL 4 GM in Premix Bag 1 BAG IV ONE (12:38)
[2024-09-24] MEDS: Potassium Phosphates 30 MMOLE in Sodium Chloride 0.9% 500 ML IV SCH (15:21)
[2024-09-24] MEDS: Lidocaine 1% PF 2 ML SDV INJECT ONE (15:29)
[2024-09-24] MEDS: Hyaluronidase, Human Recomb. 150 Unit/ML Vial SUBCUT ONE (16:50)
[2024-09-24] MEDS: Sodium Chloride 0.9% 1,000 ML IV SCH (18:17)
[2024-09-25 05:44] LABS: ANION GAP 18.1 (5-15); BUN/CREATININE RATIO 7.5 (14-18); CALCIUM 7.5 mg/dL (8.5-10.1); CREATININE 0.8 mg/dL (0.55-1.02); EST CRCL DRUG DOSING (CG) 46.4 mL/min; MAGNESIUM 1.9 mg/dL (1.8-2.4); PHOSPHORUS 3.1 mg/dL (2.6-4.7); POTASSIUM,K 3.1 mEq/L (3.5-5.1)
[2024-09-25] MEDS: Potassium Chloride 20 MEQ Tab.ER PO ONE ×2 (12:10→16:18)
[2024-09-25] MEDS: Saccharomyces Boulardii (Probiotic) 250 MG Cap PO ONE (12:11)
[2024-09-25] MEDS: Potassium Chloride 20 MEQ in Dextrose 5% in Water 1,000 ML IV SCH (13:32)
[2024-09-25] MEDS: Enoxaparin 40 MG/0.4 ML Syringe SUBCUT ONE (13:32)
[2024-09-25] MEDS: Sennosides/Docusate Sodium 50-8.6 MG Tab PO SCH (21:30)
[2024-09-25] MEDS: traMADol 50 MG Tab PO PRN (21:32)
[2024-09-26 06:20] LABS: ANION GAP 14.3 (5-15); BUN/CREATININE RATIO 6.7 (14-18); CALCIUM 7.8 mg/dL (8.5-10.1); CREATININE 0.6 mg/dL (0.55-1.02); EST CRCL DRUG DOSING (CG) 61.59 mL/min; MAGNESIUM 1.5 mg/dL (1.8-2.4); PHOSPHORUS 2.4 mg/dL (2.6-4.7); POTASSIUM,K 3.3 mEq/L (3.5-5.1); TSH 2.465 uIU/mL (0.358-3.74)
[2024-09-26 07:40] LABS: VITAMIN D,25-HYDROXY 5.6 ng/ml (30.0-100.0)
[2024-09-26] MEDS ORDERED: hydrALAZINE 20 MG/ML SDV IVPUSH PRN (09:34)
[2024-09-26] MEDS ORDERED: Labetalol 100 MG/20 ML MDV IVPUSH PRN (09:34)
[2024-09-26] MEDS: Enoxaparin 40 MG/0.4 ML Syringe SUBCUT SCH (09:54)
[2024-09-26] MEDS: Potassium Phosphates 30 MMOLE in Sodium Chloride 0.9% 500 ML IV ONE (10:19)
[2024-09-26] MEDS: Cholecalciferol (Vitamin D3) 5,000 UNIT Cap PO SCH (10:26)
[2024-09-26] MEDS: Potassium Chloride 20 MEQ Tab.ER PO ONE (10:29)
[2024-09-26] MEDS ORDERED: LORazepam 1 MG Tab PO PRN (16:19)
[2024-09-26] MEDS: Magnesium Sulf/Wat 4 GM/50 mL 4 GM in Premix Bag 1 BAG IV ONE (16:31)
[2024-09-26] MEDS: Zolpidem 5 MG Tab PO PRN (20:23)
[2024-09-27 06:36] LABS: ANION GAP 16.6 (5-15); BUN/CREATININE RATIO 6.7 (14-18); CALCIUM 7.8 mg/dL (8.5-10.1); CREATININE 0.6 mg/dL (0.55-1.02); EST CRCL DRUG DOSING (CG) 61.81 mL/min; MAGNESIUM 1.9 mg/dL (1.8-2.4); POTASSIUM,K 3.6 mEq/L (3.5-5.1)
[2024-09-27] MEDS: Sennosides/Docusate Sodium 50-8.6 MG Tab PO SCH (08:51)
[2024-09-27] MEDS: Potassium Chloride 20 MEQ Tab.ER PO ONE ×2 (09:43→10:10)
[2024-09-27] MEDS: Magnesium Sulfat/D5W 1GM/100ML 1 GM in Premix Bag 1 BAG IV ONE (09:43)
[2024-09-27] MEDS: Benzocaine/Cetylpyridinium/Menthol Lozenge MUCMEM PRN (09:46)
[2024-09-27] MEDS: Ibuprofen 400 MG Tab PO ONE (13:25)
[2024-09-27] MEDS: cefTRIAXone 2 GM, Lidocaine 1% 4.2 ML IM ONE (13:27)
[2024-09-27 13:50] VITALS: BP 136/72; PULSE 78
== END 2024-09-27 13:30 | DRG 522 ==
LOC: JD.ED 08:20 → JD.ICU 12:22 → UNDOADMIN 12:22 → JD.ICU 14:05 → JD.MS 09-23 16:17
PROVIDERS: ADMIT Family Medicine; ATTEND Student in an Organized Health Care Education/Training Program
PROC: 0SRS0JZ Replacement of Left Hip Joint, Femoral Surface with Synthetic Substitute, Open Approach (ICD-10-PCS; 2024-09-23)
PROC: 05HB33Z Insertion of Infusion Device into Right Basilic Vein, Percutaneous Approach (ICD-10-PCS; principal; 2024-09-24)
DX: S72.002A Fracture of unspecified part of neck of left femur, initial encounter for closed fracture (principal); N17.9 Acute kidney failure, unspecified; I50.32 Chronic diastolic (congestive) heart failure; I48.91 Unspecified atrial fibrillation; H54.7 Unspecified visual loss; S01.01XA Laceration without foreign body of scalp, initial encounter; K59.00 Constipation, unspecified; Z66 Do not resuscitate; E78.00 Pure hypercholesterolemia, unspecified; M81.0 Age-related osteoporosis without current pathological fracture; E86.0 Dehydration; Y92.009 Unspecified place in unspecified non-institutional (private) residence as the place of occurrence of the external cause; K52.89 Other specified noninfective gastroenteritis and colitis; K29.80 Duodenitis without bleeding; I11.0 Hypertensive heart disease with heart failure; M05.79 Rheumatoid arthritis with rheumatoid factor of multiple sites without organ or systems involvement; E87.6 Hypokalemia; E83.42 Hypomagnesemia; F15.90 Other stimulant use, unspecified, uncomplicated; K76.0 Fatty (change of) liver, not elsewhere classified; E83.39 Other disorders of phosphorus metabolism; G62.9 Polyneuropathy, unspecified; E03.9 Hypothyroidism, unspecified; Z86.16 Personal history of COVID-19; Z98.49 Cataract extraction status, unspecified eye; Z90.49 Acquired absence of other specified parts of digestive tract; Z98.890 Other specified postprocedural states; Z87.01 Personal history of pneumonia (recurrent); Z79.899 Other long term (current) drug therapy; Z79.890 Hormone replacement therapy; Z79.52 Long term (current) use of systemic steroids; Z79.891 Long term (current) use of opiate analgesic; Z87.442 Personal history of urinary calculi; Z87.19 Personal history of other diseases of the digestive system; W19.XXXA Unspecified fall, initial encounter; Y92.89 Other specified places as the place of occurrence of the external cause
CPT/HCPCS: 36415; 70450; 73502; 80053; 83735; 85025; 93005; 96361; 96374; 99284; J7030; 01230; 36410; 73501-26-LT; 73501-LT; 74019; 74019-26; 74177; 74177-26; 80048; 81001; 82306; 83605; 84100; 84443; 85610; 85730; 87086; 87641; 93010; 94760; 94761; 97110-GP; 97162-GP; 97166-GO; 97530-GO; 97530-GP; 99100; 99223; 99232; 99233; 99239; 99285; A9270-GY; C1776; J0171; J0690; J0696; J0697; J1650; J1836; J1885; J2003; J2272; J2371; J2405; J2470; J2704; J3010; J3475; J3480; J3490; J7040; J7070; J7120; J7512